=== PATIENT | female | born 1995 | race Caucasian/White ===

== ENCOUNTER 2020-06-28 12:12 | Emergency (ER) | payer OTHER, SELFPAY ==
[2020-06-28 14:41] VITALS: BP 113/68; PULSE 60; RESP 16; TEMP 36.8; O2SAT 100; BMI 28.1
--- NOTE | 2020-06-28 14:47 | CT_ITS ---
EXAMINATION: CT ABDOMEN AND PELVIS WITH CONTRAST CLINICAL INFORMATION: Right-sided abdominal pain COMPARISON: CT abdomen pelvis 01/24/2020 TECHNIQUE: Multidetector volumetric images were obtained from the superior aspect of the liver through the pubic symphysis following administration 85 mL of Omnipaque 350 intravenous contrast. Sagittal and coronal reformatted images were obtained on the technologist's workstation. Oral contrast: No This CT examination was performed using dose optimization techniques as appropriate, variously including the following: *Automated exposure control *Adjustment of mA and/or kV according to patient size (this includes techniques or standardized protocols for targeted exams where dose is matched to indication/reason for exam; i.e. extremities or head) *Use of iterative reconstruction technique DLP: 633 mGy-cm FINDINGS: Visualized lung bases are well aerated. The liver demonstrates normal size, contour and attenuation. The gallbladder is surgically absent. The pancreas, spleen and adrenal glands are unremarkable. Symmetrically enhancing kidneys. 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 No hydronephrosis bilaterally. Extrarenal pelvis sees noted. Tiny hiatal hernia. Surgical changes consistent with gastric bypass. Normal caliber loops of small and large bowel. Mild stool burden throughout the colon. The appendix is not definitively visualized, however, there is no inflammatory stranding present within the right lower abdomen. Nonaneurysmal abdominal aorta. The bladder is well-distended and normal in appearance. Unremarkable CT appearance of the uterus. Tiny amount of free pelvic fluid is likely physiologic. No inguinal lymphadenopathy. No acute osseous abnormality. IMPRESSION: Stable examination demonstrating no CT evidence for acute abnormality within the abdomen or pelvis.
[2020-06-28] MEDS: 0.9 % Sodium Chloride 1,000 ML 999 ML IVCONT (15:23)
[2020-06-28] MEDS: Magnesium Hydrox/Alum Hydrox 30 ML ORAL.SUSP PO (15:23)
[2020-06-28] MEDS: Lidocaine HCl Viscous 2 % 15 ML SOLUTION 10 ML MUCOUS MEM (15:23)
[2020-06-28] MEDS: ondansetron HCL 4 MG/2 ML VIAL IVPUSH ×2 (15:23→17:48)
[2020-06-28 15:38] LABS: MANUAL DIFF FLAG NO
[2020-06-28 15:41] LABS: Basophils Absolute Auto 0.1 X10*3/uL (0.0-0.2); Basophils Percent Auto 0.7 % (0-2); Eosinophils Absolute Auto 0.3 X10*3/uL (0.0-0.4); Eosinophils Percent Auto 3.4 % (0-4); Hematocrit 38.6 % (37-47); Hemoglobin 11.9 g/dl (12.0-16.0); Imm Gran Abs Auto 0.02 X10*3/uL (0.00-0.03); Imm Gran Pct Auto 0.3 % (0.0-0.4); Lymphocytes Absolute Auto 2.3 X10*3/uL (1.2-4.9); Lymphocytes Percent Auto 30.5 % (20-40); Mean Corpuscular HGB Conc 30.8 g/dl (31.0-35.0); Mean Corpuscular Hemoglobin 24.9 pg (27.0-33.0); Mean Corpuscular Volume 80.9 fL (80-98); Mean Platelet Volume 9.9 fL (9.4-12.3); Monocytes Absolute Auto 0.7 X10*3/uL (0.1-1.2); Monocytes Percent Auto 9.4 % (2-11); Neutrophils Absolute Auto 4.1 X10*3/uL (2.0-8.3); Neutrophils Percent Auto 55.7 % (45-73); Platelet Count 275 X10*3/uL (160-400); Red Blood Count 4.77 X10*6/uL (4.20-5.50); Red Cell Distribution Width 16.5 % (11.0-16.0); White Blood Count 7.4 X10*3/uL (4.8-10.8)
[2020-06-28 15:42] LABS: Glucose Urine UA NEG (NEG); Leukocyte Esterase Urine NEG (NEG); Nitrite Urine NEG (NEG); PH 6.5 (5.0-8.0); Specific Gravity - Urine 1.025 (1.005-1.025); Urine Blood NEG (NEG); Urine Ketones NEG (NEG); Urine Protein NEG (NEG-TRACE)
[2020-06-28 15:43] LABS: Appearance Urine CLEAR; Color Urine YELLOW
[2020-06-28 15:54] LABS: RBC Urine 0 /HPF (0); Squamous Epithelial Cell Urine 1+ /LPF; WBC Urine 0 /HPF (0-4)
[2020-06-28 16:09] VITALS: BP 96/43; PULSE 61; RESP 18; TEMP 36.7; O2SAT 100
[2020-06-28 16:13] LABS: UPreg QC Valid YES; Urine Pregnancy NEGATIVE (NEGATIVE)
--- NOTE | 2020-06-28 16:17 | PC.NURSE ---
PT TRIAGED C/O R SIDED FLANK PAIN X 5 DAYS WITH VOMITING AND NAUSEA. PAIN SHARP AND CONSTANT 8/10. DENIES HX KIDNEY STONES, DENIES URINARY SXS, FEVERSCHILLS. VS WNL. HX GASTRIC BYPASS, CHOLECYSTECTOMY IN PAST 2 YRS. A&OX3, SPEAKING IN CLEAR FULL SENTENCES. RESP EVEN AND NONLABOURED. 20G PLACED IN L AC, FLUIDS RUNNING.
[2020-06-28 16:28] LABS: Alanine Aminotransferase 10 U/L (0-31); Albumin Level 3.7 g/dL (3.5-5.0); Alkaline Phosphatase 84 U/L (39-117); Anion Gap 12 (12-20); Aspartate Amino Transferase 15 U/L (5-31); Bilirubin Total 0.5 mg/dL (0.0-1.0); Blood Urea Nitrogen 11 mg/dL (9-16); Calcium 8.2 mg/dL (8.4-10.2); Carbon Dioxide 23 mmol/L (22-29); Chloride 108 mmol/L (96-108); Creatinine Clr Calc Pharmacy 142.3; Estimated Glomerular Filt Rate > 60; Glucose Random 84 mg/dL (60-115); Lipase 24 U/L (8-78); Potassium 4.6 mmol/l (3.3-5.1); Sodium 138 mmol/L (135-145)
[2020-06-28] MEDS: iohexoL 350 MG/ML 100 ML INFUS..BTL IV (17:07)
--- NOTE | 2020-06-28 18:01 | ED_ITS ---
HPI - Abdominal Pain General Chief Complaint: Nausea/Vomiting/Diarrhea Stated Complaint: pain rt side,vomiting Time Seen by Provider: 06/28/20 14:45 Source: patient Mode of arrival: ambulatory Limitations: no limitations History of Present Illness HPI narrative: 24-year-old female with past medical history significant for gastroesophageal reflux disease, sleep apnea, asthma, chronic migraine headaches, chronic back pain, hiatal hernia status post repair as well as obesity status post cholecystectomy and gastric bypass 02/13/2017, at that time she has told me that she wait over 300 lb now down to 170s presenting today with complaint of right-sided abdominal pain with associated nausea and vomiting states she chronically has irregular bowel movements and states pain has been waxing waning but continued prompting her to call her GP who advised her to come here. She denies any travel, sick contacts, recent antibiotic use. MD elicited complaint: abdominal pain Onset (ago): day(s) Pain Consistency: constant Location: diffuse ( Diffuse right-sided) Severity: moderate Quality: cramping and aching Migration to: no migration Exacerbating factors: eating Relieving factors: nothing Associated symptoms: nausea and vomiting Related Data Previous Rx's Medication Instructions Recorded dicyclomine 20 mg PO BID PRN #20 tab 06/28/20 ondansetron HCl [Zofran] 4 mg PO Q8H PRN #10 tab 06/28/20 Allergies Allergy/AdvReac Type Severity Reaction Status Date / Time carrot [CARROTS] Allergy Intermediate SWELLING Unverified 06/01/20 16:31 cat dander [CATS] Allergy Intermediate ITCHING Unverified 06/01/20 16:31 insect venom [INSECT BITES] Allergy Intermediate HIVES Unverified 06/01/20 16:31 Carrots Allergy Unknown Swelling Uncoded 11/16/19 00:00 of throat, & mouth pt denies medication Allergy Unknown Uncoded 11/16/19 00:00 allergies Review of Systems Review of Systems Constitutional: No Weight loss, No Fever, No Chills, No Night Sweats, No Fatigue, No Malaise ENT/Mouth: No Hearing loss, No Ear Pain, No Nasal Congestion, No Sinus Pain, No Hoarseness, No sore throat, No Rhinorrhea, No Swallowing Difficulty Eyes: No Eye Pain, No Swelling, No Redness, No Foreign Body, No Discharge, No Vision Changes Cardiovascular: No Chest Pain, No SOB, No Dyspnea on Exertion, No Orthopnea, No Edema, No Palpitations Respiratory: No Cough, No Sputum, No Wheezing, No Smoke Exposure, No Dyspnea Gastrointestinal: + Nausea, No Diarrhea, No Constipation, No Hematochezia, No Melena Genitourinary: no irregular bleeding, No Dysuria, No Urinary Frequency, No Hematuria, No Urinary Incontinence, No Urgency, No Flank Pain, No Urinary Flow Changes, No Hesitancy Musculoskeletal: No joint pain, No Myalgias, No Joint Swelling Skin: No Skin Lesions, No rash Neuro: No Weakness, No Numbness, No Paresthesias, No Loss of Consciousness, No Dizziness, No Headache Psych: No Anxiety/Panic, No Depression, No SI/HI/AH/VH, No Social Issues, Heme/Lymph: No Bruising, No Bleeding,No Lymphadenopathy Endocrine: No Polyuria, No Polydipsia, No Temperature Intolerance Yes all other systems are reviewed and are negative Physical Exam Vital Signs: Vital Signs: Vital Signs Temp Pulse Resp BP Pulse Ox 06/28/20 16:09 98.1 F 61 18 96/43 L 100 06/28/20 14:41 98.2 F 60 16 113/68 100 Body Mass Index 28.1 Review Const: General: cooperative and healthy appearing; No acute distress or intoxicated appearing Nutritional Appearance: average body habitus Orientation/consciousness: patient oriented x3 HENMT: Head: Yes normal to inspection Ears: hearing grossly normal bilaterally Eyes: General: appearance normal, both eyes and all related structures Visual Lorenzo: normal visual lorenzo by confrontation Neck: Neck: Yes normal visual inspection and No tender Thyroid: Thyroid normal Chest: Chest palpation & inspection: normal inspection of the chest Resp: Effort & Inspection: normal respiratory effort Cardio: Jugular venous distension: no JVD GI: Inspection: Yes normal to inspection Percussion: Yes normal to percussion Auscultation: normal bowel sounds : General: Yes no CVA tenderness Back/Spine/Pelvis: Back: no CVA tenderness Skin: General skin exam: no rashes or lesions noted Neuro: General: patient oriented x3 Extrem: General: Yes normal to inspection Course Course Course Narrative: labs overall reassuring. Given the chronicity of pain risk and benefits of getting abdominal CT scan to rule out acute pathology reviewed with patient in detail. Given the stable exam and workup less likely any serious derangement however given her extensive surgical / bariatric history possibility rest she would like to go ahead and proceed with the imaging. Reevaluation(s) Reevaluation #1: Has been resting comfortably. No acute distress. Lab findings as well as CT findings reviewed. We will discharge home with Robi with instructions to follow-up with pediatrics and primary care. Stable for discharge. MDM - Abdominal Pain Differential Diagnosis Differential diagnosis: Likely abdominal pain, acute appendicitis, gastroenteritis and gastritis; Unlikely aortic dissection, bowel perforation, calculus of kidney, constipation, diverticulitis, endometriosis, mesenteric ischemia, ovarian cyst, pancreatitis, peptic ulcer disease, renal colic and small bowel obstruction Medical Records Attestation: I reviewed the patient's medical records. Medical records narrative: colonoscopy by Dr. Sofya ALVAREZ 12/02/2019 Findings: Terminal Ileum ? Normal, bx taken Cecum ?Normal Ascending Colon ?Normal Transverse Colon -Normal Descending Colon ?Normal Sigmoid Colon ?Normal Rectum ? small internal hemorrhoids, grade I on retroflexion, otherwise normal Anorectum -Normal random colon bx taken Colon preparation: Good Impression and Post Procedure Diagnosis: Endoscopy Findings: retained sutures irregular z line Colonoscopy Findings: internal hemorrhoids Lab Data Attestation: I reviewed the patient's lab results. Result diagrams: 06/28/20 15:22 06/28/20 15:22 Labs: Lab Results 06/28/20 06/28/20 06/28/20 Range/Units 15:22 15:22 15:22 WBC 7.4 (4.8-10.8) X10*3/uL RBC 4.77 (4.20-5.50) X10*6/uL Hgb 11.9 L (12.0-16.0) g/dl Hct 38.6 (37-47) % MCV 80.9 (80-98) fL MCH 24.9 L (27.0-33.0) pg MCHC 30.8 L (31.0-35.0) g/dl RDW 16.5 H (11.0-16.0) % Plt Count 275 (160-400) X10*3/uL MPV 9.9 (9.4-12.3) fL Immature Gran % (Auto) 0.3 (0.0-0.4) % Neut % (Auto) 55.7 (45-73) % Lymph % (Auto) 30.5 (20-40) % [place] % (Auto) 9.4 (2-11) % Eos % (Auto) 3.4 (0-4) % Baso % (Auto) 0.7 (0-2) % Lymph # (Auto) 2.3 (1.2-4.9) X10*3/uL [place] # (Auto) 0.7 (0.1-1.2) X10*3/uL Eos # (Auto) 0.3 (0.0-0.4) X10*3/uL Baso # (Auto) 0.1 (0.0-0.2) X10*3/uL Abs Immat Gran (auto) 0.02 (0.00-0.03) X10*3/uL Absolute Neuts (auto) 4.1 (2.0-8.3) X10*3/uL Absolute Nucleated RBC 0.000 (0.0-0.012) X10*3/uL Nucleated RBC % (auto) 0.0 (0.0-0.2) /100WBC Hold Blue Top SEE NOTE Sodium (135-145) mmol/L Potassium (3.3-5.1) mmol/l Chloride (96-108) mmol/L Carbon Dioxide (22-29) mmol/L Anion Gap (12-20) BUN (9-16) mg/dL Creatinine (0.5-1.4) mg/dL Estim Creat Clear Calc Estimated GFR Random Glucose (60-115) mg/dL Calcium (8.4-10.2) mg/dL Total Bilirubin (0.0-1.0) mg/dL AST (5-31) U/L ALT (0-31) U/L Alkaline Phosphatase (39-117) U/L Total Protein (6.5-8.0) g/dL Albumin (3.5-5.0) g/dL Lipase (8-78) U/L Urine Color YELLOW Urine Appearance CLEAR Urine pH 6.5 (5.0-8.0) Ur Specific [place] 1.025 (1.005-1.025) Urine Protein NEG (NEG-TRACE) MG/DL Urine Glucose (UA) NEG (NEG) MG/DL Urine Ketones NEG (NEG) MG/DL Urine Blood NEG (NEG) Urine Nitrite NEG (NEG) Ur Leukocyte Esterase NEG (NEG) Urine RBC 0 (0) /HPF Urine WBC 0 (0-4) /HPF Ur Squamous Epith Cells 1+ /LPF Urine Bacteria NONE /LPF Urine Test NEGATIVE (NEGATIVE) 06/28/20 Range/Units 15:22 WBC (4.8-10.8) X10*3/uL RBC (4.20-5.50) X10*6/uL Hgb (12.0-16.0) g/dl Hct (37-47) % MCV (80-98) fL MCH (27.0-33.0) pg MCHC (31.0-35.0) g/dl RDW (11.0-16.0) % Plt Count (160-400) X10*3/uL MPV (9.4-12.3) fL Immature Gran % (Auto) (0.0-0.4) % Neut % (Auto) (45-73) % Lymph % (Auto) (20-40) % [place] % (Auto) (2-11) % Eos % (Auto) (0-4) % Baso % (Auto) (0-2) % Lymph # (Auto) (1.2-4.9) X10*3/uL [place] # (Auto) (0.1-1.2) X10*3/uL Eos # (Auto) (0.0-0.4) X10*3/uL Baso # (Auto) (0.0-0.2) X10*3/uL Abs Immat Gran (auto) (0.00-0.03) X10*3/uL Absolute Neuts (auto) (2.0-8.3) X10*3/uL Absolute Nucleated RBC (0.0-0.012) X10*3/uL Nucleated RBC % (auto) (0.0-0.2) /100WBC Hold Blue Top Sodium 138 (135-145) mmol/L Potassium 4.6 (3.3-5.1) mmol/l Chloride 108 (96-108) mmol/L Carbon Dioxide 23 (22-29) mmol/L Anion Gap 12 (12-20) BUN 11 (9-16) mg/dL Creatinine 0.67 (0.5-1.4) mg/dL Estim Creat Clear Calc 142.3 Estimated GFR > 60 Random Glucose 84 (60-115) mg/dL Calcium 8.2 L (8.4-10.2) mg/dL Total Bilirubin 0.5 (0.0-1.0) mg/dL AST 15 (5-31) U/L ALT 10 (0-31) U/L Alkaline Phosphatase 84 (39-117) U/L Total Protein 6.0 L (6.5-8.0) g/dL Albumin 3.7 (3.5-5.0) g/dL Lipase 24 (8-78) U/L Urine Color Urine Appearance Urine pH (5.0-8.0) Ur Specific [place] (1.005-1.025) Urine Protein (NEG-TRACE) MG/DL Urine Glucose (UA) (NEG) MG/DL Urine Ketones (NEG) MG/DL Urine Blood (NEG) Urine Nitrite (NEG) Ur Leukocyte Esterase (NEG) Urine RBC (0) /HPF Urine WBC (0-4) /HPF Ur Squamous Epith Cells /LPF Urine Bacteria /LPF Urine Test (NEGATIVE) Imaging Data CT scan - abdomen: Radiologist's impression: [place] [id number] CT Scan Report Signed Patient: Evelyne Lazaro#: [id number] : 1995Acct:[id number] Age/Sex: 24 / FADM Date: 06/28/20 Loc: .ED Attending Dr: Ordering Physician: Anirudh Yan NP Date of Service: 06/28/20 Procedure(s): CT abdomen pelvis w con Accession Number(s): [id number] cc: Anirudh Yan [employer]~ EXAMINATION: CT ABDOMEN AND PELVIS WITH CONTRAST CLINICAL INFORMATION: Right-sided abdominal pain COMPARISON: CT abdomen pelvis 01/24/2020 TECHNIQUE: Multidetector volumetric images were obtained from the superior aspect of the liver through the pubic symphysis following administration 85 mL of Omnipaque 350 intravenous contrast. Sagittal and coronal reformatted images were obtained on the technologist's workstation. Oral contrast: No This CT examination was performed using dose optimization techniques as appropriate, variously including the following: *Automated exposure control *Adjustment of mA and/or kV according to patient size (this includes techniques or standardized protocols for targeted exams where dose is matched to indication/reason for exam; i.e. extremities or head) *Use of iterative reconstruction technique DLP: 633 mGy-cm FINDINGS: Visualized lung bases are well aerated. The liver demonstrates normal size, contour and attenuation. The gallbladder is surgically absent. The pancreas, spleen and adrenal glands are unremarkable. Symmetrically enhancing kidneys. 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 No hydronephrosis bilaterally. Extrarenal pelvis sees noted. Tiny hiatal hernia. Surgical changes consistent with gastric bypass. Normal caliber loops of small and large bowel. Mild stool burden throughout the colon. The appendix is not definitively visualized, however, there is no inflammatory stranding present within the right lower abdomen. Nonaneurysmal abdominal aorta. The bladder is well-distended and normal in appearance. Unremarkable CT appearance of the uterus. Tiny amount of free pelvic fluid is likely physiologic. No inguinal lymphadenopathy. No acute osseous abnormality. IMPRESSION: Stable examination demonstrating no CT evidence for acute abnormality within the abdomen or pelvis. Dictated By:JOHSUA TORRE MD Signed By:<Electronically signed by JOSHUA TORRE MD in OV>06/28/20 1724 DD/ 1447 TD/TT: Chemical Dependency Therapist: PD Discharge Plan Discharge Clinical Impression: Abdominal pain Qualifiers: Abdominal location: unspecified location Qualified Code(s): R10.9 - Unspecified abdominal pain Patient Disposition: Home, Self-Care Instructions: Abdominal Pain (ED) Prescriptions: New ondansetron HCl [Zofran] 4 mg tablet 4 mg PO Q8H PRN (Reason: nausea and vomiting) Qty: 10 RF: 0 dicyclomine 20 mg tablet 20 mg PO BID PRN (Reason: abdominal pain) Qty: 20 RF: 0 Referrals: Marita Toledo MD [Primary Care Provider] - 2 days Stand Alone Forms: Work/School Release [facility] Past Medical History Attestation statement: The following information was validated with the patient. Medical History (Updated 06/28/20 @ 18:08 by Anirudh Yan NP) Asthma Bile duct abnormality Cholecystectomy planned Sleep apnea Surgical History (Updated 06/28/20 @ 14:47 by Mona Simmons RN) Gastric bypass status for obesity Social History Social History Advance Directives: No Advance Directives Information Provided: No
[2020-06-28 18:36] VITALS: BP 102/57; PULSE 55; RESP 18; TEMP 37.1; O2SAT 100
== END 2020-06-28 19:14 | disposition home or self-care (01) ==
PROVIDERS: Nurse Practitioner Primary Care; Emergency Provider Emergency Medicine; PCP Internal Medicine
DX: R10.9 Unspecified abdominal pain (principal); Z79.899 Other long term (current) drug therapy
CPT/HCPCS: 36415; 74177; 80053; 81001; 81025; 83690; 85025; 96361; 96374; 96376; 99283; 99284; J2405

== ENCOUNTER 2020-07-04 11:40 | Outpatient (REF) | payer OTHER, SELFPAY | END 2020-07-04 11:41 | disposition home or self-care (01) | LOC: HO.LAB 11:40 | PROVIDERS: PCP Internal Medicine; Visit Provider Internal Medicine | DX: Z20.828 Contact with and (suspected) exposure to other viral communicable diseases (principal) | CPT/HCPCS: 87635 ==

== ENCOUNTER 2020-08-11 23:22 | Observation (INO) | payer OTHER, SELFPAY ==
[2020-08-11 23:33] VITALS: BP 124/75; PULSE 90; RESP 18; TEMP 36.2; O2SAT 100; BMI 29.0
[2020-08-11 23:39] VITALS: BP 124/75; RESP 89; TEMP 36.2; O2SAT 100
[2020-08-12] VITALS (9 sets, daily range): BP systolic 100–115; BP diastolic 47–67; PULSE 60–80; RESP 16–19; TEMP 36.1–37.1; O2SAT 96–100
--- NOTE | 2020-08-12 00:20 | CT_ITS ---
EXAMINATION: CT ABDOMEN AND PELVIS WITH CONTRAST CLINICAL INFORMATION: Left abdominal pain. History of gastric bypass. COMPARISON: 06/28/2020 TECHNIQUE: Multidetector volumetric images were obtained from the superior aspect of the liver through the pubic symphysis following administration 85 mL of Omnipaque 350 intravenous contrast. Sagittal and coronal reformatted images were obtained on the technologist's workstation. Oral contrast: No This CT examination was performed using dose optimization techniques as appropriate, variously including the following: *Automated exposure control *Adjustment of mA and/or kV according to patient size (this includes techniques or standardized protocols for targeted exams where dose is matched to indication/reason for exam; i.e. extremities or head) *Use of iterative reconstruction technique DLP: 647 mGy-cm FINDINGS: LUNG BASES: The visualized lung bases are unremarkable. LIVER, GALLBLADDER, AND BILIARY TREE: The liver is normal in size, shape, and attenuation. No focal hepatic lesion or biliary ductal dilatation is present. Cholecystectomy. PANCREAS: Unremarkable. SPLEEN: Unremarkable. ADRENAL GLANDS: Unremarkable. KIDNEYS AND URETERS: The kidneys are normal in size, shape, and attenuation. Rotated right kidney, unchanged. No hydronephrosis, hydroureter, or calculi seen. No perinephric stranding. BLADDER: Unremarkable. GASTROINTESTINAL TRACT: Status post gastric bypass. No dilated loops of bowel. No obstruction. No colonic wall thickening or acute inflammation. Mild to moderate colonic stool burden. No free air. No free fluid. ABDOMINAL WALL: No significant hernia is appreciated. LYMPH NODES: Normal. VASCULAR: Unremarkable. PELVIC VISCERA: Anteverted uterus. Dominant right ovarian follicle measuring 1.7 cm.. OSSEOUS STRUCTURES: Unremarkable. CT/CT abdomen pelvis w con IMPRESSION: No acute findings of the abdomen or pelvis. No inflammatory changes. Mild to moderate colonic stool burden..
[2020-08-12 00:22] LABS: Appearance Urine CLEAR; Color Urine YELLOW; Glucose Urine UA 100 MG/DL (NEG); Leukocyte Esterase Urine TRACE (NEG); Nitrite Urine NEG (NEG); Urine Blood NEG (NEG); Urine Ketones NEG (NEG); Urine Protein NEG (NEG-TRACE)
[2020-08-12 00:24] LABS: UPreg QC Valid YES; Urine Pregnancy NEGATIVE (NEGATIVE)
[2020-08-12 00:28] LABS: Bacteria Urine 1+ /LPF; Mucus Urine 1+ /LPF; RBC Urine 0 /HPF (0); Squamous Epithelial Cell Urine 2+ /LPF
--- NOTE | 2020-08-12 00:29 | ED_ITS ---
HPI - General Adult General Chief complaint: General Medical Stated complaint: Abd pain Time Seen by Provider: 08/12/20 00:13 Source: patient Mode of arrival: wheelchair Limitations: no limitations History of Present Illness HPI narrative: Patient is a 24 year female with past surgical history of gastric bypass in 2017, laparoscopic cholecystectomy, and bile duct repair. Patient comes to the emergency room complaining left-sided abdominal pain. Patient states it started a few minutes after eating Dutch fries around 2230. Patient states is dull, severe, 06/24. Patient states she was seen in June for abd ominal pain, however the pain was on the right side. This time the patient is only on the left side. Patient complaining of multiple episodes of vomiting in the last couple of hours, no diarrhea. MD complaint: Abdominal pain Related Data Allergies Allergy/AdvReac Type Severity Reaction Status Date / Time carrot [CARROTS] Allergy Intermediate SWELLING Verified 08/11/20 23:32 cat dander [CATS] Allergy Intermediate ITCHING Verified 08/11/20 23:32 insect venom [INSECT BITES] Allergy Intermediate HIVES Verified 08/11/20 23:32 Carrots Allergy Unknown Swelling Uncoded 11/16/19 00:00 of throat, & mouth Review of Systems Review of Systems: Constitutional : No Weight loss, No Fever, No Chills, No Night Sweats, No Fatigue, No Malaise ENT/Mouth : No Hearing loss, No Ear Pain, No Nasal Congestion, No Sinus Pain, No Hoarseness, No sore throat, No Rhinorrhea, No Swallowing Difficulty Eyes: No Eye Pain, No Swelling, No Redness, No Foreign Body, No Discharge, No Vision Changes Cardiovascular : No Chest Pain, No SOB, No Dyspnea on Exertion, No Orthopnea, No Edema, No Palpitations Respiratory : No Cough, No Sputum, No Wheezing, No Smoke Exposure, No Dyspnea Gastrointestinal : Patient complaining of nausea and vomiting, severe left upper and lower quadrant pain, no diarrhea No Hematochezia, No Melena Genitourinary : no irregular bleeding, No Dysuria, No Urinary Frequency, No Hematuria, No Urinary Incontinence, No Urgency, No Flank Pain, No Urinary Flow Changes, No Hesitancy Musculoskeletal : No joint pain, No Myalgias, No Joint Swelling Skin : No Skin Lesions, No rash Neuro : No Weakness, No Numbness, No Paresthesias, No Loss of Consciousness, complaining of mild dizziness with the pain Psych : No Anxiety/Panic, No Depression, No SI/HI/AH/VH, No Social Issues, Heme/Lymph: No Bruising, No Bleeding,No Lymphadenopathy Endocrine : No Polyuria, No Polydipsia, No Temperature Intolerance PMFSH Past Medical History Medical History Asthma Bile duct abnormality Cholecystectomy planned Sleep apnea Surgical History Gastric bypass status for obesity Hx of cholecystectomy Family History Family History (Updated 07/13/20 @ 13:54 by RUFINO Siddiqui) Father Obesity Diabetes mellitus Mother Obesity Arthritis of knee Paternal Grandfather Diabetes mellitus Paternal Grandmother Diabetes mellitus Maternal Grandmother Arthritis of knee Diabetes mellitus Maternal Grandfather Diabetes mellitus Social History Social History (Updated 07/13/20 @ 13:55 by RUFINO Siddiqui) Alcohol intake: never Smoking Status: Never smoker Smoked in Last 30 Days: No Use of substances other than those prescribed or required for medical reasons: No Advance Directives: No Advance Directives Information Provided: No Physical Exam Vital Signs: Vital Signs: Last Vital Signs Temp 97.8 F 08/12/20 02:00 Pulse 74 08/12/20 02:00 Resp 16 08/12/20 02:00 BP 104/51 L 08/12/20 02:00 Pulse Ox 100 08/12/20 02:00 Body Mass Index 29.0 Appearance: Alert. Oriented X3. Moderate distress due to pain, lying in position Eyes: Pupils equal, round and reactive to light. ENT: Pharynx normal. Neck: Normal inspection. Neck supple. No lymph nodes noted. No crepitus CVS: Normal heart rate and rhythm. Pulses normal. Normal S1 and S2 Respiratory: No respiratory distress. Breath sounds normal. No Wheezing. No rales Abdomen: Soft, tender to palpation in the left upper and lower quadrant, no guarding, no rebound Skin: Skin warm and dry. Normal skin color. Normal skin turgor. Extremities: No lower extremity edema. No lower extremity edema. No Lacerations. No Rash Neuro: Oriented X 3. No motor deficit. No sensory deficit. Moving all extermities. No slurred speech. Course Course Course Narrative: Patient's labs and CT scan do not show any acute pathology, CT scan does show moderate stool burden. Patient states that she feels just the same as when she 1st came to the emergency room. However, physically the patient looks better. When patient came to the emergency room she was in position due to the pain, now she was able to walk to the bathroom, did not seem in pain. I discussed the patient with nurse practitioner Amy Maldonado, she wants to run the patient by Dr. Desai due to the patient's past surgical history. Sign-out given to Dr. Lebron, patient's disposition is pending. Medical Decision Making Lab Data Result diagrams: 08/12/20 00:43 08/12/20 00:43 Labs: Lab Results 08/12/20 08/12/20 08/12/20 Range/Units 00:06 00:06 00:43 WBC 9.8 (4.8-10.8) X10*3/uL RBC 4.57 (4.20-5.50) X10*6/uL Hgb 11.6 L (12.0-16.0) g/dl Hct 37.7 (37-47) % MCV 82.5 (80-98) fL MCH 25.4 L (27.0-33.0) pg MCHC 30.8 L (31.0-35.0) g/dl RDW 14.6 (11.0-16.0) % Plt Count 280 (160-400) X10*3/uL MPV 9.7 (9.4-12.3) fL Immature Gran % (Auto) 0.2 (0.0-0.4) % Neut % (Auto) 65.8 (45-73) % Lymph % (Auto) 21.9 (20-40) % [place] % (Auto) 10.0 (2-11) % Eos % (Auto) 1.4 (0-4) % Baso % (Auto) 0.7 (0-2) % Lymph # (Auto) 2.2 (1.2-4.9) X10*3/uL [place] # (Auto) 1.0 (0.1-1.2) X10*3/uL Eos # (Auto) 0.1 (0.0-0.4) X10*3/uL Baso # (Auto) 0.1 (0.0-0.2) X10*3/uL Abs Immat Gran (auto) 0.02 (0.00-0.03) X10*3/uL Absolute Neuts (auto) 6.5 (2.0-8.3) X10*3/uL Absolute Nucleated RBC 0.000 (0.0-0.012) X10*3/uL Nucleated RBC % (auto) 0.0 (0.0-0.2) /100WBC Sodium (135-145) mmol/L Potassium (3.3-5.1) mmol/l Chloride (96-108) mmol/L Carbon Dioxide (22-29) mmol/L Anion Gap (12-20) BUN (9-16) mg/dL Creatinine (0.5-1.4) mg/dL Estim Creat Clear Calc Estimated GFR Random Glucose (60-115) mg/dL Calcium (8.4-10.2) mg/dL Total Bilirubin (0.0-1.0) mg/dL Direct Bilirubin (0.0-0.5) mg/dL AST (5-31) U/L ALT (0-31) U/L Alkaline Phosphatase (39-117) U/L Total Protein (6.5-8.0) g/dL Albumin (3.5-5.0) g/dL Lipase (8-78) U/L Beta HCG, Quant mIU/mL Urine Color YELLOW Urine Appearance CLEAR Urine pH 6.0 (5.0-8.0) Ur Specific [place] 1.020 (1.005-1.025) Urine Protein NEG (NEG-TRACE) MG/DL Urine Glucose (UA) 100 H (NEG) MG/DL Urine Ketones NEG (NEG) MG/DL Urine Blood NEG (NEG) Urine Nitrite NEG (NEG) Ur Leukocyte Esterase TRACE H (NEG) Urine RBC 0 (0) /HPF Urine WBC 5-9 H (0-4) /HPF Ur Squamous Epith Cells 2+ /LPF Urine Bacteria 1+ /LPF Urine Mucus 1+ /LPF Urine Test NEGATIVE (NEGATIVE) 08/12/20 08/12/20 Range/Units 00:43 00:43 WBC (4.8-10.8) X10*3/uL RBC (4.20-5.50) X10*6/uL Hgb (12.0-16.0) g/dl Hct (37-47) % MCV (80-98) fL MCH (27.0-33.0) pg MCHC (31.0-35.0) g/dl RDW (11.0-16.0) % Plt Count (160-400) X10*3/uL MPV (9.4-12.3) fL Immature Gran % (Auto) (0.0-0.4) % Neut % (Auto) (45-73) % Lymph % (Auto) (20-40) % Conway % (Auto) (2-11) % Eos % (Auto) (0-4) % Baso % (Auto) (0-2) % Lymph # (Auto) (1.2-4.9) X10*3/uL [place] # (Auto) (0.1-1.2) X10*3/uL Eos # (Auto) (0.0-0.4) X10*3/uL Baso # (Auto) (0.0-0.2) X10*3/uL Abs Immat Gran (auto) (0.00-0.03) X10*3/uL Absolute Neuts (auto) (2.0-8.3) X10*3/uL Absolute Nucleated RBC (0.0-0.012) X10*3/uL Nucleated RBC % (auto) (0.0-0.2) /100WBC Sodium 139 (135-145) mmol/L Potassium 4.2 (3.3-5.1) mmol/l Chloride 107 (96-108) mmol/L Carbon Dioxide 24 (22-29) mmol/L Anion Gap 12 (12-20) BUN 13 (9-16) mg/dL Creatinine 0.68 (0.5-1.4) mg/dL Estim Creat Clear Calc 142.0 Estimated GFR > 60 Random Glucose 102 (60-115) mg/dL Calcium 8.1 L (8.4-10.2) mg/dL Total Bilirubin 0.3 (0.0-1.0) mg/dL Direct Bilirubin < 0.2 (0.0-0.5) mg/dL AST 20 (5-31) U/L ALT 12 (0-31) U/L Alkaline Phosphatase 91 (39-117) U/L Total Protein 6.4 L (6.5-8.0) g/dL Albumin 4.1 (3.5-5.0) g/dL Lipase 34 (8-78) U/L Beta HCG, Quant < 2 mIU/mL Urine Color Urine Appearance Urine pH (5.0-8.0) Ur Specific [place] (1.005-1.025) Urine Protein (NEG-TRACE) MG/DL Urine Glucose (UA) (NEG) MG/DL Urine Ketones (NEG) MG/DL Urine Blood (NEG) Urine Nitrite (NEG) Ur Leukocyte Esterase (NEG) Urine RBC (0) /HPF Urine WBC (0-4) /HPF Ur Squamous Epith Cells /LPF Urine Bacteria /LPF Urine Mucus /LPF Urine Test (NEGATIVE) Discharge Plan Discharge Clinical Impression: Abdominal pain Instructions: Abdominal Pain (ED)
[2020-08-12 00:49] LABS: Basophils Absolute Auto 0.1 X10*3/uL (0.0-0.2); Basophils Percent Auto 0.7 % (0-2); Eosinophils Absolute Auto 0.1 X10*3/uL (0.0-0.4); Eosinophils Percent Auto 1.4 % (0-4); Hematocrit 37.7 % (37-47); Hemoglobin 11.6 g/dl (12.0-16.0); Imm Gran Abs Auto 0.02 X10*3/uL (0.00-0.03); Imm Gran Pct Auto 0.2 % (0.0-0.4); Lymphocytes Absolute Auto 2.2 X10*3/uL (1.2-4.9); Lymphocytes Percent Auto 21.9 % (20-40); MANUAL DIFF FLAG NO; Mean Corpuscular HGB Conc 30.8 g/dl (31.0-35.0); Mean Corpuscular Hemoglobin 25.4 pg (27.0-33.0); Mean Corpuscular Volume 82.5 fL (80-98); Mean Platelet Volume 9.7 fL (9.4-12.3); Neutrophils Absolute Auto 6.5 X10*3/uL (2.0-8.3); Neutrophils Percent Auto 65.8 % (45-73); Platelet Count 280 X10*3/uL (160-400); Red Blood Count 4.57 X10*6/uL (4.20-5.50); Red Cell Distribution Width 14.6 % (11.0-16.0); White Blood Count 9.8 X10*3/uL (4.8-10.8)
[2020-08-12] MEDS: 0.9 % Sodium Chloride 1,000 ML 999 ML IVCONT (00:54)
[2020-08-12] MEDS: Morphine Sulfate 2 MG/ML CARTRIDGE 1 MG IVPUSH (00:56)
[2020-08-12 01:12] LABS: Alanine Aminotransferase 12 U/L (0-31); Albumin Level 4.1 g/dL (3.5-5.0); Alkaline Phosphatase 91 U/L (39-117); Anion Gap 12 (12-20); Aspartate Amino Transferase 20 U/L (5-31); Bilirubin Direct < 0.2 mg/dL (0.0-0.5); Bilirubin Total 0.3 mg/dL (0.0-1.0); Blood Urea Nitrogen 13 mg/dL (9-16); Calcium 8.1 mg/dL (8.4-10.2); Carbon Dioxide 24 mmol/L (22-29); Chloride 107 mmol/L (96-108); Estimated Glomerular Filt Rate > 60; Glucose Random 102 mg/dL (60-115); Lipase 34 U/L (8-78); Potassium 4.2 mmol/l (3.3-5.1); Sodium 139 mmol/L (135-145); Total Protein 6.4 g/dL (6.5-8.0)
[2020-08-12 01:18] LABS: HCG Quantitative < 2 mIU/mL
[2020-08-12] MEDS: iohexoL 350 MG/ML 100 ML INFUS..BTL 85 ML IV (01:43)
--- NOTE | 2020-08-12 07:12 | PC.NURSE ---
Pt sleeping in room at this time. Respirations even/unlabored bilaterally. Currently no sign of distress noted. will continue to monitor. Awaiting consult this AM.
--- NOTE | 2020-08-12 08:27 | P.HPGS_ITS ---
History of Present Illness History of Present Illness Date of Service: 08/12/20 Chief complaint: abdominal pain Narrative: Patientis a 24 year old female who presented to the ED early Friday morning with abdominal pain. It began around 10pm when she ate some andorran fries after not eating all day prior. She felt left upper abdominal pain described as sharp and stabbing. hen had dry heaving and salivating but no vomiting. Last BM was 2 days ago. Is passing gas normally. Urinated when first came to ED. Past medical history is significant for laparoscopic gastric bypass. Last visit to the ED was 6 weeks ago for right-sided abdominal pain. Review of Systems Cardiovascular: Cardiovascular: Reports as per HPI, Denies chest pain and Denies dyspnea Respiratory: Respiratory: Reports as per HPI and Denies dyspnea Gastrointestinal: Gastrointestinal: Reports as per HPI, Reports abdominal pain, Denies heartburn, Denies nausea and Denies vomiting PMFSH Past Medical History Medical History Asthma Bile duct abnormality Cholecystectomy planned Intestinal malabsorption following gastrectomy Obesity (BMI 30-39.9) Sleep apnea Family History Family History Father Obesity Diabetes mellitus Mother Obesity Arthritis of knee Paternal Grandfather Diabetes mellitus Paternal Grandmother Diabetes mellitus Maternal Grandmother Arthritis of knee Diabetes mellitus Maternal Grandfather Diabetes mellitus Surgical History Surgical History Gastric bypass status for obesity Hx of cholecystectomy Social History Social History Alcohol intake: never Smoking Status: Never smoker Smoked in Last 30 Days: No Patient Interested in Nicotine Replacement: No Patient Given Instructions on How to Stop Smoking: No Second Hand Smoke Exposure: No Use of substances other than those prescribed or required for medical reasons: No Advance Directives: No Advance Directives Information Provided: No service: No Current occupational status: employed Meds Allergies Allergy/AdvReac Type Severity Reaction Status Date / Time carrot [CARROTS] Allergy Intermediate SWELLING Verified 08/11/20 23:32 cat dander [CATS] Allergy Intermediate ITCHING Verified 08/11/20 23:32 insect venom [INSECT BITES] Allergy Intermediate HIVES Verified 08/11/20 23:32 Carrots Allergy Unknown Swelling Uncoded 11/16/19 00:00 of throat, & mouth Physical Exam Vital Signs: Vital Signs: Last Vital Signs Temp 98.7 F 08/12/20 04:00 Pulse 75 08/12/20 04:00 Resp 16 08/12/20 04:00 BP 107/47 L 08/12/20 04:00 Pulse Ox 100 08/12/20 04:00 Body Mass Index 29.0 Const: General: cooperative, comfortable, no acute distress, alert and awake Nutritional Appearance: not obese and overweight Orientation/consciousness: oriented to person, oriented to place and oriented to time Neck: Neck: Yes normal visual inspection, Yes no lymphadenopathy and No submandibular swelling Resp: Effort & Inspection: normal respiratory effort and symmetric chest movement Auscultation: clear to auscultation bilaterally Cardio: Rate: regular rate Rhythm: regular rhythm GI: Inspection: Yes normal to inspection and Yes obesity Palpation (GI): Soft to palpation, Tenderness to palpation present (GI) in the LUQ; with no rebound tenderness, no guarding, not rigid and No Rebound tenderness present Auscultation: normal bowel sounds Neuro: General: oriented to person, oriented to place and oriented to time Extrem: Right lower extremity: no edema Left lower extremity: no edema Psych: Appearance: grossly normal Mental Status: mental status grossly normal Speech and movement: Normal speech and movement present Affect: normal affect Attitude: cooperative Thought process: Normal thought process present Thought content: Normal thought content present Insight: Good insight present (Psych) Judgement: Good judgement present (Psych) Results Results Labs: Short CBC 08/12/20 Range/Units 00:43 WBC 9.8 (4.8-10.8) X10*3/uL Hgb 11.6 L (12.0-16.0) g/dl Hct 37.7 (37-47) % Plt Count 280 (160-400) X10*3/uL BMP 08/12/20 00:43 Sodium 139 Potassium 4.2 Chloride 107 Carbon Dioxide 24 BUN 13 Creatinine 0.68 Calcium 8.1 L Liver Function 08/12/20 Range/Units 00:43 Total Bilirubin 0.3 (0.0-1.0) mg/dL Direct Bilirubin < 0.2 (0.0-0.5) mg/dL AST 20 (5-31) U/L ALT 12 (0-31) U/L Alkaline Phosphatase 91 (39-117) U/L Albumin 4.1 (3.5-5.0) g/dL Urine 08/12/20 08/12/20 Range/Units 00:06 00:06 Urine Color YELLOW Urine Appearance CLEAR Urine pH 6.0 (5.0-8.0) Ur Specific [place] 1.020 (1.005-1.025) Urine Protein NEG (NEG-TRACE) MG/DL Urine Glucose (UA) 100 H (NEG) MG/DL Urine Test NEGATIVE (NEGATIVE) Assessment and Plan (1) Abdominal pain: Qualifiers: Abdominal location: unspecified location Qualified Code(s): R10.9 - Unspecified abdominal pain Status: Acute This is a 24 yo lady who is 3.5 yrs s/p LRYGB (DOS 02/13/17) and s/p laparoscopic cholecystectomy, and bile duct repair. Followed by bariatrics and also GI now. Last appointment with Dr. Cowart discussed results of endoscopic camera which showed inflammation of anastomosis but otherwise normal small bowel and is being treated for anemia. Labs normal, except for minimally low total protein and low calcium (similar results to ED visit last month, which was for right-sided abdominal pain). No WBC and normal lipase. CT showed stool in the colon without acute findings. Will keep under observation on bariatrics service, give IV fluids and IV pain management. Patient to be kept NPO until pain subsides enough to try clear liquids for a po challenge. If she tolerates fluids well with marked improvement in pain she may go today. Otherwise I will re- assess her tomorrow morning. Plan discussed with attending Dr. Desai, RN, and patient.
[2020-08-12] MEDS: Famotidine/PF 20 MG/2 ML VIAL IVPUSH (10:01)
[2020-08-12] MEDS: Cyanocobalamin (Vitamin B-12) 1,000 MCG/ML VIAL 1000 MCG IM (10:04)
--- NOTE | 2020-08-12 13:40 | MHC.CM.PN ---
NURSE PNEUMATIC TESTER MECHANIC NOTE ELECTRONIC MEDICAL RECORD REVIEWED . MET WITH PATIENT EXPALINED THE ROLE OF THE NURSE PNEUMATIC TESTER MECHANIC ,IN THE TRANSITION FROM THE HOSPITAL TO HOME, EDUCATED ABOUT THE IMPORTANCE OF HAVING A HEALTH CARE PROXY. PATIENT IS ACTIVE , INDEPENDENT IN ALL ADLS AND MOBILITY, SHE IS EMPLOYED AND WILL NEED RETURN TO WORK NOTEW AT TIME OF THE DISCHARGE . SHE HAS NO VNA /NO DME SERVICES IN THE HOME , SHE REPORTED THAT SHE HAD A GASTRIC BYPASS ABOUT 4YEARS AGO DISCHARGE PLAN ANTICIPATE DISCHARGED HOEM NO SERVICES PCP DR AKI OVALLES TRANSP-FAMILY WILL NEED RETYURN TO WORK NOTE AT DISCHARGED 08/12/20 OBSERVATION NOTICE FGIVEN,
--- NOTE | 2020-08-12 15:05 | PC.NURSE ---
1430 TOOK A COUPLE SIPS OF WATER, FELT BURNING AND THEREFORE STOPPED DRINKING FOR NOW.
[2020-08-12] MEDS: HYDROmorphone HCl 0.5 MG/0.5 ML SYRINGE 0.25 MG IVPUSH (20:02)
[2020-08-12] MEDS: Pantoprazole Sodium 40 MG/10 ML VIAL IVPUSH (20:02)
[2020-08-12] MEDS: Lactated Ringers 500 ML 125 ML IV (22:49)
--- NOTE | 2020-08-13 | CT_ITS ---
EXAMINATION: CT ABDOMEN AND PELVIS WITH CONTRAST CLINICAL INFORMATION: Abdominal pain nausea. COMPARISON: Multiple prior examinations most recent CT 08/12/2020. TECHNIQUE: Multidetector volumetric images were obtained from the superior aspect of the liver through the pubic symphysis following administration 85 mL of Omnipaque 350 intravenous contrast. Sagittal and coronal reformatted images were obtained on the technologist's workstation. Oral contrast: No This CT examination was performed using dose optimization techniques as appropriate, variously including the following: *Automated exposure control *Adjustment of mA and/or kV according to patient size (this includes techniques or standardized protocols for targeted exams where dose is matched to indication/reason for exam; i.e. extremities or head) *Use of iterative reconstruction technique DLP: 678 mGy-cm FINDINGS: LUNG BASES: The visualized lung bases are unremarkable. LIVER, GALLBLADDER, AND BILIARY TREE: The liver is normal in size, shape, and attenuation. No focal hepatic lesion or biliary ductal dilatation is present. Status post cholecystectomy. PANCREAS: Unremarkable. SPLEEN: Unremarkable. ADRENAL GLANDS: Unremarkable. KIDNEYS AND URETERS: The kidneys are normal in size, shape, and attenuation. No hydronephrosis, hydroureter, or calculi seen. No perinephric stranding. BLADDER: Unremarkable. GASTROINTESTINAL TRACT: Postsurgical changes in the epigastric region likely status post gastric bypass. Bowel loops normal. Appendix not clearly seen but no inflammatory changes in the right lower quadrant. ABDOMINAL WALL: No significant hernia is appreciated. LYMPH NODES: Normal. VASCULAR: Unremarkable. PELVIC VISCERA: 2 cm right ovarian cyst unchanged. OSSEOUS STRUCTURES: Unremarkable. CT/CT abdomen pelvis w con IMPRESSION: No acute abnormality. Postsurgical changes status post cholecystectomy and likely gastric bypass. Stable cysts small right ovarian cyst.
[2020-08-13] MEDS: Pantoprazole Sodium 40 MG/10 ML VIAL IVPUSH ×2 (05:51→16:33)
[2020-08-13 08:00] VITALS: BP 108/54; PULSE 51; RESP 18; TEMP 36.3; O2SAT 100
--- NOTE | 2020-08-13 08:11 | P.PNGS_ITS ---
Subjective Subjective Date of Service: 08/13/20 Patient reports: no new complaints, still having pain and tolerating liquids well Interval history: Patient states pain is similar to yesterday. Has taken in a total of 5 oz po since last night. States it santamaria a little at first but then is well tolerated with no nausea/vomiting. No BM/flatus. States pain similar to yesterday but helped by one dose of dilaudid last night as well as pantoprazole. Has not been taking a PPI at home, and she only takes sucralfate intermittently. Only other meds takes at home are vitamins. Physical Exam Vital Signs: Vital Signs: Last Vital Signs Temp 97.7 F 08/12/20 23:20 Pulse 60 08/12/20 23:20 Resp 16 08/12/20 23:20 BP 115/57 L 08/12/20 23:20 Pulse Ox 100 08/12/20 23:20 Body Mass Index 29.0 Const: General: cooperative and no acute distress Nutritional Appearance: overweight GI: Inspection: Yes normal to inspection Palpation (GI): Soft to palpation, Tenderness to palpation present (GI) in the epigastrum and in the LUQ and no gu arding Auscultation: Absent bowel sounds Progress Note: A&P Assessment and plan (1) Abdominal pain: Status: Acute Assessment and Plan: Will add carafate suspension QID. Can continue to sip water as tolerated. Continue IV fluids. If feeling marketly better can go home today, otherwise will re-assess in the morning. Plan discussed with attending Dr. Desai, RN , and patient. Fall Risk Details Current Medications: Current Medications Generic Name Dose Route Start Last Admin Trade Name Bhavana PRN Reason Stop Dose Admin Thiamine HCl 100 mg/ 1,011.2 mls @ 149.999 mls/hr 08/12/20 09:00 08/12/20 17:09 Multivitamins 10 ml/ Folic IVPUSH Infused Acid 1 mg/ Sodium Chloride DAILY HALINA Infusion Acetaminophen 1,000 mg in 100 mls @ 16.7 mls/hr 08/12/20 08:30 08/13/20 03:12 Ofirmev IV 16.7 mls/hr .Q6H HALINA Administration Pantoprazole Sodium 40 mg 08/12/20 18:55 08/13/20 05:51 Pantoprazole Sodium 40 Mg/10 Ml Vial IVPUSH 40 mg BID@0630,1630 HALINA Administration Sodium Chloride 3 ml 08/12/20 16:00 08/13/20 00:18 0.9 % Sodium Chloride Flush 3 Ml Syringe IVFLUSH Not Given QSHIFT HALINA Time Spent With Patient Time: Total time spent is greater than 50% in coordination of care (as documented) at patient's floor/unit and/or counseling patient: Time with patient: 15 - 24 minutes
[2020-08-13 11:44] VITALS: BP 113/55; PULSE 56; RESP 18; TEMP 36.2; O2SAT 98
[2020-08-13] MEDS: Sucralfate Oral Suspension 1 GM/10 ML ORAL.SUSP PO ×3 (13:06→20:12)
--- NOTE | 2020-08-13 13:22 | MHC.CM.PN ---
NURSE CHOCOLATE REFINING ROLLER NOTE ELECTRONIC MEDICAL RECORD RFVIEWED . PER DOCUMENTATION PATIENT IS STILL HAVING ABDOMINAL PAIN SIMILAR TO ON ADMISSION SHE RECEIVED DILAUDID PANT NO PASSING OF PANTOPRAZOLE LAST NIGHT, NO PASSING OF FLATUS OR BOWEL MOVEMENT . PLAN OF CARE CONTINUE PRESENT MEDICATIONS CARAFATE SUSPENSION WAS ADDED QID ENCOURAGED TO CONTINUE TO TAKE SIPS OF WATER , CONTINUE IF FUIDS IV THIAMINE IV ACETAMINOPHEN Q6HRS, IV PANTOPRAZOLE BID DISCHARGE PLAN ANTICIPATE DISCHARGED HOME TMORROW NO SERVIXCES,
[2020-08-13 15:47] VITALS: BP 116/57; PULSE 69; RESP 18; TEMP 36.3; O2SAT 100
[2020-08-13] MEDS: 0.9 % Sodium Chloride Flush 3 ML SYRINGE IVFLUSH ×2 (16:30→20:13)
[2020-08-13] MEDS: ondansetron HCL 4 MG/2 ML VIAL IVPUSH (18:07)
[2020-08-13 18:50] VITALS: BP 107/60; PULSE 68; RESP 19; TEMP 36.8; O2SAT 98
[2020-08-13 19:41] LABS: MANUAL DIFF FLAG NO
[2020-08-13 19:49] LABS: Basophils Absolute Auto 0.1 X10*3/uL (0.0-0.2); Eosinophils Absolute Auto 0.1 X10*3/uL (0.0-0.4); Eosinophils Percent Auto 1.2 % (0-4); Hematocrit 35.4 % (37-47); Hemoglobin 11.3 g/dl (12.0-16.0); Imm Gran Abs Auto 0.01 X10*3/uL (0.00-0.03); Imm Gran Pct Auto 0.1 % (0.0-0.4); Lymphocytes Absolute Auto 1.7 X10*3/uL (1.2-4.9); Lymphocytes Percent Auto 25.9 % (20-40); Mean Corpuscular HGB Conc 31.9 g/dl (31.0-35.0); Mean Corpuscular Hemoglobin 26.5 pg (27.0-33.0); Mean Corpuscular Volume 83.1 fL (80-98); Monocytes Absolute Auto 0.4 X10*3/uL (0.1-1.2); Monocytes Percent Auto 6.6 % (2-11); Neutrophils Absolute Auto 4.4 X10*3/uL (2.0-8.3); Neutrophils Percent Auto 65.2 % (45-73); Platelet Count 248 X10*3/uL (160-400); Red Blood Count 4.26 X10*6/uL (4.20-5.50); Red Cell Distribution Width 14.2 % (11.0-16.0); White Blood Count 6.7 X10*3/uL (4.8-10.8)
[2020-08-13] MEDS: Cyanocobalamin (Vitamin B-12) 1,000 MCG/ML VIAL 1000 MCG IM (20:12)
[2020-08-13 20:13] LABS: Alanine Aminotransferase 96 U/L (0-31); Albumin Level 3.4 g/dL (3.5-5.0); Alkaline Phosphatase 153 U/L (39-117); Anion Gap 15 (12-20); Aspartate Amino Transferase 71 U/L (5-31); Bilirubin Total 0.5 mg/dL (0.0-1.0); Blood Urea Nitrogen 8 mg/dL (9-16); Calcium 7.5 mg/dL (8.4-10.2); Carbon Dioxide 16 mmol/L (22-29); Chloride 110 mmol/L (96-108); Creatinine Clr Calc Pharmacy 158.3; Estimated Glomerular Filt Rate > 60; Glucose Random 63 mg/dL (60-115); Potassium 4.6 mmol/l (3.3-5.1); Sodium 136 mmol/L (135-145); Total Protein 5.6 g/dL (6.5-8.0)
[2020-08-13] MEDS: Lactated Ringers 1,000 ML 125 ML IVCONT (20:13)
[2020-08-13 21:59] LABS: Lactic Acid 0.7 mmol/L (0.5-2.0)
[2020-08-13 22:03] LABS: Amylase 64 U/L (28-100); Lipase 22 U/L (8-78)
[2020-08-13] MEDS: iohexoL 350 MG/ML 100 ML INFUS..BTL IV (22:22)
[2020-08-13 23:35] VITALS: BP 112/53; PULSE 50; RESP 18; TEMP 37; O2SAT 98
[2020-08-14 03:39] VITALS: BP 100/39; PULSE 55; RESP 18; TEMP 37; O2SAT 98
[2020-08-14 03:57] VITALS: BP 101/60
[2020-08-14 04:25] LABS: Vitamin B12 474 pg/mL (200-900)
[2020-08-14] MEDS: Lactated Ringers 1,000 ML 125 ML IVCONT (05:36)
[2020-08-14] MEDS: Pantoprazole Sodium 40 MG/10 ML VIAL IVPUSH ×2 (05:36→16:04)
[2020-08-14 06:23] LABS: MANUAL DIFF FLAG NO
[2020-08-14 06:38] LABS: Lactic Acid 0.5 mmol/L (0.5-2.0)
[2020-08-14 06:44] LABS: Basophils Absolute Auto 0.1 X10*3/uL (0.0-0.2); Basophils Percent Auto 0.9 % (0-2); Eosinophils Absolute Auto 0.2 X10*3/uL (0.0-0.4); Eosinophils Percent Auto 2.6 % (0-4); Hematocrit 34.4 % (37-47); Imm Gran Abs Auto 0.01 X10*3/uL (0.00-0.03); Imm Gran Pct Auto 0.2 % (0.0-0.4); Lymphocytes Absolute Auto 2.2 X10*3/uL (1.2-4.9); Lymphocytes Percent Auto 33.6 % (20-40); Mean Corpuscular Hemoglobin 26.4 pg (27.0-33.0); Mean Corpuscular Volume 82.5 fL (80-98); Mean Platelet Volume 9.9 fL (9.4-12.3); Monocytes Absolute Auto 0.6 X10*3/uL (0.1-1.2); Monocytes Percent Auto 8.9 % (2-11); Neutrophils Absolute Auto 3.5 X10*3/uL (2.0-8.3); Neutrophils Percent Auto 53.8 % (45-73); Platelet Count 233 X10*3/uL (160-400); Red Blood Count 4.17 X10*6/uL (4.20-5.50); Red Cell Distribution Width 13.9 % (11.0-16.0); White Blood Count 6.4 X10*3/uL (4.8-10.8)
[2020-08-14 07:00] LABS: Alanine Aminotransferase 72 U/L (0-31); Albumin Level 3.2 g/dL (3.5-5.0); Alkaline Phosphatase 130 U/L (39-117); Anion Gap 14 (12-20); Aspartate Amino Transferase 42 U/L (5-31); Bilirubin Total 0.5 mg/dL (0.0-1.0); Blood Urea Nitrogen 8 mg/dL (9-16); Calcium 7.8 mg/dL (8.4-10.2); Carbon Dioxide 19 mmol/L (22-29); Chloride 108 mmol/L (96-108); Creatinine Clr Calc Pharmacy 148.6; Estimated Glomerular Filt Rate > 60; Glucose Random 57 mg/dL (60-115); Potassium 4.1 mmol/l (3.3-5.1); Sodium 137 mmol/L (135-145); Total Protein 5.3 g/dL (6.5-8.0)
[2020-08-14 07:20] VITALS: BP 100/41; PULSE 56; RESP 19; TEMP 36.4; O2SAT 98
[2020-08-14] MEDS: Dextrose 5 % and Lactated Ring 1,000 ML 125 ML IVCONT (07:24)
[2020-08-14] MEDS: Sucralfate Oral Suspension 1 GM/10 ML ORAL.SUSP PO ×3 (07:57→16:04)
[2020-08-14 08:00] VITALS: BP 102/53; PULSE 55; RESP 18; TEMP 36.8; O2SAT 99
[2020-08-14 08:51] LABS: Glucose, Whole Blood 58 mg/dL (60-115)
[2020-08-14 09:21] LABS: Glucose, Whole Blood 70 mg/dL (60-115)
--- NOTE | 2020-08-14 10:02 | PM.PNGS ---
Subjective Subjective Date of Service: 08/14/20 Interval history: Feels better than last night. Still with mild LUQ pain. Less nausea NPO still last night Physical Exam Vital Signs: Vital Signs: Last Vital Signs Temp 98.3 F 08/14/20 08:00 Pulse 55 08/14/20 08:00 Resp 18 08/14/20 08:00 BP 102/53 L 08/14/20 08:00 Pulse Ox 99 08/14/20 08:00 Body Mass Index 29.0 GI: Inspection: Yes normal to inspection and Yes incision (well healed) Palpation (GI): Soft to palpation and Tenderness to palpation present (GI) in the LUQ Progress Note: A&P Assessment and plan (1) Abdominal pain: Status: Acute Assessment and Plan: 1. Abdominal pain due to eating large amount of undigested food. Follow-up CT: improved. 2. Continue NPO 3. Explained the patient the etiology of the pain as well as the need to have balanced diet with two protein supplements and a measured food portion of no more than 4 forks of meat and 4 forks of either salad, or vegetables or carbs. Fall Risk Details Current Medications: Current Medications Generic Name Dose Route Start Last Admin Trade Name Freq PRN Reason Stop Dose Admin Thiamine HCl 100 mg/ 1,011.2 mls @ 149.999 mls/hr 08/12/20 09:00 08/13/20 20:14 Multivitamins 10 ml/ Folic IVPUSH Infused Acid 1 mg/ Sodium Chloride DAILY HALINA Infusion Acetaminophen 1,000 mg in 100 mls @ 16.7 mls/hr 08/12/20 08:30 08/14/20 05:36 Ofirmev IV Not Given .Q6H HALINA Dextrose/Lactated Ringer's 1,000 mls @ 125 mls/hr 08/14/20 07:14 08/14/20 07:24 D5lr IVCONT 08/14/20 15:13 125 mls/hr .Q8H STA Administration Ondansetron HCl 4 mg 08/13/20 17:49 08/13/20 18:07 Ondansetron Hcl 4 Mg/2 Ml Vial IVPUSH 4 mg Q6H PRN Administration nausea Pantoprazole Sodium 40 mg 08/12/20 18:55 08/14/20 05:36 Pantoprazole Sodium 40 Mg/10 Ml Vial IVPUSH 40 mg BID@4970,5686 HALINA Administration Sodium Chloride 3 ml 08/12/20 16:00 08/14/20 09:14 0.9 % Sodium Chloride Flush 3 Ml Syringe IVFLUSH Not Given QSHIFT HALINA Sucralfate 1 gm 08/13/20 11:30 08/14/20 07:57 Sucralfate Oral Suspension 1 Gm/10 Ml Oral.Susp PO 1 gm QIDACHS HALINA Administration Time Spent With Patient Time: Total time spent is greater than 50% in coordination of care (as documented) at patient's floor/unit and/or counseling patient: Time with patient: less than 15 minutes
[2020-08-14 11:16] VITALS: BP 110/49; PULSE 58; RESP 20; TEMP 36.4
[2020-08-14 15:09] LABS: Glucose, Whole Blood 85 mg/dL (60-115)
[2020-08-14 15:41] VITALS: BP 108/61; PULSE 50; RESP 17; TEMP 36.6; O2SAT 99
[2020-08-14] MEDS: 0.9 % Sodium Chloride Flush 3 ML SYRINGE IVFLUSH (16:05)
== END 2020-08-14 19:45 | disposition home or self-care (01) ==
LOC: HO.ED 08-12 08:33 → HO.S3 08-12 08:36
PROVIDERS: Emergency Medicine; Physician Assistant; Admitting Provider Surgery; Emergency Provider Internal Medicine; PCP Internal Medicine; Visit Provider Surgery
DX: R10.9 Unspecified abdominal pain (principal); R11.0 Nausea; E66.9 Obesity, unspecified; K90.49 Malabsorption due to intolerance, not elsewhere classified; N83.201 Unspecified ovarian cyst, right side; J30.81 Allergic rhinitis due to animal (cat) (dog) hair and dander; Z91.038 Other insect allergy status; Z91.018 Allergy to other foods; Z91.048 Other nonmedicinal substance allergy status; Z68.29 Body mass index [BMI] 29.0-29.9, adult; Z98.84 Bariatric surgery status; Z90.49 Acquired absence of other specified parts of digestive tract; Z79.899 Other long term (current) drug therapy
CPT/HCPCS: 36415; 74177; 80048; 80053; 80076; 81001; 81025; 82150; 82607; 82947; 83605; 83690; 84702; 85025; 87086; 96361; 96365; 96372; 96375; 99218; 99285; J0131; J1170; J2270; J2405; J3411; Q9967

== ENCOUNTER → 2020-08-18 10:00 | Outpatient (BNVA) | payer OTHER, SELFPAY | PROVIDERS: PCP Internal Medicine; Referring Provider Internal Medicine; Visit Provider Physician Assistant | DX: Z76.89 Persons encountering health services in other specified circumstances (principal) ==

== ENCOUNTER → 2020-08-28 09:43 | Outpatient (BNVA) | payer MEDICAID, OTHER, SELFPAY | PROVIDERS: PCP Internal Medicine; Referring Provider Internal Medicine; Visit Provider Internal Medicine Gastroenterology | DX: Z76.89 Persons encountering health services in other specified circumstances (principal) ==

== ENCOUNTER 2020-09-14 10:30 | Outpatient (REF) | payer OTHER, SELFPAY ==
--- NOTE | 2020-09-14 10:33 | US_ITS ---
EXAMINATION: US ABDOMEN LIMITED CLINICAL INFORMATION: Abnormal results of the liver function studies. COMPARISON: CT abdomen and pelvis 08/13/2020. KUB 08/20/2019. MRI abdomen 03/01/2019. Ultrasound abdomen 04/04/2016 and 10/20/2013. TECHNIQUE: Real-time imaging of the right upper quadrant abdominal viscera. FINDINGS: PANCREAS: The pancreas is partially obscured by overlying gas. LIVER: The liver is normal size, contour and coarse echogenicity. No focal hepatic lesion. There is no intrahepatic biliary duct dilatation seen. There is hepatopedal flow seen in the middle portal vein on Doppler imaging. GALLBLADDER: Surgically absent. COMMON BILE DUCT: Normal in caliber measuring 0.4 cm in diameter. RIGHT KIDNEY: There is an extrarenal right kidney pelvis. The kidney appears slightly malrotated. No renal calculi or focal parenchymal lesions. The kidney measures 13.7 cm in maximum dimension. FREE FLUID: None. US/US abdomen limited IMPRESSION: Coarse echogenic liver with hepatopedal flow. Gallbladder has been surgically removed. 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
== END 2020-09-14 10:31 | disposition home or self-care (01) ==
LOC: HO.US 10:30
PROVIDERS: PCP Internal Medicine; Visit Provider Internal Medicine Gastroenterology
DX: R10.11 Right upper quadrant pain (principal); R94.5 Abnormal results of liver function studies
CPT/HCPCS: 76705

== ENCOUNTER 2020-10-05 11:24 | Outpatient (REF) | payer OTHER, SELFPAY ==
[2020-10-05 14:11] LABS: INTERNATIONAL NORM RATIO 1.1 (0.9-1.1); Prothrombin Time 12.6 SEC (10.8-13.0)
[2020-10-05 14:34] LABS: Alanine Aminotransferase 12 U/L (0-31); Albumin Level 3.7 g/dL (3.5-5.0); Alkaline Phosphatase 85 U/L (39-117); Anion Gap 10 (12-20); Aspartate Amino Transferase 16 U/L (5-31); Bilirubin Direct 0.2 mg/dL (0.0-0.5); Bilirubin Total 0.3 mg/dL (0.0-1.0); Blood Urea Nitrogen 12 mg/dL (9-16); Calcium 8.1 mg/dL (8.4-10.2); Carbon Dioxide 23 mmol/L (22-29); Chloride 111 mmol/L (96-108); Estimated Glomerular Filt Rate > 60; Gamma Glutamyl Transpeptidase 6 U/L (7-33); Glucose Random 87 mg/dL (60-115); Iron 57 mcg/dL (30-160); Percent Iron Saturation 16 % (15-50); Potassium 4.3 mmol/l (3.3-5.1); Sodium 140 mmol/L (135-145); Total Iron Binding Capacity 361 mcg/dL (228-428); Unsaturated Iron Binding 304 ug/dL
[2020-10-05 14:55] LABS: Ferritin 2 ng/mL (10-122); TSH reflex Free T4 0.61 mIU/mL (0.32-4.0)
[2020-10-06 08:28] LABS: HBS Num1 9.61 mIU/mL (0-7.99); HBc Num1 0.05 S/CO (0.00-0.79); HBsAGNum1 0.21 S/CO (0.00-0.99); Hepatitis B Core Antibody Nonreactive (Nonreactive); Hepatitis B Surface Antigen Negative (Negative); ~HepC Num1 0.09 S/CO (0.00-0.79); ~Hepatitis C Antibody Nonreactive (Nonreactive)
[2020-10-06 09:40] LABS: HBS Num2 6.65 mIU/mL (0-7.99); HBS Num3 6.12 mIU/mL (0-7.99); ~Hepatitis B Surface Antibody NONREACTIVE (Nonreactive)
[2020-10-06 14:12] LABS: Alpha 1 Anti-trypsin 114 mg/dL (83-199); Ceruloplasmin 29 mg/dL (18-53); Immunoglobulin G 911 mg/dL (600-1640)
[2020-10-07 20:52] LABS: Anti Nuclear Antibody Screen NEGATIVE (NEGATIVE)
[2020-10-08 04:06] LABS: Hepatitis A Antibody IgG REACTIVE (Nonreactive); ~Hepatitis A Antibody IgG 7.33 S/CO (0.00-0.99)
[2020-10-08 23:32] LABS: Transglutaminase IgA 1 U/mL
[2020-10-09 12:27] LABS: Smooth Muscle Antibody <20 U (<20)
[2020-10-10 11:07] LABS: Mitochondrial Antibodies NEGATIVE (NEGATIVE)
[2020-10-11 23:22] LABS: Soluble Liver Ag Autoantibody <20.1 U (0.0-20.0)
== END 2020-10-05 11:25 | disposition home or self-care (01) ==
LOC: HO.10HDL 11:24
PROVIDERS: Visit Provider Internal Medicine Gastroenterology
DX: R94.5 Abnormal results of liver function studies (principal); R10.11 Right upper quadrant pain
CPT/HCPCS: 36415; 80048; 80076; 82103; 82390; 82550; 82728; 82784; 82977; 83516; 83520; 83540; 84443; 85610; 86038; 86039; 86255; 86256; 86704; 86706; 86708; 86803; 87340

== ENCOUNTER 2020-10-31 11:55 | Outpatient (REF) | payer OTHER, SELFPAY ==
--- NOTE | ~2020-10-31 | XR_ITS ---
EXAMINATION: XR HIP, LEFT CLINICAL INFORMATION: Other symptoms and signs involving the musculoskeletal system COMPARISON: CT abdomen pelvis 08/13/2020 TECHNIQUE: Two views of the left hip. FINDINGS: Bones and soft tissues are normal. No fracture. Alignment is anatomic. Hip joint space is maintained. XR/XR hip LT min 2V IMPRESSION: Normal left hip.
--- NOTE | ~2020-10-31 | XR_ITS ---
EXAMINATION: XR LUMBOSACRAL SPINE CLINICAL INFORMATION: Low back pain COMPARISON: 07/19/2016. Prior CT abdomen pelvis 08/13/2020 TECHNIQUE: AP and lateral views of the lumbar spine with an additional coned down lateral spot view of the lumbosacral junction. FINDINGS: 5 non-rib bearing lumbar type vertebral bodies are seen. The vertebral bodies and posterior elements are normal. The disc spaces are preserved and the vertebral alignment is normal. Innumerable surgical clips are seen in the upper abdomen consistent with prior gastric bypass.. XR/XR lumbar spine 2-3V IMPRESSION: Normal appearance of the lumbar spine.
== END 2020-10-31 11:56 | disposition home or self-care (01) ==
LOC: HO.XRAY 11:55
PROVIDERS: PCP Internal Medicine; Visit Provider Nurse Practitioner Family
DX: M54.5 Low back pain (principal); R29.898 Other symptoms and signs involving the musculoskeletal system
CPT/HCPCS: 72100; 73502

== ENCOUNTER 2020-11-08 14:12 | Outpatient (REF) | payer OTHER, SELFPAY | END 2020-11-08 14:13 | disposition home or self-care (01) | LOC: HO.MDS 14:12 | PROVIDERS: PCP Internal Medicine; Visit Provider Internal Medicine Gastroenterology | DX: D50.9 Iron deficiency anemia, unspecified (principal) | CPT/HCPCS: 96365; J2916 ==

== ENCOUNTER 2020-11-09 13:28 | Outpatient (REF) | payer OTHER, SELFPAY ==
--- NOTE | ~2020-11-09 | MR_ITS ---
EXAMINATION: MR ABDOMEN WITHOUT AND WITH CONTRAST CLINICAL INFORMATION: Right upper quadrant pain. History of gastric bypass. COMPARISON: CT scan of the abdomen and pelvis dated 08/13/2020. Abdominal ultrasound dated 09/14/2020 TECHNIQUE: MR abdomen was performed without and with use of 8.5 mL intravenous Gadavist gadolinium contrast. Postcontrast images are performed in multiphase dynamic sequences. Imaging was performed in 3 planes. There is some limitation several sequences secondary to respiratory motion artifact. FINDINGS: LUNG BASES: The visualized lung bases are unremarkable. LIVER: GALLBLADDER, AND BILIARY TREE: No hepatic abnormality. Status post cholecystectomy. PANCREAS: Unremarkable. SPLEEN: Normal. ADRENAL GLANDS: Normal. 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 No left renal or ureteral abnormality. GASTROINTESTINAL TRACT: Gastric postsurgical changes without abnormality. The visualized small and large bowel are unremarkable. ABDOMINAL WALL: No significant hernia is appreciated. LYMPH NODES: No lymphadenopathy. VASCULAR: Unremarkable. OSSEOUS STRUCTURES: L4-L5 mild degenerative disc disease. No suspicious abnormality. MR/MR abdomen wo/w con IMPRESSION: Unremarkable contrast-enhanced abdominal MRI in a patient status post cholecystectomy and gastric bypass. No significant change in the previous CT and ultrasound studies.
== END 2020-11-09 13:29 | disposition home or self-care (01) ==
LOC: HO.MRI 13:28
PROVIDERS: Visit Provider Internal Medicine Gastroenterology
DX: R10.11 Right upper quadrant pain (principal); R94.5 Abnormal results of liver function studies
CPT/HCPCS: 74183; A9585

== ENCOUNTER 2020-11-15 12:44 | Outpatient (REF) | payer OTHER, SELFPAY | END 2020-11-15 12:45 | disposition home or self-care (01) | LOC: HO.MDS 12:44 | PROVIDERS: PCP Internal Medicine; Visit Provider Internal Medicine Gastroenterology | DX: D50.9 Iron deficiency anemia, unspecified (principal) | CPT/HCPCS: 96365; J2916 ==

== ENCOUNTER 2020-11-21 11:39 | Outpatient (REF) | payer OTHER, SELFPAY | END 2020-11-21 11:40 | disposition home or self-care (01) | LOC: HO.MDS 11:39 | PROVIDERS: PCP Internal Medicine; Visit Provider Internal Medicine Gastroenterology | DX: D50.9 Iron deficiency anemia, unspecified (principal) | CPT/HCPCS: 96365; J2916 ==

== ENCOUNTER 2020-11-27 12:08 | Outpatient (REF) | payer OTHER, SELFPAY | END 2020-11-27 12:09 | disposition home or self-care (01) | LOC: HO.MDS 12:08 | PROVIDERS: PCP Internal Medicine; Visit Provider Internal Medicine Gastroenterology | DX: D50.9 Iron deficiency anemia, unspecified (principal) | CPT/HCPCS: 96365; J2916 ==

== ENCOUNTER → 2020-12-13 08:10 | Outpatient (BNVA) | payer OTHER, SELFPAY | PROVIDERS: PCP Internal Medicine; Visit Provider Physician Assistant ==

== ENCOUNTER 2020-12-14 09:09 | Outpatient (REF) | payer OTHER, SELFPAY ==
--- NOTE | ~2020-12-14 | FL_ITS ---
EXAMINATION: FL SMALL BOWEL SERIES CLINICAL INFORMATION: Right upper quadrant pain COMPARISON: None TECHNIQUE: Following a director report image of the abdomen, contrast was administered orally, and interval abdominal radiographs were performed to assess for contrast progression through the small bowel. Following contrast transit through the small bowel and into the colon, the patient was placed on the fluoroscopy table, and multiple spot images were obtained. FINDINGS: Stocking Inspector image of the abdomen demonstrates a normal bowel gas pattern. Moderate to large colonic stool burden. Evidence of prior gastric bypass. There is slow transit time of contrast material through the small bowel, with contrast present in the colon by 4 hours and 25 minutes. Small bowel loops are of normal caliber throughout the abdomen and pelvis. The jejunal and ileal fold patterns are normal, without evidence of abnormal thickening. No fixed regions of luminal narrowing are seen to suggest stricturing. The terminal ileum demonstrates a normal appearance. FLUOROSCOPY TIME: 0.6 minutes DOSE AREA PRODUCT: 6.482 Gy-cm2 (enciso-centimeter squared) FL/FL small bowel follow through IMPRESSION: Slow small bowel transit, with contrast reaching the colon by 4 hours and 25 minutes. Otherwise unremarkable appearance of the small bowel.
== END 2020-12-14 09:10 | disposition home or self-care (01) ==
LOC: HO.XRAY 09:09
PROVIDERS: Visit Provider Internal Medicine Gastroenterology
DX: R10.11 Right upper quadrant pain (principal)
CPT/HCPCS: 74250

== ENCOUNTER → 2020-12-19 08:36 | Outpatient (BNVA) | payer OTHER, SELFPAY | PROVIDERS: PCP Internal Medicine; Visit Provider Internal Medicine Gastroenterology ==

== ENCOUNTER 2020-12-22 11:52 | Outpatient (REF) | payer OTHER, SELFPAY ==
[2020-12-22 13:31] LABS: COVID-19 Test Negative (Negative)
== END 2020-12-22 11:53 | disposition home or self-care (01) ==
LOC: HO.LAB 11:52
PROVIDERS: Visit Provider Internal Medicine
DX: Z20.822 Contact with and (suspected) exposure to COVID-19 (principal)
CPT/HCPCS: 36415; 87635; C9803

== ENCOUNTER 2020-12-25 14:01 | Outpatient (REF) | payer OTHER, SELFPAY ==
[2020-12-25 16:03] LABS: COVID-19 Test Negative (Negative)
== END 2020-12-25 14:02 | disposition home or self-care (01) ==
LOC: HO.LAB 14:01
PROVIDERS: Visit Provider Internal Medicine
DX: Z20.822 Contact with and (suspected) exposure to COVID-19 (principal)
CPT/HCPCS: 36415; 87635; C9803

== ENCOUNTER 2021-01-04 10:33 | Outpatient (REF) | payer OTHER, SELFPAY | END 2021-01-04 10:34 | disposition home or self-care (01) | LOC: HO.MDS 10:33 | PROVIDERS: PCP Internal Medicine; Visit Provider Internal Medicine Gastroenterology | DX: D50.9 Iron deficiency anemia, unspecified (principal) | CPT/HCPCS: 96365; J2916 ==

== ENCOUNTER 2021-01-05 20:27 | Emergency (ER) | payer OTHER, SELFPAY ==
[2021-01-05 21:13] VITALS: BP 108/61; PULSE 62; RESP 18; TEMP 36.6; O2SAT 100; BMI 29.0
[2021-01-05 22:41] VITALS: BP 107/58; PULSE 55; RESP 18; TEMP 36.8; O2SAT 96
[2021-01-05 23:59] LABS: MANUAL DIFF FLAG NO
[2021-01-06] VITALS: BP 112/54; PULSE 52; RESP 18; TEMP 36.7; O2SAT 100
--- NOTE | 2021-01-06 | ED_ITS ---
HPI - General Adult General Chief complaint: General Medical Stated complaint: VOMITING DIARRHEA Time Seen by Provider: 01/05/21 23:17 Source: patient Mode of arrival: ambulatory History of Present Illness HPI narrative: History gastric bypass, unknown type, received iron infusion yesterday and then complaints of increasing nausea with multiple episodes of nonbloody vomitus as well as nonbloody diarrhea. Patient reports she continues to pass flatus and denies any urinary symptoms. Related Data Home Medications Medication Instructions Recorded Confirmed sucralfate [Carafate] 10 ml PO BID 08/14/20 11/08/20 betamethasone, augmented 0.05 % TOPICAL 10/05/20 11/08/20 topical ointment crisaborole 2 % topical ointment TOPICAL BID 10/05/20 11/08/20 multivitamin 1 tab PO DAILY 11/08/20 11/08/20 cholecalciferol (vitamin D3) 125 250 mcg PO DAILY 12/19/20 mcg (5,000 unit) capsule ferrous sulfate 325 mg (65 mg 325 mg PO DAILY 12/19/20 iron) tablet Previous Rx's Medication Instructions Recorded acetaminophen 650 mg 650 mg PO Q12H 10 Days #20 tab 10/05/20 tablet,extended release cyclobenzaprine 10 mg tablet 10 mg PO BEDTIME 30 Days #30 tab 10/05/20 pantoprazole 40 mg tablet,delayed 40 mg PO DAILY #30 tab 10/14/20 release hyoscyamine sulfate 0.125 mg 0.125 mg PO BID-QID PRN #90 tab 12/11/20 sublingual tablet prucalopride 1 mg tablet 1 mg PO DAILY #30 tab 12/19/20 Allergies Allergy/AdvReac Type Severity Reaction Status Date / Time carrot [CARROTS] Allergy Intermediate SWELLING Verified 12/19/20 08:37 cat dander [CATS] Allergy Intermediate ITCHING Verified 12/19/20 08:37 insect venom [INSECT BITES] Allergy Intermediate HIVES Verified 12/19/20 08:37 Carrots Allergy Unknown Swelling Uncoded 11/16/19 00:00 of throat, & mouth Review of Systems Review of Systems: Pertinent positives and negatives as stated in HPI 10 point review of systems is otherwise negative. PMFSH Past Medical History Source: nursing notes reviewed Medical History Abdominal pain Asthma Bile duct abnormality Cholecystectomy planned Hip asymmetry Intestinal malabsorption following gastrectomy Lumbar pain Obesity (BMI 30-39.9) Sleep apnea Surgical History Gastric bypass status for obesity H/O colonoscopy History of esophagogastroduodenoscopy (EGD) Hx of cholecystectomy Family History Family History Father Obesity Diabetes mellitus Mother Obesity Arthritis of knee Paternal Grandfather Diabetes mellitus Paternal Grandmother Diabetes mellitus Maternal Grandmother Arthritis of knee Diabetes mellitus Maternal Grandfather Diabetes mellitus Social History Social History Household Members: None Alcohol intake: never Smoking Status: Never smoker Second Hand Smoke Exposure: No Use of substances other than those prescribed or required for medical reasons: No Advance Directives: No Advance Directives Information Provided: No service: No Current occupational status: employed Physical Exam Vital Signs: Vital Signs: Last Vital Signs Temp 98.1 F 01/06/21 00:00 Pulse 52 01/06/21 00:00 Resp 18 01/06/21 00:00 BP 112/54 L 01/06/21 00:00 Pulse Ox 100 01/06/21 00:00 Body Mass Index 29.0 VITAL SIGNS: Reviewed. GENERAL: Well developed, well nourished, in no acute distress. HEAD: Normocephalic/atraumatic, EYES: PERRLA, EOMI OROPHARYNX: no oral lesions noted, posterior pharynx clear NECK: Supple, no adenopathy LUNGS: Normal breath sounds. No adventitious sounds or accessory muscle use. SpO2<100> CARDIOVASCULAR: Regular rate and rhythm without noted murmurs ABDOMEN: Soft, non-tender, non-distended with bowel sounds. NEUROLOGIC: Alert and oriented x 4. Course Course Course Narrative: 25-year-old female with history and clinical presentation consistent with reaction to intravenous iron administration. She was treated with IV fluids as well as antinausea medication and on review of all investigations there are no acute findings to suggest acute anemia, infection, electrolyte abnormalities. Low clinical suspicion for obstruction and on re- evaluation patient reports complete resolution of her nausea and vomiting and will be discharged after observed to tolerate fluids. Patient tolerating fluids and discharged home. Medical Decision Making Lab Data Result diagrams: 01/05/21 23:51 01/05/21 23:52 Labs: Lab Results 01/05/21 01/05/21 01/05/21 Range/Units 23:51 23:51 23:51 WBC 10.4 (4.8-10.8) X10*3/uL RBC 4.98 (4.20-5.50) X10*6/uL Hgb 13.3 D (12.0-16.0) g/dl Hct 42.0 D (37-47) % MCV 84.3 (80-98) fL MCH 26.7 L (27.0-33.0) pg MCHC 31.7 (31.0-35.0) g/dl RDW 14.8 (11.0-16.0) % Plt Count 308 D (160-400) X10*3/uL MPV 9.8 (9.4-12.3) fL Immature Gran % (Auto) 0.2 (0.0-0.4) % Neut % (Auto) 56.3 (45-73) % Lymph % (Auto) 32.7 (20-40) % [place] % (Auto) 8.2 (2-11) % Eos % (Auto) 1.8 (0-4) % Baso % (Auto) 0.8 (0-2) % Lymph # (Auto) 3.4 (1.2-4.9) X10*3/uL [place] # (Auto) 0.9 (0.1-1.2) X10*3/uL Eos # (Auto) 0.2 (0.0-0.4) X10*3/uL Baso # (Auto) 0.1 (0.0-0.2) X10*3/uL Abs Immat Gran (auto) 0.02 (0.00-0.03) X10*3/uL Absolute Neuts (auto) 5.8 (2.0-8.3) X10*3/uL Absolute Nucleated RBC 0.000 (0.0-0.012) X10*3/uL Nucleated RBC % (auto) 0.0 (0.0-0.2) /100WBC Sodium (135-145) mmol/L Potassium (3.3-5.1) mmol/L Chloride (96-108) mmol/L Carbon Dioxide (22-29) mmol/L Anion Gap (12-20) BUN (9-16) mg/dL Creatinine (0.5-1.4) mg/dL Estim Creat Clear Calc Estimated GFR Random Glucose (60-115) mg/dL Calcium (8.4-10.2) mg/dL Total Bilirubin (0.0-1.0) mg/dL AST (5-31) U/L ALT (0-31) U/L Alkaline Phosphatase (39-117) U/L Total Protein (6.5-8.0) g/dL Albumin (3.5-5.0) g/dL Urine Color YELLOW Urine Appearance CLEAR Urine pH 6.0 (5.0-8.0) Ur Specific [place] >= 1.030 H (1.005-1.025) Urine Protein NEG (NEG-TRACE) MG/DL Urine Glucose (UA) NEG (NEG) MG/DL Urine Ketones NEG (NEG) MG/DL Urine Blood NEG (NEG) Urine Nitrite NEG (NEG) Ur Leukocyte Esterase NEG (NEG) Urine Test NEGATIVE (NEGATIVE) 01/05/21 Range/Units 23:52 WBC (4.8-10.8) X10*3/uL RBC (4.20-5.50) X10*6/uL Hgb (12.0-16.0) g/dl Hct (37-47) % MCV (80-98) fL MCH (27.0-33.0) pg MCHC (31.0-35.0) g/dl RDW (11.0-16.0) % Plt Count (160-400) X10*3/uL MPV (9.4-12.3) fL Immature Gran % (Auto) (0.0-0.4) % Neut % (Auto) (45-73) % Lymph % (Auto) (20-40) % [place] % (Auto) (2-11) % Eos % (Auto) (0-4) % Baso % (Auto) (0-2) % Lymph # (Auto) (1.2-4.9) X10*3/uL [place] # (Auto) (0.1-1.2) X10*3/uL Eos # (Auto) (0.0-0.4) X10*3/uL Baso # (Auto) (0.0-0.2) X10*3/uL Abs Immat Gran (auto) (0.00-0.03) X10*3/uL Absolute Neuts (auto) (2.0-8.3) X10*3/uL Absolute Nucleated RBC (0.0-0.012) X10*3/uL Nucleated RBC % (auto) (0.0-0.2) /100WBC Sodium 140 (135-145) mmol/L Potassium 4.6 (3.3-5.1) mmol/L Chloride 108 (96-108) mmol/L Carbon Dioxide 23 (22-29) mmol/L Anion Gap 14 (12-20) BUN 12 (9-16) mg/dL Creatinine 0.73 (0.5-1.4) mg/dL Estim Creat Clear Calc 131.2 Estimated GFR > 60 Random Glucose 80 (60-115) mg/dL Calcium 9.1 D (8.4-10.2) mg/dL Total Bilirubin 0.6 (0.0-1.0) mg/dL AST 19 (5-31) U/L ALT 11 (0-31) U/L Alkaline Phosphatase 91 (39-117) U/L Total Protein 7.0 (6.5-8.0) g/dL Albumin 4.3 (3.5-5.0) g/dL Urine Color Urine Appearance Urine pH (5.0-8.0) Ur Specific [place] (1.005-1.025) Urine Protein (NEG-TRACE) MG/DL Urine Glucose (UA) (NEG) MG/DL Urine Ketones (NEG) MG/DL Urine Blood (NEG) Urine Nitrite (NEG) Ur Leukocyte Esterase (NEG) Urine Test (NEGATIVE) Discharge Plan Discharge Clinical Impression: Nausea & vomiting, Medication side effect Patient Disposition: Home, Self-Care Instructions: Acute Nausea and Vomiting (ED) Additional Instructions: 1. Resume all home medications as prescribed. 2. Continue to stay well hydrated especially with water. 3. Follow-up with your primary care provider for re-evaluation in 2-3 days. Do not hesitate to return to the emergency department for any acute worsening of your symptoms. Prescriptions: No Action pantoprazole 40 mg tablet,delayed release (DR/EC) 40 mg PO DAILY Qty: 30 RF: 11 hyoscyamine sulfate [Levsin/SL] 0.125 mg tablet, sublingual 0.125 mg PO BID-QID PRN (Reason: dyspepsia) Qty: 90 RF: 0 sucralfate [Carafate] 100 mg/mL suspension 10 ml PO BID RF: 0 Eucrisa 2 % ointment topical BID RF: 0 betamethasone, augmented 0.05 % ointment topical RF: 0 acetaminophen [Tylenol Arthritis Pain] 650 mg tablet extended release 650 mg PO Q12H 10 Days Qty: 20 RF: 0 cyclobenzaprine 10 mg tablet 10 mg PO BEDTIME 30 Days Qty: 30 RF: 0 cholecalciferol (vitamin D3) 125 mcg (5,000 unit) capsule 250 mcg PO DAILY RF: 0 ferrous sulfate 325 mg (65 mg iron) tablet 325 mg PO DAILY RF: 0 Motegrity 1 mg tablet 1 mg PO DAILY Qty: 30 RF: 2 multivitamin Tablet 1 tab PO DAILY RF: 0 Referrals: Marita Tloedo MD [Primary Care Provider] - 2 days (Re-evaluation after seen in the ER for suspected IV iron side effect.)
[2021-01-06 00:01] LABS: Basophils Absolute Auto 0.1 X10*3/uL (0.0-0.2); Basophils Percent Auto 0.8 % (0-2); Eosinophils Absolute Auto 0.2 X10*3/uL (0.0-0.4); Eosinophils Percent Auto 1.8 % (0-4); Hemoglobin 13.3 g/dl (12.0-16.0); Imm Gran Abs Auto 0.02 X10*3/uL (0.00-0.03); Imm Gran Pct Auto 0.2 % (0.0-0.4); Lymphocytes Absolute Auto 3.4 X10*3/uL (1.2-4.9); Lymphocytes Percent Auto 32.7 % (20-40); Mean Corpuscular HGB Conc 31.7 g/dl (31.0-35.0); Mean Corpuscular Hemoglobin 26.7 pg (27.0-33.0); Mean Corpuscular Volume 84.3 fL (80-98); Mean Platelet Volume 9.8 fL (9.4-12.3); Monocytes Absolute Auto 0.9 X10*3/uL (0.1-1.2); Monocytes Percent Auto 8.2 % (2-11); Neutrophils Absolute Auto 5.8 X10*3/uL (2.0-8.3); Neutrophils Percent Auto 56.3 % (45-73); Platelet Count 308 X10*3/uL (160-400); Red Blood Count 4.98 X10*6/uL (4.20-5.50); Red Cell Distribution Width 14.8 % (11.0-16.0); White Blood Count 10.4 X10*3/uL (4.8-10.8)
[2021-01-06 00:03] LABS: Glucose Urine UA NEG (NEG); Leukocyte Esterase Urine NEG (NEG); Nitrite Urine NEG (NEG); Specific Gravity - Urine >= 1.030 (1.005-1.025); Urine Blood NEG (NEG); Urine Ketones NEG (NEG); Urine Protein NEG (NEG-TRACE)
[2021-01-06 00:05] LABS: Appearance Urine CLEAR; Color Urine YELLOW; UPreg QC Valid YES; Urine Pregnancy NEGATIVE (NEGATIVE)
[2021-01-06 00:32] LABS: Alanine Aminotransferase 11 U/L (0-31); Albumin Level 4.3 g/dL (3.5-5.0); Alkaline Phosphatase 91 U/L (39-117); Anion Gap 14 (12-20); Aspartate Amino Transferase 19 U/L (5-31); Bilirubin Total 0.6 mg/dL (0.0-1.0); Blood Urea Nitrogen 12 mg/dL (9-16); Calcium 9.1 mg/dL (8.4-10.2); Carbon Dioxide 23 mmol/L (22-29); Chloride 108 mmol/L (96-108); Creatinine Clr Calc Pharmacy 131.2; Estimated Glomerular Filt Rate > 60; Glucose Random 80 mg/dL (60-115); Potassium 4.6 mmol/L (3.3-5.1); Sodium 140 mmol/L (135-145)
[2021-01-06] MEDS: ondansetron HCL 4 MG/2 ML VIAL IVPUSH (00:51)
[2021-01-06] MEDS: 0.9 % Sodium Chloride 1,000 ML 999 ML IV (00:51)
[2021-01-06] MEDS: Acetaminophen 325 MG TABLET 975 MG PO (00:56)
[2021-01-06 02:00] VITALS: BP 110/59; PULSE 65; RESP 18; TEMP 36.9; O2SAT 99
[2021-01-06 02:14] VITALS: BP 110/59; PULSE 66; RESP 18; TEMP 36.9
== END 2021-01-06 02:16 | disposition home or self-care (01) ==
PROVIDERS: Emergency Provider Student in an Organized Health Care Education/Training Program; PCP Internal Medicine
DX: R11.2 Nausea with vomiting, unspecified (principal); Z79.899 Other long term (current) drug therapy
CPT/HCPCS: 36415; 80053; 81003; 81025; 85025; 96365; 96375; 99284; 99285; J2405

== ENCOUNTER 2021-01-10 13:21 | Outpatient (REF) | payer OTHER, SELFPAY ==
[2021-01-10 14:25] LABS: MANUAL DIFF FLAG NO
[2021-01-10 14:28] LABS: Basophils Absolute Auto 0.1 X10*3/uL (0.0-0.2); Basophils Percent Auto 0.9 % (0-2); Eosinophils Absolute Auto 0.2 X10*3/uL (0.0-0.4); Eosinophils Percent Auto 2.4 % (0-4); Hematocrit 39.6 % (37-47); Hemoglobin 12.4 g/dl (12.0-16.0); Imm Gran Abs Auto 0.01 X10*3/uL (0.00-0.03); Imm Gran Pct Auto 0.1 % (0.0-0.4); Lymphocytes Absolute Auto 2.2 X10*3/uL (1.2-4.9); Lymphocytes Percent Auto 29.5 % (20-40); Mean Corpuscular HGB Conc 31.3 g/dl (31.0-35.0); Mean Corpuscular Hemoglobin 26.9 pg (27.0-33.0); Mean Corpuscular Volume 85.9 fL (80-98); Mean Platelet Volume 9.5 fL (9.4-12.3); Monocytes Absolute Auto 0.7 X10*3/uL (0.1-1.2); Monocytes Percent Auto 8.8 % (2-11); Neutrophils Absolute Auto 4.3 X10*3/uL (2.0-8.3); Neutrophils Percent Auto 58.3 % (45-73); Platelet Count 239 X10*3/uL (160-400); Red Blood Count 4.61 X10*6/uL (4.20-5.50); Red Cell Distribution Width 15.1 % (11.0-16.0); White Blood Count 7.4 X10*3/uL (4.8-10.8)
[2021-01-10 14:53] LABS: Iron 80 mcg/dL (30-160); Percent Iron Saturation 31 % (15-50); Total Iron Binding Capacity 256 mcg/dL (228-428); Unsaturated Iron Binding 176 ug/dL
[2021-01-10 15:13] LABS: Ferritin 86 ng/mL (10-122)
== END 2021-01-10 13:22 | disposition home or self-care (01) ==
LOC: HO.LAB 13:21
PROVIDERS: PCP Internal Medicine; Visit Provider Internal Medicine Gastroenterology
DX: D50.9 Iron deficiency anemia, unspecified (principal)
CPT/HCPCS: 36415; 82728; 83540; 85025; 96365; J2916

== ENCOUNTER 2021-01-10 13:30 | Outpatient (REF) | payer OTHER, SELFPAY | END 2021-01-10 13:31 | disposition home or self-care (01) | LOC: HO.MDS 13:30 | PROVIDERS: Visit Provider Internal Medicine Gastroenterology | DX: D50.9 Iron deficiency anemia, unspecified (principal) | CPT/HCPCS: 36415; 82728; 83540; 85025; 96365; J2916 ==

== ENCOUNTER 2021-01-30 09:56 | Outpatient (REF) | payer OTHER, SELFPAY | END 2021-01-30 09:57 | disposition home or self-care (01) | LOC: HO.MDS 09:56 | PROVIDERS: PCP Internal Medicine; Visit Provider Internal Medicine Gastroenterology | DX: D50.9 Iron deficiency anemia, unspecified (principal) | CPT/HCPCS: 96365; J2916 ==

== ENCOUNTER 2021-02-14 | Outpatient (REF) | payer OTHER, SELFPAY | END 2021-02-14 00:01 | disposition home or self-care (01) | LOC: CF | PROVIDERS: PCP Internal Medicine; Visit Provider Advanced Practice Midwife | DX: R10.2 Pelvic and perineal pain (principal); N89.8 Other specified noninflammatory disorders of vagina; B37.3 Candidiasis of vulva and vagina; Z97.5 Presence of (intrauterine) contraceptive device | CPT/HCPCS: 81003; 81025; 99212 ==

== ENCOUNTER 2021-02-14 10:26 | Outpatient (REF) | payer OTHER, SELFPAY ==
[2021-02-14 12:25] LABS: Glucose Urine UA NEG (NEG); Leukocyte Esterase Urine 1+ (NEG); Nitrite Urine NEG (NEG); UACC Culture Trigger YES; Urine Blood NEG (NEG); Urine Ketones NEG (NEG); Urine Protein NEG (NEG-TRACE)
[2021-02-14 12:30] LABS: Appearance Urine CLEAR; Color Urine YELLOW
[2021-02-14 12:33] LABS: Bacteria Urine 1+ /LPF; RBC Urine 0 /HPF (0)
[2021-02-14 13:54] LABS: CT PCR NOT DETECTED (Not Detect.); NG PCR NOT DETECTED (Not Detect.)
[2021-02-15 08:38] LABS: BV Int Neg Control Negative (Negative); BV Int Pos Control Positive (Positive)
== END 2021-02-14 10:27 | disposition home or self-care (01) ==
LOC: HO.LAB 10:26
PROVIDERS: Visit Provider Advanced Practice Midwife
DX: B37.3 Candidiasis of vulva and vagina (principal); N89.8 Other specified noninflammatory disorders of vagina; R10.2 Pelvic and perineal pain; Z20.2 Contact with and (suspected) exposure to infections with a predominantly sexual mode of transmission
CPT/HCPCS: 81001; 81003; 87086; 87088; 87186; 87480; 87491; 87510; 87591; 87660

== ENCOUNTER 2021-02-21 12:10 | Outpatient (REF) | payer OTHER, SELFPAY ==
--- NOTE | ~2021-02-21 | US_ITS ---
EXAMINATION: PELVIC ULTRASOUND CLINICAL INFORMATION: Presence of intrauterine contraceptive device. Pain. COMPARISON: Previous CT scan of the abdomen and pelvis October 2020 TECHNIQUE: Transabdominal and transvaginal pelvic ultrasound was performed. Transvaginal exam was performed for better visualization of the uterus and ovaries. FINDINGS: The uterus is anteverted and measures 6.5 x 3.7 x 4.8 cm in dimension. No focal uterine lesion is seen. Endometrial thickness is normal measuring 0.7 cm. An IUD is not seen. The cervix is normal.. The right ovary is slightly enlarged and measures 3.1 x 3.7 x 3.5 cm, volume 21 mL. There is a 2.6 x 2.7 x 2.8 cm hypoechoic lesion in the right ovary questionable for a mass versus complex cyst or a there is a 1.5 cm simple cyst in the right ovary. The left ovary is normal-appearing and measures 2.6 x 1.7 x 2 cm. There is a small amount of fluid in the pelvis. US/US pelvic and transvaginal IMPRESSION: Normal-appearing uterus. No IUD seen. Slightly enlarged right ovary. 2.6 x 2.7 x 2.8 cm hypoechoic lesion questionable for a complex cyst versus solid mass. Short-term follow-up pelvic ultrasound 10-12 weeks recommended. 1.5 cm simple right ovarian cyst.
== END 2021-02-21 12:11 | disposition home or self-care (01) ==
LOC: HO.US 12:10
PROVIDERS: Visit Provider Advanced Practice Midwife
DX: Z30.011 Encounter for initial prescription of contraceptive pills (principal); R10.2 Pelvic and perineal pain; B37.3 Candidiasis of vulva and vagina; N89.8 Other specified noninflammatory disorders of vagina; Z97.5 Presence of (intrauterine) contraceptive device
CPT/HCPCS: 76830; 76856

== ENCOUNTER → 2021-03-07 11:49 | Outpatient (BNVA) | payer OTHER, SELFPAY | PROVIDERS: PCP Internal Medicine; Visit Provider Advanced Practice Midwife ==

== ENCOUNTER 2021-03-12 13:54 | Emergency (ER) | payer OTHER, SELFPAY ==
[2021-03-12 14:43] VITALS: BP 92/55; PULSE 65; RESP 18; TEMP 36.7; O2SAT 99; BMI 29.7
== END 2021-03-12 18:55 | disposition left against medical advice (07) ==
PROVIDERS: Emergency Provider Emergency Medicine; PCP Internal Medicine
DX: R10.9 Unspecified abdominal pain (principal)
CPT/HCPCS: 99281; 99282

== ENCOUNTER → 2021-04-06 11:50 | Outpatient (BNVA) | payer OTHER, SELFPAY | PROVIDERS: PCP Internal Medicine; Referring Provider Internal Medicine; Visit Provider Internal Medicine Gastroenterology | DX: R94.5 Abnormal results of liver function studies (principal); R10.11 Right upper quadrant pain | CPT/HCPCS: 99212 ==

== ENCOUNTER → 2021-04-25 15:11 | Outpatient (BNVA) | payer OTHER, SELFPAY | PROVIDERS: PCP Internal Medicine; Visit Provider Nurse Practitioner Family | DX: M53.3 Sacrococcygeal disorders, not elsewhere classified (principal); R10.9 Unspecified abdominal pain; G89.29 Other chronic pain | CPT/HCPCS: 99202 ==

== ENCOUNTER → 2021-06-05 14:28 | Outpatient (BNVA) | payer OTHER, SELFPAY | PROVIDERS: Visit Provider Advanced Practice Midwife ==

== ENCOUNTER 2021-06-18 15:10 | Outpatient (REF) | payer OTHER, SELFPAY ==
--- NOTE | ~2021-06-18 | US_ITS ---
EXAMINATION: US PELVIS CLINICAL INFORMATION: Abdominal pain. Follow up complex right ovarian cyst COMPARISON: . Previous pelvic ultrasound 02/21/2021 TECHNIQUE: Ultrasound of the pelvis is performed using both transabdominal and transvaginal transducers along with Doppler. Transvaginal imaging is performed due to inadequate visualization transabdominally. FINDINGS: The uterus is anteverted and measures 7.8 x 3.8 x 4.5 cm in dimension. No focal uterine lesion is seen. Endometrial thickness is normal measuring 0.5 cm. There are nabothian cysts in the cervix. The right ovary is slightly enlarged measuring 3.8 x 2.9 x 3.5 cm, volume 20 mL. There is a new 2.4 x 2.4 x 2.7 cm simple-appearing right ovarian cyst. The previously identified 2.6 x 2.7 x 2.8 cm hypoechoic lesion in the right ovary on 02/21/2021 exam is no longer seen. The left ovary is normal-appearing and measures 3.6 x 1.6 x 1.7 cm. There is no fluid in the pelvis. US/US pelvic and transvaginal IMPRESSION: Resolved 2.6 x 2.7 x 2.8 cm complex right ovarian cyst. New 2.4 x 2.4 x 2.7 cm simple right ovarian cyst.
== END 2021-06-18 15:11 | disposition home or self-care (01) ==
LOC: HO.US 15:10
PROVIDERS: Visit Provider Advanced Practice Midwife
DX: N83.299 Other ovarian cyst, unspecified side (principal); R10.9 Unspecified abdominal pain
CPT/HCPCS: 76830; 76856

== ENCOUNTER → 2021-07-06 11:12 | Outpatient (BNVA) | payer OTHER, SELFPAY | PROVIDERS: Visit Provider Advanced Practice Midwife | DX: Z30.46 Encounter for surveillance of implantable subdermal contraceptive (principal); K90.9 Intestinal malabsorption, unspecified; Z91.018 Allergy to other foods; J30.81 Allergic rhinitis due to animal (cat) (dog) hair and dander; T63.481A Toxic effect of venom of other arthropod, accidental (unintentional), initial encounter; Z98.84 Bariatric surgery status | CPT/HCPCS: 11981; 11982; 11983; 81025; 99212; J7307 ==

== ENCOUNTER → 2021-07-11 10:03 | Outpatient (BNVA) | payer OTHER, SELFPAY | PROVIDERS: Visit Provider Advanced Practice Midwife | DX: Z30.46 Encounter for surveillance of implantable subdermal contraceptive (principal); M79.602 Pain in left arm; N83.299 Other ovarian cyst, unspecified side | CPT/HCPCS: 99212 ==

== ENCOUNTER 2021-07-25 16:00 | Outpatient (RCR) | payer OTHER, SELFPAY ==
--- NOTE | 2021-09-10 13:40 | MHC.PT.DC ---
[facility] [place] [facility] [place] [facility] [place] [facility] [address] Riley Gorman [address] [facility] [phone] F: [phone] F: [phone] F: [phone] F: [phone] Physical Therapy Discharge Report Diagnosis: SACROCOCCYGEAL DISORDER Date of Surgery: Date of Evaluation: 07/02/21 Date of Discharge: 09/10/21 Treatments to Date: 4 Cancellations to Date: 1 No Shows to Date: 1 Discharge Status: Improved Function Patient Elected to Stop Discharge Summary: Pt with no report of increase in pain with any strengthening today. Pt has residual weakness in her proximal LEs muscles and mild hip muscle soreness - Pt has not returned for f/u appts- she has a thorough HEP to address progression toward her functional goals. Electronically signed by: Ilsa Zayas,PT Please sign and return to therapist. Thank you for your referral.
== END 2021-09-10 13:39 | disposition home or self-care (01) ==
LOC: HO.PT 16:00
PROVIDERS: PCP Internal Medicine; Visit Provider Nurse Practitioner Family
DX: M53.3 Sacrococcygeal disorders, not elsewhere classified (principal)
CPT/HCPCS: 97110; 97140; 97162

== ENCOUNTER → 2021-08-07 10:31 | Outpatient (BNVA) | payer OTHER, SELFPAY | PROVIDERS: PCP Internal Medicine; Visit Provider Internal Medicine Gastroenterology ==

== ENCOUNTER 2021-10-18 09:10 | Emergency (ER) | payer OTHER, SELFPAY ==
--- NOTE | ~2021-10-18 | US_ITS ---
EXAMINATION: US PELVIS TRANSVAGINAL CLINICAL INFORMATION: Lower abdominal pain with history of cysts. COMPARISON: June 18, 2021 and February 21, 2021 TECHNIQUE: Transcutaneous and transvaginal pelvic ultrasound. Transvaginal scanning was performed after voiding to better evaluate the endometrium and adnexa. FINDINGS: The uterus measures 7.8 x 3.8 x 5.7 cm. The uterus is anteverted. Nabothian cysts are seen within the cervix with no suspicious masses. The uterine contour is smooth. The endometrium measures 0.8 cm. No focal abnormalities within the myometrium. The right ovary measures approximately 3.0 x 1.4 x 2.1 cm. The calculated right ovarian volume is approximately 4.6 mL. No suspicious right adnexal masses. No enlarged cysts identified. Normal vascular flow is seen. The left ovary measures 5.0 x 3.7 x 3.5 cm. The calculated left ovarian volume is approximately 31.1 mL. There is a 3.7 x 3.2 x 3.0 cm simple appearing cyst. Normal vascular flow is present. No significant free pelvic fluid. US/US pelvic and transvaginal IMPRESSION: 3.7 cm simple appearing left adnexal cyst.
[2021-10-18 09:11] VITALS: BP 112/68; PULSE 72; RESP 16; TEMP 36; O2SAT 97; BMI 29.7
--- NOTE | 2021-10-18 09:31 | ED_ITS ---
HPI - Abdominal Pain General Chief Complaint: Abdominal Pain Stated Complaint: Lower abd pain Time Seen by Provider: 10/18/21 09:30 Source: patient Mode of arrival: ambulatory Limitations: no limitations History of Present Illness HPI narrative: has had lower pelvic pain for 3 months - has seen OBGYN, did have US at [facility] [place] ago told it was okay but not sure started her period today as well MD elicited complaint: abdominal pain Pertinent past history: other (ovarian cysts) Onset (ago): day(s) (3) Pain Consistency: constant Location: pelvis Severity: moderate Quality: cramping Radiation: none Migration to: no migration Exacerbating factors: movement Relieving factors: nothing Context: history of similar episodes Associated symptoms: nausea Related Data Home Medications Medication Instructions Recorded Confirmed betamethasone, augmented 0.05 % TOPICAL 10/05/20 08/06/21 topical ointment crisaborole 2 % topical ointment TOPICAL BID 10/05/20 08/06/21 multivitamin 1 tab PO DAILY 11/08/20 08/06/21 cholecalciferol (vitamin D3) 125 250 mcg PO DAILY 12/19/20 08/06/21 mcg (5,000 unit) capsule etonogestrel 68 mg subdermal SUBDERMAL 02/14/21 08/06/21 implant (Nexplanon) gabapentin 100 mg capsule 100 mg PO DAILY 08/07/21 Previous Rx's Medication Instructions Recorded pantoprazole 40 mg tablet,delayed 40 mg PO DAILY #30 tab 10/14/20 release ferrous sulfate 325 mg (65 mg 325 mg PO BID 90 Days #180 tab 04/03/21 iron) tablet,delayed release ursodiol 500 mg tablet 500 mg PO BID #90 tab 08/23/21 ondansetron 4 mg disintegrating 4 mg PO Q8H PRN #20 tab 10/18/21 tablet Allergies Allergy/AdvReac Type Severity Reaction Status Date / Time carrot [CARROTS] Allergy Intermediate SWELLING Verified 08/07/21 10:32 cat dander [CATS] Allergy Intermediate ITCHING Verified 08/07/21 10:32 insect venom [INSECT Allergy Intermediate HIVES Verified 08/07/21 10:32 BITES] Review of Systems Review of Systems Constitutional : No Weight loss, No Fever, No Chills ENT/Mouth : No sore throat, No Rhinorrhea Eyes: No Swelling, No Redness Cardiovascular : No Chest Pain, No SOB, NoEdema Respiratory : No Cough, No Sputum, No Wheezing Gastrointestinal : Positive Nausea, no Vomiting, no Diarrhea, positive abdominal Pain, No Hematochezia, No Melena, no constipation, pos flatus Genitourinary : No Dysuria, No Urinary Frequency, No Hematuria, No Urgency, no vaginal discharge Musculoskeletal : No joint pain, No Myalgias, No Joint Swelling Skin : No Skin Lesions, No rash Neuro : No Weakness, No Numbness, No Dizziness, No Headache Psych : No Anxiety/Panic, No Depression Heme/Lymph: No Bruising, No Lymphadenopathy Endocrine : No Polyuria, No Polydipsia All other systems reviewed and are negative. Physical Exam Verdana 4l Vital Signs: Verdana 4d Verdana 4d Vital Signs: Verdana 4d Verdana 4Bd Last Vital Signs Verdana 4d Die Cast Die Maker New 4d Die Cast Die Maker New 4d Temp 97.9 F 10/18/21 10:35 Die Cast Die Maker New 4d Pulse 63 10/18/21 10:35 Die Cast Die Maker New 4d Resp 18 10/18/21 10:35 BP 109/65 10/18/21 10:35 Pulse Ox 100 10/18/21 10:35 BMI result Body Mass Index 29.7 Appearance: Alert. Oriented X3. No acute distress. Eyes: Pupils equal, round and reactive to light. ENT: Pharynx normal. Neck: Normal inspection. Neck supple. CVS: Normal heart rate and rhythm. Pulses normal. Respiratory: No respiratory distress. Breath sounds normal. Abdomen: Soft and mild lower pelvic tenderness no rebound or guarding, no mass, no upper abdominal pain no distention Skin: Skin warm and dry. Normal skin color. Normal skin turgor. Extremities: No lower extremity edema. No calf ttp Neuro: Oriented X 3. No motor deficit. No sensory deficit. Course Course Course Narrative: prior elevations in LFTs, pending UA has no RUQ pain simple L sided ovarian cyst good flow, UA pending UA negative, suspect symptoms due to msnses and COVID no hypoxia no RUQ pain no upper abdominal pain no vomiting here stable for DC MDM - Abdominal Pain MDM Narrative Medical decision making narrative: 26 yo female with hx of abdominal pain s/p gastric bypass here with pelvic pain x 3 months worse after starting her menses today with nausea - denies upper abdominal pain no vomiting no constipation no flatus internal hernia and obstruction seem unlikely she also reports 3 months of pelvic pain with hx of cysts just worse today after starting her period this also goes against pathology with her bowels. At this time will obtain labs, UA, US of ovaries, IVF and IV anti-emetics. Dispo per results and findings. Lab Data Result diagrams: 10/18/21 10:43 10/18/21 11:06 Labs: Lab Results 10/18/21 10/18/21 10/18/21 Range/Units 10:38 10:43 11:06 WBC 4.9 (4.8-10.8) X10*3/uL RBC 4.86 (4.20-5.50) X10*6/uL Hgb 13.3 (12.0-16.0) g/dl Hct 41.2 (37.0-47.0) % MCV 84.8 (80.0-98.0) fL MCH 27.4 (27.0-33.0) pg MCHC 32.3 (31.0-35.0) g/dl RDW 13.0 (11.0-16.0) % Plt Count 207 (160-400) X10*3/uL MPV 9.7 (9.4-12.3) fL Immature Gran % (Auto) 0.2 (0.0-0.4) % Neut % (Auto) 55.8 (45-73) % Lymph % (Auto) 31.2 (20-40) % Ware % (Auto) 10.0 (2-11) % Eos % (Auto) 2.4 (0-4) % Baso % (Auto) 0.4 (0-2) % Lymph # (Auto) 1.5 (1.2-4.9) X10*3/uL Ware # (Auto) 0.5 (0.1-1.2) X10*3/uL Eos # (Auto) 0.1 (0.0-0.4) X10*3/uL Baso # (Auto) 0.0 (0.0-0.2) X10*3/uL Abs Immat Gran (auto) 0.01 (0.00-0.03) X10*3/uL Absolute Neuts (auto) 2.7 (2.0-8.3) x10*3/uL Absolute Nucleated RBC 0.000 (0.0-0.012) X10*3/uL Nucleated RBC % (auto) 0.0 (0.0-0.2) /100WBC Sodium 140 (135-145) mmol/L Potassium 4.2 (3.3-5.1) mmol/L Chloride 111 H (96-108) mmol/L Carbon Dioxide 25 (22-29) mmol/L Anion Gap 8 L (12-20) BUN 12 (9-16) mg/dL Creatinine 0.69 (0.5-1.4) mg/dL Estim Creat Clear Calc 139.3 Estimated GFR > 60 Random Glucose 90 (60-115) mg/dL Calcium 8.1 L D (8.4-10.2) mg/dL Magnesium 2.1 (1.6-2.6) mg/dL Total Bilirubin 0.2 (0.0-1.0) mg/dL Direct Bilirubin 0.2 (0.0-0.5) mg/dL AST 57 H (5-31) U/L ALT 82 H (0-31) U/L Alkaline Phosphatase 136 H D (39-117) U/L Total Protein 6.0 L (6.5-8.0) g/dL Albumin 3.7 (3.5-5.0) g/dL Lipase 22 (8-78) U/L Beta HCG, Quant < 2 mIU/mL Urine Color Urine Appearance Urine pH (5.0-8.0) Ur Specific [place] (1.005-1.025) Urine Protein (NEG-TRACE) MG/DL Urine Glucose (UA) (NEG) MG/DL Urine Ketones (NEG) MG/DL Urine Blood (NEG) Urine Nitrite (NEG) Ur Leukocyte Esterase (NEG) Urine RBC (0) /HPF Urine WBC (0-4) /HPF Ur Squamous Epith Cells /LPF Urine Bacteria /LPF COVID-19 (PILY) Positive A (Negative) COVID-19 Clin Com See Note 10/18/21 Range/Units 12:12 WBC (4.8-10.8) X10*3/uL RBC (4.20-5.50) X10*6/uL Hgb (12.0-16.0) g/dl Hct (37.0-47.0) % MCV (80.0-98.0) fL MCH (27.0-33.0) pg MCHC (31.0-35.0) g/dl RDW (11.0-16.0) % Plt Count (160-400) X10*3/uL MPV (9.4-12.3) fL Immature Gran % (Auto) (0.0-0.4) % Neut % (Auto) (45-73) % Lymph % (Auto) (20-40) % Ware % (Auto) (2-11) % Eos % (Auto) (0-4) % Baso % (Auto) (0-2) % Lymph # (Auto) (1.2-4.9) X10*3/uL Ware # (Auto) (0.1-1.2) X10*3/uL Eos # (Auto) (0.0-0.4) X10*3/uL Baso # (Auto) (0.0-0.2) X10*3/uL Abs Immat Gran (auto) (0.00-0.03) X10*3/uL Absolute Neuts (auto) (2.0-8.3) x10*3/uL Absolute Nucleated RBC (0.0-0.012) X10*3/uL Nucleated RBC % (auto) (0.0-0.2) /100WBC Sodium (135-145) mmol/L Potassium (3.3-5.1) mmol/L Chloride (96-108) mmol/L Carbon Dioxide (22-29) mmol/L Anion Gap (12-20) BUN (9-16) mg/dL Creatinine (0.5-1.4) mg/dL Estim Creat Clear Calc Estimated GFR Random Glucose (60-115) mg/dL Calcium (8.4-10.2) mg/dL Magnesium (1.6-2.6) mg/dL Total Bilirubin (0.0-1.0) mg/dL Direct Bilirubin (0.0-0.5) mg/dL AST (5-31) U/L ALT (0-31) U/L Alkaline Phosphatase (39-117) U/L Total Protein (6.5-8.0) g/dL Albumin (3.5-5.0) g/dL Lipase (8-78) U/L Beta HCG, Quant mIU/mL Urine Color DK YELLOW Urine Appearance CLOUDY Urine pH 6.5 (5.0-8.0) Ur Specific [place] 1.015 (1.005-1.025) Urine Protein 1+ H (NEG-TRACE) MG/DL Urine Glucose (UA) NEG (NEG) MG/DL Urine Ketones NEG (NEG) MG/DL Urine Blood 3+ H (NEG) Urine Nitrite NEG (NEG) Ur Leukocyte Esterase TRACE H (NEG) Urine RBC TNTC H (0) /HPF Urine WBC 0-2 (0-4) /HPF Ur Squamous Epith Cells 1+ /LPF Urine Bacteria NONE /LPF COVID-19 (PILY) (Negative) COVID-19 Clin Com Discharge Plan Discharge Clinical Impression: COVID-19, Pelvic pain, Elevated liver function tests Nausea & vomiting Qualifiers: Vomiting type: unspecified Qualified Code(s): R11.2 - Nausea with vomiting, unspecified Ovarian cyst Qualifiers: Laterality: left Qualified Code(s): N83.202 - Unspecified ovarian cyst, left side Patient Disposition: Home, Self-Care Instructions: Ovarian Cyst (ED), Acute Nausea and Vomiting (ED), Pelvic Pain (ED), COVID-19 (Coronavirus Disease 2019) (ED) Additional Instructions: return to ED for any worsening symptoms or concerns repeat ultrasound to see if cyst resolved in 4 weeks wear a mask and quarantine Prescriptions: New ondansetron 4 mg tablet,disintegrating 4 mg PO Q8H PRN (Reason: nausea and vomiting) Qty: 20 0RF No Action pantoprazole 40 mg tablet,delayed release (DR/EC) 40 mg PO DAILY Qty: 30 11RF ursodiol 500 mg tablet 500 mg PO BID Qty: 90 2RF ferrous sulfate 325 mg (65 mg iron) tablet,delayed release (DR/EC) 325 mg PO BID 90 Days Qty: 180 1RF Eucrisa 2 % ointment topical BID 0RF betamethasone, augmented 0.05 % ointment topical 0RF cholecalciferol (vitamin D3) 125 mcg (5,000 unit) capsule 250 mcg PO DAILY 0RF multivitamin Tablet 1 tab PO DAILY 0RF Nexplanon 68 mg implant subdermal 0RF gabapentin 100 mg capsule 100 mg PO DAILY 0RF Referrals: Marita Toledo MD [Primary Care Provider] - 1 week Stand Alone Forms: Work/School Release [facility] Past Medical History Attestation statement: The following information was validated with the patient. Medical History Abdominal pain Asthma Bile duct abnormality Cholecystectomy planned GERD (gastroesophageal reflux disease) Headache Hip asymmetry Hypovitaminosis D Intestinal malabsorption following gastrectomy Iron deficiency anemia Lumbar pain Obesity (BMI 30-39.9) Sleep apnea Surgical History Gastric bypass status for obesity H/O colonoscopy History of esophagogastroduodenoscopy (EGD) Hx of cholecystectomy Family History Family History Father Obesity Diabetes mellitus Mother Obesity Arthritis of knee Paternal Grandfather Diabetes mellitus Paternal Grandmother Diabetes mellitus Maternal Grandmother Arthritis of knee Diabetes mellitus Maternal Grandfather Diabetes mellitus Social History Social History Household Members: None Housing: House Alcohol intake: never Patient Tobacco Use Status: Never used Tobacco e-Cigarette/Vaping Use: Never Used Second Hand Smoke Exposure: No Advance Directives: No Advance Directives Information Provided: No service: No Current occupational status: employed Current occupational exposures/hazards: No
[2021-10-18 10:35] VITALS: BP 109/65; PULSE 63; RESP 18; TEMP 36.6; O2SAT 100
[2021-10-18 10:47] LABS: MANUAL DIFF FLAG NO
[2021-10-18] MEDS: 0.9 % Sodium Chloride 1,000 ML 999 ML IVCONT (10:47)
[2021-10-18 10:50] LABS: Basophils Percent Auto 0.4 % (0-2); Eosinophils Absolute Auto 0.1 X10*3/uL (0.0-0.4); Eosinophils Percent Auto 2.4 % (0-4); Hematocrit 41.2 % (37.0-47.0); Hemoglobin 13.3 g/dl (12.0-16.0); Imm Gran Abs Auto 0.01 X10*3/uL (0.00-0.03); Imm Gran Pct Auto 0.2 % (0.0-0.4); Lymphocytes Absolute Auto 1.5 X10*3/uL (1.2-4.9); Lymphocytes Percent Auto 31.2 % (20-40); Mean Corpuscular HGB Conc 32.3 g/dl (31.0-35.0); Mean Corpuscular Hemoglobin 27.4 pg (27.0-33.0); Mean Corpuscular Volume 84.8 fL (80.0-98.0); Mean Platelet Volume 9.7 fL (9.4-12.3); Monocytes Absolute Auto 0.5 X10*3/uL (0.1-1.2); Neutrophils Absolute Auto 2.7 x10*3/uL (2.0-8.3); Neutrophils Percent Auto 55.8 % (45-73); Platelet Count 207 X10*3/uL (160-400); Red Blood Count 4.86 X10*6/uL (4.20-5.50); White Blood Count 4.9 X10*3/uL (4.8-10.8)
[2021-10-18] MEDS: Metoclopramide HCl 10 MG/2 ML VIAL IVPUSH (10:55)
[2021-10-18] MEDS: diphenhydrAMINE HCL 50 MG/ML VIAL 25 MG IVPUSH (10:55)
[2021-10-18 10:59] LABS: COVID-19 Test Positive (Negative); IDNOW Serial# 55D5AD1C
--- NOTE | 2021-10-18 11:01 | PC.NURSE ---
pt alert and oriented, vss. pt reports 04/24 abdominal cramping that she describes as bloating in her vaginal area. she states that her period began yesterday and she has been experiencing sever cramping since. she states this is the first time this has happened with her period. She also reports that she was exposed to covid on friday and has been feeling sick. pt noted to be actively coughing. iv line placed, labs drawn, fluids started, meds given as documented.
[2021-10-18 11:30] LABS: Alanine Aminotransferase 82 U/L (0-31); Albumin Level 3.7 g/dL (3.5-5.0); Alkaline Phosphatase 136 U/L (39-117); Anion Gap 8 (12-20); Aspartate Amino Transferase 57 U/L (5-31); Bilirubin Direct 0.2 mg/dL (0.0-0.5); Bilirubin Total 0.2 mg/dL (0.0-1.0); Blood Urea Nitrogen 12 mg/dL (9-16); Calcium 8.1 mg/dL (8.4-10.2); Carbon Dioxide 25 mmol/L (22-29); Chloride 111 mmol/L (96-108); Creatinine Clr Calc Pharmacy 139.3; Estimated Glomerular Filt Rate > 60; Glucose Random 90 mg/dL (60-115); Lipase 22 U/L (8-78); Magnesium 2.1 mg/dL (1.6-2.6); Potassium 4.2 mmol/L (3.3-5.1); Sodium 140 mmol/L (135-145)
[2021-10-18 11:37] LABS: HCG Quantitative < 2 mIU/mL
[2021-10-18 12:21] LABS: Appearance Urine CLOUDY; Color Urine DK YELLOW; Glucose Urine UA NEG (NEG); Leukocyte Esterase Urine TRACE (NEG); Nitrite Urine NEG (NEG); PH 6.5 (5.0-8.0); Specific Gravity - Urine 1.015 (1.005-1.025); UACC Culture Trigger YES; Urine Blood 3+ (NEG); Urine Ketones NEG (NEG); Urine Protein 1+ MG/DL (NEG-TRACE)
[2021-10-18 12:38] LABS: RBC Urine TNTC /HPF (0); Squamous Epithelial Cell Urine 1+ /LPF
[2021-10-18 12:39] LABS: WBC Urine 0-2 /HPF (0-4)
== END 2021-10-18 12:50 | disposition home or self-care (01) ==
PROVIDERS: Emergency Provider Emergency Medicine; PCP Internal Medicine
DX: U07.1 COVID-19 (principal); N83.292 Other ovarian cyst, left side; R79.89 Other specified abnormal findings of blood chemistry; R10.2 Pelvic and perineal pain; R11.2 Nausea with vomiting, unspecified
CPT/HCPCS: 76830; 76856; 80048; 80076; 81001; 83690; 83735; 84702; 85025; 87086; 87635; 96361; 96374; 96375; 99284; J1200; J2765

== ENCOUNTER → 2021-11-06 09:17 | Outpatient (BNVA) | payer OTHER, SELFPAY | PROVIDERS: Visit Provider Advanced Practice Midwife | DX: N92.1 Excessive and frequent menstruation with irregular cycle (principal); Z97.5 Presence of (intrauterine) contraceptive device | CPT/HCPCS: 99212 ==

== ENCOUNTER → 2021-12-05 08:53 | Outpatient (BNVA) | payer OTHER, SELFPAY | PROVIDERS: PCP Internal Medicine; Visit Provider Nurse Practitioner Family | DX: M53.3 Sacrococcygeal disorders, not elsewhere classified (principal) | CPT/HCPCS: 99212 ==

== ENCOUNTER → 2022-01-25 10:27 | Outpatient (BNVA) | payer OTHER, SELFPAY | PROVIDERS: Visit Provider Advanced Practice Midwife | DX: Z30.46 Encounter for surveillance of implantable subdermal contraceptive (principal); N92.1 Excessive and frequent menstruation with irregular cycle | CPT/HCPCS: 11982; 99212 ==

== ENCOUNTER 2022-02-12 08:55 | Emergency (ER) | payer OTHER, SELFPAY ==
--- NOTE | ~2022-02-12 | XR_ITS ---
EXAMINATION: XR CHEST CLINICAL INFORMATION: Cough and congestion COMPARISON: None TECHNIQUE: 2 views of the chest were obtained. FINDINGS: Lungs clear. No pleural effusions. Heart and pulmonary vessels are normal. There are surgical clips in the epigastric region and upper abdomen XR/XR chest 2V IMPRESSION: No active disease.
[2022-02-12 09:34] VITALS: BP 120/64; PULSE 80; RESP 16; TEMP 36.4; O2SAT 98; BMI 31.1
--- NOTE | 2022-02-12 09:37 | ED.URI ---
HPI - URI/Sore Throat General Chief Complaint: Upper Respiratory Symptoms Stated Complaint: tight chest, shortness of breath Time Seen by Provider: 02/12/22 09:33 Source: patient Mode of arrival: ambulatory Limitations: no limitations History of Present Illness HPI Narrative: 26 yo female w/ past medical history significant for gastroesophageal reflux disease, sleep apnea, asthma, chronic migraine headaches, chronic back pain,? hiatal hernia status post repair as well as obesity status post cholecystectomy and gastric bypass 02/13/2017 here with complaints of dry cough, chest congestion/tightness, sob, wheezing, headache x 3 days. No fevers, chills, vomiting, diarrhea, abdominal pain, rash, joint pain, neck pain or stiffness. No recent travel or sick contact. No leg swelling or leg pain. Had COVID 10/2021. Has received 2 pfizer vaccines. Unsure about flu vaccine. Has history of asthma. Does not have inhaler at home. Related Data Home Medications Medication Instructions Recorded Confirmed betamethasone, augmented 0.05 % TOPICAL 10/05/20 01/25/22 topical ointment crisaborole 2 % topical ointment TOPICAL BID 10/05/20 01/25/22 multivitamin 1 tab PO DAILY 11/08/20 01/25/22 cholecalciferol (vitamin D3) 125 250 mcg PO DAILY 12/19/20 01/25/22 mcg (5,000 unit) capsule etonogestrel 68 mg subdermal SUBDERMAL 02/14/21 01/25/22 implant (Nexplanon) Previous Rx's Medication Instructions Recorded pantoprazole 40 mg tablet,delayed 40 mg PO DAILY #30 tab 10/14/20 release ferrous sulfate 325 mg (65 mg 325 mg PO BID 90 Days #180 tab 04/03/21 iron) tablet,delayed release ursodiol 500 mg tablet 500 mg PO BID #90 tab 08/23/21 cyclobenzaprine 5 mg tablet 5 mg PO BID PRN #14 tab 11/13/21 lidocaine 5 % topical patch 1 patch TOPICAL DAILY #15 ea 11/13/21 azithromycin 250 mg tablet See Rx Instructions .ROUTE 02/12/22 .COMPLEX #6 tab benzonatate 200 mg capsule 200 mg PO TID PRN #15 cap 02/12/22 prednisone 20 mg tablet 40 mg PO DAILY #10 tab 02/12/22 Allergies Allergy/AdvReac Type Severity Reaction Status Date / Time carrot [CARROTS] Allergy Intermediate SWELLING Verified 01/25/22 10:41 cat dander [CATS] Allergy Intermediate ITCHING Verified 01/25/22 10:41 insect venom [INSECT BITES] Allergy Intermediate HIVES Verified 01/25/22 10:41 Review of Systems Review of Systems: Yes all other systems are reviewed and are negative Constitutional: Constitutional: Reports no additional constitutional complaints, Denies body ache(s), Denies chills, Denies fever(s), Reports headache(s) and Denies weakness Eyes: Eyes: Reports no additional eye complaints and Denies change in vision ENT: Reports system reviewed and no additional complaints, except as documented, Denies dizziness, Reports headache(s), Denies nasal congestion, Denies nasal discharge and Denies neck pain Cardiovascular: Cardiovascular: Reports no additional cardiovascular complaints, Reports chest pain, Denies leg edema and Reports dyspnea Respiratory: Respiratory: Reports no additional respiratory complaints, Reports cough, Reports dyspnea and Reports wheezing Gastrointestinal: Gastrointestinal: Reports no additional gastrointestinal complaints, Denies abdominal pain, Denies diarrhea, Denies nausea and Denies vomiting Genitourinary: Genitourinary: Reports no additional female genitourinary complaints and Denies urinary incontinence Musculoskeletal: Musculoskeletal: Reports no additional musculoskeletal complaints, Denies back pain, Denies arthralgias, Denies joint swelling, Denies neck pain, Denies numbness and Denies tingling Integumentary/Breasts: Skin/Breast: Reports system reviewed and no additional complaints, except as docu and Denies rash Neurologic: Reports system reviewed and no additional complaints, except as documented, Denies Abnormal speech present, Denies dizziness, Reports headache(s), Denies numbness, Denies tingling and Denies weakness Allergic/Immunologic: Allergic/Immunologic: Reports wheezing PMFSH Past Medical History Attestation statement: The following information was validated with the patient. Source: old records reviewed and nursing notes reviewed Medical History Abdominal pain Asthma Bile duct abnormality Cholecystectomy planned GERD (gastroesophageal reflux disease) Headache Hip asymmetry Hypovitaminosis D Intestinal malabsorption following gastrectomy Iron deficiency anemia Lumbar pain Obesity (BMI 30-39.9) Sleep apnea Surgical History Gastric bypass status for obesity H/O colonoscopy History of esophagogastroduodenoscopy (EGD) Hx of cholecystectomy Family History Family History Father Obesity Diabetes mellitus Mother Obesity Arthritis of knee Paternal Grandfather Diabetes mellitus Paternal Grandmother Diabetes mellitus Maternal Grandmother Arthritis of knee Diabetes mellitus Maternal Grandfather Diabetes mellitus Social History Social History Household Members: None Housing: House Alcohol intake: never Patient Tobacco Use Status: Never used Tobacco e-Cigarette/Vaping Use: Never Used Second Hand Smoke Exposure: No Advance Directives: No Advance Directives Information Provided: No service: No Current occupational status: employed Current occupational exposures/hazards: No Physical Exam Vital Signs: Vital Signs: Last Vital Signs Temp 97.5 F 02/12/22 09:34 Pulse 80 02/12/22 10:01 Resp 20 02/12/22 10:01 BP 120/64 02/12/22 09:34 Pulse Ox 98 02/12/22 09:34 BMI result Body Mass Index 31.1 Const: General: cooperative, healthy appearing, comfortable and no acute distress Orientation/consciousness: patient oriented x3 Limitations: no limitations HEENT: Head: Yes normal to inspection Ears: hearing grossly normal bilaterally, TM normal on the right and TM abnormal bulging, wth effusion and erythematous on the left General nose exam: Normal external nose present Face and sinus: Yes normal facial exam Mouth: Normal oral and palatal mucosa present Throat: Yes posterior oropharynx normal, Yes tonsils normal and Yes uvula midline Eyes: General: appearance normal, both eyes and all related structures Pupils: Equal, round and reactive pupils present Neck: Neck: Yes normal visual inspection, Yes full ROM, Yes no lymphadenopathy and Yes no meningeal signs Chest: Chest palpation & inspection: normal inspection of the chest Resp: Other: Mild exp wheezing, frequent dry/bronchospastic cough noted Effort & Inspection: normal respiratory effort Cardio: Rate: regular rate Rhythm: regular rhythm Peripheral pulses: Peripheral pulses 2+ throughout GI: Inspection: Yes normal to inspection Palpation (GI): Soft to palpation and nontender Auscultation: normal bowel sounds Back/Spine/Pelvis: Thoracic/Lumbar Spine: thoracic and lumbar spine normal to inspection Skin: General skin exam: no rashes or lesions noted Neuro: General: patient oriented x3, no meningeal signs, no focal motor deficits and normal sensation to monofilament Cranial nerves: Yes Equal, round and reactive pupils present Cognition (Neuro): normal cognition Speech: No Abnormal speech present Gait exam (Neuro): Normal gait present Motor exam (neuro): 5/5 motor strength present throughout Extrem: General: Yes normal to inspection, Yes no pedal edema and Yes no calf tenderness Course Course Course Narrative: 26yo female here with complaints of 3 days of cough, congestion, wheezing, chest tightness, shortness of breath and HOOK. VSS. Mild wheezing throughout, no tachypnea. WIll check covid/flu testing, CXR. Will give albuterol MDI and re-assess Reevaluation(s) Reevaluation #1: influenza, covid negative. CXR with no acute finding. Has L AOM on exam. Likely bronchtiis with asthma flare. Will initiate antibiotic course, prednisone course. Will send patient home with albuterol MDI. Give Tessalon p.r.n.. Reviewed worrisome signs and symptoms of when to return to the emergency department. Comfortable discharge home. Time: 11:00 MDM - URI/Sore Throat MDM Narrative Medical decision making narrative: asthma exacerbation, PNA, viral syndrome Perc score 0. Less likely PE Medical Records Attestation: I reviewed the patient's medical records. Lab Data Attestation: I reviewed the patient's lab results. Labs: Lab Results 02/12/22 02/12/22 Range/Units 09:59 09:59 COVID-19 (PILY) Negative (Negative) COVID-19 Clin Com See Note Influenza Type A (ALVARO) Negative (Negative) Influenza Type B (ALVARO) Negative (Negative) Influenza A & B Note See Note Imaging Data Chest x-ray: Attestation: I personally reviewed and interpreted this imaging study as follows: Radiologist's impression: [address] [address] XRay Report Signed Patient: Evelyne Lazaro MR#: [id number] : 1995 Acct:[id number] Age/Sex: 26 / F ADM Date: 02/12/22 Loc: HO.ED Attending Dr: Ordering Physician: Homa Fam NP Date of Service: 02/12/22 Procedure(s): XR chest 2V Accession Number(s): [id number] cc: Homa Fam NP~ EXAMINATION: XR CHEST CLINICAL INFORMATION: Cough and congestion COMPARISON: None TECHNIQUE: 2 views of the chest were obtained. FINDINGS: Lungs clear. No pleural effusions. Heart and pulmonary vessels are normal. There are surgical clips in the epigastric region and upper abdomen XR/XR chest 2V IMPRESSION: No active disease. Discharge Plan Discharge Clinical Impression: Bronchitis, Asthma exacerbation, Acute otitis media, left Patient Disposition: Home, Self-Care Additional Instructions: Take prednisone with food Use the inhaler 2 puffs every 4-6 hours as needed for cough or wheezing Testing for flu and COVID are negative. Chest x-ray shows no signs of pneumonia Prescriptions: New azithromycin 250 mg tablet See Rx Instructions .ROUTE .COMPLEX Qty: 6 0RF Rx Instructions: For 250 mg dose pack: take 500 mg today (day 1), then 250 mg for 4 days (days 2-5) benzonatate 200 mg capsule 200 mg PO TID PRN (Reason: cough) Qty: 15 0RF prednisone 20 mg tablet 40 mg PO DAILY Qty: 10 0RF No Action pantoprazole 40 mg tablet,delayed release (DR/EC) 40 mg PO DAILY Qty: 30 11RF ursodiol 500 mg tablet 500 mg PO BID Qty: 90 2RF ferrous sulfate 325 mg (65 mg iron) tablet,delayed release (DR/EC) 325 mg PO BID 90 Days Qty: 180 1RF Eucrisa 2 % ointment topical BID 0RF betamethasone, augmented 0.05 % ointment topical 0RF lidocaine 5 % adhesive patch,medicated 1 patch topical DAILY Qty: 15 0RF Rx Instructions: leave on most painful area for up to 12 hrs cyclobenzaprine 5 mg tablet 5 mg PO BID PRN (Reason: muscle spasm) Qty: 14 0RF cholecalciferol (vitamin D3) 125 mcg (5,000 unit) capsule 250 mcg PO DAILY 0RF multivitamin Tablet 1 tab PO DAILY 0RF Nexplanon 68 mg implant subdermal 0RF Referrals: Marita Toledo MD [Primary Care Provider] - 5 days (for persistent symptoms ) Stand Alone Forms: Work/School Release Interventions: ED Discharge Assessment Last Done: 02/12/22 11:12 Discharge Date/Time: 02/12/22 11:18
[2022-02-12] MEDS: Albuterol Sulfate 90 MCG 8 GM INHALER 2 PUFF INHALE (10:00)
[2022-02-12 10:01] VITALS: PULSE 80; RESP 20; O2SAT 98
[2022-02-12 10:25] LABS: COVID-19 Test Negative (Negative); IDNOW Serial# 16C4AD1C; IDNOW Serial# 9DB6401D; Influenza A Negative (Negative); Influenza B2 Negative (Negative)
== END 2022-02-12 11:18 | disposition home or self-care (01) ==
PROVIDERS: Nurse Practitioner Family; Emergency Provider Emergency Medicine; PCP Internal Medicine
DX: J40 Bronchitis, not specified as acute or chronic (principal); J45.901 Unspecified asthma with (acute) exacerbation; H66.92 Otitis media, unspecified, left ear; Z20.822 Contact with and (suspected) exposure to COVID-19
CPT/HCPCS: 71046; 87502; 87635; 94640; 94664; 99283; 99284

== ENCOUNTER → 2022-02-26 14:53 | Outpatient (BNVA) | payer OTHER, SELFPAY | PROVIDERS: PCP Internal Medicine; Visit Provider Physician Assistant | DX: G89.29 Other chronic pain (principal); R10.11 Right upper quadrant pain; K59.00 Constipation, unspecified; Z98.84 Bariatric surgery status | CPT/HCPCS: 99212 ==

== ENCOUNTER 2022-03-01 11:53 | Outpatient (REF) | payer OTHER, SELFPAY ==
--- NOTE | ~2022-03-01 | XR_ITS ---
EXAMINATION: XR ABDOMEN KUB CLINICAL INDICATION: Constipation x1 month. Abdominal pain and vomiting. COMPARISON: None. TECHNIQUE: AP view of the abdomen. FINDINGS: There is scattered stool and gas seen throughout the colon without any significant distention. There is no organomegaly. There are multiple surgical everardo in the left upper quadrant and cholecystectomy everardo in the right upper quadrant. There are no radiopaque calculi. No gross bony or the malleus seen. XR/XR KUB IMPRESSION: Mild constipation.
[2022-03-01 13:46] LABS: MANUAL DIFF FLAG NO
[2022-03-01 14:00] LABS: Basophils Absolute Auto 0.1 X10*3/uL (0.0-0.2); Basophils Percent Auto 0.9 % (0-2); Eosinophils Absolute Auto 0.1 X10*3/uL (0.0-0.4); Eosinophils Percent Auto 1.6 % (0-4); Hematocrit 41.3 % (37.0-47.0); Hemoglobin 13.3 g/dl (12.0-16.0); Imm Gran Abs Auto 0.02 X10*3/uL (0.00-0.03); Imm Gran Pct Auto 0.2 % (0.0-0.4); Lymphocytes Absolute Auto 2.1 X10*3/uL (1.2-4.9); Lymphocytes Percent Auto 24.4 % (20-40); Mean Corpuscular HGB Conc 32.2 g/dl (31.0-35.0); Mean Corpuscular Volume 83.8 fL (80.0-98.0); Monocytes Absolute Auto 0.8 X10*3/uL (0.1-1.2); Monocytes Percent Auto 9.3 % (2-11); Neutrophils Absolute Auto 5.6 x10*3/uL (2.0-8.3); Neutrophils Percent Auto 63.6 % (45-73); Platelet Count 301 X10*3/uL (160-400); Red Blood Count 4.93 X10*6/uL (4.20-5.50); Red Cell Distribution Width 12.8 % (11.0-16.0); White Blood Count 8.7 X10*3/uL (4.8-10.8)
[2022-03-01 14:19] LABS: Estimated Average Glucose 100 mg/dL; Hemoglobin A1c % 5.1 %
[2022-03-01 14:30] LABS: Alanine Aminotransferase 13 U/L (0-31); Alkaline Phosphatase 82 U/L (39-117); Anion Gap 10 (12-20); Aspartate Amino Transferase 16 U/L (5-31); Bilirubin Total 0.5 mg/dL (0.0-1.0); Blood Urea Nitrogen 16 mg/dL (9-16); C Reactive Protein 0.11 mg/dL (< or = 0.50); Calcium 8.9 mg/dL (8.4-10.2); Carbon Dioxide 23 mmol/L (22-29); Chloride 110 mmol/L (96-108); Cholesterol 127 mg/dL; Estimated Glomerular Filt Rate > 60; Glucose Random 87 mg/dL (60-115); HDL Cholesterol 63 mg/dL; Iron 108 mcg/dL (30-160); LDL Cholesterol Calculated 53 mg/dl; Percent Iron Saturation 30 % (15-50); Potassium 4.5 mmol/L (3.3-5.1); Sodium 138 mmol/L (135-145); Total Iron Binding Capacity 355 mcg/dL (228-428); Total Protein 6.5 g/dL (6.5-8.0); Triglycerides 56 mg/dL; Unsaturated Iron Binding 247 ug/dL
[2022-03-01 14:43] LABS: Ferritin 32 ng/mL (10-122); Insulin 5 uU/mL (2-29); TSH reflex Free T4 0.65 uIU/mL (0.32-4.0); Vitamin D 25-OH Total 16.1 ng/mL (>30)
[2022-03-02 00:34] LABS: Folate 8.2 ng/mL (> or = 4.0); Vitamin B12 281 pg/mL (200-900)
[2022-03-04 16:21] LABS: PTHI 64 pg/mL (16-77)
[2022-03-06 02:52] LABS: Zinc 77 mcg/dL (60-130)
[2022-03-06 10:32] LABS: Vitamin A 41 mcg/dL (38-98)
[2022-03-07 15:41] LABS: Vitamin B1 7 nmol/L (8-30)
== END 2022-03-01 11:54 | disposition home or self-care (01) ==
LOC: HO.XRAY 11:53
PROVIDERS: Absent Provider Physician Assistant; PCP Internal Medicine; Referring Provider Internal Medicine; Visit Provider Internal Medicine Gastroenterology
DX: R10.9 Unspecified abdominal pain (principal); K59.00 Constipation, unspecified; G89.29 Other chronic pain; Z98.84 Bariatric surgery status
CPT/HCPCS: 36415; 74018; 80053; 80061; 82306; 82607; 82728; 82746; 83036; 83525; 83540; 83970; 84425; 84443; 84590; 84630; 85025; 86140; 99212

== ENCOUNTER → 2022-03-11 12:46 | Outpatient (BNVA) | payer OTHER, SELFPAY | PROVIDERS: PCP Internal Medicine; Visit Provider Physician Assistant | DX: K59.00 Constipation, unspecified (principal); E66.9 Obesity, unspecified; Z98.84 Bariatric surgery status; Z68.30 Body mass index [BMI] 30.0-30.9, adult | CPT/HCPCS: 99212 ==

== ENCOUNTER → 2022-03-13 09:53 | Outpatient (BNVA) | payer OTHER, SELFPAY | PROVIDERS: PCP Internal Medicine; Visit Provider Surgery | DX: K64.4 Residual hemorrhoidal skin tags (principal); K64.8 Other hemorrhoids | CPT/HCPCS: 46600; 99202 ==

== ENCOUNTER 2022-03-22 10:17 | Outpatient (REF) | payer OTHER, SELFPAY ==
--- NOTE | ~2022-03-22 | MR_ITS ---
EXAMINATION: MR ABDOMEN AND PELVIS WITHOUT AND WITH CONTRAST CLINICAL INFORMATION: Constipation, abdominal pain history of gastric bypass COMPARISON: MR abdomen 11/09/2020, CT abdomen pelvis TECHNIQUE: MRI of the abdomen and pelvis before and after the IV administration of 9 mL of Gadavist was obtained using routine sequences. 1500 mL of oral contrast was also given. FINDINGS: LUNG BASES: The visualized lung bases are unremarkable. 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 Mild right hydronephrosis, with no aurora hydroureter. GALLBLADDER: Surgically absent. LIVER AND BILIARY TREE: The liver is normal in signal and morphology. No suspicious liver lesion. No intra or extrahepatic biliary duct dilatation. PANCREAS: Unremarkable SPLEEN: Unremarkable ADRENAL GLANDS: Unremarkable GASTROINTESTINAL TRACT: Post surgical changes of gastric bypass. Large and small bowel are unremarkable. LYMPH NODES: No lymphadenopathy. VASCULAR: Unremarkable ABDOMINAL WALL: Unremarkable. REPRODUCTIVE ORGANS: Unremarkable BLADDER: Unremarkable PELVIC FREE FLUID: Trace simple physiologic volume free fluid in the pelvis. OSSEOUS STRUCTURES: Unremarkable. MR/MR abdomen wo/w con IMPRESSION: Postsurgical changes of gastric bypass. The bowel is otherwise unremarkable in appearance. Mild right hydronephrosis, without aurora hydroureter which may reflect a degree of ureteropelvic junction stenosis.
--- NOTE | ~2022-03-22 | MR_ITS ---
EXAMINATION: MR ABDOMEN AND PELVIS WITHOUT AND WITH CONTRAST CLINICAL INFORMATION: Constipation, abdominal pain history of gastric bypass COMPARISON: MR abdomen 11/09/2020, CT abdomen pelvis TECHNIQUE: MRI of the abdomen and pelvis before and after the IV administration of 9 mL of Gadavist was obtained using routine sequences. 1500 mL of oral contrast was also given. FINDINGS: LUNG BASES: The visualized lung bases are unremarkable. 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 Mild right hydronephrosis, with no aurora hydroureter. GALLBLADDER: Surgically absent. LIVER AND BILIARY TREE: The liver is normal in signal and morphology. No suspicious liver lesion. No intra or extrahepatic biliary duct dilatation. PANCREAS: Unremarkable SPLEEN: Unremarkable ADRENAL GLANDS: Unremarkable GASTROINTESTINAL TRACT: Post surgical changes of gastric bypass. Large and small bowel are unremarkable. LYMPH NODES: No lymphadenopathy. VASCULAR: Unremarkable ABDOMINAL WALL: Unremarkable. REPRODUCTIVE ORGANS: Unremarkable BLADDER: Unremarkable PELVIC FREE FLUID: Trace simple physiologic volume free fluid in the pelvis. OSSEOUS STRUCTURES: Unremarkable. MR/MR pelvis wo/w con IMPRESSION: Postsurgical changes of gastric bypass. The bowel is otherwise unremarkable in appearance. Mild right hydronephrosis, without aurora hydroureter which may reflect a degree of ureteropelvic junction stenosis.
== END 2022-03-22 10:18 | disposition home or self-care (01) ==
LOC: HO.MRI 10:17
PROVIDERS: Visit Provider Internal Medicine Gastroenterology
DX: R10.9 Unspecified abdominal pain (principal); K59.00 Constipation, unspecified; G89.29 Other chronic pain
CPT/HCPCS: 72197; 74183; A9585

== ENCOUNTER → 2022-03-26 12:54 | Outpatient (BNVA) | payer OTHER, SELFPAY | PROVIDERS: PCP Internal Medicine; Visit Provider Nurse Practitioner Family | DX: M53.3 Sacrococcygeal disorders, not elsewhere classified (principal); M62.838 Other muscle spasm; R10.2 Pelvic and perineal pain | CPT/HCPCS: 99212 ==

== ENCOUNTER → 2022-04-24 10:31 | Outpatient (BNVA) | payer OTHER, SELFPAY | PROVIDERS: PCP Internal Medicine; Referring Provider Internal Medicine; Visit Provider Physician Assistant Surgical | DX: O99.211 Obesity complicating pregnancy, first trimester (principal); O99.841 Bariatric surgery status complicating pregnancy, first trimester; Z3A.00 Weeks of gestation of pregnancy not specified | CPT/HCPCS: 99212 ==

== ENCOUNTER 2022-06-03 10:05 | Inpatient (IN) | payer OTHER, SELFPAY ==
--- NOTE | ~2022-06-03 | US_ITS ---
EXAMINATION: US RETROPERITONEAL LIMITED (RENAL ONLY) CLINICAL INFORMATION: Right flank pain, 12 weeks .. COMPARISON: Abdomen MRI 03/22/2022, CT abdomen pelvis 08/13/2020 TECHNIQUE: Renal bladder ultrasound was performed utilizing a curved array transducer. FINDINGS: RIGHT KIDNEY: 13.2 x 3.6 x 5.3 cm (SAG x AP x TRV). The kidney is slightly malrotated. Normal cortical echogenicity. Renal cortical thickness is normal. No calculi or focal parenchymal lesions. No hydronephrosis. Fullness of the extrarenal pelvis noted, unchanged. LEFT KIDNEY: 12.6 x 6.3 x 4.9 cm (SAG x AP x TRV). The kidney is normal in size, contour, and echogenicity. Renal cortical thickness is normal. No calculi or focal parenchymal lesions. No hydronephrosis. Limited assessment of the bladder demonstrates normal bilateral ureteral jets. US/US renal BI IMPRESSION: No renal calculi identified sonographically. No hydronephrosis.
--- NOTE | ~2022-06-03 | US_ITS ---
EXAMINATION: US OBSTETRICAL ULTRASOUND CLINICAL INFORMATION: 12 weeks with abdominal pain COMPARISON: None. LMP: 03/06/2022. Gestational age by maternal dates is 12 weeks 5 days. Estimated date of delivery by maternal dates is 12/11/2022. TECHNIQUE: Transabdominal ultrasound was performed. FINDINGS: There is a single intrauterine gestational sac with visible embryo/fetus and cardiac activity. There is no significant subchorionic hemorrhage or hematoma. HR: 142 beats per minute. CRL (crown rump length): 6.2 cm (12 weeks 4 days +/- 4 days). KYLE (estimated date of delivery): 12/12/2022 +/- 4 days. MATERNAL ADNEXA: The right maternal ovary measures 3.0 x 2.1 x 2.4 cm. The left maternal ovary measures 2.8 x 2.1 x 2.0 cm. A corpus luteal cyst present measuring 1.8 cm. There is no significant maternal adnexal mass. No maternal pelvic ascites. US/US OB <= 14 weeks fetus IMPRESSION: 1. Single intrauterine gestation with ultrasound gestational age of 12 weeks 4 days +/- 4 days. 2. Estimated date of delivery is 12/12/2022 +/- 4 days. 3. No maternal adnexal mass or pelvic ascites.
[2022-06-03 10:17] VITALS: BP 108/62; PULSE 84; RESP 18; TEMP 36.6; O2SAT 98; BMI 32.4
[2022-06-03 10:36] LABS: MANUAL DIFF FLAG NO
[2022-06-03 10:39] LABS: Basophils Absolute Auto 0.1 X10*3/uL (0.0-0.2); Basophils Percent Auto 0.6 % (0-2); Eosinophils Absolute Auto 0.1 X10*3/uL (0.0-0.4); Eosinophils Percent Auto 0.9 % (0-4); Hematocrit 38.9 % (37.0-47.0); Hemoglobin 12.6 g/dl (12.0-16.0); Imm Gran Abs Auto 0.05 X10*3/uL (0.00-0.03); Imm Gran Pct Auto 0.4 % (0.0-0.4); Lymphocytes Absolute Auto 1.9 X10*3/uL (1.2-4.9); Lymphocytes Percent Auto 14.6 % (20-40); Mean Corpuscular HGB Conc 32.4 g/dl (31.0-35.0); Mean Corpuscular Hemoglobin 26.7 pg (27.0-33.0); Mean Corpuscular Volume 82.4 fL (80.0-98.0); Mean Platelet Volume 9.3 fL (9.4-12.3); Monocytes Absolute Auto 0.9 X10*3/uL (0.1-1.2); Monocytes Percent Auto 6.8 % (2-11); Neutrophils Absolute Auto 9.8 x10*3/uL (2.0-8.3); Neutrophils Percent Auto 76.7 % (45-73); Platelet Count 269 X10*3/uL (160-400); Red Blood Count 4.72 X10*6/uL (4.20-5.50); Red Cell Distribution Width 13.7 % (11.0-16.0); White Blood Count 12.7 X10*3/uL (4.8-10.8)
[2022-06-03 10:40] LABS: Appearance Urine Cloudy; Color Urine Yellow; Glucose Urine UA Negative (Negative); Leukocyte Esterase Urine Large (3+) (Negative); Nitrite Urine Negative (Negative); PH 5.5 (5.0-9.0); Specific Gravity - Urine >= 1.030 (1.005-1.025); UMIC TRIGGER UACC YES; Urine Blood Negative (Negative); Urine Ketones Trace mg/dL (Negative); Urine Protein Trace mg/dL (Neg-Trace)
[2022-06-03 10:54] LABS: Bacteria Urine 4+ (None Seen); RBC Urine 0-2 /HPF (0-2); Squamous Epithelial Cell Urine >20 /HPF (0-2); UACC Culture Trigger YES; WBC Urine >50 /HPF (0-5)
[2022-06-03 11:00] LABS: Alanine Aminotransferase 21 U/L (0-31); Albumin Level 3.8 g/dL (3.5-5.0); Alkaline Phosphatase 73 U/L (39-117); Anion Gap 13 (12-20); Aspartate Amino Transferase 18 U/L (5-31); Bilirubin Direct < 0.2 mg/dL (0.0-0.5); Bilirubin Total 0.3 mg/dL (0.0-1.0); Blood Urea Nitrogen 10 mg/dL (9-16); Calcium 8.2 mg/dL (8.4-10.2); Carbon Dioxide 21 mmol/L (22-29); Chloride 105 mmol/L (96-108); Creatinine Clr Calc Pharmacy 159.2; Estimated Glomerular Filt Rate > 60; Glucose Random 81 mg/dL (60-115); Lipase 26 U/L (8-78); Potassium 4.2 mmol/L (3.3-5.1); Sodium 135 mmol/L (135-145); Total Protein 6.3 g/dL (6.5-8.0)
[2022-06-03 14:00] VITALS: BP 99/57; PULSE 59; O2SAT 98
--- NOTE | 2022-06-03 15:04 | ED.GENADULT ---
HPI - General Adult General Chief complaint: Abdominal Pain Stated complaint: R flank pain/12 wks preg Time Seen by Provider: 06/03/22 12:11 Source: patient Mode of arrival: ambulatory Limitations: no limitations History of Present Illness HPI narrative: 26-year-old female 12 weeks by date presented with right flank pain for further evaluation. Seen at [facility] and [facility] for right flank pain and urinary tract symptoms was treated with p.o. Macrobid for 10 days course as an outpatient because the vomiting patient only took the antibiotic for 8 days, still have right flank pain with decreased urination overall. No fever or chills, patient has been vomiting which was contributed to . Patient otherwise has no vaginal bleed or discharge, no pelvic contractions. Status post gastric bypass and cholecystectomy. Related Data Home Medications Medication Instructions Recorded Confirmed multivitamin 1 tab PO DAILY 11/08/20 04/24/22 Allergies Allergy/AdvReac Type Severity Reaction Status Date / Time carrot [CARROTS] Allergy Intermediate SWELLING Verified 04/24/22 10:35 cat dander [CATS] Allergy Intermediate ITCHING Verified 04/24/22 10:35 insect venom [INSECT BITES] Allergy Intermediate HIVES Verified 04/24/22 10:35 Review of Systems Review of Systems: All other systems are reviewed and are negative Constitutional: Reports as per HPI and Reports no additional constitutional complaints Eyes: Reports as per HPI and Reports no additional eye complaints Reports system reviewed and no additional complaints, except as documented Cardiovascular: Reports as per HPI and Reports no additional cardiovascular complaints Respiratory: Reports as per HPI and Reports no additional respiratory complaints Gastrointestinal: Reports as per HPI and Reports no additional gastrointestinal complaints Genitourinary: Reports no additional female genitourinary complaints Musculoskeletal: Reports no additional musculoskeletal complaints Skin/Breast: Reports system reviewed and no additional complaints, except as docu Psychiatric: Reports no additional psychiatric complaints Endocrine: Reports no additional endocrine complaints Hematologic/Lymphatic: Reports no additional hematologic/lymphatic complaints Allergic/Immunologic: Reports no additional allergic/immunologic complaints Reports system reviewed and no additional complaints, except as documented and Reports Abnormal speech present [facility] Past Medical History Medical History Abdominal pain Asthma Bile duct abnormality Cholecystectomy planned GERD (gastroesophageal reflux disease) Headache Hip asymmetry Hypovitaminosis D Intestinal malabsorption following gastrectomy Iron deficiency anemia Lumbar pain Obesity (BMI 30-39.9) Sleep apnea Surgical History Gastric bypass status for obesity H/O colonoscopy History of esophagogastroduodenoscopy (EGD) Hx of cholecystectomy Family History Family History Father Obesity Diabetes mellitus Mother Obesity Arthritis of knee Paternal Grandfather Diabetes mellitus Paternal Grandmother Diabetes mellitus Maternal Grandmother Arthritis of knee Diabetes mellitus Maternal Grandfather Diabetes mellitus Social History Social History Household Members: None Housing: House Alcohol intake: never Patient Tobacco Use Status: Never used Tobacco e-Cigarette/Vaping Use: Never Used Second Hand Smoke Exposure: No Advance Directives: No Advance Directives Information Provided: No service: No Current occupational status: employed Current occupational exposures/hazards: No Cognitive needs: No Hearing needs: No Vision needs: No Physical Exam ED Vital Signs: Vital Signs - 24 hr 06/03/22 10:17 Temperature 98 F Pulse Rate 84 Respiratory Rate 18 Blood Pressure 108/62 Pulse Oximetry 98 Oxygen Delivery Method Room Air BMI result Body Mass Index 32.4 Vital signs have been reviewed as appeared to be correct. Blood pressure normal. Heart rate normal. Respiration rate normal. Temperature normal. Oxygen saturation normal. Appearance: Alert. Oriented X3. No acute distress. Head: Normal external exam. Normocephalic. Atraumatic. No Paul signs noted. No raccoon eyes noted Eyes: PERRLA. EOMI. Conjunctiva and sclera normal. Eyelids normal. ENT: TM's Normal. Pharynx normal. Uvula midline. Moist mucous membranes. No trismus noted. No drooling noted. No muffled voice noted. Neck: Normal inspection. Neck supple. FROM. No adenopathy. Thyroid Normal. No meningeal signs. No neck mass noted. CVS: Normal heart rate and rhythm. Heart sound normal. No murmurs noted. Pulses normal throughout. Respiratory: No respiratory distress. Painless inspiration. Breath sounds normal. No wheezes/rales/rhonchi noted. Chest nontender. No accessory muscle usage noted or decreased air movement noted. Abdomen: Soft, mild right abdominal tenderness, no rebound, no guarding.. Bowel sounds normal in all 4 quadrants. No distention noted. No organomegaly noted. No visible injury noted. Back: Right CVA tenderness. Full range of motion noted. Skin: Skin warm and dry. Normal skin color. Normal skin turgor. No rashes/lesions/lacerations noted. Extremities: No lower extremity edema. Extremities exhibit normal range of motion. Extremities nontender. Neuro: Oriented X 3. Cranial nerve exam: II-XII are grossly intact No motor deficit. No sensory deficit. Reflexes normal. Course Course Course Narrative: 26-year-old female 12 weeks came in with UTI symptoms and right flank pain, physical exam is concern of right pyelonephritis patient was treated for p.o. Macrobid that the patient could not finish the whole course because of the vomiting, patient was evaluated several time at [facility] and [facility] for same symptoms, patient do not meet criteria for SIRS at the moment. Case discussed with Dr. Lr who will consult on the case and to be admitted to the medical service. Will do abdominal ultrasound rule out obstructive uropathy. Medical Decision Making Lab Data Result diagrams: 06/03/22 10:33 06/03/22 10:33 Labs: Lab Results 06/03/22 06/03/22 06/03/22 Range/Units 10:33 10:33 10:33 WBC 12.7 H (4.8-10.8) X10*3/uL RBC 4.72 (4.20-5.50) X10*6/uL Hgb 12.6 (12.0-16.0) g/dl Hct 38.9 (37.0-47.0) % MCV 82.4 (80.0-98.0) fL MCH 26.7 L (27.0-33.0) pg MCHC 32.4 (31.0-35.0) g/dl RDW 13.7 (11.0-16.0) % Plt Count 269 (160-400) X10*3/uL MPV 9.3 L (9.4-12.3) fL Immature Gran % (Auto) 0.4 (0.0-0.4) % Neut % (Auto) 76.7 H (45-73) % Lymph % (Auto) 14.6 L (20-40) % [place] % (Auto) 6.8 (2-11) % Eos % (Auto) 0.9 (0-4) % Baso % (Auto) 0.6 (0-2) % Lymph # (Auto) 1.9 (1.2-4.9) X10*3/uL [place] # (Auto) 0.9 (0.1-1.2) X10*3/uL Eos # (Auto) 0.1 (0.0-0.4) X10*3/uL Baso # (Auto) 0.1 (0.0-0.2) X10*3/uL Abs Immat Gran (auto) 0.05 H (0.00-0.03) X10*3/uL Absolute Neuts (auto) 9.8 H (2.0-8.3) x10*3/uL Absolute Nucleated RBC 0.000 (0.0-0.012) X10*3/uL Nucleated RBC % (auto) 0.0 (0.0-0.2) /100WBC Sodium 135 (135-145) mmol/L Potassium 4.2 (3.3-5.1) mmol/L Chloride 105 (96-108) mmol/L Carbon Dioxide 21 L (22-29) mmol/L Anion Gap 13 (12-20) BUN 10 (9-16) mg/dL Creatinine 0.63 (0.5-1.4) mg/dL Estim Creat Clear Calc 159.2 Estimated GFR > 60 Random Glucose 81 (60-115) mg/dL Calcium 8.2 L D (8.4-10.2) mg/dL Total Bilirubin 0.3 (0.0-1.0) mg/dL Direct Bilirubin < 0.2 (0.0-0.5) mg/dL AST 18 (5-31) U/L ALT 21 (0-31) U/L Alkaline Phosphatase 73 (39-117) U/L Total Protein 6.3 L (6.5-8.0) g/dL Albumin 3.8 (3.5-5.0) g/dL Lipase 26 (8-78) U/L Urine Color Yellow Urine Appearance Cloudy Urine pH 5.5 (5.0-9.0) Ur Specific [place] >= 1.030 H (1.005-1.025) Urine Protein Trace (Neg-Trace) mg/dL Urine Glucose (UA) Negative (Negative) mg/dL Urine Ketones Trace (Negative) mg/dL Urine Blood Negative (Negative) Urine Nitrite Negative (Negative) Ur Leukocyte Esterase Large (3+) H (Negative) Urine RBC 0-2 (0-2) /HPF Urine WBC >50 H (0-5) /HPF Ur Squamous Epith Cells >20 (0-2) /HPF Urine Bacteria 4+ (None Seen) Hyaline Casts 3-5 (0-2) /LPF Discharge Plan Discharge Clinical Impression: Pyelonephritis affecting in first trimester Patient Disposition: Admitted As Inpatient Prescriptions: No Action multivitamin Tablet 1 tab PO DAILY
[2022-06-03] MEDS: cefTRIAXone sodium 1 GM in 0.9 % Sodium Chloride 50 ML IV (15:34)
[2022-06-03] MEDS: ondansetron HCL 4 MG/2 ML VIAL IVPUSH (15:35)
[2022-06-03] MEDS: 0.9 % Sodium Chloride 1,000 ML 999 ML IV (15:35)
--- NOTE | 2022-06-03 16:18 | P.CONOB_ITS ---
RADIOLOGIST PHYSICIAN - CN: HPI Data of Consult Consult date: 06/03/22 Primary Care Provider: Marita Solis MD Consult Narrative Narrative: I was consulted on Evelyne Lazaro who is a 26 year old female 2 para 1001, LMP 03/10/22 making her by today at 12 weeks and 1 day of gestation presented emergency room with right flank associated with nausea and vomiting, no fever or chills no pelvic cramping and or bleeding. The patient was recently diagnosed with urinary tract symptoms was treated with p.o. Macrobid for 10 days course as an outpatient but had persistent vomiting and end up taking partially her antibiotics. 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 SCALER - Review of Systems Review of Systems ROS Unobtainable: All systems reviewed & are unremarkable except as noted in HPI and below Cardiovascular: Denies Palpatations, Loss of consciousness or Chest pain Respiratory: Denies Cough, Wheezing or Shortness of breath Musculoskeletal: Denies Low back pain Gastrointestinal: Denies Heartburn, Constipation, Diarrhea, Nausea or Vomiting Genitourinary: Denies Pain with urination, Burning with urination or Urinary frequency Neurological: Denies Migranes Psychological: Denies Depression OB PMFSH Past Medical History Medical History Abdominal pain Asthma Bile duct abnormality Cholecystectomy planned GERD (gastroesophageal reflux disease) Headache Hip asymmetry Hypovitaminosis D Intestinal malabsorption following gastrectomy Iron deficiency anemia Lumbar pain Obesity (BMI 30-39.9) Sleep apnea Family History Family History Father Obesity Diabetes mellitus Mother Obesity Arthritis of knee Paternal Grandfather Diabetes mellitus Paternal Grandmother Diabetes mellitus Maternal Grandmother Arthritis of knee Diabetes mellitus Maternal Grandfather Diabetes mellitus Surgical History Surgical History Gastric bypass status for obesity H/O colonoscopy History of esophagogastroduodenoscopy (EGD) Hx of cholecystectomy Social History Social History Household Members: None Housing: House Alcohol intake: never Patient Tobacco Use Status: Never used Tobacco e-Cigarette/Vaping Use: Never Used Second Hand Smoke Exposure: No Advance Directives: No Advance Directives Information Provided: No service: No Current occupational status: employed Current occupational exposures/hazards: No Cognitive needs: No Hearing needs: No Vision needs: No Meds Allergies Allergy/AdvReac Type Severity Reaction Status Date / Time carrot [CARROTS] Allergy Intermediate SWELLING Verified 04/24/22 10:35 cat dander [CATS] Allergy Intermediate ITCHING Verified 04/24/22 10:35 insect venom [INSECT BITES] Allergy Intermediate HIVES Verified 04/24/22 10:35 Home Medications Medication Instructions Recorded Confirmed Last Taken Type multivitamin 1 tab PO DAILY 11/08/20 04/24/22 Unknown History RADIOLOGIST PHYSICIAN Physical Exam Vitals Vital signs: Temp Pulse Resp BP Pulse Ox O2 Del Method 98 F 59 18 99/57 L 98 06/03/22 10:17 06/03/22 14:00 06/03/22 10:17 06/03/22 14:00 06/03/22 14:00 06/03/22 14:00 BMI result Body Mass Index 32.4 Constitutional General Appearance: Healthy appearing, Well-nourished and Well-developed Psychiatric Mood and Affect: active and alert, normal mood and normal affect Skin Appearance: No rashes and No lesions Lungs Respiratory Effort: No intercostal retractions Auscultation: Clear to auscultation Cardiovascular Auscultation: RRR Abdomen Auscultation/Inspection/Palpation: Normal bowel sounds, Soft, Non-distended, No tenderness and CVA tenderness (Right-sided, normal on the left) Female Genitalia (Pelvic) Exam: Deferred Additional Comments: heart rate in 150s RADIOLOGIST PHYSICIAN - Results Labs CBC & Chem 7: 06/03/22 10:33 06/03/22 10:33 Labs: Short CBC 06/03/22 Range/Units 10:33 WBC 12.7 H (4.8-10.8) X10*3/uL Hgb 12.6 (12.0-16.0) g/dl Hct 38.9 (37.0-47.0) % Plt Count 269 (160-400) X10*3/uL BMP 06/03/22 10:33 Sodium 135 Potassium 4.2 Chloride 105 Carbon Dioxide 21 L BUN 10 Creatinine 0.63 Calcium 8.2 L D Liver Function 06/03/22 Range/Units 10:33 Total Bilirubin 0.3 (0.0-1.0) mg/dL Direct Bilirubin < 0.2 (0.0-0.5) mg/dL AST 18 (5-31) U/L ALT 21 (0-31) U/L Alkaline Phosphatase 73 (39-117) U/L Albumin 3.8 (3.5-5.0) g/dL Urine 06/03/22 Range/Units 10:33 Urine Color Yellow Urine Appearance Cloudy Urine pH 5.5 (5.0-9.0) Ur Specific [place] >= 1.030 H (1.005-1.025) Urine Protein Trace (Neg-Trace) mg/dL Urine Glucose (UA) Negative (Negative) mg/dL Assessment and Plan (1) Pyelonephritis affecting in first trimester: Status: Acute Plan Recommend the following: Ob ultrasound, vitamin 1 tablet p.o. q.d., avoid NSAID's for analgesia , start with initial empiric antibiotics coverage with ceftriaxone 1 g Q 24 hours, until afebrile for 48 hours, then switch to p.o. antibiotics guided by culture susceptibility results and discharge home on 10 day antibiotics treatment p.o. if symptoms persist beyond 24-48 hours, I suggest a renal ultrasound and repeat urine culture to rule out persistent infection and urinary tract pathology. Following this episode of pyelonephritis in , suppressive antibiotic therapy with either Keflex 250-500 mg p.o. q.d. or nitrofurantoin 50-100 mg p.o. q.d. is recommended till the end of to decrease the risk of recurrence.
--- NOTE | 2022-06-03 16:41 | PM.IMHP ---
History of Present Illness Date of Service: 06/03/22 Attending physician on admission: Brigitte Eubanks Chief Complaint: pyelonephritis 26 year old female with gestation of 12w6d presenting to the ED today for evaluation of right flank pain ongoing for 4 weeks. Was initially treated at [facility] for suspected UTI with 10 days macrobid which she stopped on day 8 due to persistent nausea and vomiting. She then presented to [facility] and was noted to have inflammation in the right kidney but was not treated. She has had intermittent fevers up to 102.5, right flank, pain, decreased urine output, lightheadedness, decreased PO intake, and n/v. No vaginal bleeding. Follows with OB at [facility]. WBC 12.7. H/H stable. Vital signs stable. Renal function normal. Renal u/s Review of Systems Review of Systems: General: No fevers, malaise, unintentional weight loss Cardiovascular: No chest pain, palpitations, or leg edema Respiratory: No shortness of breath, wheezing, cough GI: +ruq/rlq pain. +n/v. No diarrhea, constipation, melena, hematochezia : +right flank pain. No dysuria, hematuria VACUUM CASTER: +. No abdominal cramping or bleeding Neuro: No headaches, weakness, paresthesias Skin: No rashes or lesions [facility] Medical History (Updated 06/03/22 @ 16:52 by GARIMA Madsen) Abdominal pain Acute hemorrhoid Asthma BCP ( control pills) initiation Bile duct abnormality Breakthrough bleeding on Nexplanon Cholecystectomy planned Chronic abdominal pain Constipation COVID-19 Encounter for Nexplanon removal Encounter for removal and reinsertion of Nexplanon GERD (gastroesophageal reflux disease) Hip asymmetry Hypovitaminosis D Internal and external bleeding hemorrhoids Intestinal malabsorption following gastrectomy Iron deficiency anemia Left arm pain Left sided abdominal pain Lumbar pain Muscle spasm Nexplanon in place Obesity (BMI 30-39.9) Ovarian mass Pelvic pain Problematic vaginal discharge RUQ abdominal pain Sacroiliac joint pain Sinusitis Sleep apnea Yeast infection involving the vagina and surrounding area Family History Father Obesity Diabetes mellitus Mother Obesity Arthritis of knee Paternal Grandfather Diabetes mellitus Paternal Grandmother Diabetes mellitus Maternal Grandmother Arthritis of knee Diabetes mellitus Maternal Grandfather Diabetes mellitus Surgical History Gastric bypass status for obesity H/O colonoscopy History of esophagogastroduodenoscopy (EGD) Hx of cholecystectomy Social History Household Members: None Housing: House Alcohol intake: never Patient Tobacco Use Status: Never used Tobacco e-Cigarette/Vaping Use: Never Used Second Hand Smoke Exposure: No Advance Directives: No Advance Directives Information Provided: No service: No Current occupational status: employed Current occupational exposures/hazards: No Cognitive needs: No Hearing needs: No Vision needs: No Meds Allergies Allergy/AdvReac Type Severity Reaction Status Date / Time carrot [CARROTS] Allergy Intermediate SWELLING Verified 04/24/22 10:35 cat dander [CATS] Allergy Intermediate ITCHING Verified 04/24/22 10:35 insect venom [INSECT BITES] Allergy Intermediate HIVES Verified 04/24/22 10:35 Active Medications: Current Medications Acetaminophen (Acetaminophen 325 Mg Tablet) 650 mg PO Q6H PRN PRN Reason: Pain, Mild (Pain Scale 1-3) Ceftriaxone Sodium 1 gm/ (Sodium Chloride) 50 mls @ 100 mls/hr IV Q24H HALINA Ondansetron HCl (Ondansetron Hcl 4 Mg/2 Ml Vial) 4 mg IVPUSH Q8H PRN PRN Reason: Nausea and Vomiting Sodium Chloride (0.9 % Sodium Chloride Flush 3 Ml Syringe) 3 ml IVFLUSH QSHIFT HALINA Home Medications Medication Instructions Recorded Confirmed Last Taken Type multivitamin 1 tab PO DAILY 11/08/20 04/24/22 Unknown History Physical Exam Vital Signs and Narrative: Vital Signs: Last Vital Signs Temp 98 F 06/03/22 10:17 Pulse 59 06/03/22 14:00 Resp 18 06/03/22 10:17 BP 99/57 L 06/03/22 14:00 Pulse Ox 98 06/03/22 14:00 O2 Del Method 06/03/22 14:00 BMI result Body Mass Index 32.4 Constitutional - Awake and Alert, No apparent distress Eyes - PERRLA, EOMI Cardiovascular - S1S2, RRR, No edema Respiratory - Normal lung expansion, Normal respiratory effort, No respiratory distress, CTA bilaterally Gastrointestinal - ttp RUQ and RLQ without guarding or rebound. ND; +BS - Right sided CVA tenderness Extremities - no calf tenderness bilaterally, no swelling Skin - Warm/Dry Neurological - Alert & oriented x3, No focal deficit Psychological - Appropriate affect Results Labs CBC and Chem 7: 06/03/22 10:33 06/03/22 10:33 Labs: Laboratory Results - last 24 hr 06/03/22 06/03/22 06/03/22 10:33 10:33 10:33 MCV 82.4 MCH 26.7 L MCHC 32.4 RDW 13.7 Plt Count 269 MPV 9.3 L Immature Gran % (Auto) 0.4 Neut % (Auto) 76.7 H Lymph % (Auto) 14.6 L [place] % (Auto) 6.8 Eos % (Auto) 0.9 Baso % (Auto) 0.6 Lymph # (Auto) 1.9 [place] # (Auto) 0.9 Eos # (Auto) 0.1 Baso # (Auto) 0.1 Abs Immat Gran (auto) 0.05 H Absolute Neuts (auto) 9.8 H Absolute Nucleated RBC 0.000 Nucleated RBC % (auto) 0.0 Anion Gap 13 Estim Creat Clear Calc 159.2 Estimated GFR > 60 Random Glucose 81 Calcium 8.2 L D Total Bilirubin 0.3 Direct Bilirubin < 0.2 AST 18 ALT 21 Alkaline Phosphatase 73 Total Protein 6.3 L Albumin 3.8 Lipase 26 Beta HCG, Quant 11504 Urine Color Yellow Urine Appearance Cloudy Urine pH 5.5 Ur Specific [place] >= 1.030 H Urine Protein Trace Urine Glucose (UA) Negative Urine Ketones Trace Urine Blood Negative Urine Nitrite Negative Ur Leukocyte Esterase Large (3+) H Urine RBC 0-2 Urine WBC >50 H Ur Squamous Epith Cells >20 Urine Bacteria 4+ Hyaline Casts 3-5 Assessment and Plan (1) Pyelonephritis affecting in first trimester: Status: Acute Plan 26 year old female with gestation of 12w6d admitted for pyelonephritis. 1- Acute pyelonephritis -Leukocytosis 12.7. Hemodynamically stable. No sepsis. Follow CBC -UA with 3+ leuks, neg nitrites, 4+ bacteria. UC pending -Renal U/s pending -Recent treated with 10 days nitrofurantoin but d/c'd day 8 d/t n/v without resolution of symptoms. -Seen by Dr. Lr- Continue IV ceftriaxone until afebrile x48hrs, then switch to PO -Will need to continue suppressive antibiotic therapy with either Keflex 250-500 mg p.o. q.d. or nitrofurantoin 50-100 mg p.o. q.d. is recommended till the end of to decrease the risk of recurrence per OB -Tylenol prn for pain, avoid nsaids -Zofran prn n/v 2-12w6d gestation -Plan per OB as above -Multivitamin with addl folic acid ordered DVT prophylaxis- mechanical and ambulation Full code Pt requires inpt stay of at least 2 midnights for further management of acute pyelonephritis complicating requiring IV abx. Quality Stroke Does the patient have a stroke diagnosis?: No VTE Prior VTE?: No VTE Risk Level:: Medical - moderate - high VTE Device Contraindication: N/A - Device Ordered VTE Drug Contraindication: Treatment Not Indicated
[2022-06-03 18:00] VITALS: BP 106/51; PULSE 64; RESP 16; TEMP 36.8; O2SAT 97
--- NOTE | 2022-06-03 18:15 | PHA.MEDREC ---
Pharmacy Consult ? Medication Reconciliation Pharmacy has completed the medication reconciliation.Spoke with patient in the ED who knew all medications
[2022-06-03] MEDS: Thiamine HCL 100 MG TABLET 50 MG PO (23:25)
[2022-06-03] MEDS: Folic Acid 1 MG TABLET 0.5 MG PO (23:25)
[2022-06-03] MEDS: Multivitamin TABLET 1 TAB PO ×2 (23:25)
[2022-06-03] MEDS: Pyridoxine HCl (Vitamin B6) 50 MG TABLET PO (23:26)
[2022-06-03] MEDS: diphenhydrAMINE HCL 25 MG TABLET PO (23:26)
--- NOTE | 2022-06-03 23:29 | MHC.CM.PN ---
CM met with admitted patient with bed assignment pending. Lives with 4 y/o son. Grandfather caring for child while mother is hospitalized. No DME/services. 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 [facility]. No HCP on file. Reviewed, completed and signed. Copies given and uploaded into [employer] and [facility] 12Return. HCP/sister Sheyla Young ([phone]). D/C plan: Home without services. Family to transport.
[2022-06-04] VITALS: BP 103/60; PULSE 54; RESP 16; TEMP 36.1; O2SAT 100
[2022-06-04] MEDS: 0.9 % Sodium Chloride Flush 3 ML SYRINGE IVFLUSH ×3 (00:26→15:47)
[2022-06-04 00:45] LABS: COVID-19 Test Negative (Negative)
[2022-06-04 03:02] VITALS: BP 105/55; PULSE 80; RESP 14; TEMP 36.5; O2SAT 96
[2022-06-04] MEDS: Acetaminophen 325 MG TABLET 650 MG PO ×2 (04:32→17:41)
[2022-06-04 07:30] LABS: MANUAL DIFF FLAG NO
[2022-06-04 07:33] LABS: Basophils Absolute Auto 0.1 X10*3/uL (0.0-0.2); Basophils Percent Auto 0.7 % (0-2); Eosinophils Absolute Auto 0.2 X10*3/uL (0.0-0.4); Eosinophils Percent Auto 2.1 % (0-4); Hematocrit 35.4 % (37.0-47.0); Hemoglobin 11.8 g/dl (12.0-16.0); Imm Gran Abs Auto 0.03 X10*3/uL (0.00-0.03); Imm Gran Pct Auto 0.4 % (0.0-0.4); Mean Corpuscular HGB Conc 33.3 g/dl (31.0-35.0); Mean Corpuscular Hemoglobin 27.4 pg (27.0-33.0); Mean Corpuscular Volume 82.3 fL (80.0-98.0); Mean Platelet Volume 9.7 fL (9.4-12.3); Monocytes Absolute Auto 0.6 X10*3/uL (0.1-1.2); Monocytes Percent Auto 7.8 % (2-11); Neutrophils Absolute Auto 4.7 x10*3/uL (2.0-8.3); Platelet Count 245 X10*3/uL (160-400); Red Cell Distribution Width 13.6 % (11.0-16.0); White Blood Count 7.5 X10*3/uL (4.8-10.8)
[2022-06-04] MEDS: Thiamine HCL 100 MG TABLET 50 MG PO (08:30)
[2022-06-04] MEDS: ondansetron HCL 4 MG/2 ML VIAL IVPUSH ×2 (08:30→17:39)
[2022-06-04] MEDS: Cyclobenzaprine HCl 5 MG TABLET PO ×2 (08:32→20:16)
[2022-06-04] MEDS: Folic Acid 1 MG TABLET 0.5 MG PO (08:32)
[2022-06-04] MEDS: Multivitamin TABLET 1 TAB PO (08:33)
[2022-06-04] MEDS: Lidocaine 4 % Patch ADH..PATCH 1 PATCH TRANSDERMA (08:34)
--- NOTE | 2022-06-04 11:45 | HO.PM.IMPN ---
Subjective Subjective Date of Service: 06/04/22 Interval History: being followed for acute pyelonephritis patient is complaining of persistent right sided back pain with radiation to right upper quadrant, denies fever chills had nausea this morning tolerating diet no urinary symptoms of urgency, no frequency, no dysuria. Review of Systems Review of Systems: Yes all other systems are reviewed and are negative Physical Exam Vital Signs: Vital Signs: Last Vital Signs Temp 97.7 F 06/04/22 03:02 Pulse 80 06/04/22 03:02 Resp 14 06/04/22 03:02 BP 105/55 L 06/04/22 03:02 Pulse Ox 96 06/04/22 03:02 O2 Del Method 06/04/22 03:02 BMI result Body Mass Index 32.4 Const: Other: General Awake alert x3, in no acute distress. Neck supple no JVD. CVS regular rate rhythm, Respiratory lungs clear to auscultation, no respiratory distress, no wheeze, no rhonchi. Gastrointestinal abdomen soft, nontender, bowel sounds audible, no guarding , no rigidity. Extremities no edema. back no CVA tenderness Neuro nonfocal Skin no rash Objective Data Active Medications Acetaminophen (Acetaminophen 325 Mg Tablet) 650 mg PO Q6H PRN PRN Reason: Pain, Mild (Pain Scale 1-3) Last Admin: 06/04/22 04:32 Dose: 650 mg Documented By: ASHOK Cyclobenzaprine HCl (Cyclobenzaprine Hcl 5 Mg Tablet) 5 mg PO BID PRN PRN Reason: muscle spasm Last Admin: 06/04/22 08:32 Dose: 5 mg Documented By: QUENTIN Diphenhydramine HCl (Diphenhydramine Hcl 25 Mg Tablet) 25 mg PO Q4H PRN PRN Reason: nausea Last Admin: 06/03/22 23:26 Dose: 25 mg Documented By: GERALDINE Folic Acid (Folic Acid 1 Mg Tablet) 0.5 mg PO DAILY [facility] Last Admin: 06/04/22 08:32 Dose: 0.5 mg Documented By: QUENTIN Ceftriaxone Sodium 1 gm/ (Sodium Chloride) 50 mls @ 100 mls/hr IV Q24H [facility] Lidocaine (Lidocaine 4 % Patch Adh..Patch) 1 patch TRANSDERMA DAILY [facility] Last Admin: 06/04/22 08:34 Dose: 1 patch Documented By: QUENTIN Multivitamins/Vitamin C (Multivitamin Tablet) 1 tab PO DAILY [facility] Last Admin: 06/04/22 08:33 Dose: 1 tab Documented By: QUENTIN Ondansetron HCl (Ondansetron Hcl 4 Mg/2 Ml Vial) 4 mg IVPUSH Q8H PRN PRN Reason: Nausea and Vomiting Last Admin: 06/04/22 08:30 Dose: 4 mg Documented By: QUENTIN Pyridoxine HCl (Pyridoxine Hcl (Vitamin B6) 50 Mg Tablet) 0.5 mg PO TID [facility] Last Admin: 06/03/22 23:26 Dose: 0.5 mg Documented By: GERALDINE Sodium Chloride (0.9 % Sodium Chloride Flush 3 Ml Syringe) 3 ml IVFLUSH QSHIFT [facility] Last Admin: 06/04/22 08:29 Dose: 3 ml Documented By: QUENTIN Thiamine HCl (Thiamine Hcl 100 Mg Tablet) 50 mg PO DAILY [facility] Last Admin: 06/04/22 08:30 Dose: 50 mg Documented By: QUENTIN Labs CBC & Chem 7: 06/04/22 07:17 06/03/22 10:33 Labs: Laboratory Results - last 24 hr 06/03/22 06/03/22 06/04/22 10:33 10:33 00:28 MCV MCH MCHC RDW Plt Count MPV Immature Gran % (Auto) Neut % (Auto) Lymph % (Auto) [place] % (Auto) Eos % (Auto) Baso % (Auto) Lymph # (Auto) [place] # (Auto) Eos # (Auto) Baso # (Auto) Abs Immat Gran (auto) Absolute Neuts (auto) Absolute Nucleated RBC Nucleated RBC % (auto) Beta HCG, Quant 70312 Urine Color Yellow Urine Appearance Cloudy Urine pH 5.5 Ur Specific [place] >= 1.030 H Urine Protein Trace Urine Glucose (UA) Negative Urine Ketones Trace Urine Blood Negative Urine Nitrite Negative Ur Leukocyte Esterase Large (3+) H Urine RBC 0-2 Urine WBC >50 H Ur Squamous Epith Cells >20 Urine Bacteria 4+ Hyaline Casts 3-5 COVID-19 (PILY) Negative COVID-19 Clin Com See Note 06/04/22 07:17 MCV 82.3 MCH 27.4 MCHC 33.3 RDW 13.6 Plt Count 245 MPV 9.7 Immature Gran % (Auto) 0.4 Neut % (Auto) 63.0 Lymph % (Auto) 26.0 [place] % (Auto) 7.8 Eos % (Auto) 2.1 Baso % (Auto) 0.7 Lymph # (Auto) 2.0 [place] # (Auto) 0.6 Eos # (Auto) 0.2 Baso # (Auto) 0.1 Abs Immat Gran (auto) 0.03 Absolute Neuts (auto) 4.7 Absolute Nucleated RBC 0.000 Nucleated RBC % (auto) 0.0 Beta HCG, Quant Urine Color Urine Appearance Urine pH Ur Specific [place] Urine Protein Urine Glucose (UA) Urine Ketones Urine Blood Urine Nitrite Ur Leukocyte Esterase Urine RBC Urine WBC Ur Squamous Epith Cells Urine Bacteria Hyaline Casts COVID-19 (PILY) COVID-19 Clin Com Microbiology Microbiology Results: Microbiology 06/03/22 Unknown Urine Culture - Final Urine clean catch - Urine enciso top Assessment and Plan (1) Pyelonephritis affecting in first trimester: Status: Acute Plan 26 year old female with gestation of 12w6d admitted for pyelonephritis. 1- Acute pyelonephritis - WBC normalized, no fever chills since admission,UA with 3+ leuks, neg nitrites, 4+ bacteria. UC UA showed mixed jesse, renal ultrasound showed no hydronephrosis no obstruction -Recently treated with 10 days nitrofurantoin but d/c'd day 8 d/t n/v without resolution of symptoms. -on IV ceftriaxone day 2, follow blood cultures if negative will switch to by mouth for total 10 days - OBGYN Dr. Lr recommend suppressive antibiotic therapy with either Keflex 250-500 mg p.o. q.d. or nitrofurantoin 50-100 mg p.o. q.d. till the end of to decrease the risk of recurrence - continue Tylenol prn for pain, avoid nsaids,Zofran prn n/v 2-13w gestation -Plan per OB as above -Multivitamin with folic acid DVT prophylaxis- mechanical and ambulation Full code Pt requires continued inpt stay for management of acute pyelonephritis in a female with IV abx. Quality Stroke Does the patient have a stroke diagnosis?: No VTE Prior VTE?: No VTE Risk Level:: Medical - moderate - high VTE Device Contraindication: N/A - Device Ordered VTE Drug Contraindication: Treatment Not Indicated
[2022-06-04 13:24] VITALS: BP 99/58; PULSE 67; RESP 16; O2SAT 97
[2022-06-04] MEDS: Pyridoxine HCl (Vitamin B6) 50 MG TABLET PO ×2 (15:45→20:17)
[2022-06-04] MEDS: cefTRIAXone sodium 1 GM in 0.9 % Sodium Chloride 50 ML IV (15:45)
[2022-06-04 16:46] VITALS: BP 113/65; PULSE 76; RESP 16; TEMP 36.8; O2SAT 99
[2022-06-04 19:42] VITALS: BP 106/58; PULSE 74; RESP 16; TEMP 36.6; O2SAT 98
[2022-06-04] MEDS: diphenhydrAMINE HCL 25 MG TABLET PO (20:17)
--- NOTE | 2022-06-04 20:22 | PC.NURSE ---
bedtime medications given. bvenadryl given for nausea and flexeril given for pain/spasms. pt ambulatory independently to bathroom . no apparent disrtress. call escalante within reach. will continue to monitor.
[2022-06-05 00:05] VITALS: BP 128/63; PULSE 76; RESP 15; TEMP 36.4; O2SAT 97
[2022-06-05] MEDS: 0.9 % Sodium Chloride Flush 3 ML SYRINGE IVFLUSH ×2 (00:49→10:32)
[2022-06-05] MEDS: ondansetron HCL 4 MG/2 ML VIAL IVPUSH (03:33)
[2022-06-05] MEDS: Acetaminophen 325 MG TABLET 650 MG PO (04:53)
[2022-06-05 07:45] VITALS: BP 101/60; PULSE 77; RESP 16; TEMP 36.7; O2SAT 97
--- NOTE | 2022-06-05 07:47 | PC.NURSE ---
Pt c/o right sided abdominal pain with increased burning. Dr Eubanks notified and will come see pt.
[2022-06-05] MEDS: Thiamine HCL 100 MG TABLET 50 MG PO (10:30)
[2022-06-05] MEDS: Folic Acid 1 MG TABLET 0.5 MG PO (10:30)
[2022-06-05] MEDS: Multivitamin TABLET 1 TAB PO (10:31)
[2022-06-05] MEDS: Lidocaine 4 % Patch ADH..PATCH 1 PATCH TRANSDERMA (10:32)
--- NOTE | 2022-06-05 11:14 | MHC.CM.PN ---
Patient has been medically cleared for dc to home today, self care.
--- NOTE | 2022-06-05 11:54 | PM.DS ---
DS: Providers Provider Date of Service: 06/05/22 Date of admission: 06/03/22 16:31 Primary care physician: Marita Solis MD Consults: 06/03/22 16:35 Consult to Obstetrics / Gynecology Routine Consulting Provider: Andres Lr Reason for consultation: pyelonephritis Has provider been notified: Yes DS: Diagnosis Discharge Diagnosis (1) Pyelonephritis affecting in first trimester: Status: Acute DS: Summary Hospital Course Hospital Course: Chief Complaint: pyelonephritis 26 year old female with gestation of 12w6d presenting to the ED today for evaluation of right flank pain ongoing for 4 weeks. Was initially treated at [facility] for suspected UTI with 10 days macrobid which she stopped on day 8 due to persistent nausea and vomiting. She then presented to [facility] and was noted to have inflammation in the right kidney but was not treated. She has had intermittent fevers up to 102.5, right flank, pain, decreased urine output, lightheadedness, decreased PO intake, and n/v. No vaginal bleeding. Follows with OB at [facility]. WBC 12.7. H/H stable. Vital signs stable. Renal function normal. Renal u/s ordered. hospital course 26 year old female with gestation of 12w6d admitted for pyelonephritis. 1- Acute pyelonephritis patient admitted to medical floor, with elevated WBC count,UA with 3+ leuks, neg nitrites, 4+ bacteria and placed on IV ceftriaxone, UC?showed mixed jesse, renal ultrasound showed no hydronephrosis no obstruction, WBC normalized, case discussed with OBGYN they recommend to treat patient with 10 day course of Keflex 500 mg q.i.d. and also recommended suppressive antibiotic Keflex 250 mg daily till the end of to decrease risk of recurrence patient continue term complain of right-sided abdominal pain that has been going on for several miles and has been evaluated in the past by Gastroenterology has had multiple abdominal MRI studies that showed no acute pathology, patient has been recommended to take Tylenol for pain, and to follow-up with primary care physician for chronic pain patient had no episodes of fever chills no other acute issues and is being discharged home on Keflex for 10 days and recommend follow-up with OBGYN to obtain antibiotic for suppressive treatment UTI 2-13w gestation , recommend follow-up with OBGYN and to continue multivitamins, ultrasound showed single intrauterine gestation with ultrasound gestational age of 12 weeks 4 days +/- 4 days estimated date of delivery 12/12/2022 +/- 4 days no maternal adnexal masses or pelvic ascites noted. Time Spent with Patient Time attestation: Total time spent providing and/or coordinating discharge services: Discharge coordination time: Greater than 30 minutes Quality: Safe Use of Opioids Does Pt have an Active Cancer Diagnosis on the Problem List?: No Quality: Stroke Does the patient have a stroke diagnosis?: No Physical Exam Vital Signs: Vital Signs: Last Vital Signs Temp 98.1 F 06/05/22 07:45 Pulse 77 06/05/22 07:45 Resp 16 06/05/22 07:45 BP 101/60 06/05/22 07:45 Pulse Ox 97 06/05/22 07:45 O2 Del Method 06/05/22 07:45 BMI result Body Mass Index 32.4 Const: Other: General ? Awake alert x3, in no acute distress.? Neck supple no JVD. CVS? regular rate rhythm, Respiratory lungs clear to auscultation, no respiratory distress, no wheeze, no rhonchi. Gastrointestinal abdomen soft, nontender, bowel sounds audible, no guarding , no rigidity. Extremities no edema. back no CVA tenderness Neuro nonfocal Skin no rash DS: Data Data Completed and Pending Labs on day of discharge: Preliminary micro results at discharge 06/03/22 15:49 Blood Culture - Preliminary Blood - Venous No growth after 24 hours. 06/03/22 15:31 Blood Culture - Preliminary Blood - Venous No growth after 24 hours. Discharge Plan Discharge Patient Disposition: Home, Self-Care Discharge Diagnosis: Acute pyelonephritis Referrals: Marita Toledo MD [Primary Care Provider] - 1 Week Discharge Medications: New cephalexin 500 mg capsule 500 mg PO QID Qty: 40 0RF Continued acetaminophen 325 mg Tablet 650 mg PO Q4H PRN (Reason: Pain (Scale Score 1-3)) pyridoxine (vitamin B6) [Vitamin B-6] 25 mg tablet 1 tab PO TID diphenhydramine HCl [Banophen] 25 mg capsule 1 cap PO Q4H PRN (Reason: nausea) lidocaine 5 % adhesive patch,medicated 1 patch topical DAILY ondansetron 4 mg tablet,disintegrating 1 tab PO Q8H PRN (Reason: Nausea) metoclopramide HCl 10 mg tablet 1 tab PO QID PRN (Reason: Nausea And Vomiting) thiamine HCl (vitamin B1) 50 mg tablet 1 tab PO DAILY cyclobenzaprine 5 mg tablet 1 tab PO BID PRN (Reason: muscle spasm) Discontinued Nighttime Sleep-Aid (doxylamn) 25 mg tablet 1 tab PO BEDTIME PRN (Reason: Sleep) Discharge Orders: Discharge Order (Routine); Ordered 06/05/22 Ordered By: Brigitte Eubanks Diet: Advance to usual diet Activity on Discharge: As tolerated Stand Alone Forms: Patient Portal Discharge page, Work/School Release Care Plan Goals: acute pyelonephritis, urine culture showed no growth recommend to finish course of antibiotic as prescribed for 10 days and follow-up with OBGYN for suppressive antibiotic for recurrent UTI possible Keflex 250 mg daily till end of . Health Concerns: take multivitamin with folic acid minimize use of medications during , continue close follow-up with OBGYN as previously Plan of Treatment: Outpatient follow-up with primary care physician and OBGYN Assessment: as above Discharge Date/Time: 06/05/22 11:29
== END 2022-06-05 11:29 | disposition home or self-care (01) | DRG 566 ==
LOC: HO.ED 15:26 → HO.EDOVER 16:37
PROVIDERS: Admitting Provider Physician Assistant; Emergency Provider Emergency Medicine; PCP Internal Medicine; Visit Provider Hospitalist
DX: O23.01 Infections of kidney in pregnancy, first trimester (principal); Z20.822 Contact with and (suspected) exposure to COVID-19; Z3A.12 12 weeks gestation of pregnancy; Z98.84 Bariatric surgery status; Z79.899 Other long term (current) drug therapy
CPT/HCPCS: 36415; 76775; 76801; 80048; 80076; 81001; 83690; 84702; 85025; 87040; 87086; 87635; 96365; 96375; 99218; 99284; 99285; J0696; J2405; Q0163

== ENCOUNTER → 2022-07-19 14:59 | Outpatient (BNVA) | payer OTHER, SELFPAY | PROVIDERS: PCP Internal Medicine; Visit Provider Urology | DX: Q63.2 Ectopic kidney (principal); N39.0 Urinary tract infection, site not specified; Z87.448 Personal history of other diseases of urinary system | CPT/HCPCS: 99202 ==

== ENCOUNTER → 2022-09-02 10:49 | Outpatient (BNVA) | payer OTHER, SELFPAY | PROVIDERS: PCP Internal Medicine; Visit Provider Internal Medicine | DX: M54.50 Low back pain, unspecified (principal); R29.898 Other symptoms and signs involving the musculoskeletal system | CPT/HCPCS: 99212 ==

== ENCOUNTER 2022-12-09 10:05 | Outpatient (REF) | payer OTHER, SELFPAY ==
[2022-12-09 10:19] LABS: MANUAL DIFF FLAG NO
[2022-12-09 10:53] LABS: Basophils Absolute Auto 0.2 X10*3/uL (0.0-0.2); Basophils Percent Auto 1.9 % (0-2); Eosinophils Absolute Auto 0.3 X10*3/uL (0.0-0.4); Hematocrit 40.2 % (37.0-47.0); Hemoglobin 12.2 g/dl (12.0-16.0); Imm Gran Abs Auto 0.02 X10*3/uL (0.00-0.03); Imm Gran Pct Auto 0.3 % (0.0-0.4); Lymphocytes Absolute Auto 2.2 X10*3/uL (1.2-4.9); Lymphocytes Percent Auto 27.1 % (20-40); Mean Corpuscular HGB Conc 30.3 g/dl (31.0-35.0); Mean Corpuscular Hemoglobin 25.6 pg (27.0-33.0); Mean Corpuscular Volume 84.3 fL (80.0-98.0); Mean Platelet Volume 10.4 fL (9.4-12.3); Monocytes Absolute Auto 0.7 X10*3/uL (0.1-1.2); Monocytes Percent Auto 8.5 % (2-11); Neutrophils Absolute Auto 4.7 x10*3/uL (2.0-8.3); Neutrophils Percent Auto 58.2 % (45-73); Platelet Count 325 X10*3/uL (160-400); Red Blood Count 4.77 X10*6/uL (4.20-5.50); Red Cell Distribution Width 13.2 % (11.0-16.0)
[2022-12-09 11:45] LABS: Alanine Aminotransferase 14 U/L (0-31); Albumin Level 3.6 g/dL (3.5-5.0); Alkaline Phosphatase 110 U/L (39-117); Anion Gap 12 (12-20); Aspartate Amino Transferase 19 U/L (5-31); Bilirubin Total 0.4 mg/dL (0.0-1.0); Blood Urea Nitrogen 10 mg/dL (9-16); Calcium 8.4 mg/dL (8.4-10.2); Carbon Dioxide 25 mmol/L (22-29); Chloride 111 mmol/L (96-108); Cholesterol 149 mg/dL; Estimated Glomerular Filt Rate > 60; Glucose Fasting 75 mg/dL (60-99); HDL Cholesterol 70 mg/dL; Iron 61 mcg/dL (30-160); LDL Cholesterol Calculated 68 mg/dl; Percent Iron Saturation 17 % (15-50); Potassium 4.6 mmol/L (3.3-5.1); Sodium 143 mmol/L (135-145); Total Iron Binding Capacity 355 mcg/dL (228-428); Total Protein 5.9 g/dL (6.5-8.0); Triglycerides 58 mg/dL; Unsaturated Iron Binding 294 ug/dL
[2022-12-09 12:03] LABS: Vitamin D 25-OH Total 8.1 ng/mL (>30)
== END 2022-12-09 10:06 | disposition home or self-care (01) ==
LOC: HO.LAB 10:05
PROVIDERS: PCP Internal Medicine; Visit Provider Internal Medicine
DX: E55.9 Vitamin D deficiency, unspecified (principal); D64.9 Anemia, unspecified; R94.5 Abnormal results of liver function studies; E66.9 Obesity, unspecified; E78.5 Hyperlipidemia, unspecified
CPT/HCPCS: 36415; 80053; 80061; 82306; 83540; 85025

== ENCOUNTER → 2022-12-18 13:24 | Outpatient (BNVA) | payer MEDICAID, SELFPAY | PROVIDERS: PCP Internal Medicine; Visit Provider Urology | DX: Q63.2 Ectopic kidney (principal); Z87.448 Personal history of other diseases of urinary system; Z87.442 Personal history of urinary calculi | CPT/HCPCS: 51798; 99212 ==

== ENCOUNTER 2023-03-15 20:09 | Emergency (ER) | payer OTHER, SELFPAY ==
[2023-03-15 20:14] VITALS: BP 109/59; PULSE 66; RESP 18; TEMP 36.4; O2SAT 99; BMI 32.1
--- NOTE | 2023-03-15 20:14 | ED.GENADULT ---
HPI - General Adult General Chief complaint: General Medical Stated complaint: issues Time Seen by Provider: 03/15/23 21:00 Source: patient Mode of arrival: ambulatory Limitations: no limitations History of Present Illness HPI narrative: 27-year-old female presents with right breast pain. Symptoms started over 1 day ago. The symptoms are severe. Patient is currently breast-feeding and is to having difficulty expressing milk. She has noted redness and swelling to the right breast. She has been pumping, warm compresses, massage with no relief. The pain is worse with palpation, pumping attempts to breast feed. She has had no fevers or chills. The pain is better with rest. Patient describes the pain as moderate to severe. Described as a tight and sharp pain. There has been no nipple discharge. Related Data Home Medications Medication Instructions Recorded Confirmed pyridoxine (vitamin B6) 25 mg 1 tab PO TID 06/03/22 01/16/23 tablet (Vitamin B-6) cholecalciferol (vitamin D3) 25 25 mcg PO DAILY 07/19/22 01/16/23 mcg (1,000 unit) tablet lancets 28 gauge (FreeStyle #100 ea 07/19/22 01/16/23 Lancets) Previous Rx's Medication Instructions Recorded cyclobenzaprine 10 mg tablet 10 mg PO BEDTIME #30 tabs 09/02/22 lidocaine 5 % topical patch 1 patch topical DAILY #30 ea 09/02/22 penicillin V potassium 500 mg 500 mg PO BID 10 days #20 tabs 01/16/23 tablet cephalexin 500 mg capsule 500 mg PO QID 10 days #40 caps 03/15/23 Allergies Allergy/AdvReac Type Severity Reaction Status Date / Time carrot [CARROTS] Allergy Intermediate SWELLING Verified 01/16/23 16:37 cat dander [CATS] Allergy Intermediate ITCHING Verified 01/16/23 16:37 insect venom [INSECT BITES] Allergy Intermediate HIVES Verified 01/16/23 16:37 Review of Systems Review of Systems: CONSTITUTIONAL: Denies weight loss, fever and chills. HEENT: Denies changes in vision and hearing. RESPIRATORY: Denies SOB and cough. CV: Denies palpitations no CP. GI: Denies abdominal pain, nausea, vomiting and diarrhea. : Denies dysuria and urinary frequency. MSK: Denies myalgia and joint pain. SKIN: Denies rash and pruritus. NEUROLOGICAL: Denies headache and syncope. PSYCHIATRIC: Denies recent changes in mood. Denies anxiety and depression. All other ROS are negative unless in HPI PMFSH Past Medical History Medical History Abdominal pain Acute hemorrhoid Asthma BCP ( control pills) initiation Bile duct abnormality Breakthrough bleeding on Nexplanon Cholecystectomy planned Chronic abdominal pain Constipation COVID-19 Encounter for Nexplanon removal Encounter for removal and reinsertion of Nexplanon GERD (gastroesophageal reflux disease) Hip asymmetry Hypovitaminosis D Internal and external bleeding hemorrhoids Intestinal malabsorption following gastrectomy Iron deficiency anemia Left arm pain Left sided abdominal pain Lumbar pain Muscle spasm Nexplanon in place Obesity (BMI 30-39.9) Ovarian mass Pelvic pain Problematic vaginal discharge RUQ abdominal pain Sacroiliac joint pain Sinusitis Sleep apnea Yeast infection involving the vagina and surrounding area Surgical History Gastric bypass status for obesity H/O colonoscopy History of esophagogastroduodenoscopy (EGD) Hx of cholecystectomy Family History Family History Father Obesity Diabetes mellitus Mother Obesity Arthritis of knee Paternal Grandfather Diabetes mellitus Paternal Grandmother Diabetes mellitus Maternal Grandmother Arthritis of knee Diabetes mellitus Maternal Grandfather Diabetes mellitus Social History Social History Household Members: None Housing: House Alcohol intake: never Patient Tobacco Use Status: Never used Tobacco e-Cigarette/Vaping Use: Never Used Second Hand Smoke Exposure: No Advance Directives: No Advance Directives Information Provided: No service: No Current occupational status: unemployed Cognitive needs: No Hearing needs: No Vision needs: Yes Physical Exam ED Vital Signs: Vital Signs - 24 hr 03/15/23 20:14 Temperature 97.6 F Pulse Rate 66 Respiratory Rate 18 Blood Pressure 109/59 L Pulse Oximetry 99 Oxygen Delivery Method Room Air BMI result Body Mass Index 32.1 GEN: Well developed, no acute distress, alert, oriented HEENT: Normocephalic, atraumatic, normal external ears, nose appears normal Eyes: Normal to appearance Neck: Supple, no lymphadenopathy Respiratory: Talks in complete sentences, no respiratory distress Extremities: No clubbing cyanosis or edema Neurologic: No focal neurologic deficits, cranial nerves 2-12 intact, gait normal Skin: No rash Chest Chest/axillae images: 1. Tenderness, induration, no significant erythema, no nipple discharge or inverted nipple no peau d'orange Course Course Course Narrative: RME performed by Annetta Houston PA-C. Patient is a 27 year old assigned female at presenting to the emergency department with right breast pain. Patient states that she breastfeeds and has had a clogged duct before but this feels much worse. Patient states that her right breast is red, swollen, and warm. Labs ordered. Patient placed back in the waiting room pending room availability and results. Reevaluation(s) Reevaluation #1: Patient's right mastitis. We discussed warm compresses, massage, continued pumping. The patient has been over 24 hours with symptoms will start patient on Keflex and. It is safe for . She was informed that if she has any concerns, she can pump and dump. She is aware that antibiotics will be expressed in the breast milk and that may cause diarrhea to her child patient can take Tylenol and ibuprofen as needed for pain. She will follow-up with her primary care or her consultant within the next few days. Time: 22:26 Medications Administered Discontinued Medications Generic Name Dose Route Start Last Admin Trade Name Freq PRN Reason Stop Dose Admin Cephalexin HCl 500 mg 03/15/23 21:36 03/15/23 21:47 Cephalexin 500 Mg Capsule PO 03/15/23 21:37 500 mg ONCE ONE Administration Medical Decision Making Medical Decision Making [facility] Narrative: 27-year-old female presents with right breast pain. She patient is currently . Differential diagnosis includes mastitis, abscess, cellulitis. Her examination is most consistent with clogged duct mastitis. Workup will include laboratory analysis, re-evaluation and likely antibiotic treatment. Differential Diagnosis Differential Diagnoses: The differential diagnosis associated with the presentation includes (See above) Lab Data [facility] Lab Attestation statement: I reviewed the patient's lab results. 03/15/23 20:32 03/15/23 20:32 Labs: Lab Results 03/15/23 03/15/23 03/15/23 Range/Units 20:32 20:32 20:32 WBC 8.6 (4.8-10.8) X10*3/uL RBC 4.72 (4.20-5.50) X10*6/uL Hgb 11.7 L (12.0-16.0) g/dl Hct 37.0 (37.0-47.0) % MCV 78.4 L (80.0-98.0) fL MCH 24.8 L (27.0-33.0) pg MCHC 31.6 (31.0-35.0) g/dl RDW 14.0 (11.0-16.0) % Plt Count 291 (160-400) X10*3/uL MPV 9.9 (9.4-12.3) fL Immature Gran % (Auto) 0.1 (0.0-0.4) % Neut % (Auto) 57.0 (45-73) % Lymph % (Auto) 28.7 (20-40) % [place] % (Auto) 10.4 (2-11) % Eos % (Auto) 2.6 (0-4) % Baso % (Auto) 1.2 (0-2) % Lymph # (Auto) 2.5 (1.2-4.9) X10*3/uL [place] # (Auto) 0.9 (0.1-1.2) X10*3/uL Eos # (Auto) 0.2 (0.0-0.4) X10*3/uL Baso # (Auto) 0.1 (0.0-0.2) X10*3/uL Abs Immat Gran (auto) 0.01 (0.00-0.03) X10*3/uL Absolute Neuts (auto) 4.9 (2.0-8.3) x10*3/uL Absolute Nucleated RBC 0.000 (0.0-0.012) X10*3/uL Nucleated RBC % (auto) 0.0 (0.0-0.2) /100WBC ESR 7 (0-20) MM/HR Sodium 141 (135-145) mmol/L Potassium 4.0 (3.3-5.1) mmol/L Chloride 112 H (96-108) mmol/L Carbon Dioxide 20 L (22-29) mmol/L Anion Gap 13 (12-20) BUN 15 (9-16) mg/dL Creatinine 0.78 (0.5-1.4) mg/dL Estim Creat Clear Calc 126.8 Estimated GFR > 60 Random Glucose 76 (60-115) mg/dL Calcium 8.4 (8.4-10.2) mg/dL Magnesium 2.1 (1.6-2.6) mg/dL Total Bilirubin 0.2 (0.0-1.0) mg/dL AST 18 (5-31) U/L ALT 15 (0-31) U/L Alkaline Phosphatase 118 H (39-117) U/L C-Reactive Protein 0.26 (< or = 0.50) mg/dL Total Protein 6.5 (6.5-8.0) g/dL Albumin 3.8 (3.5-5.0) g/dL Prescription Management I considered prescription management with: Pain Medication and Antibiotic Discharge Plan Discharge Clinical Impression: Mastitis Patient Disposition: Home, Self-Care Instructions: Mastitis (ED) Prescriptions: New cephalexin 500 mg capsule 500 mg PO QID 10 Days Qty: 40 0RF No Action pyridoxine (vitamin B6) [Vitamin B-6] 25 mg tablet 1 tab PO TID penicillin V potassium 500 mg tablet 500 mg PO BID 10 Days Qty: 20 0RF cholecalciferol (vitamin D3) 25 mcg (1,000 unit) tablet 25 mcg PO DAILY (DME) lancets [FreeStyle Lancets] 28 gauge misc See Rx Instructions .ROUTE QID Qty: 100 Rx Instructions: As directed lidocaine 5 % adhesive patch,medicated 1 patch topical DAILY Qty: 30 11RF cyclobenzaprine 10 mg tablet 10 mg PO BEDTIME Qty: 30 11RF Referrals: Marita Toledo MD [Primary Care Provider] - 3 days Interventions: ED Discharge Assessment Last Done: 03/15/23 21:51 Discharge Date/Time: 03/15/23 21:53
[2023-03-15 20:58] LABS: Alanine Aminotransferase 15 U/L (0-31); Albumin Level 3.8 g/dL (3.5-5.0); Alkaline Phosphatase 118 U/L (39-117); Anion Gap 13 (12-20); Aspartate Amino Transferase 18 U/L (5-31); Bilirubin Total 0.2 mg/dL (0.0-1.0); Blood Urea Nitrogen 15 mg/dL (9-16); C Reactive Protein 0.26 mg/dL (< or = 0.50); Calcium 8.4 mg/dL (8.4-10.2); Carbon Dioxide 20 mmol/L (22-29); Chloride 112 mmol/L (96-108); Creatinine Clr Calc Pharmacy 126.8; Estimated Glomerular Filt Rate > 60; Glucose Random 76 mg/dL (60-115); Magnesium 2.1 mg/dL (1.6-2.6); Sodium 141 mmol/L (135-145); Total Protein 6.5 g/dL (6.5-8.0)
--- NOTE | 2023-03-15 21:51 | PC.NURSE ---
pt medicated per MAR
== END 2023-03-15 21:53 | disposition home or self-care (01) ==
PROVIDERS: Physician Assistant Medical; Emergency Provider Emergency Medicine; PCP Internal Medicine
DX: N61.0 Mastitis without abscess (principal)
CPT/HCPCS: 36415; 80053; 83735; 85025; 85652; 86140; 99282; 99283

== ENCOUNTER 2023-04-17 10:46 | Outpatient (AMB) | payer OTHER, SELFPAY ==
--- NOTE | 2023-04-17 10:59 | A.OFFVIS_ITS ---
Intake Intake Visit Reasons: hemorrhoids, RLQ pain Intake Note: This patient presents for an assessment for hemorrhoids and RLQ pain. Patient c/o; denies rectal bleeding, denies constipation, RLQ x3 days, reports stabbing pain,reports soft stool, 2-3 bms per day. 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 She says she has had problems with prolapse, pain and bleeding with hemorrhoids for several years. However for the past years she notices that this have been getting worse. She says that her hemorrhoids are mostly ?out? all the time now. Furthermore, she says that she has more bleeding practically every day She describes frequent bowel movements and she was told before that she has constipation although she says she does not think that this is so. She also says she frequently has some loose stools as well She also has been following with GI in the past for chronic abdominal pain. She says she was told she had a fatty liver. She says she has had this pain again for the past she days on the right side of her abdomen mostly with bowel movements. She denies any nausea or vomiting. She denies any fever or chills. [facility] Medical History (Updated 04/17/23 @ 11:12 by Markus Wiley MD) Abdominal pain Acute hemorrhoid Asthma BCP ( control pills) initiation Bile duct abnormality Bleeding hemorrhoids Breakthrough bleeding on Nexplanon Cholecystectomy planned Chronic abdominal pain Constipation COVID-19 Encounter for Nexplanon removal Encounter for removal and reinsertion of Nexplanon GERD (gastroesophageal reflux disease) Hip asymmetry Hypovitaminosis D Internal and external bleeding hemorrhoids Intestinal malabsorption following gastrectomy Iron deficiency anemia Left arm pain Left sided abdominal pain Lumbar pain Muscle spasm Nexplanon in place Obesity (BMI 30-39.9) Ovarian mass Pelvic pain Problematic vaginal discharge Right lower quadrant pain RUQ abdominal pain Sacroiliac joint pain Sinusitis Sleep apnea Yeast infection involving the vagina and surrounding area Surgical History Gastric bypass status for obesity H/O colonoscopy History of esophagogastroduodenoscopy (EGD) Hx of cholecystectomy Family History Father Obesity Diabetes mellitus Mother Obesity Arthritis of knee Paternal Grandfather Diabetes mellitus Paternal Grandmother Diabetes mellitus Maternal Grandmother Arthritis of knee Diabetes mellitus Maternal Grandfather Diabetes mellitus Social History Household Members: None Housing: House Alcohol intake: never Patient Tobacco Use Status: Never used Tobacco e-Cigarette/Vaping Use: Never Used Second Hand Smoke Exposure: No service: No Current occupational status: unemployed Cognitive needs: No Hearing needs: No Vision needs: Yes Female Reproductive History Menstrual Age of Menarche: 10 Review of Systems Const Denies chills and Denies fever(s) Card Denies chest pain, Denies dyspnea and Denies dyspnea on exertion Resp Denies cough, Denies dyspnea and Denies dyspnea on exertion GI Reports hematochezia and Denies change in bowel habits Denies hematuria Musc Denies back pain and Denies limited range of motion Neuro Denies focal weakness and Denies convulsions Psych Denies depression and Denies mood swings Physical Exam Const General: comfortable and no acute distress Orientation/consciousness: patient oriented x3 Neck Neck: Yes no lymphadenopathy Resp Auscultation: clear to auscultation bilaterally Cardio Rhythm: regular rhythm GI Other: Rectal exam - external hemorrhoids on both the left and right side, anoscopy done Palpation (GI): Soft to palpation, not firm, nontender and no guarding Neuro General: patient oriented x3 Office Procedures Anoscopy She was in twin-knife position. The anoscope was gently inserted. A full examination of the anal canal was done. She had prominent hemorrhoidal columns, mix of internal external both the left and right side. There were no other lesions. There was no fissure. There was no induration on digital exam. There was no bleeding. [id number] Assessment & Plan Assessment & Plan (1) Bleeding hemorrhoids: Code(s): K64.9 - Unspecified hemorrhoids Plan: She has prominent hemorrhoidal columns, mix of internal and external as described above, with worsening bleeding as well as pain and prolapse. She wants to proceed with hemorrhoidectomy. I explained the technique of this procedure. I reviewed the risks including but not limited to bleeding, infections and postop pain, as well as the benefits and alternatives. She understands and wants to proceed I also explained to her what to expect postoperatively. (2) Right lower quadrant pain: Code(s): R10.31 - Right lower quadrant pain Plan: She describes quadrant pain as well as frequency of urination. She does have a long history of recurrent UTIs a history of hydronephrosis on the right side. I will send for urinalysis. I also advised her to follow up again with her urologist as well as a technical laboratory asst. Orders: Orders UA and rflx microscopic 04/17/23 R10.31 - Right lower quadrant pain Coding Level of Care Code New Pt Level 3 (45111) Diagnoses Bleeding hemorrhoids K64.9 Right lower quadrant pain R10.31 CPT Codes Details - CPT: 96866-Cvqhkftx ([id number])
== END 2023-04-17 11:36 | disposition home or self-care (01) ==
PROVIDERS: PCP Internal Medicine; Visit Provider Surgery
DX: K64.8 Other hemorrhoids (principal)
CPT/HCPCS: 46600; 99214

== ENCOUNTER 2023-04-17 10:46 | Outpatient (REF) | payer OTHER, SELFPAY ==
[2023-04-17 13:13] LABS: Appearance Urine Clear; Color Urine Yellow; Glucose Urine UA Negative (Negative); Leukocyte Esterase Urine Negative (Negative); Nitrite Urine Negative (Negative); Specific Gravity - Urine 1.025 (1.005-1.025); Urine Blood Negative (Negative); Urine Ketones Negative (Negative); Urine Protein Negative (Neg-Trace)
== END 2023-04-17 10:47 | disposition home or self-care (01) ==
LOC: HO.LAB 10:46
PROVIDERS: PCP Internal Medicine; Visit Provider Surgery
DX: R10.31 Right lower quadrant pain (principal); K64.9 Unspecified hemorrhoids
CPT/HCPCS: 46600; 81003

== ENCOUNTER 2023-04-28 10:41 | Outpatient (AMB) | payer OTHER, SELFPAY ==
--- NOTE | 2023-04-28 10:44 | A.OFFPC_ITS ---
Vital Signs 04/28/23 10:45 Height 5 ft 7 in Weight 191 lb BMI 29.9 BP 124/70 Blood Pressure Location Lt brachial Position Sitting Pulse 61 Pulse Source Pulse Oximeter Temp Source Skin Pulse Oximetry (%) 98 Oxygen Delivery Method Room Air Intake Visit Reasons: abdominal pain and nausea Intake Note: pt states lower right sided abdominal pain [id number], pt states with nausea Allergies carrot [CARROTS] Allergy (Intermediate, Verified 04/28/23 10:47) SWELLING cat dander [CATS] Allergy (Intermediate, Verified 04/28/23 10:47) ITCHING insect venom [INSECT BITES] Allergy (Intermediate, Verified 04/28/23 10:47) HIVES Tobacco use date assessed: 04/28/23 HPI HPI Comments History of Present Illness Details 27-year-old female past medical history significant for iron deficiency anemia, GERD, recurrent UTIs, sed last gastric bypass, bleeding hemorrhoids and chronic abdominal pain. Patient presents today for worsening right lower quadrant pain x2 weeks with a associated nausea denies vomiting. Patient pain is stabbing aching pain radiating to left side. Denies any fever, chills, sob. + provactive testing. Patient currently taking care for 2 children, unable to go to ER. In states able to get labs completed in able to for up told her off her sister's to obtain stat STAT abdominal CT to rule out appendicitis. [facility] Medical History Abdominal pain Acute hemorrhoid Asthma BCP ( control pills) initiation Bile duct abnormality Bleeding hemorrhoids Breakthrough bleeding on Nexplanon Cholecystectomy planned Chronic abdominal pain Constipation COVID-19 Encounter for Nexplanon removal Encounter for removal and reinsertion of Nexplanon GERD (gastroesophageal reflux disease) Hip asymmetry Hypovitaminosis D Internal and external bleeding hemorrhoids Intestinal malabsorption following gastrectomy Iron deficiency anemia Left arm pain Left sided abdominal pain Lumbar pain Muscle spasm Nexplanon in place Obesity (BMI 30-39.9) Ovarian mass Pelvic pain Problematic vaginal discharge Right lower quadrant pain RUQ abdominal pain Sacroiliac joint pain Sinusitis Sleep apnea Yeast infection involving the vagina and surrounding area Surgical History Gastric bypass status for obesity H/O colonoscopy History of esophagogastroduodenoscopy (EGD) Hx of cholecystectomy Family History Father Obesity Diabetes mellitus Mother Obesity Arthritis of knee Paternal Grandfather Diabetes mellitus Paternal Grandmother Diabetes mellitus Maternal Grandmother Arthritis of knee Diabetes mellitus Maternal Grandfather Diabetes mellitus Social History Household Members: None Housing: House Alcohol intake: never Patient Tobacco Use Status: Never used Tobacco e-Cigarette/Vaping Use: Never Used Second Hand Smoke Exposure: No service: No Current occupational status: unemployed Cognitive needs: No Hearing needs: No Vision needs: Yes Female Reproductive History Menstrual Age of Menarche: 10 Questionnaire Thrive Questionnaire Date Thrive assessed: 12/09/22 AUDIT C Alcohol Use Questionnaire (AUDIT-C) 1. How often do you have a drink containing alcohol?: Never Total Score: 0 Score Reviewed/Action Taken: No GAGAN-7 AMB Questionnaire GAGAN-7 Date GAGAN - 7 assessed: 12/09/22 Source: Developed by Drs. George Cortes, Aga Donovan, Jose Hwang and colleagues, with an educational hiren from [employer]. Review of Systems Const Denies chills, Denies fatigue, Denies fever(s) and Denies poor appetite Eyes Denies no additional complaints ENT Reports Normal hearing present Card Denies chest pain, Denies syncope, Denies rapid heart rate and Denies dyspnea Resp Denies cough and Denies dyspnea GI Reports abdominal pain (Right lower quadrant pain), Denies change in stool character, Denies constipation, Denies diarrhea, Denies nausea and Denies vomiting Denies urinary frequency, Denies dysuria and Denies urinary urgency Neuro Reports Normal hearing present, Denies confusion and Denies syncope Psych Denies confusion Endo Denies fatigue Physical exam (Primary Care) Vital Signs: Last Vital Signs Pulse 61 04/28/23 10:45 BP 124/70 04/28/23 10:45 Pulse Ox 98 04/28/23 10:45 Oxygen Delivery Method Room Air 04/28/23 10:45 BMI result Body Mass Index 29.9 Tobacco/Smoking Status: Tobacco use Status Tobacco use date assessed 04/28/23 04/28/23 10:50 Patient Tobacco Use Status Never used Tobacco 04/28/23 10:50 e-Cigarette/Vaping Use Never Used 04/28/23 10:50 Thrive Assessment: Date of Thrive Assessment Date Thrive assessed 12/09/22 04/28/23 10:50 Const General: No confusion Orientation/consciousness: No confusion HENMT Head: Yes normocephalic and Yes atraumatic Eyes Conjunctivae: conjunctivae normal Chest Chest palpation & inspection: normal inspection of the chest Resp Effort & Inspection: normal respiratory effort Auscultation: clear to auscultation bilaterally, no crackles, no rhonchi and no wheezes Cardio Rate: regular rate Rhythm: regular rhythm Heart sounds: S1 normal heart sound present and S2 normal heart sound present GI Inspection: Yes normal to inspection Palpation (GI): Soft to palpation, Tenderness to palpation present (GI) in the RLQ, at McBurney's point, with rebound tenderness and Rovsing's sign positive and No hepatosplenomegaly present Auscultation: normoactive bowel sounds General: Yes no CVA tenderness Back/Spine/Pelvis Back: no CVA tenderness Neuro General: No confusion Cranial nerves: Yes Normal hearing present Extrem General: No edema Assessment and Plan Assessment & Plan (1) Right lower quadrant pain: Code(s): R10.31 - Right lower quadrant pain Plan: Stat abdominal CT obtained to rule out appendicitis. CT showed:No acute findings to explain symptoms of right lower quadrant pain. The appendix is not identified with certainty however there are no inflammatory changes to suggest appendicitis. Labs unremarkable no leukocytosis noted. Patient called and notified of findings Continues to experience a right lower quadrant pain history of left ovarian cyst will obtain pelvic ultrasound to rule out right-sided ovarian cyst as cause of pain. Patient advised to keep scheduled follow-up with Gastroenterology for history of abdominal pain, patient reports appointment scheduled in July. Patient can continue to take [id number] Tylenol as needed for pain and use a heating pad. Plan Keep scheduled follow up with pcp or follow up sooner if needed. Orders: Orders Comprehensive Met. Panel 04/28/23 R10.31 - Right lower quadrant pain CT abdomen pelvis w IV con 04/28/23 R10.31 - Right lower quadrant pain Complete Blood Count Auto Diff 04/28/23 R10.31 - Right lower quadrant pain US OB pelvic and transvaginal Today R10.31 - Right lower quadrant pain Coding Level of Care Code Est Pt Level 3 (10191) Diagnoses Right lower quadrant pain R10.31
[2023-04-28 10:45] VITALS: BP 124/70; PULSE 61; O2SAT 98; BMI 29.9
== END 2023-04-28 11:39 | disposition home or self-care (01) ==
PROVIDERS: PCP Internal Medicine; Visit Provider Nurse Practitioner Family
DX: R10.31 Right lower quadrant pain (principal)
CPT/HCPCS: 99213

== ENCOUNTER 2023-04-28 11:17 | Outpatient (REF) | payer OTHER, SELFPAY ==
--- NOTE | ~2023-04-28 | CT_ITS ---
EXAMINATION: CT ABDOMEN AND PELVIS WITH CONTRAST CLINICAL INFORMATION: Right lower quadrant pain COMPARISON: CT abdomen pelvis 08/13/2020 TECHNIQUE: Multidetector volumetric images were obtained from the superior aspect of the liver through the pubic symphysis following administration 85 mL of Omnipaque 350 intravenous contrast. Sagittal and coronal reformatted images were obtained on the technologist's workstation. Oral contrast: No This CT examination was performed using dose optimization techniques as appropriate, variously including the following: *Automated exposure control *Adjustment of mA and/or kV according to patient size (this includes techniques or standardized protocols for targeted exams where dose is matched to indication/reason for exam; i.e. extremities or head) *Use of iterative reconstruction technique DLP: 509 mGy-cm FINDINGS: LUNG BASES: Unremarkable. ABDOMINAL AND PELVIC WALL: Unremarkable. LIVER AND BILIARY TREE: Unremarkable. GALLBLADDER: Status post cholecystectomy. PANCREAS: Unremarkable. SPLEEN: Unremarkable. ADRENAL GLANDS: Unremarkable. 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 Left kidney is unremarkable. GASTROINTESTINAL TRACT: Postsurgical changes of Royce-en-Y gastric bypass. The appendix is not identified with certainty however there are no inflammatory changes to suggest appendicitis. VASCULAR: Unremarkable. LYMPH NODES/PERITONEUM: No lymphadenopathy. FREE FLUID: None. BLADDER: Unremarkable. PELVIC VISCERA: Unremarkable. OSSEOUS STRUCTURES: Unremarkable. CT/CT abdomen pelvis w IV con IMPRESSION: No acute findings to explain symptoms of right lower quadrant pain. The appendix is not identified with certainty however there are no inflammatory changes to suggest appendicitis.
[2023-04-28 11:27] LABS: MANUAL DIFF FLAG NO
[2023-04-28 13:50] LABS: Basophils Absolute Auto 0.1 X10*3/uL (0.0-0.2); Basophils Percent Auto 0.9 % (0-2); Eosinophils Absolute Auto 0.2 X10*3/uL (0.0-0.4); Eosinophils Percent Auto 2.3 % (0-4); Hematocrit 39.7 % (37.0-47.0); Hemoglobin 12.2 g/dl (12.0-16.0); Imm Gran Abs Auto 0.02 X10*3/uL (0.00-0.03); Imm Gran Pct Auto 0.3 % (0.0-0.4); Lymphocytes Percent Auto 30.4 % (20-40); Mean Corpuscular HGB Conc 30.7 g/dl (31.0-35.0); Mean Corpuscular Hemoglobin 25.1 pg (27.0-33.0); Mean Corpuscular Volume 81.5 fL (80.0-98.0); Mean Platelet Volume 10.6 fL (9.4-12.3); Monocytes Absolute Auto 0.6 X10*3/uL (0.1-1.2); Monocytes Percent Auto 9.1 % (2-11); Neutrophils Absolute Auto 3.7 x10*3/uL (2.0-8.3); Platelet Count 304 X10*3/uL (160-400); Red Blood Count 4.87 X10*6/uL (4.20-5.50); Red Cell Distribution Width 14.5 % (11.0-16.0); White Blood Count 6.5 X10*3/uL (4.8-10.8)
[2023-04-28] MEDS: iohexoL 350 MG/ML 100 ML INFUS..BTL IV (16:11)
[2023-04-28] MEDS: Barium Sulfate Oral (Vanilla) 450 ML ORAL.SUSP 900 ML PO (16:12)
[2023-04-28 16:37] LABS: Alanine Aminotransferase 12 U/L (0-31); Alkaline Phosphatase 106 U/L (39-117); Anion Gap 14 (12-20); Aspartate Amino Transferase 21 U/L (5-31); Bilirubin Total 0.4 mg/dL (0.0-1.0); Blood Urea Nitrogen 11 mg/dL (9-16); Calcium 8.8 mg/dL (8.4-10.2); Carbon Dioxide 22 mmol/L (22-29); Chloride 113 mmol/L (96-108); Estimated Glomerular Filt Rate > 60; Glucose Random 63 mg/dL (60-115); Potassium 4.2 mmol/L (3.3-5.1); Sodium 145 mmol/L (135-145); Total Protein 6.8 g/dL (6.5-8.0)
== END 2023-04-28 11:18 | disposition home or self-care (01) ==
LOC: HO.LAB 11:17
PROVIDERS: PCP Nurse Practitioner Family; Visit Provider Nurse Practitioner Family
DX: R10.31 Right lower quadrant pain (principal)
CPT/HCPCS: 36415; 74177; 80053; 85025; Q9967

== ENCOUNTER 2023-05-16 11:37 | Outpatient (REF) | payer OTHER, SELFPAY ==
--- NOTE | ~2023-05-16 | US_ITS ---
EXAMINATION: US PELVIS CLINICAL INFORMATION: Right lower quadrant pain COMPARISON: None available. TECHNIQUE: Ultrasound of the pelvis is performed using both transabdominal and transvaginal transducers along with Doppler. Transvaginal imaging is performed due to inadequate visualization transabdominally. FINDINGS: Uterus: The uterus is anteverted and measures 5.9 x 2.8 x 5.0 cm and volume 43.25 mL The double wall endometrial thickness is 1 mm. The uterus is smooth in contour and has normal myometrial echogenicity. No visible fibroid. Adnexa: Both ovaries are visualized. There is normal color flow to the adnexa. There is no ovarian torsion. There is no pelvic ascites or fluid collection. Right ovary measures 3.1 x 2.8 x 2.0 cm. Volume 9.1 mL multiple small follicles are visualized. Left ovary measures 2.9 x 2.0 x 2.5 cm. Volume 7.6 mL. Multiple small follicles are visualized. There is no free fluid in the cul-de-sac. US/US pelvic and transvaginal IMPRESSION: 1. Unremarkable uterus. 2. Multiple small follicles in both ovaries. 3. There is no free fluid in the cul-de-sac.
== END 2023-05-16 11:38 | disposition home or self-care (01) ==
LOC: HO.US 11:37
PROVIDERS: PCP Nurse Practitioner Family; Visit Provider Nurse Practitioner Family
DX: R10.31 Right lower quadrant pain (principal)
CPT/HCPCS: 76830; 76856

== ENCOUNTER 2023-05-20 07:44 | Day surgery (SDC) | payer OTHER, SELFPAY ==
[2023-05-15 07:22] VITALS: BMI 29.9
--- NOTE | 2023-05-16 09:57 | HO.ANESPROP2 ---
Documented by User: Tasha Vásquez NP 05/16/23 09:58 HPI - Anesthesia Eval Consult details Narrative: 27yo F for Exam Under Anesthesia, Hemorrhoidectomy PMFSH Active Problems Active Problems: All Active Problems (Updated 04/17/23 @ 11:12 by Markus Wiley MD) Right lower quadrant pain (Acute) Bleeding hemorrhoids (Acute) Streptococcal pharyngitis (Acute) History of kidney stones (Acute) Physical exam (Acute) History of pyelonephritis (Acute) Recurrent UTI (Acute) Malrotation, kidney (Acute) Insomnia (Acute) (Acute) Ovarian cyst, complex (Acute) Hypovitaminosis D (Acute) Iron deficiency anemia (Acute) GERD (gastroesophageal reflux disease) (Acute) Headache (Acute) Iron deficiency anemia (Acute) Lumbar pain (Acute) Hip asymmetry (Acute) Abnormal LFTs (Acute) Intestinal malabsorption following gastrectomy (Acute) Bile duct abnormality (Acute) Gastric bypass status for obesity (Acute) Obesity (BMI 30-39.9) (Acute) Diarrhea (Acute) Past Medical History Medical History Asthma BCP ( control pills) initiation Bile duct abnormality Breakthrough bleeding on Nexplanon Cholecystectomy planned Chronic abdominal pain Constipation COVID-19 Encounter for removal and reinsertion of Nexplanon GERD (gastroesophageal reflux disease) Hip asymmetry Hypovitaminosis D Internal and external bleeding hemorrhoids Intestinal malabsorption following gastrectomy Iron deficiency anemia Left arm pain Lumbar pain Muscle spasm Obesity (BMI 30-39.9) Ovarian mass Pelvic pain Problematic vaginal discharge Sacroiliac joint pain Sinusitis Sleep apnea Yeast infection involving the vagina and surrounding area Family History Family History Father Obesity Diabetes mellitus Mother Obesity Arthritis of knee Paternal Grandfather Diabetes mellitus Paternal Grandmother Diabetes mellitus Maternal Grandmother Arthritis of knee Diabetes mellitus Maternal Grandfather Diabetes mellitus Surgical History Surgical History Gastric bypass status for obesity H/O colonoscopy History of esophagogastroduodenoscopy (EGD) Hx of cholecystectomy Social History Social History Household Members: None Housing: House Alcohol intake: never Patient Tobacco Use Status: Never used Tobacco e-Cigarette/Vaping Use: Never Used Second Hand Smoke Exposure: No Are you DNR?: No Advance Directives: No Advance Directives Information Provided: Yes Nutrition Risks: No Nutritional Risk FDLMP: 5 months ago : Yes service: No Current occupational status: unemployed Cognitive needs: No Hearing needs: No Vision needs: Yes Meds Allergies Allergy/AdvReac Type Severity Reaction Status Date / Time carrot [CARROTS] Allergy Intermediate SWELLING Verified 05/20/23 07:38 cat dander [CATS] Allergy Intermediate ITCHING Verified 05/20/23 07:38 insect venom [INSECT BITES] Allergy Intermediate HIVES Verified 05/20/23 07:38 Home Medications Medication Instructions Recorded Confirmed Last Taken Type pyridoxine (vitamin B6) 25 mg 1 tab PO TID 06/03/22 05/20/23 Unknown History tablet (Vitamin B-6) lancets 28 gauge (FreeStyle #100 ea 07/19/22 04/17/23 Unknown History Lancets) Exam Exam Date and Time: May 16, 2023 0957 Height,Weight and Vital Signs: Height 5 ft 7 in Weight 86.636 kg Pertinent Lab Results Pertinent Lab Results: Laboratory Tests 04/28/23 04/28/23 11:25 11:25 WBC 6.5 Hgb 12.2 Hct 39.7 Plt Count 304 Sodium 145 Potassium 4.2 Chloride 113 H Carbon Dioxide 22 BUN 11 Creatinine 0.75 Assessment and Plan Assessment Anesthesia Assessment: Chart Reviewed Documented by User: Alex Cuenca MD 05/20/23 08:58 COUNT INCLUDES THE [facility] Past Medical History Medical History Asthma BCP ( control pills) initiation Bile duct abnormality Breakthrough bleeding on Nexplanon Cholecystectomy planned Chronic abdominal pain Constipation COVID-19 Encounter for removal and reinsertion of Nexplanon GERD (gastroesophageal reflux disease) Hip asymmetry Hypovitaminosis D Internal and external bleeding hemorrhoids Intestinal malabsorption following gastrectomy Iron deficiency anemia Left arm pain Lumbar pain Muscle spasm Obesity (BMI 30-39.9) Ovarian mass Pelvic pain Problematic vaginal discharge Sacroiliac joint pain Sinusitis Sleep apnea Yeast infection involving the vagina and surrounding area Patient : No Family History Family History Father Obesity Diabetes mellitus Mother Obesity Arthritis of knee Paternal Grandfather Diabetes mellitus Paternal Grandmother Diabetes mellitus Maternal Grandmother Arthritis of knee Diabetes mellitus Maternal Grandfather Diabetes mellitus Family history of problems with anesthesia: No Surgical History Surgical History Gastric bypass status for obesity H/O colonoscopy History of esophagogastroduodenoscopy (EGD) Hx of cholecystectomy History of Problems with Anesthesia: No Social History Social History Household Members: None Housing: House Alcohol intake: never Patient Tobacco Use Status: Never used Tobacco e-Cigarette/Vaping Use: Never Used Second Hand Smoke Exposure: No Are you DNR?: No Advance Directives: No Advance Directives Information Provided: Yes Nutrition Risks: No Nutritional Risk FDLMP: 5 months ago : Yes service: No Current occupational status: unemployed Cognitive needs: No Hearing needs: No Vision needs: Yes Meds Allergies Allergy/AdvReac Type Severity Reaction Status Date / Time carrot [CARROTS] Allergy Intermediate SWELLING Verified 05/20/23 07:38 cat dander [CATS] Allergy Intermediate ITCHING Verified 05/20/23 07:38 insect venom [INSECT BITES] Allergy Intermediate HIVES Verified 05/20/23 07:38 Home Medications Medication Instructions Recorded Confirmed Last Taken Type pyridoxine (vitamin B6) 25 mg 1 tab PO TID 06/03/22 05/20/23 Unknown History tablet (Vitamin B-6) lancets 28 gauge (FreeStyle #100 ea 07/19/22 04/17/23 Unknown History Lancets) Exam Airway Mallampati Class: I TM Dist: >3cm Neck ROM: Full Loose/Missing/Broken Teeth: No Heart: ok Lungs: ok Assessment and Plan Assessment Anesthesia Assessment: Anesthesia Plan Discussed Final Anesthetic Review Family History of Problems with Anesthesia: No History of Problems with Anesthesia: No NPO: Yes ASA Class: II Final Preanesthetic Review: No Changes in Pt Med Stat, Meds/Allgs Chart Reviewed, Consent Obtained/Reviewed and Anes Risks/Benef Reviewed Patient Risk: Intermediate Procedure Risk: Intermediate Anesthetic Plan Anesthetic Plan: GA and Agree w/ Assess. and Plan Disposition: Standard PACU
[2023-05-20] VITALS (14 sets, daily range): BP systolic 101–128; BP diastolic 44–79; PULSE 49–69; RESP 14–20; TEMP 36.2–36.7; O2SAT 97–98
[2023-05-20 08:02] LABS: UPreg QC Valid YES; Urine Pregnancy NEGATIVE (NEGATIVE)
[2023-05-20] MEDS: Lactated Ringers 1,000 ML 100 ML IVCONT (08:04)
--- NOTE | 2023-05-20 08:16 | MHC.SHP ---
Pre-Procedural Eval Section A Date of Service: 05/20/23 Section B Chief Complaint: Unspecified hemorrhoids Details of Present Illness: has long history of bleeding and prolapsing hemorrhoids with pain and discomfort Relevant Family History (Specify if Yes): No Relevant Social History: None Present Medications: see Short Stay Collaborative assessment ( history of anemia, headaches, abnormal LFTs, GERD, history of gastric bypass for obesity) Allergies: Allergies Allergy/AdvReac Type Severity Reaction Status Date / Time carrot [CARROTS] Allergy Intermediate SWELLING Verified 05/20/23 07:38 cat dander [CATS] Allergy Intermediate ITCHING Verified 05/20/23 07:38 insect venom [INSECT BITES] Allergy Intermediate HIVES Verified 05/20/23 07:38 Review of Systems Sugical H&P ROS: Negative: Constitution, Cardiovascular, Respiratory, Neurological, Psychiatric, Hem-Onc, Allergic/Immunologic, Gastrointestinal, Genitourinary, Musculoskeletal, Integumentary, Endocrine and Eyes/Ears/Nose/Throat Exam Surgical H&P Exam: Normal: HEENT, Normal: Heart, Normal: Lungs, Normal: Extremities, Normal: Abdomen, Normal: Skin and Normal: Neurological Plan Diagnosis/Plan: Unchanged I have reviewed the history and physical and performed a pertinent physical examination on my patient. No changes have occurred unless specified. Time Spent With Patient Time: Total time managing care of this patient today ____ minutes.
--- NOTE | 2023-05-20 09:25 | W.PM.OPN ---
Operative Note Operative Note Date of Service: 05/20/23 Narrative: Preop diagnosis: Hemorrhoids with bleeding and prolapse Postop diagnose: Internal and external hemorrhoids with bleeding and prolapse Procedure: Exam under anesthesia, hemorrhoidectomy x3 columns Surgeon: Markus Wiley MD She was placed in prone twin-knife position under general anesthesia via laryngeal mask airway. The buttocks were retracted with wide tape laterally. The perianal area was prepped and draped in the usual sterile fashion. A surgical time-out was done. The patient received Cefotan 2 g IV preoperatively. Examination of the anal orifice revealed external hemorrhoidal columns on both the left and the right side. There were 2 prominent columns of external hemorrhoids on the right side. I infiltrated the perianal area with lidocaine 1%. I inserted the Racquel Saeed retractor to examine the anal canal circumferentially. Again this columns described above were seen and mostly external although with of a little mix of internal component . There were no other lesions. There was no fissure or any induration. I applied a Campo grasper on the hemorrhoidal column on the left to retract this out into the field. I made a tqhsfq-hh-agxko stitch at the pedicle using a chromic 3-0. I made an incision around this hemorrhoidal column to the perianal skin with a blade 15. I excised this hemorrhoidal column above the plane of sphincters using scissors. I closed the incision with a running chromic 3-0 stitch. Additional hemostatic pjezpp-dx-jfjfn sutures were placed. I proceeded to remove the hemorrhoidal column on the right lateral area in the same manner. I applied a Campo grasper to retract this. I made a mgpexo-hi-disdr stitch at the pedicle and made an incision around this hemorrhoidal column to the perianal skin. I excised This above the plane of the sphincters along this incision. I closed the incision with a running chromic 3-0 stitch and additional hemostatic sutures were placed There was a smaller column on the right anterior. This was retracted with a Campo grasper. This was external without an internal component. I made an incision around this hemorrhoidal column to the perianal skin using a blade 15 and this was excised this above the plane of sphincters. I closed the incision with a running chromic 3-0 stitch with additional hemostatic sutures placed. Once hemostasis was confirmed, I am infiltrated the perianal with Marcaine 0.5% for postop JAYNA. I placed rolled Gelfoam into the anal canal The procedure was then completed. The patient tolerated the procedure well. There were no immediate complications. Initial and final counts of sponges and instruments were correct. Estimated blood loss was about 25 cc. The patient was extubated without difficulty and transferred to the recovery room with stable vital signs.
[2023-05-20] MEDS: Acetaminophen 325 MG TABLET 650 MG PO (09:38)
[2023-05-20] MEDS: oxyCODONE HCl Immed Release 5 MG TABLET PO (09:38)
[2023-05-20] MEDS: fentaNYL citrate/PF 100 MCG/2 ML VIAL 50 MCG IVPUSH ×4 (09:39→10:25)
== END 2023-05-20 11:01 | disposition home or self-care (01) ==
PROVIDERS: Nurse Practitioner; PCP Nurse Practitioner Family; Visit Provider Surgery
PROC: (CPT 46260; principal; 2023-05-20 09:10)
PROC: (CPT 46260; 2023-05-20 09:10)
DX: K64.8 Other hemorrhoids (principal); K64.4 Residual hemorrhoidal skin tags; D50.9 Iron deficiency anemia, unspecified; J45.909 Unspecified asthma, uncomplicated; K21.9 Gastro-esophageal reflux disease without esophagitis; R10.31 Right lower quadrant pain; G89.29 Other chronic pain; K91.2 Postsurgical malabsorption, not elsewhere classified; Z98.84 Bariatric surgery status; N39.0 Urinary tract infection, site not specified; Z79.899 Other long term (current) drug therapy; Z90.49 Acquired absence of other specified parts of digestive tract; Z86.16 Personal history of COVID-19
CPT/HCPCS: 46260; 81025; 88304; J1885; J2405; J3010

== ENCOUNTER → 2023-05-20 07:44 | Outpatient (BNV) | payer OTHER, SELFPAY | PROVIDERS: PCP Nurse Practitioner Family; Visit Provider Surgery | DX: K64.8 Other hemorrhoids (principal) | CPT/HCPCS: 46260 ==

== ENCOUNTER 2023-05-26 11:27 | Outpatient (AMB) | payer OTHER, SELFPAY ==
--- NOTE | 2023-05-26 11:38 | A.OFFVIS_ITS ---
Intake Intake Visit Reasons: EUA, hemorrhoidectomy Intake Note: This patient presents for a post-op assessment status post EUA, hemorrhoidectomy. Patient c/o; reports rectal bleeding; pinkish color, reports severe pain, reports something poking out of rectum, ? more hemorrhoids. Life Guard Required: No Accompanied by: Self / Same As Patient Allergies carrot [CARROTS] Allergy (Intermediate, Verified 05/26/23 11:44) SWELLING cat dander [CATS] Allergy (Intermediate, Verified 05/26/23 11:44) ITCHING insect venom [INSECT BITES] Allergy (Intermediate, Verified 05/26/23 11:44) HIVES HPI EUA, hemorrhoidectomy HPI Details She had undergone hemorrhoidectomy x3 columns last 05/20/2023. She tolerated the procedure well. She wanted to be checked today because of pain and swelling on the hemorrhoidectomy sites. She denies being constipated. She says she is about to run out of her pain meds today. [facility] Medical History Muscle spasm Internal and external bleeding hemorrhoids Constipation Breakthrough bleeding on Nexplanon COVID-19 Left arm pain Encounter for removal and reinsertion of Nexplanon Chronic abdominal pain Sacroiliac joint pain Hypovitaminosis D Iron deficiency anemia GERD (gastroesophageal reflux disease) Ovarian mass Sinusitis BCP ( control pills) initiation Yeast infection involving the vagina and surrounding area Problematic vaginal discharge Pelvic pain Lumbar pain Hip asymmetry Intestinal malabsorption following gastrectomy Obesity (BMI 30-39.9) Sleep apnea Asthma Bile duct abnormality Cholecystectomy planned Surgical History H/O colonoscopy History of esophagogastroduodenoscopy (EGD) Hx of cholecystectomy Gastric bypass status for obesity Family History Father Obesity Diabetes mellitus Mother Obesity Arthritis of knee Paternal Grandfather Diabetes mellitus Paternal Grandmother Diabetes mellitus Maternal Grandmother Arthritis of knee Diabetes mellitus Maternal Grandfather Diabetes mellitus Social History Household Members: None Housing: House Alcohol intake: never Patient Tobacco Use Status: Never used Tobacco e-Cigarette/Vaping Use: Never Used Second Hand Smoke Exposure: No service: No Current occupational status: unemployed Cognitive needs: No Hearing needs: No Vision needs: Yes Female Reproductive History Menstrual Age of Menarche: 10 Review of Systems Const Denies chills and Denies fever(s) Physical Exam Const General: no acute distress Resp Effort & Inspection: normal respiratory effort GI Other: Some edema of the hemorrhoidectomy sites, no pus, no induration, no fluctuance Assessment & Plan Assessment & Plan (1) Bleeding hemorrhoids: Code(s): K64.9 - Unspecified hemorrhoids Plan: Status post hemorrhoidectomy x3 columns. Her path report shows hemorrhoids. She still has significant swelling from the hemorrhoidectomy sites. I told her to continue doing hot Sitz baths and warm soaks. I will refill her pain medications I will see her again in the office next week for another wound check. Coding Level of Care Code Global (93584) Diagnoses Bleeding hemorrhoids K64.9
== END 2023-05-26 11:53 | disposition home or self-care (01) ==
PROVIDERS: PCP Nurse Practitioner Family; Visit Provider Surgery
DX: K64.9 Unspecified hemorrhoids (principal)
CPT/HCPCS: 99024

== ENCOUNTER → 2023-05-26 11:27 | Outpatient (BNVA) | payer OTHER, SELFPAY | PROVIDERS: PCP Nurse Practitioner Family; Visit Provider Surgery ==

== ENCOUNTER 2023-06-02 09:18 | Outpatient (AMB) | payer OTHER, SELFPAY ==
--- NOTE | 2023-06-02 09:19 | MHC.OFFVIS ---
Intake Intake Visit Reasons: S/p debridement/I&D Hidra Supp Intake Note: This patient presents for a post-op follow-up assessment status post hemorrhoidectomy. Patient c/o; reports still having pain but it is getting much better. 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 She had significant residual edema I saw her postoperatively last week. I had instructed her to continue doing hot Sitz baths. She says that she now feels much better. She is able to sit down with much less pain. She says she has bowel movements every day. [facility] Medical History Muscle spasm Internal and external bleeding hemorrhoids Constipation Breakthrough bleeding on Nexplanon COVID-19 Left arm pain Encounter for removal and reinsertion of Nexplanon Chronic abdominal pain Sacroiliac joint pain Hypovitaminosis D Iron deficiency anemia GERD (gastroesophageal reflux disease) Ovarian mass Sinusitis BCP ( control pills) initiation Yeast infection involving the vagina and surrounding area Problematic vaginal discharge Pelvic pain Lumbar pain Hip asymmetry Intestinal malabsorption following gastrectomy Obesity (BMI 30-39.9) Sleep apnea Asthma Bile duct abnormality Cholecystectomy planned Surgical History History of hemorrhoidectomy (~05/20/23) H/O colonoscopy History of esophagogastroduodenoscopy (EGD) Hx of cholecystectomy Gastric bypass status for obesity Family History Father Obesity Diabetes mellitus Mother Obesity Arthritis of knee Paternal Grandfather Diabetes mellitus Paternal Grandmother Diabetes mellitus Maternal Grandmother Arthritis of knee Diabetes mellitus Maternal Grandfather Diabetes mellitus Social History Household Members: None Housing: House Alcohol intake: never Patient Tobacco Use Status: Never used Tobacco e-Cigarette/Vaping Use: Never Used Second Hand Smoke Exposure: No service: No Current occupational status: unemployed Cognitive needs: No Hearing needs: No Vision needs: Yes Female Reproductive History Menstrual Age of Menarche: 10 Review of Systems Const Denies chills and Denies fever(s) Card Denies chest pain, Denies dyspnea and Denies dyspnea on exertion Resp Denies cough, Denies dyspnea and Denies dyspnea on exertion GI Denies hematochezia and Denies change in bowel habits Denies hematuria Musc Denies back pain and Denies limited range of motion Neuro Denies focal weakness and Denies convulsions Psych Denies depression and Denies mood swings Physical Exam Const Other: Sitting down comfortably General: comfortable and no acute distress Resp Effort & Inspection: normal respiratory effort GI Other: Hemorrhoidectomy sites are healing well, some mild residual edema but much improved, no redness, no induration Assessment & Plan Assessment & Plan (1) Bleeding hemorrhoids: Code(s): K64.9 - Unspecified hemorrhoids Plan: Status post hemorrhoidectomy. She is doing well. Her pain is much improved. There is much less edema as well on the hemorrhoidectomy sites I had advised her to continue doing hot Sitz baths. I will see her again in the office in about a month for another wound check. Coding Level of Care Code Global (85691) Diagnoses Bleeding hemorrhoids K64.9
== END 2023-06-02 09:30 | disposition home or self-care (01) ==
PROVIDERS: PCP Internal Medicine; Visit Provider Surgery
DX: K64.9 Unspecified hemorrhoids (principal)
CPT/HCPCS: 99024

== ENCOUNTER → 2023-06-02 09:18 | Outpatient (BNVA) | payer OTHER, SELFPAY | PROVIDERS: PCP Internal Medicine; Visit Provider Surgery ==

== ENCOUNTER 2023-07-09 08:55 | Outpatient (AMB) | payer OTHER, SELFPAY ==
--- NOTE | 2023-07-09 09:02 | A.OFFPC_ITS ---
Vital Signs 07/09/23 09:06 Height 5 ft 7 in Weight 182 lb BMI 28.5 BP 100/70 Blood Pressure Location Lt brachial Position Sitting Respiration 17 Pulse 65 Pulse Source Pulse Oximeter Pulse Oximetry (%) 98 Oxygen Delivery Method Room Air Intake Visit Reasons: discuss medical issues adhd Intake Note: Pt is here to discuss medical issue ADHD. 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 Accompanied by: Son Allergies carrot [CARROTS] Allergy (Intermediate, Verified 07/09/23 09:39) SWELLING cat dander [CATS] Allergy (Intermediate, Verified 07/09/23 09:39) ITCHING insect venom [INSECT BITES] Allergy (Intermediate, Verified 07/09/23 09:39) HIVES Medication List - Last Reconciled 07/09/23 by Nik Teran PA-C cyclobenzaprine 10 mg PO BEDTIME docusate sodium (Colace) 100 mg PO BID ibuprofen 600 mg PO Q6H PRN lancets (FreeStyle Lancets) As directed lidocaine 5% 1 patch topical DAILY Tobacco use date assessed: 04/28/23 HPI discuss medical issues adhd HPI Details Patient is a 27-year-old female here today for a follow-up visit. She reports she has been dealing with her son whom is autistic and getting evaluated for ADHD. She identified with the symptoms and would like to be evaluated for ADHD as well. She does report having some difficulty with staying on tasks and focused. She reports often starting projects though has not been able to finish them. [facility] Medical History Muscle spasm Internal and external bleeding hemorrhoids Constipation Breakthrough bleeding on Nexplanon COVID-19 Left arm pain Encounter for removal and reinsertion of Nexplanon Chronic abdominal pain Sacroiliac joint pain Hypovitaminosis D Iron deficiency anemia GERD (gastroesophageal reflux disease) Ovarian mass Sinusitis BCP ( control pills) initiation Yeast infection involving the vagina and surrounding area Problematic vaginal discharge Pelvic pain Lumbar pain Hip asymmetry Intestinal malabsorption following gastrectomy Obesity (BMI 30-39.9) Sleep apnea Asthma Bile duct abnormality Cholecystectomy planned Surgical History History of hemorrhoidectomy (~05/20/23) H/O colonoscopy History of esophagogastroduodenoscopy (EGD) Hx of cholecystectomy Gastric bypass status for obesity Family History Father Obesity Diabetes mellitus Mother Obesity Arthritis of knee Paternal Grandfather Diabetes mellitus Paternal Grandmother Diabetes mellitus Maternal Grandmother Arthritis of knee Diabetes mellitus Maternal Grandfather Diabetes mellitus Social History Household Members: None Housing: House Alcohol intake: never Patient Tobacco Use Status: Never used Tobacco e-Cigarette/Vaping Use: Never Used Second Hand Smoke Exposure: No service: No Current occupational status: unemployed Cognitive needs: No Hearing needs: No Vision needs: Yes Female Reproductive History Menstrual Age of Menarche: 10 Questionnaire Thrive Questionnaire Date Thrive assessed: 12/09/22 GAGAN-7 AMB Questionnaire GAGAN-7 Date GAGAN - 7 assessed: 12/09/22 Source: Developed by Drs. George Cortes, Aga Donovan, Jose Hwang and colleagues, with an educational hiren from [employer]. Review of Systems Const Denies headache(s) Eyes Denies loss of vision ENT Denies vertigo, Denies dizziness, Denies headache(s) and Denies sore throat Card Denies chest pain, Denies leg edema and Denies lightheadedness Resp Denies cough, Denies hemoptysis and Denies wheezing GI Denies abdominal pain, Denies melena, Denies constipation, Denies diarrhea and Denies vomiting Denies urinary frequency, Denies dysuria and Denies urinary urgency Musc Denies arthralgias, Denies joint swelling, Denies numbness and Denies tingling Neuro Denies Abnormal speech present, Denies behavioral changes, Denies vertigo, Denies dizziness, Denies headache(s), Denies loss of vision, Denies memory loss, Denies numbness and Denies tingling Psych Denies anxiety, Denies behavioral changes, Denies depression, Denies memory loss and Denies panic attacks Ernesto/Lymph Denies easy bleeding and Denies easy bruising Aller/Immun Denies wheezing Physical exam (Primary Care) Vital Signs: Last Vital Signs Pulse 65 07/09/23 09:06 Resp 17 07/09/23 09:06 BP 100/70 07/09/23 09:06 Pulse Ox 98 07/09/23 09:06 Oxygen Delivery Method Room Air 10/25/23 09:06 BMI result Body Mass Index 28.5 Tobacco/Smoking Status: Tobacco use Status Tobacco use date assessed 04/28/23 07/09/23 09:04 Patient Tobacco Use Status Never used Tobacco 07/09/23 09:04 e-Cigarette/Vaping Use Never Used 07/09/23 09:04 Thrive Assessment: Date of Thrive Assessment Date Thrive assessed 12/09/22 07/09/23 09:04 Const General: healthy appearing, no acute distress, alert and awake Nutritional Appearance: well nourished Orientation/consciousness: oriented to person, oriented to place and oriented to time HENMT Ears: TM's normal bilaterally General nose exam: Normal nasal mucous membranes and turbinates present Eyes Conjunctivae: conjunctivae normal Sclerae: sclerae normal Pupils: Equal, round and reactive pupils present Neck Neck: Yes no lymphadenopathy and Yes no JVD Thyroid: Thyroid normal Carotids: no bruits Resp Effort & Inspection: normal respiratory effort and not tachypneic Auscultation: no crackles, no rales, no rhonchi and no wheezes Cardio Rate: regular rate Rhythm: regular rhythm Heart sounds: no murmurs and normal S1 and S2 GI Palpation (GI): Soft to palpation, nontender, no hepatomegaly and no splenomegaly Auscultation: normal bowel sounds Skin General skin exam: no rashes or lesions noted and dry skin Neuro General: oriented to person, oriented to place and oriented to time Cranial nerves: Yes Equal, round and reactive pupils present Speech: No Abnormal speech present Gait exam (Neuro): Normal gait present Motor exam (neuro): no tremor noted Extrem Right upper extremity: full ROM Left upper extremity: full ROM Right lower extremity: full ROM; no edema Left lower extremity: full ROM; no edema Psych Mental Status: mental status grossly normal Speech and movement: Normal speech and movement present Affect: normal affect Attitude: cooperative Thought process: Normal thought process present Office Procedures Flu Questionnaire Does the patient have a severe egg allergy?: No Does the patient have severe life threatening allergies?: No Does the patient have a fever or illness today?: No Has the patient ever had Guillain-[place] Syndrome?: No Has the patient ever had any past reaction to a flu shot?: No Immunizations flu vacc [id number] 6mos up(PF) 60 mcg(15 mcgx4)/0.5 mL IM syringe Performing Provider: Nik Teran PA-C [facility] Administered by: DENIZ Oden on 07/09/23 09:24 Dose Route Admin Location Dispensed Lot Number Expiration Date NDC Keyseating Machine Set Up Operator 0.5 mL IM Left Deltoid 0.5 mL [id number] 03/14/24 [id number] VIS Given Date VIS Provided VIS Publication Date 07/09/23 Single Vaccine 21 Eligibility Eligibility Date Funding Source Not [facility] Eligible 07/09/23 Private Assessment and Plan Assessment & Plan (1) ADHD: Code(s): F90.9 - Attention-deficit hyperactivity disorder, unspecified type Qualifiers: Attention deficit-hyperactivity disorder type: combined inattentive- hyperactive Qualified Code(s): F90.2 - Attention-deficit hyperactivity disorder, combined type Plan: Patient noted difficulty with ting on task has been disrupting her personal life. She reports her son recently evaluated for ADHD and she has recognized the symptoms in herself. She is willing to try a nonstimulant ADHD medication. Will follow-up in 4 weeks to evaluate the effectiveness of the medication. Orders: Orders Influenza [id number] Immunization 07/09/23 Z23 - Encounter for immunization Referrals Counseling Referral F90.2 - Attention-deficit hyperactivity disorder, combined type Medications: New atomoxetine (Strattera) 40 mg PO DAILY 30 days 30 caps 1RF F90.2 - Attention- deficit hyperactivity disorder, combined type Coding Level of Care Code Est Pt Level 4 (40542) Diagnoses Attention deficit hyperactivity disorder (ADHD), combined type F90.2 Attention deficit-hyperactivity disorder type: combined inattentive- hyperactive
[2023-07-09 09:06] VITALS: BP 100/70; PULSE 65; RESP 17; O2SAT 98; BMI 28.5
== END 2023-07-09 10:03 | disposition home or self-care (01) ==
PROVIDERS: PCP Internal Medicine; Visit Provider Physician Assistant
DX: Z23 Encounter for immunization (principal)
CPT/HCPCS: 90471; 90686; 99214

== ENCOUNTER 2023-07-21 09:12 | Outpatient (AMB) | payer OTHER, SELFPAY ==
--- NOTE | 2023-07-21 09:13 | A.OFFVIS_ITS ---
Intake Vital Signs 07/21/23 09:15 Height 5 ft 7 in Weight 182 lb 15.739 oz BMI 28.7 BP 112/64 Blood Pressure Location Lt brachial Position Sitting Pulse 78 Intake Visit Reasons: f/u abdominal pain Intake Note: Muriel presents in the office as a follow up for abdominal pains. CC: She is not sure if this is abdomen related or kidney pains. She gets more pains when it is time to have a BM. She has soft stools but she feels like she is backed up. She gets a stabbing pain on the left side of her abdomen. right side pain is more consistent but when she has a BM the left side will get a stabbing pain. Allergies carrot [CARROTS] Allergy (Intermediate, Verified 07/21/23 09:16) SWELLING cat dander [CATS] Allergy (Intermediate, Verified 07/21/23 09:16) ITCHING insect venom [INSECT BITES] Allergy (Intermediate, Verified 07/21/23 09:16) HIVES HPI f/u abdominal pain HPI Details 27 yr old f with hx of gastric bypass, c holecystectomy and suspected SOD s/p intra op ERCP and sphincterotomy who I am seeing for f/u RECAP; seen 11/2019 ? she had c/o? ruq pain ongoing ? feesl like stabbing and aching ? worse with dairy usually ? she does have diarrhea and constipation alternating ? no blood in stool or melena ? denies nausea or vomiting ? appetite is variable ? weight is stable ? she was unsure if she was taking iron supplement ? admitted to irregular periods due to implant, but not heavy ? no epistaxis or hematuria ? I suspected pain could be myofascial in origin but arranged further w/u as below ?? ? labs 08/2019 with severe iron def and b12 def, HGB 10, LFT 09/2019 normal, prior AMA neg ? latest hgb: ? EGD/colon--11/2019--essentially normal, retained suture removed ?IMAGING: ? CT A/P--07/2019-- moderate stool, ovarian cysts ? CTe 01/2020--no IBD, ?small paraesophagela hernia, malrotation of right kidney, no acute findings ? VCE--inflammation around anastomosis, small bowel otherwise nml ?? ? She had admission for LUQ thought to be due to diet indiscretion and over eating CT imaging was neg, she had mild LFT abn compared to her last numbers before the admission MRI 10/2020--no liver or biliary abn seen I ordered small bowel series: slow transit time otherwise normal liver serologies neg I referred her to pain management and commenced ursodiol with gabapentin for possible retention gastritis she felt some beenfit but stopped after some time MRe: 2021- normal bowel, Mild right hydronephrosis, CT 04/28/23 for RLQ pain normal Pelvic US: small ovary follicles she has been seeing Dr Wiley for hemorrhoids seeing urology for malrotation of kidney INTERIM: she still has pain LLQ and RLQ LLq is worse when using bathroom LLq pain goes away by itself in a day or two, but when it comes it can be like a stabbing pain stools are soft, no blood she gets anusea, no vomiting She feels the RLQ is from her kidney--goes into the back as well, seeing urology for frequent UTI EXAM: GENERAL: The patient is well developed and nontoxic. VITAL SIGNS:see workflow HEENT: Nonicteric sclerae, PERRLA, EOMI. Oropharynx clear. Moist mucous membranes. Conjunctivae appear well perfused. No thyroid mass. CHEST: Chest wall is nontender. HEART: Regular rate and rhythm without murmurs. LUNGS: Clear to auscultation bilaterally. ABDOMEN: Soft, positive bowel sounds, tender epigastrium, point tenderness in LLQ and RLQ worse with head lift, no organomegaly.+ right flank tenderness SKIN: No rash, no excessive bruising, petechiae, or purpura. NEUROLOGIC: Cranial nerves II-XII intact without motor/sensory deficit. Psych- nml affect Assessment & Plan ? Abn LFT and RUq pain, prior hx of ERCP and sphincterotomy ?Iron deficiency anemia 2/2 gastric bypass, menstrual losses better with removal of explanon suspected myofascial pain in LLQ and RLQ with point tenderness ? PLAN: 1/ refer pain clinic for consideration o f trigger point injections--mssg sent to Dr Hernandez 2/ Avoid constipation , laxatives prn PFSH Medical History Muscle spasm Internal and external bleeding hemorrhoids Constipation Breakthrough bleeding on Nexplanon COVID-19 Left arm pain Encounter for removal and reinsertion of Nexplanon Chronic abdominal pain Sacroiliac joint pain Hypovitaminosis D Iron deficiency anemia GERD (gastroesophageal reflux disease) Ovarian mass Sinusitis BCP ( control pills) initiation Yeast infection involving the vagina and surrounding area Problematic vaginal discharge Pelvic pain Lumbar pain Hip asymmetry Intestinal malabsorption following gastrectomy Obesity (BMI 30-39.9) Sleep apnea Asthma Bile duct abnormality Cholecystectomy planned Surgical History History of hemorrhoidectomy (~05/20/23) H/O colonoscopy History of esophagogastroduodenoscopy (EGD) Hx of cholecystectomy Gastric bypass status for obesity Family History Father Obesity Diabetes mellitus Mother Obesity Arthritis of knee Paternal Grandfather Diabetes mellitus Paternal Grandmother Diabetes mellitus Maternal Grandmother Arthritis of knee Diabetes mellitus Maternal Grandfather Diabetes mellitus Social History Household Members: None Housing: House Alcohol intake: never Patient Tobacco Use Status: Never used Tobacco e-Cigarette/Vaping Use: Never Used Second Hand Smoke Exposure: No service: No Current occupational status: unemployed Cognitive needs: No Hearing needs: No Vision needs: Yes Female Reproductive History Menstrual Age of Menarche: 10 Physical Exam Vital Signs: BMI result Body Mass Index 28.7 Assessment & Plan Assessment & Plan (1) Right lower quadrant pain: Code(s): R10.31 - Right lower quadrant pain Coding Level of Care Code Est Pt Level 3 (73126) Diagnoses Right lower quadrant pain R10.31
[2023-07-21 09:15] VITALS: BP 112/64; PULSE 78; BMI 28.7
== END 2023-07-21 09:37 | disposition home or self-care (01) ==
PROVIDERS: PCP Internal Medicine; Visit Provider Internal Medicine Gastroenterology
DX: R10.31 Right lower quadrant pain (principal)
CPT/HCPCS: 99213

== ENCOUNTER → 2023-07-21 09:12 | Outpatient (BNVA) | payer OTHER, SELFPAY | PROVIDERS: PCP Internal Medicine; Visit Provider Internal Medicine Gastroenterology | DX: R10.31 Right lower quadrant pain (principal); Z98.84 Bariatric surgery status; Z90.49 Acquired absence of other specified parts of digestive tract | CPT/HCPCS: 99212 ==

== ENCOUNTER 2023-07-23 09:46 | Emergency (ER) | payer OTHER, SELFPAY ==
[2023-07-23 10:57] VITALS: BP 113/64; PULSE 82; RESP 18; TEMP 36.7; O2SAT 98; BMI 28.6
== END 2023-07-23 12:28 | disposition left against medical advice (07) ==
PROVIDERS: Emergency Provider Emergency Medicine; PCP Internal Medicine
DX: R10.9 Unspecified abdominal pain (principal)
CPT/HCPCS: 99281

== ENCOUNTER 2023-07-23 14:29 | Emergency (ER) | payer OTHER, SELFPAY ==
[2023-07-23 14:59] VITALS: BP 106/61; PULSE 68; RESP 18; TEMP 36.7; O2SAT 99; BMI 28.3
--- NOTE | 2023-07-23 15:01 | ED.GENADULT ---
HPI - General Adult General Chief complaint: Abdominal Pain Stated complaint: R side pain Related Data Home Medications Medication Instructions Recorded Confirmed lancets 28 gauge (FreeStyle #100 ea 07/19/22 07/09/23 Lancets) atomoxetine 40 mg capsule 40 mg PO DAILY 07/21/23 (Strattera) Previous Rx's Medication Instructions Recorded cyclobenzaprine 10 mg tablet 10 mg PO BEDTIME #30 tabs 09/02/22 lidocaine 5 % topical patch 1 patch topical DAILY #30 ea 09/02/22 docusate sodium 100 mg capsule 100 mg PO BID #60 caps 05/20/23 (Colace) ibuprofen 600 mg tablet 600 mg PO Q6H PRN pain #30 tabs 05/26/23 Allergies Allergy/AdvReac Type Severity Reaction Status Date / Time carrot [CARROTS] Allergy Intermediate SWELLING Verified 07/21/23 09:16 cat dander [CATS] Allergy Intermediate ITCHING Verified 07/21/23 09:16 insect venom [INSECT BITES] Allergy Intermediate HIVES Verified 07/21/23 09:16 [facility] Past Medical History Medical History Muscle spasm Internal and external bleeding hemorrhoids Constipation Breakthrough bleeding on Nexplanon COVID-19 Left arm pain Encounter for removal and reinsertion of Nexplanon Chronic abdominal pain Sacroiliac joint pain Hypovitaminosis D Iron deficiency anemia GERD (gastroesophageal reflux disease) Ovarian mass Sinusitis BCP ( control pills) initiation Yeast infection involving the vagina and surrounding area Problematic vaginal discharge Pelvic pain Lumbar pain Hip asymmetry Intestinal malabsorption following gastrectomy Obesity (BMI 30-39.9) Sleep apnea Asthma Bile duct abnormality Cholecystectomy planned Surgical History History of hemorrhoidectomy (~05/20/23) H/O colonoscopy History of esophagogastroduodenoscopy (EGD) Hx of cholecystectomy Gastric bypass status for obesity Family History Family History Father Obesity Diabetes mellitus Mother Obesity Arthritis of knee Paternal Grandfather Diabetes mellitus Paternal Grandmother Diabetes mellitus Maternal Grandmother Arthritis of knee Diabetes mellitus Maternal Grandfather Diabetes mellitus Social History Social History Household Members: None Housing: House Alcohol intake: never Patient Tobacco Use Status: Never used Tobacco e-Cigarette/Vaping Use: Never Used Second Hand Smoke Exposure: No Advance Directives: No Advance Directives Information Provided: No service: No Current occupational status: unemployed Cognitive needs: No Hearing needs: No Vision needs: Yes Physical Exam ED Vital Signs: BMI result Body Mass Index 28.3 Course Course Course Narrative: This is an RME: Additional HPI, ROS, PE not included below will be deferred to primary provider. This is a [id number]-female presenting to the emergency department with foul smelling urine, trouble urinating, and right sided flank pain x 5 days. No hematuria. No fevers or chills. Patient comfortable appearing, further ER evaluation needed Plan: Labs, UA, hcg Reevaluation(s) Reevaluation #1: pt eloped prior to full evaluation. Medical Decision Making Lab Data 07/23/23 15:08 07/23/23 15:08 Labs: Lab Results 07/23/23 07/23/23 Range/Units 15:08 15:32 WBC 8.1 (4.8-10.8) X10*3/uL RBC 4.89 (4.20-5.50) X10*6/uL Hgb 12.4 (12.0-16.0) g/dl Hct 39.7 (37.0-47.0) % MCV 81.2 (80.0-98.0) fL MCH 25.4 L (27.0-33.0) pg MCHC 31.2 (31.0-35.0) g/dl RDW 14.7 (11.0-16.0) % Plt Count 300 (160-400) X10*3/uL MPV 9.6 (9.4-12.3) fL Immature Gran % (Auto) 0.1 (0.0-0.4) % Neut % (Auto) 56.3 (45-73) % Lymph % (Auto) 30.7 (20-40) % [place] % (Auto) 8.4 (2-11) % Eos % (Auto) 3.1 (0-4) % Baso % (Auto) 1.4 (0-2) % Lymph # (Auto) 2.5 (1.2-4.9) X10*3/uL [place] # (Auto) 0.7 (0.1-1.2) X10*3/uL Eos # (Auto) 0.3 (0.0-0.4) X10*3/uL Baso # (Auto) 0.1 (0.0-0.2) X10*3/uL Abs Immat Gran (auto) 0.01 (0.00-0.03) X10*3/uL Absolute Neuts (auto) 4.6 (2.0-8.3) x10*3/uL Absolute Nucleated RBC 0.000 (0.0-0.012) X10*3/uL Nucleated RBC % (auto) 0.0 (0.0-0.2) /100WBC Sodium 141 (135-145) mmol/L Potassium 4.4 (3.3-5.1) mmol/L Chloride 112 H (96-108) mmol/L Carbon Dioxide 26 (22-29) mmol/L Anion Gap 7 L (12-20) BUN 8 L (9-16) mg/dL Creatinine 0.82 (0.5-1.4) mg/dL Estim Creat Clear Calc 113.5 Estimated GFR > 60 Random Glucose 116 H (60-115) mg/dL Calcium 8.3 L (8.4-10.2) mg/dL Total Bilirubin 0.2 (0.0-1.0) mg/dL Direct Bilirubin < 0.2 (0.0-0.5) mg/dL AST 21 (5-31) U/L ALT 10 (0-31) U/L Alkaline Phosphatase 125 H (39-117) U/L Total Protein 6.7 (6.5-8.0) g/dL Albumin 4.0 (3.5-5.0) g/dL Lipase 23 (8-78) U/L Urine Color Yellow Urine Appearance Clear Urine pH 6.0 (5.0-9.0) Ur Specific [place] >= 1.030 H (1.005-1.025) Urine Protein Negative (Neg-Trace) mg/dL Urine Glucose (UA) Negative (Negative) mg/dL Urine Ketones Negative (Negative) mg/dL Urine Blood Negative (Negative) Urine Nitrite Negative (Negative) Ur Leukocyte Esterase Negative (Negative) Urine Test NEGATIVE (NEGATIVE) Discharge Plan Discharge Clinical Impression: Acute flank pain Patient Disposition: Left W/O Completing Treatment Prescriptions: No Action docusate sodium [Colace] 100 mg capsule 100 mg PO BID Qty: 60 2RF (DME) lancets [FreeStyle Lancets] 28 gauge misc See Rx Instructions .ROUTE QID Qty: 100 Rx Instructions: As directed lidocaine 5 % adhesive patch,medicated 1 patch topical DAILY Qty: 30 11RF cyclobenzaprine 10 mg tablet 10 mg PO BEDTIME Qty: 30 11RF atomoxetine [Strattera] 40 mg capsule 40 mg PO DAILY ibuprofen 600 mg tablet 600 mg PO Q6H PRN (Reason: pain) Qty: 30 0RF Discharge Date/Time: 07/23/23 19:30
[2023-07-23 15:11] LABS: MANUAL DIFF FLAG NO
[2023-07-23 15:15] LABS: Basophils Absolute Auto 0.1 X10*3/uL (0.0-0.2); Basophils Percent Auto 1.4 % (0-2); Eosinophils Absolute Auto 0.3 X10*3/uL (0.0-0.4); Eosinophils Percent Auto 3.1 % (0-4); Hematocrit 39.7 % (37.0-47.0); Hemoglobin 12.4 g/dl (12.0-16.0); Imm Gran Abs Auto 0.01 X10*3/uL (0.00-0.03); Imm Gran Pct Auto 0.1 % (0.0-0.4); Lymphocytes Absolute Auto 2.5 X10*3/uL (1.2-4.9); Lymphocytes Percent Auto 30.7 % (20-40); Mean Corpuscular HGB Conc 31.2 g/dl (31.0-35.0); Mean Corpuscular Hemoglobin 25.4 pg (27.0-33.0); Mean Corpuscular Volume 81.2 fL (80.0-98.0); Mean Platelet Volume 9.6 fL (9.4-12.3); Monocytes Absolute Auto 0.7 X10*3/uL (0.1-1.2); Monocytes Percent Auto 8.4 % (2-11); Neutrophils Absolute Auto 4.6 x10*3/uL (2.0-8.3); Neutrophils Percent Auto 56.3 % (45-73); Platelet Count 300 X10*3/uL (160-400); Red Blood Count 4.89 X10*6/uL (4.20-5.50); Red Cell Distribution Width 14.7 % (11.0-16.0); White Blood Count 8.1 X10*3/uL (4.8-10.8)
[2023-07-23 15:27] LABS: Alanine Aminotransferase 10 U/L (0-31); Alkaline Phosphatase 125 U/L (39-117); Anion Gap 7 (12-20); Aspartate Amino Transferase 21 U/L (5-31); Bilirubin Direct < 0.2 mg/dL (0.0-0.5); Bilirubin Total 0.2 mg/dL (0.0-1.0); Blood Urea Nitrogen 8 mg/dL (9-16); Calcium 8.3 mg/dL (8.4-10.2); Carbon Dioxide 26 mmol/L (22-29); Chloride 112 mmol/L (96-108); Creatinine Clr Calc Pharmacy 113.5; Estimated Glomerular Filt Rate > 60; Glucose Random 116 mg/dL (60-115); Lipase 23 U/L (8-78); Potassium 4.4 mmol/L (3.3-5.1); Sodium 141 mmol/L (135-145); Total Protein 6.7 g/dL (6.5-8.0)
[2023-07-23 15:43] LABS: Appearance Urine Clear; Color Urine Yellow; Glucose Urine UA Negative (Negative); Leukocyte Esterase Urine Negative (Negative); Nitrite Urine Negative (Negative); Specific Gravity - Urine >= 1.030 (1.005-1.025); Urine Blood Negative (Negative); Urine Ketones Negative (Negative); Urine Protein Negative (Neg-Trace)
[2023-07-23 15:44] LABS: UPreg QC Valid YES; Urine Pregnancy NEGATIVE (NEGATIVE)
[2023-07-23 17:06] VITALS: BP 109/68; PULSE 79; RESP 16; TEMP 36.8; O2SAT 97
--- NOTE | 2023-07-23 19:31 | PC.NURSE ---
pt not in waiting room at change of shift, staff witness pt leaving.
== END 2023-07-23 19:30 | disposition left against medical advice (07) ==
PROVIDERS: Physician Assistant Medical; Emergency Provider Emergency Medicine; PCP Internal Medicine
DX: R10.9 Unspecified abdominal pain (principal); Z79.899 Other long term (current) drug therapy
CPT/HCPCS: 36415; 80048; 80076; 81003; 81025; 83690; 85025; 99282; 99283

== ENCOUNTER 2023-07-28 11:13 | Outpatient (AMB) | payer OTHER, SELFPAY ==
--- NOTE | 2023-07-28 11:55 | A.OFFVIS_ITS ---
Intake Intake Visit Reasons: 4m/pelvic pain/h/o pyelonephritis Intake Note: Patient presents today for a follow-up on Pyelonephritis: Meds- None Allergies to Antibiotic- No Known Allergies Blood Thinner- None Patient Symptoms: Pelvic Pain Benefits Officer Required: No Accompanied by: Family/Other Allergies carrot [CARROTS] Allergy (Intermediate, Verified 07/28/23 11:57) SWELLING cat dander [CATS] Allergy (Intermediate, Verified 07/28/23 11:57) ITCHING insect venom [INSECT BITES] Allergy (Intermediate, Verified 07/28/23 11:57) HIVES HPI HPI Comments History of Present Illness Details Agustín is a 27-year-old female who presents today to the office for a follow-up. 07/28/2023-- She is followed today for complaints of pelvic pain. She was last seen by me on 12/18/2022 for FU pyelonephritis. She states she was in the ED on April with abdominal and pelvic pain. CT scan was done at that time - I reviewed results. Findings no acute findings. I have discussed further evaluation with cysto hydrodistension, I have discussed to avoid dietary bladder irritants 07/28/2023: Evaluation today--UA-- Leuko cytes: 2 +; blood: negative. Review of chart: Last visit: 12/18/2022-- The patient is here in for follow-up as she had pyelonephritis during her . 07/28/2023: Plan: Consent form was obtai erin for the procedure. Cystoscopy hydrodistention as an outpatient. I discussed with the patient to avoid dietary bladder irritants. REPLACED BY [facility] Medical History (Updated 07/28/23 @ 14:14 by Constance Beck MD) Pelvic pain Muscle spasm Internal and external bleeding hemorrhoids Constipation Breakthrough bleeding on Nexplanon COVID-19 Left arm pain Encounter for removal and reinsertion of Nexplanon Chronic abdominal pain Sacroiliac joint pain Hypovitaminosis D Iron deficiency anemia GERD (gastroesophageal reflux disease) Ovarian mass Sinusitis BCP ( control pills) initiation Yeast infection involving the vagina and surrounding area Problematic vaginal discharge Lumbar pain Hip asymmetry Intestinal malabsorption following gastrectomy Obesity (BMI 30-39.9) Sleep apnea Asthma Bile duct abnormality Cholecystectomy planned Surgical History History of hemorrhoidectomy (~05/20/23) H/O colonoscopy History of esophagogastroduodenoscopy (EGD) Hx of cholecystectomy Gastric bypass status for obesity Family History Father Obesity Diabetes mellitus Mother Obesity Arthritis of knee Paternal Grandfather Diabetes mellitus Paternal Grandmother Diabetes mellitus Maternal Grandmother Arthritis of knee Diabetes mellitus Maternal Grandfather Diabetes mellitus Social History Household Members: None Housing: House Alcohol intake: never Patient Tobacco Use Status: Never used Tobacco e-Cigarette/Vaping Use: Never Used Second Hand Smoke Exposure: No service: No Current occupational status: unemployed Cognitive needs: No Hearing needs: No Vision needs: Yes Female Reproductive History Menstrual Age of Menarche: 10 Review of Systems Const All systems reviewed & are unremarkable except as noted in HPI and below Reports no additional complaints Eyes Reports no additional complaints ENT Denies neck pain Card Denies leg edema Resp Denies cough GI Denies constipation Reports no additional complaints Musc Reports no additional complaints and Denies neck pain Skin/Breast Denies rash and Denies unusual bruising Neuro Reports no additional complaints Psych Reports no additional complaints Endo Reports no additional complaints Ernesto/Lymph Reports no additional complaints Aller/Immun Reports no additional complaints Results Reviewed Results Reviewed: Date of Service: 04/28/23 EXAMINATION: CT ABDOMEN AND PELVIS WITH CONTRAST CLINICAL INFORMATION: Right lower quadrant pain COMPARISON: CT abdomen pelvis 08/13/2020 TECHNIQUE: Multidetector volumetric images were obtained from the superior aspect of the liver through the pubic symphysis following administration 85 mL of Omnipaque 350 intravenous contrast. Sagittal and coronal reformatted images were obtained on the technologist's workstation. Oral contrast: No This CT examination was performed using dose optimization techniques as appropriate, variously including the following: *Automated exposure control *Adjustment of mA and/or kV according to patient size (this includes techniques or standardized protocols for targeted exams where dose is matched to indication/reason for exam; i.e. extremities or head) *Use of iterative reconstruction technique DLP: 509 mGy-cm FINDINGS: LUNG BASES: Unremarkable. ABDOMINAL AND PELVIC WALL: Unremarkable. LIVER AND BILIARY TREE: Unremarkable. GALLBLADDER: Status post cholecystectomy. PANCREAS: Unremarkable. SPLEEN: Unremarkable. ADRENAL GLANDS: Unremarkable. 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 Left kidney is unremarkable. GASTROINTESTINAL TRACT: Postsurgical changes of Royce-en-Y gastric bypass. The appendix is not identified with certainty however there are no inflammatory changes to suggest appendicitis. VASCULAR: Unremarkable. LYMPH NODES/PERITONEUM: No lymphadenopathy. FREE FLUID: None. BLADDER: Unremarkable. PELVIC VISCERA: Unremarkable. OSSEOUS STRUCTURES: Unremarkable. IMPRESSION: No acute findings to explain symptoms of right lower quadrant pain. The appendix is not identified with certainty however there are no inflammatory changes to suggest appendicitis. 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 Cystoscopy hidrodistention as an outpatient. I discussed with the patient to avoid dietary bladder irritants. Patient Instructions: The patient had an opportunity to ask questions regarding treatment plan. All questions were answered. Imaging, Laboratory studies and physical exam results were discussed and reviewed in detail. No major barriers to understanding were identified. The patient expressed understanding and agreement with the above treatment plan. The patient is aware they should contact our office by phone for worsening of their current condition or the appearance of new symptoms. Compliance is encouraged with any medications and followup testing that is ordered. It is a privilege to be allowed the opportunity to participate in the urologic care of your patient. If you have any questions or concerns regarding treatment for the above conditions please do not hesitate to contact me. The office telephone contact is [phone]. This note is constructed in part using voice recognition software. While every effort has been made to ensure accuracy experimental outboard motors mechanic errors may have been included. Yours sincerely, Constance Beck MD Coding Level of Care Code Est Pt Level 4 (29499) Diagnoses Malrotation, kidney Q63.2 History of pyelonephritis Z87.448 History of kidney stones Z87.442 Right flank pain R10.9 Pelvic pain R10.2
== END 2023-07-28 12:19 | disposition home or self-care (01) ==
PROVIDERS: PCP Internal Medicine; Visit Provider Urology
DX: Q63.2 Ectopic kidney (principal); Z87.448 Personal history of other diseases of urinary system; Z87.442 Personal history of urinary calculi; R10.9 Unspecified abdominal pain; R10.2 Pelvic and perineal pain
CPT/HCPCS: 99214

== ENCOUNTER → 2023-07-28 11:13 | Outpatient (BNVA) | payer OTHER, SELFPAY | PROVIDERS: PCP Internal Medicine; Visit Provider Urology | DX: Q63.2 Ectopic kidney (principal); R10.2 Pelvic and perineal pain; R10.9 Unspecified abdominal pain; Z87.448 Personal history of other diseases of urinary system; Z87.442 Personal history of urinary calculi | CPT/HCPCS: 99212 ==

== ENCOUNTER 2023-08-12 06:02 | Day surgery (SDC) | payer OTHER, SELFPAY ==
[2023-08-06 08:12] VITALS: BMI 28.5
--- NOTE | 2023-08-11 10:19 | HO.ANESPROP2 ---
Documented by User: Tasha Vásquez NP 08/11/23 10:20 HPI - Anesthesia Eval Consult details Narrative: 27yo F for Cystoscopy Hydrodistention of Bladder s/p EUA 05/2023 with GA-LMA 4 PMFSH Active Problems Active Problems: All Active Problems (Updated 07/28/23 @ 14:14 by Constance Beck MD) Right flank pain (Acute) Pelvic pain (Acute) ADHD (Acute) Right lower quadrant pain (Acute) Bleeding hemorrhoids (Acute) Streptococcal pharyngitis (Acute) History of kidney stones (Acute) Physical exam (Acute) History of pyelonephritis (Acute) Recurrent UTI (Acute) Malrotation, kidney (Acute) Insomnia (Acute) (Acute) Ovarian cyst, complex (Acute) Headache (Acute) Iron deficiency anemia (Acute) Abnormal LFTs (Acute) Diarrhea (Acute) Hypovitaminosis D (Acute) Iron deficiency anemia (Acute) GERD (gastroesophageal reflux disease) (Acute) Lumbar pain (Acute) Hip asymmetry (Acute) Intestinal malabsorption following gastrectomy (Acute) Bile duct abnormality (Acute) Gastric bypass status for obesity (Acute) Obesity (BMI 30-39.9) (Acute) Past Medical History Medical History Pelvic pain Muscle spasm Internal and external bleeding hemorrhoids Constipation Breakthrough bleeding on Nexplanon COVID-19 Left arm pain Encounter for removal and reinsertion of Nexplanon Chronic abdominal pain Sacroiliac joint pain Hypovitaminosis D Iron deficiency anemia GERD (gastroesophageal reflux disease) Ovarian mass Sinusitis BCP ( control pills) initiation Yeast infection involving the vagina and surrounding area Problematic vaginal discharge Lumbar pain Hip asymmetry Intestinal malabsorption following gastrectomy Obesity (BMI 30-39.9) Sleep apnea Asthma Bile duct abnormality Cholecystectomy planned Family History Family History Father Obesity Diabetes mellitus Mother Obesity Arthritis of knee Paternal Grandfather Diabetes mellitus Paternal Grandmother Diabetes mellitus Maternal Grandmother Arthritis of knee Diabetes mellitus Maternal Grandfather Diabetes mellitus Family history of problems with anesthesia: No Surgical History Surgical History History of hemorrhoidectomy (~05/20/23) H/O colonoscopy History of esophagogastroduodenoscopy (EGD) Hx of cholecystectomy Gastric bypass status for obesity History of Problems with Anesthesia: No Social History Household Members: None Housing: House Alcohol intake: never Patient Tobacco Use Status: Never used Tobacco e-Cigarette/Vaping Use: Never Used Second Hand Smoke Exposure: No Are you DNR?: No Advance Directives: No Advance Directives Information Provided: Yes Nutrition Risks: No Nutritional Risk FDLMP: i am breast feeding service: No Current occupational status: unemployed Cognitive needs: No Hearing needs: No Vision needs: Yes Meds Allergies Allergy/AdvReac Type Severity Reaction Status Date / Time carrot [CARROTS] Allergy Intermediate SWELLING Verified 08/12/23 06:18 cat dander [CATS] Allergy Intermediate ITCHING Verified 08/12/23 06:18 insect venom [INSECT BITES] Allergy Intermediate HIVES Verified 08/12/23 06:18 Home Medications Medication Instructions Recorded Confirmed Last Taken Type lancets 28 gauge (FreeStyle #100 ea 07/19/22 07/09/23 Unknown History Lancets) atomoxetine 40 mg capsule 40 mg PO DAILY 07/21/23 08/12/23 Unknown History (Strattera) Exam Height,Weight and Vital Signs: Height 5 ft 7 in Weight 82.554 kg Pertinent Lab Results Pertinent Lab Results: Laboratory Tests 07/23/23 15:08 WBC 8.1 Hgb 12.4 Hct 39.7 Plt Count 300 Sodium 141 Potassium 4.4 Chloride 112 H Carbon Dioxide 26 BUN 8 L Creatinine 0.82 Assessment and Plan Assessment Anesthesia Assessment: Chart Reviewed Final Anesthetic Review Family History of Problems with Anesthesia: No History of Problems with Anesthesia: No Documented by User: Teresa Lainez MD 08/12/23 07:20 [facility] Past Medical History Medical History Pelvic pain Muscle spasm Internal and external bleeding hemorrhoids Constipation Breakthrough bleeding on Nexplanon COVID-19 Left arm pain Encounter for removal and reinsertion of Nexplanon Chronic abdominal pain Sacroiliac joint pain Hypovitaminosis D Iron deficiency anemia GERD (gastroesophageal reflux disease) Ovarian mass Sinusitis BCP ( control pills) initiation Yeast infection involving the vagina and surrounding area Problematic vaginal discharge Lumbar pain Hip asymmetry Intestinal malabsorption following gastrectomy Obesity (BMI 30-39.9) Sleep apnea Asthma Bile duct abnormality Cholecystectomy planned Family History Family History Father Obesity Diabetes mellitus Mother Obesity Arthritis of knee Paternal Grandfather Diabetes mellitus Paternal Grandmother Diabetes mellitus Maternal Grandmother Arthritis of knee Diabetes mellitus Maternal Grandfather Diabetes mellitus Surgical History Surgical History History of hemorrhoidectomy (~05/20/23) H/O colonoscopy History of esophagogastroduodenoscopy (EGD) Hx of cholecystectomy Gastric bypass status for obesity Social History Household Members: None Housing: House Alcohol intake: never Patient Tobacco Use Status: Never used Tobacco e-Cigarette/Vaping Use: Never Used Second Hand Smoke Exposure: No Are you DNR?: No Advance Directives: No Advance Directives Information Provided: Yes Nutrition Risks: No Nutritional Risk FDLMP: i am breast feeding service: No Current occupational status: unemployed Cognitive needs: No Hearing needs: No Vision needs: Yes Meds Allergies Allergy/AdvReac Type Severity Reaction Status Date / Time carrot [CARROTS] Allergy Intermediate SWELLING Verified 08/12/23 06:18 cat dander [CATS] Allergy Intermediate ITCHING Verified 08/12/23 06:18 insect venom [INSECT BITES] Allergy Intermediate HIVES Verified 08/12/23 06:18 Home Medications Medication Instructions Recorded Confirmed Last Taken Type lancets 28 gauge (FreeStyle #100 ea 07/19/22 07/09/23 Unknown History Lancets) atomoxetine 40 mg capsule 40 mg PO DAILY 07/21/23 08/12/23 Unknown History (Strattera) Exam Airway Mallampati Class: I TM Dist: >3cm Neck ROM: Full Assessment and Plan Assessment Anesthesia Assessment: Anesthesia Plan Discussed Final Anesthetic Review NPO: Yes ASA Class: II Final Preanesthetic Review: No Changes in Pt Med Stat, Meds/Allgs Chart Reviewed, Consent Obtained/Reviewed and Anes Risks/Benef Reviewed Patient Risk: Low Procedure Risk: Low Anesthetic Plan Anesthetic Plan: GA Disposition: Standard PACU
[2023-08-12 06:16] VITALS: BMI 28.2
[2023-08-12] MEDS: Lactated Ringers 1,000 ML 100 ML IVCONT (06:25)
[2023-08-12 06:34] VITALS: BP 111/65; PULSE 69; RESP 18; TEMP 36.9; O2SAT 98
[2023-08-12 06:39] LABS: UPreg QC Valid YES; Urine Pregnancy NEGATIVE (NEGATIVE)
--- NOTE | 2023-08-12 07:07 | MHC.SHP ---
Pre-Procedural Eval Section A Date of Service: 08/12/23 The patient is an INPATIENT: No The History & Physical has been completed within 30 days and I have reviewed it.: Yes Section B Chief Complaint: Right flank pain, pelvic pain Allergies: Allergies Allergy/AdvReac Type Severity Reaction Status Date / Time carrot [CARROTS] Allergy Intermediate SWELLING Verified 08/12/23 06:18 cat dander [CATS] Allergy Intermediate ITCHING Verified 08/12/23 06:18 insect venom [INSECT BITES] Allergy Intermediate HIVES Verified 08/12/23 06:18 Plan Diagnosis/Plan: Unchanged I have reviewed the history and physical and performed a pertinent physical examination on my patient. No changes have occurred unless specified. Cystoscopy Hydrodistension. Discussed risks to include but not limited to, blood in the urine, burning with urination, urgency. Time Spent With Patient Time: Total time managing care of this patient today ____ minutes.
[2023-08-12 08:10] VITALS: BP 119/78; PULSE 63; RESP 13; TEMP 36.1; O2SAT 100
--- NOTE | 2023-08-12 08:14 | W.PM.OPN ---
Operative Note Operative Note Date of Service: 08/12/23 Narrative: PREOP DIAGNOSIS: Pelvic pain POSTOP DIAGNOSIS: Interstitial cystitis, pelvic pain PROCEDURE: CYSTOSCOPY HYDRODISTENTION Anethesia: General Surgeon: Dr. Constance Beck Indications: Evelyne azar had persistent right flank and intermittent pelvic pain, CT imaging and pelvic US with no acute findings noted. Details of procedure: The patient was brought into the operating room placed on the OR table in supine position. 2 g of Ancef IV. General anesthesia was administered. The patient was repositioned into lithotomy position, prepped and draped in the usual sterile fashion. Time-out was done per protocol. A 22 fr cystoscope was placed transurethrally into the bladder. Urine was drained from the bladder measuring 20 mL.The right and left ureteral orifices were visualized. The entire bladder was visualized. There were no suspicious bladder lesions seen. The bladder mucosa appeared thicked/denuded. The bladder was filled with sterile water at 80 cm of water pressure under gravity. The bladder was distended for 2 minutes. Bladder capacity measured 550 mL. Revisualization of the bladder, noted moderate glomerulations on several quadrants of the bladder. No Master ulcerations noted. The bladder was refilled with sterile water again at 80 cm of water pressure under gravity. The bladder was distended for 1 minutes. The fluid was drained from the bladder and measured 625 mL. The cystoscope was removed. 2% lidocaine urojet was passed transurethrally, Solution of (1% lidocaine plain, 15 mL, 0.5 % Marcaine 15 mL mixed with 30, 000 units of heparin concentration 5000 units per mL total of 6 mL hepaine) instilled transurethrally into the bladder. The patient was brought out of anesthesia and taken to recovery in stable condition. Complications: None Drains: none
[2023-08-12 08:15] VITALS: BP 122/75; PULSE 64; RESP 16; O2SAT 98
[2023-08-12 08:20] VITALS: BP 109/68; PULSE 72; RESP 16; O2SAT 98
[2023-08-12 08:25] VITALS: BP 112/76; PULSE 77; RESP 16; O2SAT 98
[2023-08-12] MEDS: oxyCODONE HCl Immed Release 5 MG TABLET PO (08:25)
[2023-08-12] MEDS: Phenazopyridine HCL 200 MG TABLET PO (08:25)
[2023-08-12 08:40] VITALS: BP 113/64; PULSE 60; RESP 16; TEMP 36.8; O2SAT 99
== END 2023-08-12 09:28 | disposition home or self-care (01) ==
PROVIDERS: Nurse Practitioner; PCP Internal Medicine; Visit Provider Urology
PROC: 0T7B7ZZ Dilation of Bladder, Via Natural or Artificial Opening (ICD-10-PCS; CPT 52000; principal; 2023-08-12 07:30)
DX: R10.9 Unspecified abdominal pain (principal); R10.2 Pelvic and perineal pain; Q63.2 Ectopic kidney; N12 Tubulo-interstitial nephritis, not specified as acute or chronic; Z87.442 Personal history of urinary calculi; Z87.440 Personal history of urinary (tract) infections; J45.909 Unspecified asthma, uncomplicated; D50.9 Iron deficiency anemia, unspecified; E55.9 Vitamin D deficiency, unspecified; F90.2 Attention-deficit hyperactivity disorder, combined type; R79.89 Other specified abnormal findings of blood chemistry; Z79.1 Long term (current) use of non-steroidal anti-inflammatories (NSAID); Z79.899 Other long term (current) drug therapy; Z98.84 Bariatric surgery status; Z90.49 Acquired absence of other specified parts of digestive tract
CPT/HCPCS: 52000; 81025; J0690; J1644; J2250; J2405; J2704; J2795; J3010

== ENCOUNTER → 2023-08-12 06:02 | Outpatient (BNV) | payer OTHER, SELFPAY | PROVIDERS: PCP Internal Medicine; Visit Provider Urology | DX: N30.10 Interstitial cystitis (chronic) without hematuria (principal); R10.2 Pelvic and perineal pain | CPT/HCPCS: 52260 ==

== ENCOUNTER 2023-08-16 05:52 | Emergency (ER) | payer OTHER, SELFPAY ==
--- NOTE | ~2023-08-16 | CT_ITS ---
EXAMINATION: CT ABDOMEN AND PELVIS WITH CONTRAST CLINICAL INFORMATION: Bilateral lower abdominal tenderness COMPARISON: 04/28/2023 TECHNIQUE: Multidetector volumetric images were obtained from the superior aspect of the liver through the pubic symphysis following administration 85 mL of Omnipaque 350 intravenous contrast. Sagittal and coronal reformatted images were obtained on the technologist's workstation. Oral contrast: No This CT examination was performed using dose optimization techniques as appropriate, variously including the following: *Automated exposure control *Adjustment of mA and/or kV according to patient size (this includes techniques or standardized protocols for targeted exams where dose is matched to indication/reason for exam; i.e. extremities or head) *Use of iterative reconstruction technique DLP: 618 mGy-cm FINDINGS: LUNG BASES: The visualized lung bases are unremarkable. LIVER, GALLBLADDER, AND BILIARY TREE: The liver is normal in size, shape, and attenuation. No focal hepatic lesion or biliary ductal dilatation is present. Status post cholecystectomy PANCREAS: Unremarkable. SPLEEN: Unremarkable. ADRENAL GLANDS: Unremarkable. KIDNEYS AND URETERS: The kidneys are normal in size, shape, and attenuation. No hydronephrosis, hydroureter, or calculi seen. No perinephric stranding. BLADDER: Unremarkable. GASTROINTESTINAL TRACT: The bowel pattern is felt to be nonobstructing. I believe exam is showing some thickening of the wall of small bowel. Enteritis would need to be considered. A normal appendix is not seen but no definitive suspicion around the cecum. ABDOMINAL WALL: No significant hernia is appreciated. LYMPH NODES: Prominent mesenteric nodes are noted. Mildly increasing from previous VASCULAR: Unremarkable. PELVIC VISCERA: Unremarkable. OSSEOUS STRUCTURES: Unremarkable. CT/CT abdomen pelvis w IV con IMPRESSION: Exam is demonstrating small bowel wall thickening and prominent increasing mesenteric nodes. Therefore enteritis would need to be considered here with reactive mesenteric adenopathy. Attention to follow-up
[2023-08-16 06:05] VITALS: BP 107/61; RESP 20; TEMP 36.1; O2SAT 99; BMI 28.2
[2023-08-16 07:56] LABS: UPreg QC Valid YES; Urine Pregnancy NEGATIVE (NEGATIVE)
[2023-08-16 08:00] LABS: Appearance Urine Hazy; Color Urine Orange; PH 6.5 (5.0-9.0); Specific Gravity - Urine 1.015 (1.005-1.025); UMIC TRIGGER UACC YES; Urine Blood Negative (Negative); Urine Ketones Trace mg/dL (Negative)
[2023-08-16 08:06] LABS: Bacteria Urine None Seen (None Seen); Hyaline Casts Urine 0-2 /LPF (0-2); Squamous Epithelial Cell Urine 0-2 /HPF (0-2); WBC Urine 0-5 /HPF (0-5)
--- NOTE | 2023-08-16 08:09 | ED.GENADULT ---
HPI - General Adult General Chief complaint: Abdominal Pain Stated complaint: Abd pain Time Seen by Provider: 08/16/23 07:35 Source: patient and old records reviewed Mode of arrival: ambulatory Limitations: no limitations History of Present Illness HPI narrative: Patient is a 27-year-old female with history of gastric bypass, cholecystectomy, SOD s/p intra-op ERCP and sphincterectomy, 8 months post , hemorrhoidectomy in may, recent cystoscopy done by urology on 08/12 presenting to the emergency department with complaint of lower abdominal pain and cramping which radiates to lower and mid back. States has been on doxycycline and pyridium for UTI, was prescribed hydromorphone from urology which she last took at 4am. States pain waxes and wanes, rates current pain at 8/10. Endorses some nausea. Denies vomiting, diarrhea, constipation. MD complaint: abdominal pain Onset (ago): hour(s) Location: abdomen Radiation: back Severity: severe Severity scale (1-10): 8 Quality: other (cramping) Pain Consistency: colicky Relieving factors: none Exacerbating factors: none Associated symptoms: denies other symptoms Treatments prior to arrival: other (prescribed hydromorphone) Related Data Home Medications Medication Instructions Recorded Confirmed lancets 28 gauge (FreeStyle #100 ea 07/19/22 07/09/23 Lancets) atomoxetine 40 mg capsule 40 mg PO DAILY 07/21/23 08/12/23 (Strattera) Previous Rx's Medication Instructions Recorded cyclobenzaprine 10 mg tablet 10 mg PO BEDTIME #30 tabs 09/02/22 lidocaine 5 % topical patch 1 patch topical DAILY #30 ea 09/02/22 docusate sodium 100 mg capsule 100 mg PO BID #60 caps 05/20/23 (Colace) ibuprofen 600 mg tablet 600 mg PO Q6H PRN pain #30 tabs 05/26/23 doxycycline hyclate 100 mg capsule 100 mg PO BID 5 days #10 caps 08/12/23 hydromorphone 2 mg tablet 2 mg PO Q6H PRN pain #8 tabs 08/12/23 (Dilaudid) phenazopyridine 200 mg tablet 200 mg PO TID pain with urination 08/12/23 (Pyridium) #30 tabs lidocaine 5 % topical patch 1 patch topical DAILY #15 ea 08/16/23 Allergies Allergy/AdvReac Type Severity Reaction Status Date / Time carrot [CARROTS] Allergy Intermediate SWELLING Verified 08/12/23 06:18 cat dander [CATS] Allergy Intermediate ITCHING Verified 08/12/23 06:18 insect venom [INSECT BITES] Allergy Intermediate HIVES Verified 08/12/23 06:18 Review of Systems Review of Systems: As per HPI Yes all other systems are reviewed and are negative Constitutional: Constitutional: Reports as per HPI PMFSH Past Medical History Medical History (Updated 08/16/23 @ 12:45 by Soledad Lion NP) Pelvic pain Muscle spasm Internal and external bleeding hemorrhoids Constipation Breakthrough bleeding on Nexplanon COVID-19 Left arm pain Encounter for removal and reinsertion of Nexplanon Chronic abdominal pain Sacroiliac joint pain Hypovitaminosis D Iron deficiency anemia GERD (gastroesophageal reflux disease) Ovarian mass Sinusitis BCP ( control pills) initiation Yeast infection involving the vagina and surrounding area Problematic vaginal discharge Lumbar pain Hip asymmetry Intestinal malabsorption following gastrectomy Obesity (BMI 30-39.9) Sleep apnea Asthma Bile duct abnormality Cholecystectomy planned Surgical History History of hemorrhoidectomy (~05/20/23) H/O colonoscopy History of esophagogastroduodenoscopy (EGD) Hx of cholecystectomy Gastric bypass status for obesity Family History Family History Father Obesity Diabetes mellitus Mother Obesity Arthritis of knee Paternal Grandfather Diabetes mellitus Paternal Grandmother Diabetes mellitus Maternal Grandmother Arthritis of knee Diabetes mellitus Maternal Grandfather Diabetes mellitus Social History Social History Household Members: None Housing: House Alcohol intake: never Comment: still nauseous Patient Tobacco Use Status: Never used Tobacco Smoked in Last 30 Days: No e-Cigarette/Vaping Use: Never Used Second Hand Smoke Exposure: No Use of substances other than those prescribed or required for medical reasons: No Advance Directives: No Patient : No service: No Current occupational status: unemployed Cognitive needs: No Hearing needs: No Vision needs: Yes Physical Exam ED Vital Signs: Vital Signs - 24 hr 08/16/23 06:05 08/16/23 08:37 08/16/23 11:00 Temperature 97.0 F 98.1 F Pulse Rate 52 50 Respiratory Rate 20 16 18 Blood Pressure 107/61 107/64 106/61 Pulse Oximetry 99 98 98 Oxygen Delivery Method Room Air Room Air Room Air BMI result Body Mass Index 28.2 Vital signs have been reviewed and appear to be correct. Blood pressure normal. Heart rate normal. Respiratory rate normal. Temperature normal. Oxygen saturation normal. Const General: cooperative, healthy appearing and no acute distress Orientation/consciousness: oriented to person, oriented to place, oriented to time and patient oriented x3 Limitations: no limitations [facility] Head: Yes normocephalic and Yes atraumatic Ears: external ears normal General nose exam: Normal external nose present Face and sinus: Yes face symmetric Mouth: oropharynx normal and moist mucous membranes Throat: Yes uvula midline Eyes Pupils: Equal, round and reactive pupils present Neck Neck: Yes normal visual inspection and Yes supple Resp Effort & Inspection: normal respiratory effort and able to speak in complete sentences Auscultation: clear to auscultation bilaterally Cardio Rate: regular rate Rhythm: regular rhythm Heart sounds: S1 normal heart sound present and S2 normal heart sound present GI Inspection: Yes normal to inspection Palpation (GI): Soft to palpation, Tenderness to palpation present (GI) in the LLQ and in the RLQ; with no rebound tenderness, no guarding and No Rebound tenderness present Auscultation: normoactive bowel sounds General: Yes no CVA tenderness Back/Spine/Pelvis Back: no CVA tenderness Skin General skin exam: elasticity normal and turgor normal Neuro General: oriented to person, oriented to place, oriented to time, patient oriented x3, moves all extremities, no focal motor deficits and CN's II-XI intact bilaterally Cranial nerves: Yes Equal, round and reactive pupils present Cognition (Neuro): normal cognition Extrem General: Yes full ROM, Yes no pedal edema and Yes no calf tenderness Psych Mental Status: mental status grossly normal Affect: normal affect Thought process: Normal thought process present Course Reevaluation(s) Reevaluation #1: Patient denies any relief of pain after IV morphine, states pain remains at 8/10, describes as cramping. Will order Bentyl. Time: 11:45 Medications Administered Discontinued Medications Generic Name Dose Route Start Last Admin Trade Name Freq PRN Reason Stop Dose Admin Dicyclomine HCl 10 mg 08/16/23 11:45 08/16/23 12:05 Dicyclomine Hcl 10 Mg Capsule PO 08/16/23 11:46 10 mg ONCE ONE Administration Iohexol 85 ml 08/16/23 09:05 08/16/23 09:05 Iohexol 350 Mg/Ml 100 Ml Infus..Btl IV 08/16/23 09:06 85 ml ONCE ONE Administration Ketorolac Tromethamine 15 mg 08/16/23 08:21 08/16/23 08:35 Ketorolac Tromethamine 15 Mg/Ml Vial IVPUSH 08/16/23 08:22 15 mg ONCE ONE Administration Morphine Sulfate 4 mg 08/16/23 10:46 08/16/23 10:57 Morphine Sulfate 4 Mg/Ml Cartridge IVPUSH 08/16/23 10:47 4 mg ONCE ONE Administration Protocol Medical Decision Making Medical Decision Making MDM Narrative: Patient is a 27-year-old female with history of gastric bypass, cholecystectomy, SOD s/p intra-op ERCP and sphincterectomy, recent cystoscopy done by urology on 08/12 presenting to the emergency department with complaint of lower abdominal pain and cramping which radiates to lower and mid back. On exam patient is awake, A+Ox3, VS WNL, afebrile, normal neurological exam without focal deficits, physical exam findings as above. Given reported symptoms and physical exam findings, initial differential includes UTI, pyelonephritis, renal colic, appendicitis, diverticulitis, ovarian cyst, constipation. Labs notable for no leukocytosis, no anemia, elevated LFTs and alk phos, history of same in the past, no significant electrolyte abnormalities. No evidence of infection on UA. CT notable for prominent mesenteric nodes. My interpretation is in agreement with the radiologist's interpretation. Discussed with patient that pain could be related to recent cystoscopy. Case discussed with Dr. Deras who also examined patient and feels she is stable for discharge home. Pain medication discussed with patient as she is currently . Patient advised to discard any breast milk for the next 24 hours due to medications administered in the emergency department today. Will prescribe topical lidocaine patches which patient is agreeable to this, stating she has used them in the past with good relief. Instructed patient to follow up with Dr. Cowart and Dr. Medel on Friday. Return precautions discussed. Patient verbalized understanding of and agreement with plan. Differential Diagnosis Differential Diagnoses: The differential diagnosis associated with the presentation includes As per [facility] Admission/Observation Consideration of admission/observation: Escalation of care including admission/observation considered Lab Data [facility] Lab Attestation statement: I reviewed the patient's lab results. As per [facility]. 08/16/23 08:11 08/16/23 08:11 Labs: Lab Results 08/16/23 08/16/23 Range/Units 07:45 08:11 WBC 8.9 (4.8-10.8) X10*3/uL RBC 4.68 (4.20-5.50) X10*6/uL Hgb 11.7 L (12.0-16.0) g/dl Hct 37.9 (37.0-47.0) % MCV 81.0 (80.0-98.0) fL MCH 25.0 L (27.0-33.0) pg MCHC 30.9 L (31.0-35.0) g/dl RDW 14.1 (11.0-16.0) % Plt Count 277 (160-400) X10*3/uL MPV 9.5 (9.4-12.3) fL Immature Gran % (Auto) 0.3 (0.0-0.4) % Neut % (Auto) 57.0 (45-73) % Lymph % (Auto) 28.3 (20-40) % Hanson % (Auto) 11.5 H (2-11) % Eos % (Auto) 2.0 (0-4) % Baso % (Auto) 0.9 (0-2) % Lymph # (Auto) 2.5 (1.2-4.9) X10*3/uL Hanson # (Auto) 1.0 (0.1-1.2) X10*3/uL Eos # (Auto) 0.2 (0.0-0.4) X10*3/uL Baso # (Auto) 0.1 (0.0-0.2) X10*3/uL Abs Immat Gran (auto) 0.03 (0.00-0.03) X10*3/uL Absolute Neuts (auto) 5.1 (2.0-8.3) x10*3/uL Absolute Nucleated RBC 0.000 (0.0-0.012) X10*3/uL Nucleated RBC % (auto) 0.0 (0.0-0.2) /100WBC Sodium 142 (135-145) mmol/L Potassium 4.2 (3.3-5.1) mmol/L Chloride 110 H (96-108) mmol/L Carbon Dioxide 25 (22-29) mmol/L Anion Gap 11 L (12-20) BUN 12 (9-16) mg/dL Creatinine 0.72 (0.5-1.4) mg/dL Estim Creat Clear Calc 128.9 Estimated GFR > 60 Random Glucose 81 (60-115) mg/dL Calcium 8.7 (8.4-10.2) mg/dL Total Bilirubin 0.4 (0.0-1.0) mg/dL AST 230 H (5-31) U/L ALT 185 H (0-31) U/L Alkaline Phosphatase 339 H (39-117) U/L Total Protein 6.6 (6.5-8.0) g/dL Albumin 3.8 (3.5-5.0) g/dL Lipase 18 (8-78) U/L Urine Color Hiller Urine Appearance Hazy Urine pH 6.5 (5.0-9.0) Ur Specific [place] 1.015 (1.005-1.025) Urine Protein TNP Urine Glucose (UA) TNP Urine Ketones Trace (Negative) mg/dL Urine Blood Negative (Negative) Urine Nitrite TNP Ur Leukocyte Esterase TNP Urine RBC 3-5 H (0-2) /HPF Urine WBC 0-5 (0-5) /HPF Ur Squamous Epith Cells 0-2 (0-2) /HPF Urine Bacteria None Seen (None Seen) Hyaline Casts 0-2 (0-2) /LPF Urine Test NEGATIVE (NEGATIVE) Independent Interpretation I performed an independent interpretation of an: CT Scan Interpretation: mesenteric nodes with reactive adenopathy Radiology Impression Discussion of test interpretation with radiology: I have reviewed the radiologist's reading. Radiologist Impression: CT/CT abdomen pelvis w IV con IMPRESSION: Exam is demonstrating small bowel wall thickening and prominent increasing mesenteric nodes. Therefore enteritis would need to be considered here with reactive mesenteric adenopathy. Attention to follow-up External Record Review External record reviewed: Inpatient record, Office record and Outpatient record Prescription Management I considered prescription management with: Pain Medication Critical Care Time Critical Care Time Critical Care Time: Yes Total Critical Care Time: 45 Attestation: I have personally provided critical care time exclusive of time spent on separately billable procedures. Time includes review of lab data, radiology results, discussion with consultants, and monitoring for potential decompensation. Intervention performed as documented. Discharge Plan Discharge Clinical Impression: Abdominal pain Patient Disposition: Home, Self-Care Instructions: Abdominal Pain (ED) Additional Instructions: You have been evaluated in the emergency department today for abdominal pain. Your evaluation did not show evidence of medical conditions requiring emergent intervention at this time. Please schedule an appointment with your primary care physician. Return to the emergency department if you experience worsening or uncontrolled pain, fevers 100.4? F or greater, recurrent vomiting, inability to tolerate food or fluids by mouth, bloody stools or vomit, black or tarry stools, or any other concerning symptoms. Prescriptions: New lidocaine 5 % adhesive patch,medicated 1 patch topical DAILY Qty: 15 0RF Rx Instructions: leave on most painful area for up to 12 hrs No Action docusate sodium [Colace] 100 mg capsule 100 mg PO BID Qty: 60 2RF doxycycline hyclate 100 mg capsule 100 mg PO BID 5 Days Qty: 10 0RF phenazopyridine [Pyridium] 200 mg tablet 200 mg PO TID Qty: 30 1RF Rx Instructions: take with food hydromorphone [Dilaudid] 2 mg tablet 2 mg PO Q6H PRN (Reason: pain) Qty: 8 0RF Rx Instructions: Partial Fill upon patient request. (DME) lancets [FreeStyle Lancets] 28 gauge misc See Rx Instructions .ROUTE QID Qty: 100 Rx Instructions: As directed lidocaine 5 % adhesive patch,medicated 1 patch topical DAILY Qty: 30 11RF cyclobenzaprine 10 mg tablet 10 mg PO BEDTIME Qty: 30 11RF atomoxetine [Strattera] 40 mg capsule 40 mg PO DAILY ibuprofen 600 mg tablet 600 mg PO Q6H PRN (Reason: pain) Qty: 30 0RF Referrals: [facility] [place] Gastro[facility]ology Services [Provider Group] [facility] [place] Urology Services [Provider Group]
[2023-08-16 08:16] LABS: MANUAL DIFF FLAG NO
[2023-08-16 08:17] LABS: Basophils Absolute Auto 0.1 X10*3/uL (0.0-0.2); Basophils Percent Auto 0.9 % (0-2); Eosinophils Absolute Auto 0.2 X10*3/uL (0.0-0.4); Hematocrit 37.9 % (37.0-47.0); Hemoglobin 11.7 g/dl (12.0-16.0); Imm Gran Abs Auto 0.03 X10*3/uL (0.00-0.03); Imm Gran Pct Auto 0.3 % (0.0-0.4); Lymphocytes Absolute Auto 2.5 X10*3/uL (1.2-4.9); Lymphocytes Percent Auto 28.3 % (20-40); Mean Corpuscular HGB Conc 30.9 g/dl (31.0-35.0); Mean Platelet Volume 9.5 fL (9.4-12.3); Monocytes Percent Auto 11.5 % (2-11); Neutrophils Absolute Auto 5.1 x10*3/uL (2.0-8.3); Platelet Count 277 X10*3/uL (160-400); Red Blood Count 4.68 X10*6/uL (4.20-5.50); Red Cell Distribution Width 14.1 % (11.0-16.0); White Blood Count 8.9 X10*3/uL (4.8-10.8)
[2023-08-16 08:33] LABS: Alanine Aminotransferase 185 U/L (0-31); Albumin Level 3.8 g/dL (3.5-5.0); Alkaline Phosphatase 339 U/L (39-117); Anion Gap 11 (12-20); Aspartate Amino Transferase 230 U/L (5-31); Bilirubin Total 0.4 mg/dL (0.0-1.0); Blood Urea Nitrogen 12 mg/dL (9-16); Calcium 8.7 mg/dL (8.4-10.2); Carbon Dioxide 25 mmol/L (22-29); Chloride 110 mmol/L (96-108); Creatinine Clr Calc Pharmacy 128.9; Estimated Glomerular Filt Rate > 60; Glucose Random 81 mg/dL (60-115); Lipase 18 U/L (8-78); Potassium 4.2 mmol/L (3.3-5.1); Sodium 142 mmol/L (135-145); Total Protein 6.6 g/dL (6.5-8.0)
[2023-08-16] MEDS: Ketorolac Tromethamine 15 MG/ML VIAL IVPUSH (08:35)
[2023-08-16 08:37] VITALS: BP 107/64; PULSE 52; RESP 16; TEMP 36.7; O2SAT 98
[2023-08-16] MEDS: iohexoL 350 MG/ML 100 ML INFUS..BTL 85 ML IV (09:05)
[2023-08-16] MEDS: Morphine Sulfate 4 MG/ML CARTRIDGE IVPUSH (10:57)
[2023-08-16 11:00] VITALS: BP 106/61; PULSE 50; RESP 18; O2SAT 98
--- NOTE | 2023-08-16 11:00 | PC.NURSE ---
medicated permar for 9/10 central lower abd pain
[2023-08-16] MEDS: Dicyclomine HCl 10 MG CAPSULE PO (12:05)
== END 2023-08-16 13:14 | disposition home or self-care (01) ==
PROVIDERS: Emergency Provider Emergency Medicine; PCP Internal Medicine
DX: R10.30 Lower abdominal pain, unspecified (principal)
CPT/HCPCS: 36415; 74177; 80053; 81001; 81025; 83690; 85025; 96374; 96375; 99284; J1885; J2270; Q9967

== ENCOUNTER → 2023-08-29 13:43 | Outpatient (BNVA) | payer OTHER, SELFPAY | PROVIDERS: PCP Internal Medicine; Visit Provider Urology ==

== ENCOUNTER 2023-09-02 11:24 | Outpatient (AMB) | payer OTHER, SELFPAY ==
--- NOTE | 2023-09-02 11:28 | MHC.OFFVISWM ---
Intake VS Expanded 09/02/23 11:39 BP 104/7 L Blood Pressure Location Rt brachial Blood Pressure Position Sitting Pulse 75 Pulse Source Pulse Oximeter Temp 98.7 F Temperature Source Temporal Artery Scan Pulse Oximetry 95 Oxygen Delivery Method Room Air Height 5 ft 7 in Weight 175 lb 6.4 oz BMI 27.5 Body Fat % 40.1 Body Fat Mass 70.4 Fat Free Mass 105.0 Visceral Fat Rating 6.0 Body Water % 43.0 Body Water Mass 75.4 Muscle Mass/Score 99.6 Basal Metabolic Rate/Score 1,492 Intake Visit Reasons: (OV) GBP 02/2017 Allergies carrot [CARROTS] Allergy (Intermediate, Verified 09/02/23 11:34) SWELLING cat dander [CATS] Allergy (Intermediate, Verified 09/02/23 11:34) ITCHING insect venom [INSECT BITES] Allergy (Intermediate, Verified 09/02/23 11:34) HIVES Medication List - Last Reconciled 09/02/23 by GARIMA Miranda atomoxetine (Strattera) 40 mg PO DAILY cyclobenzaprine 10 mg PO BEDTIME docusate sodium (Colace) 100 mg PO BID doxycycline hyclate 100 mg PO BID 5 days hydromorphone (Dilaudid) 2 mg PO Q6H PRN ibuprofen 600 mg PO Q6H PRN lancets (FreeStyle Lancets) As directed lidocaine 5% 1 patch topical DAILY lidocaine 5% 1 patch topical DAILY phenazopyridine (Pyridium) 200 mg PO TID HPI HPI Comments History of Present Illness Details This?is a?28?yo female who is s/p RYGB 02/2017. Presents for 6.5 year post op visit. Weight at last visit on 04/24/2022 was 195 pounds with a BMI of 30.5, weight today is 175.4 pounds, representing a 19.6 pound weight loss with a BMI today of 27.5.? Pt reports some abdominal pain, R>L which started during . Following with GI and urology. 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 However pain continued post delivery. Since then, has had cystoscopy which showed interstitial cystitis. Has also had some difficulty with vomiting/burning sensation in stomach. Still , wants to eat so she will try to have a bar. Water is less bothersome. Has had cholecystectomy, as well as ERCP in 2019. Ibuprofen is in her med list but she states she does not take often at all. Denies tobacco, EtOH. [facility] Medical History (Updated 09/02/23 @ 12:26 by GARIMA Miranda) Pelvic pain Muscle spasm Internal and external bleeding hemorrhoids Constipation Breakthrough bleeding on Nexplanon COVID-19 Left arm pain Encounter for removal and reinsertion of Nexplanon Chronic abdominal pain Sacroiliac joint pain Hypovitaminosis D Iron deficiency anemia GERD (gastroesophageal reflux disease) Ovarian mass Sinusitis BCP ( control pills) initiation Yeast infection involving the vagina and surrounding area Problematic vaginal discharge Lumbar pain Hip asymmetry Intestinal malabsorption following gastrectomy Obesity (BMI 30-39.9) Sleep apnea Asthma Bile duct abnormality Cholecystectomy planned Surgical History History of hemorrhoidectomy (~05/20/23) H/O colonoscopy History of esophagogastroduodenoscopy (EGD) Hx of cholecystectomy Gastric bypass status for obesity Family History Father Obesity Diabetes mellitus Mother Obesity Arthritis of knee Paternal Grandfather Diabetes mellitus Paternal Grandmother Diabetes mellitus Maternal Grandmother Arthritis of knee Diabetes mellitus Maternal Grandfather Diabetes mellitus Social History Household Members: None Housing: House Alcohol intake: never Comment: still nauseous Patient Tobacco Use Status: Never used Tobacco e-Cigarette/Vaping Use: Never Used Second Hand Smoke Exposure: No service: No Current occupational status: unemployed Cognitive needs: No Hearing needs: No Vision needs: Yes Female Reproductive History Menstrual Age of Menarche: 10 Assessment & Plan Assessment & Plan (1) Gastric bypass status for obesity: Code(s): Z98.84 - Bariatric surgery status (2) Abdominal pain: Code(s): R10.9 - Unspecified abdominal pain Qualifiers: Abdominal location: unspecified location Qualified Code(s): R10.9 - Unspecified abdominal pain (3) Overweight: Code(s): E66.3 - Overweight Plan Remaining labs Orders: Orders Vitamin B12 and Folate Today Z98.84 - Bariatric surgery status Vitamin B1 Today Z98.84 - Bariatric surgery status Vitamin D 25-OH Total Today Z98.84 - Bariatric surgery status TSH reflex Free T4 Today Z98.84 - Bariatric surgery status Zinc Today Z98.84 - Bariatric surgery status Vitamin A Today Z98.84 - Bariatric surgery status Coding Level of Care Code Est Pt Level 4 (78871) Diagnoses Gastric bypass status for obesity Z98.84 Abdominal pain R10.9 Abdominal location: unspecified location Overweight E66.3
[2023-09-02 11:39] VITALS: BP 104/7; PULSE 75; TEMP 37.1; O2SAT 95; BMI 27.5
== END 2023-09-02 12:26 | disposition home or self-care (01) ==
PROVIDERS: PCP Internal Medicine; Visit Provider Physician Assistant Surgical
DX: E66.3 Overweight (principal); Z68.27 Body mass index [BMI] 27.0-27.9, adult; Z98.84 Bariatric surgery status; R10.9 Unspecified abdominal pain
CPT/HCPCS: 99214

== ENCOUNTER → 2023-09-02 11:24 | Outpatient (BNVA) | payer OTHER, SELFPAY | PROVIDERS: PCP Internal Medicine; Visit Provider Physician Assistant Surgical | DX: E66.3 Overweight (principal); R10.9 Unspecified abdominal pain; Z98.84 Bariatric surgery status; Z68.27 Body mass index [BMI] 27.0-27.9, adult | CPT/HCPCS: 99212 ==

== ENCOUNTER 2023-09-19 10:50 | Outpatient (AMB) | payer OTHER, SELFPAY ==
--- NOTE | 2023-09-19 10:52 | MHC.OFFVIS ---
Intake Vital Signs 09/19/23 10:56 Height 5 ft 7 in Weight 180 lb 12.465 oz BMI 28.3 BP 112/55 L Blood Pressure Location Lt brachial Position Sitting Pulse 65 Intake Visit Reasons: f/u N/V Intake Note: Maryann presents in the office as a follow up for N and V. CC: She states that her N/V has been controlled since she seen bariatrics. Right now she is doing shakes twice a day and she has to watch what her food is that she is eating. Her pains in the stomach continues. She was sent Carafate and pantoprazole but the pharmacy never gave it to her. It does not look like it was ever sent. Bladder was irritated and inflamed and she was told her lower intestines are also inflamed and she is not sure if that could be where the burning. She feels the burning all over. Whenever she has a BM it is always diarrhea - never solid stools. Can Filler Required: No Allergies carrot [CARROTS] Allergy (Intermediate, Verified 09/19/23 10:57) SWELLING cat dander [CATS] Allergy (Intermediate, Verified 09/19/23 10:57) ITCHING insect venom [INSECT BITES] Allergy (Intermediate, Verified 09/19/23 10:57) HIVES HPI f/u N/V HPI Details 28 yr old f with hx of gastric bypass, cholecystectomy and suspected SOD s/p intra op ERCP and sphincterotomy who I am seeing for f/u RECAP; seen 11/2019 ? she had c/o? ruq pain ongoing ? feesl like stabbing and aching ? worse with dairy usually ? she does have diarrhea and constipation alternating ? no blood in stool or melena ? denies nausea or vomiting ? appetite is variable ? weight is stable ? she was unsure if she was taking iron supplement ? admitted to irregular periods due to implant, but not heavy ? no epistaxis or hematuria ? I suspected pain could be myofascial in origin but arranged further w/u as below ?? ? labs 08/2019 with severe iron def and b12 def, HGB 10, LFT 09/2019 normal, prior AMA neg ? latest hgb:11.7--m111/07 ? EGD/colon--11/2019--essentially normal, retained suture removed ?IMAGING: ? CT A/P--07/2019-- moderate stool, ovarian cysts ? CTe 01/2020--no IBD, ?small paraesophagela hernia, malrotation of right kidney, no acute findings ? VCE--inflammation around anastomosis, small bowel otherwise nml ?? ? She had admission for LUQ thought to be due to diet indiscretion and over eating CT imaging was neg, she had mild LFT abn compared to her last numbers before the admission MRI 10/2020--no liver or biliary abn seen I ordered small bowel series: slow transit time otherwise normal liver serologies neg I referred her to pain management and commenced ursodiol with gabapentin for possible retention gastritis she felt some beenfit but stopped after some time MRe: 2021- normal bowel, Mild right hydronephrosis, CT 04/28/23 for RLQ pain normal Pelvic US: small ovary follicles she has been seeing Dr Wiley for hemorrhoids seeing urology for malrotation of kidney INTERIM: since last time she had hemorrhoidectomy she saw urology and had f/u she saw nutrition and given diet plan she was advised to cont with pantoprazole and carafate she feels diet has helped her pain, eating more healthy and avoiding fatty, greasy foods she still gets bouts of burning abdominal pain upper and mid abdomen albert with food and nausea CT 09/06 with suspected enteritis and some prominent LN noted EXAM: GENERAL: The patient is well developed and nontoxic. VITAL SIGNS:see workflow HEENT: Nonicteric sclerae, PERRLA, EOMI. Oropharynx clear. Moist mucous membranes. Conjunctivae appear well perfused. No thyroid mass. CHEST: Chest wall is nontender. HEART: Regular rate and rhythm without murmurs. LUNGS: Clear to auscultation bilaterally. ABDOMEN: Soft, positive bowel sounds, tender epigastrium, point tenderness in LLQ and RLQ worse with head lift, no organomegaly SKIN: No rash, no excessive bruising, petechiae, or purpura. NEUROLOGIC: Cranial nerves II-XII intact without motor/sensory deficit. Psych- nml affect Assessment & Plan 1/ enteritis uncertain if could be IBD or sequel of viral or other infection, other enteropathy Recent ? PLAN: 1/ capsule 2/ can consider trial of budesonide but she breast feeds and wants to hold right now [facility] Medical History (Updated 09/19/23 @ 11:26 by Dennis Cowart MD) Pelvic pain Muscle spasm Internal and external bleeding hemorrhoids Constipation Breakthrough bleeding on Nexplanon COVID-19 Left arm pain Encounter for removal and reinsertion of Nexplanon Chronic abdominal pain Sacroiliac joint pain Hypovitaminosis D Iron deficiency anemia GERD (gastroesophageal reflux disease) Ovarian mass Sinusitis BCP ( control pills) initiation Yeast infection involving the vagina and surrounding area Problematic vaginal discharge Lumbar pain Hip asymmetry Intestinal malabsorption following gastrectomy Obesity (BMI 30-39.9) Sleep apnea Asthma Bile duct abnormality Cholecystectomy planned Surgical History (Updated 09/19/23 @ 10:57 by RUFINO Olivares) H/O cystoscopy History of hemorrhoidectomy (~05/20/23) H/O colonoscopy History of esophagogastroduodenoscopy (EGD) Hx of cholecystectomy Gastric bypass status for obesity Family History Father Obesity Diabetes mellitus Mother Obesity Arthritis of knee Paternal Grandfather Diabetes mellitus Paternal Grandmother Diabetes mellitus Maternal Grandmother Arthritis of knee Diabetes mellitus Maternal Grandfather Diabetes mellitus Social History Household Members: None Housing: House Alcohol intake: never Comment: still nauseous Patient Tobacco Use Status: Never used Tobacco e-Cigarette/Vaping Use: Never Used Second Hand Smoke Exposure: No service: No Current occupational status: unemployed Cognitive needs: No Hearing needs: No Vision needs: Yes Female Reproductive History Menstrual Age of Menarche: 10 Physical Exam Vital Signs: Last Vital Signs Pulse 65 09/19/23 10:56 BP 112/55 L 09/19/23 10:56 BMI result Body Mass Index 28.3 Assessment & Plan Assessment & Plan (1) Enteritis: Code(s): K52.9 - Noninfective gastroenteritis and colitis, unspecified Plan: Assessment & Plan 1/ enteritis uncertain if could be IBD or sequel of viral or other infection, other enteropathy Recent ? PLAN: 1/ capsule 2/ can consider trial of budesonide but she breast feeds and wants to hold right now Medications: New peg-electrolyte soln 420 gram until fecal effluent is clear; 240 mL PO Q10M 4,000 mL 0RF Coding Level of Care Code Est Pt Level 3 (10656) Diagnoses Enteritis K52.9
[2023-09-19 10:56] VITALS: BP 112/55; PULSE 65; BMI 28.3
== END 2023-09-19 11:59 | disposition home or self-care (01) ==
PROVIDERS: PCP Internal Medicine; Visit Provider Internal Medicine Gastroenterology
DX: K52.9 Noninfective gastroenteritis and colitis, unspecified (principal)
CPT/HCPCS: 99213

== ENCOUNTER → 2023-09-19 10:50 | Outpatient (BNVA) | payer OTHER, SELFPAY | PROVIDERS: PCP Internal Medicine; Visit Provider Internal Medicine Gastroenterology | DX: K52.9 Noninfective gastroenteritis and colitis, unspecified (principal) | CPT/HCPCS: 99212 ==

== ENCOUNTER 2023-09-24 08:28 | Outpatient (AMB) | payer OTHER, SELFPAY ==
--- NOTE | 2023-09-24 08:42 | AM.OFFVISNUR ---
Intake Intake Visit Reasons: CAPSULE ENDOSCOPY Allergies carrot [CARROTS] Allergy (Intermediate, Verified 09/19/23 10:57) SWELLING cat dander [CATS] Allergy (Intermediate, Verified 09/19/23 10:57) ITCHING insect venom [INSECT BITES] Allergy (Intermediate, Verified 09/19/23 10:57) HIVES Nursing Note Patient presents to the office for a capsule endoscopy. I discussed the procedure with the patient and provided with instructions to take home. Patient informed of risk with capsule endoscopy and consent was obtained. Patient was advised to return to the office at 4:30pm to remove equipment. Patient had no further questions or concerns. Coding
== END 2023-09-24 08:43 | disposition home or self-care (01) ==
PROVIDERS: PCP Internal Medicine; Visit Provider Internal Medicine Gastroenterology
DX: D64.9 Anemia, unspecified (principal)
CPT/HCPCS: 91110

== ENCOUNTER → 2023-09-24 08:28 | Outpatient (BNVA) | payer OTHER, SELFPAY | PROVIDERS: PCP Internal Medicine; Visit Provider Internal Medicine Gastroenterology | DX: L53.9 Erythematous condition, unspecified (principal); R60.1 Generalized edema | CPT/HCPCS: 91110 ==

== ENCOUNTER 2023-10-02 13:17 | Outpatient (AMB) | payer OTHER, SELFPAY ==
--- NOTE | 2023-10-02 13:07 | MHC.OFFVISWM ---
Intake Intake Visit Reasons: (telephone ) [facility] 02/2017 Allergies carrot [CARROTS] Allergy (Intermediate, Verified 09/19/23 10:57) SWELLING cat dander [CATS] Allergy (Intermediate, Verified 09/19/23 10:57) ITCHING insect venom [INSECT BITES] Allergy (Intermediate, Verified 09/19/23 10:57) HIVES HPI HPI Comments History of Present Illness Details This?is a?28?yo female who is s/p RYGB 02/2017. Started PPI and carafate since last visit, although she has been holding PPI due to capsule endoscopy ordered by GI. Does not have results yet. Reports that her episodes of pain have not completely resolved, but much improved. Back on carafate. Shares today that she has an aunt who was diagnosed with Crohn's disease and was recently found to have stage IV intestinal cancer. Per pt, GI considering anoscopy, as well as endoscopy depending on capsule results. Present meal plan includes: 3 shakes per day (2 shakes with 2 scoops celebrate each, 1 shake with 1 scoop, mix all shakes in 8oz UAM) and one small meal of 4 forks/4 forks. Advised softer proteins. Shakes to take 2 hours each. [facility] Medical History (Updated 09/19/23 @ 11:26 by Dennis Cowart MD) Pelvic pain Muscle spasm Internal and external bleeding hemorrhoids Constipation Breakthrough bleeding on Nexplanon COVID-19 Left arm pain Encounter for removal and reinsertion of Nexplanon Chronic abdominal pain Sacroiliac joint pain Hypovitaminosis D Iron deficiency anemia GERD (gastroesophageal reflux disease) Ovarian mass Sinusitis BCP ( control pills) initiation Yeast infection involving the vagina and surrounding area Problematic vaginal discharge Lumbar pain Hip asymmetry Intestinal malabsorption following gastrectomy Obesity (BMI 30-39.9) Sleep apnea Asthma Bile duct abnormality Cholecystectomy planned Surgical History (Updated 09/19/23 @ 10:57 by RUFINO Olivares) H/O cystoscopy History of hemorrhoidectomy (~05/20/23) H/O colonoscopy History of esophagogastroduodenoscopy (EGD) Hx of cholecystectomy Gastric bypass status for obesity Family History Father Obesity Diabetes mellitus Mother Obesity Arthritis of knee Paternal Grandfather Diabetes mellitus Paternal Grandmother Diabetes mellitus Maternal Grandmother Arthritis of knee Diabetes mellitus Maternal Grandfather Diabetes mellitus Social History Household Members: None Housing: House Alcohol intake: never Comment: still nauseous Patient Tobacco Use Status: Never used Tobacco e-Cigarette/Vaping Use: Never Used Second Hand Smoke Exposure: No service: No Current occupational status: unemployed Cognitive needs: No Hearing needs: No Vision needs: Yes Female Reproductive History Menstrual Age of Menarche: 10 Assessment & Plan Assessment & Plan (1) Gastric bypass status for obesity: Code(s): Z98.84 - Bariatric surgery status (2) GERD (gastroesophageal reflux disease): Code(s): K21.9 - Gastro-esophageal reflux disease without esophagitis Qualifiers: Esophagitis presence: esophagitis presence not specified Qualified Code(s): K21.9 - Gastro-esophageal reflux disease without esophagitis (3) Overweight: Code(s): E66.3 - Overweight (4) Abdominal pain: Code(s): R10.9 - Unspecified abdominal pain Qualifiers: Abdominal location: unspecified location Qualified Code(s): R10.9 - Unspecified abdominal pain Plan Pt to continue carafate and if no objections from Dr. Cowart, restart PPI. Will await capsule results and decision for endoscopy. Continue same meal plan for now. Pt to have vitamin levels drawn. RTC 6-8 weeks and encouraged pt to text me between appts with any concerns. Patient is overweight with abdominal pain and is not considered stable at this time. I spent a total of 30 minutes reviewing/updating records, examining the patient and counseling the patient on weight management as detailed above. Telehealth Telehealth Location of provider rendering services: practice address Location of patient: address on file Patient Identification confirmed using: Name, : Yes Telehealth method: voice only Patient verbally consented to treatment: Yes Patient verbally consented to billing insurance company: Yes Patient informed of any privacy concerns related to visit: Yes Minutes spent on Phone/Video with Pt.: 15 Coding Level of Care Code Tele Est Pt Level 4 (29692) Diagnoses Gastric bypass status for obesity Z98.84 Gastroesophageal reflux disease, unspecified whether esophagitis present K21.9 Esophagitis presence: esophagitis presence not specified Overweight E66.3 Abdominal pain R10.9 Abdominal location: unspecified location
== END 2023-10-02 13:21 | disposition home or self-care (01) ==
LOC: HO.HBS 13:18
PROVIDERS: PCP Internal Medicine; Visit Provider Physician Assistant Surgical
DX: E66.3 Overweight (principal); Z68.42 Body mass index [BMI] 45.0-49.9, adult; Z90.3 Acquired absence of stomach [part of]; Z98.84 Bariatric surgery status; K21.9 Gastro-esophageal reflux disease without esophagitis
CPT/HCPCS: 99214

== ENCOUNTER → 2023-10-02 13:17 | Outpatient (BNVA) | payer OTHER, SELFPAY | PROVIDERS: PCP Internal Medicine; Visit Provider Physician Assistant Surgical ==

== ENCOUNTER 2023-10-22 09:52 | Day surgery (SDC) | payer OTHER, SELFPAY ==
--- NOTE | 2023-10-21 11:53 | HO.ANESPROP2 ---
Documented by User: Tasha Vásquez NP 10/21/23 11:53 HPI - Anesthesia Eval Consult details Narrative: 28yo F for Push Enteroscopy PMFSH Active Problems Active Problems: All Active Problems (Updated 09/19/23 @ 11:26 by Dennis Cowart MD) Enteritis (Acute) Overweight (Acute) Right flank pain (Acute) Pelvic pain (Acute) ADHD (Acute) Right lower quadrant pain (Acute) Bleeding hemorrhoids (Acute) Streptococcal pharyngitis (Acute) History of kidney stones (Acute) Physical exam (Acute) History of pyelonephritis (Acute) Recurrent UTI (Acute) Malrotation, kidney (Acute) Insomnia (Acute) (Acute) Ovarian cyst, complex (Acute) Headache (Acute) Iron deficiency anemia (Acute) Abnormal LFTs (Acute) Diarrhea (Acute) Hypovitaminosis D (Acute) Iron deficiency anemia (Acute) GERD (gastroesophageal reflux disease) (Acute) Lumbar pain (Acute) Hip asymmetry (Acute) Intestinal malabsorption following gastrectomy (Acute) Bile duct abnormality (Acute) Gastric bypass status for obesity (Acute) Obesity (BMI 30-39.9) (Acute) Past Medical History Medical History (Updated 09/19/23 @ 11:26 by Dennis Cowart MD) Pelvic pain Muscle spasm Internal and external bleeding hemorrhoids Constipation Breakthrough bleeding on Nexplanon COVID-19 Left arm pain Encounter for removal and reinsertion of Nexplanon Chronic abdominal pain Sacroiliac joint pain Hypovitaminosis D Iron deficiency anemia GERD (gastroesophageal reflux disease) Ovarian mass Sinusitis BCP ( control pills) initiation Yeast infection involving the vagina and surrounding area Problematic vaginal discharge Lumbar pain Hip asymmetry Intestinal malabsorption following gastrectomy Obesity (BMI 30-39.9) Sleep apnea Asthma Bile duct abnormality Cholecystectomy planned Family History Family History Father Obesity Diabetes mellitus Mother Obesity Arthritis of knee Paternal Grandfather Diabetes mellitus Paternal Grandmother Diabetes mellitus Maternal Grandmother Arthritis of knee Diabetes mellitus Maternal Grandfather Diabetes mellitus Family history of problems with anesthesia: No Surgical History Surgical History (Updated 09/19/23 @ 10:57 by RUFINO Olivares) H/O cystoscopy History of hemorrhoidectomy (~05/20/23) H/O colonoscopy History of esophagogastroduodenoscopy (EGD) Hx of cholecystectomy Gastric bypass status for obesity History of Problems with Anesthesia: No Social History Social History Household Members: None Housing: House Alcohol intake: never Comment: still nauseous Patient Tobacco Use Status: Never used Tobacco e-Cigarette/Vaping Use: Never Used Second Hand Smoke Exposure: No Are you DNR?: No Advance Directives: No Advance Directives Information Provided: Yes Nutrition Risks: No Nutritional Risk Patient : No service: No Current occupational status: unemployed Cognitive needs: No Hearing needs: No Vision needs: Yes Meds Allergies Allergy/AdvReac Type Severity Reaction Status Date / Time carrot [CARROTS] Allergy Intermediate SWELLING Verified 09/19/23 10:57 cat dander [CATS] Allergy Intermediate ITCHING Verified 09/19/23 10:57 insect venom [INSECT BITES] Allergy Intermediate HIVES Verified 09/19/23 10:57 Home Medications Medication Instructions Recorded Confirmed Last Taken Type lancets 28 gauge (FreeStyle #100 ea 07/19/22 09/02/23 Unknown History Lancets) Assessment and Plan Assessment Anesthesia Assessment: Chart Reviewed Final Anesthetic Review Family History of Problems with Anesthesia: No History of Problems with Anesthesia: No Documented by User: Teresa Lainez MD 10/22/23 10:45 [facility] Past Medical History Medical History (Updated 09/19/23 @ 11:26 by Dennis Cowart MD) Pelvic pain Muscle spasm Internal and external bleeding hemorrhoids Constipation Breakthrough bleeding on Nexplanon COVID-19 Left arm pain Encounter for removal and reinsertion of Nexplanon Chronic abdominal pain Sacroiliac joint pain Hypovitaminosis D Iron deficiency anemia GERD (gastroesophageal reflux disease) Ovarian mass Sinusitis BCP ( control pills) initiation Yeast infection involving the vagina and surrounding area Problematic vaginal discharge Lumbar pain Hip asymmetry Intestinal malabsorption following gastrectomy Obesity (BMI 30-39.9) Sleep apnea Asthma Bile duct abnormality Cholecystectomy planned Family History Family History Father Obesity Diabetes mellitus Mother Obesity Arthritis of knee Paternal Grandfather Diabetes mellitus Paternal Grandmother Diabetes mellitus Maternal Grandmother Arthritis of knee Diabetes mellitus Maternal Grandfather Diabetes mellitus Surgical History Surgical History (Updated 09/19/23 @ 10:57 by RUFINO Olivares) H/O cystoscopy History of hemorrhoidectomy (~05/20/23) H/O colonoscopy History of esophagogastroduodenoscopy (EGD) Hx of cholecystectomy Gastric bypass status for obesity Social History Social History Household Members: None Housing: House Alcohol intake: never Comment: still nauseous Patient Tobacco Use Status: Never used Tobacco e-Cigarette/Vaping Use: Never Used Second Hand Smoke Exposure: No Are you DNR?: No Advance Directives: No Advance Directives Information Provided: Yes Nutrition Risks: No Nutritional Risk Patient : No service: No Current occupational status: unemployed Cognitive needs: No Hearing needs: No Vision needs: Yes Meds Allergies Allergy/AdvReac Type Severity Reaction Status Date / Time carrot [CARROTS] Allergy Intermediate SWELLING Verified 09/19/23 10:57 cat dander [CATS] Allergy Intermediate ITCHING Verified 09/19/23 10:57 insect venom [INSECT BITES] Allergy Intermediate HIVES Verified 09/19/23 10:57 Home Medications Medication Instructions Recorded Confirmed Last Taken Type lancets 28 gauge (FreeStyle #100 ea 07/19/22 09/02/23 Unknown History Lancets) Exam Airway Mallampati Class: I TM Dist: >3cm Neck ROM: Full Assessment and Plan Assessment Anesthesia Assessment: Anesthesia Plan Discussed Final Anesthetic Review NPO: Yes ASA Class: II Final Preanesthetic Review: No Changes in Pt Med Stat, Meds/Allgs Chart Reviewed, Consent Obtained/Reviewed and Anes Risks/Benef Reviewed Patient Risk: Intermediate Procedure Risk: Low Anesthetic Plan Anesthetic Plan: TIVA Disposition: Standard PACU
[2023-10-22 09:58] VITALS: BP 104/60; PULSE 58; RESP 18; TEMP 36.9; O2SAT 97; BMI 26.7
[2023-10-22] MEDS: Lactated Ringers 1,000 ML 100 ML IVCONT (10:23)
[2023-10-22 10:28] LABS: UPreg QC Valid YES; Urine Pregnancy NEGATIVE (NEGATIVE)
--- NOTE | 2023-10-22 10:56 | P.HPSUR_ITS ---
Pre-Procedural Eval Section A - 24 Hr Update-Section A only Date of Service: 10/22/23 Section B - Complete if H&P > 30 days Chief Complaint: Noninfective gastroenteritis and colitis, unspecif Relevant Family History (Specify if Yes): No Relevant Social History: Tobacco Use Present Medications: see Short Stay Collaborative assessment Medical History: Significant History (Pelvic pain Muscle spasm Internal and external bleeding hemorrhoids Constipation Breakthrough bleeding on Nexplanon COVID-19 Left arm pain Encounter for removal and reinsertion of Nexplanon Chronic abdominal pain Sacroiliac joint pain Hypovitaminosis D Iron deficiency anemia GERD (gastroesophageal r) History of Previous Operations: Relevant previous surgery/procedure and date(s) (H/O cystoscopy History of hemorrhoidectomy (~05/20/23) H/O colonoscopy History of esophagogastroduodenoscopy (EGD) Hx of cholecystectomy Gastric bypass status for obesity) Allergies: Allergies Allergy/AdvReac Type Severity Reaction Status Date / Time carrot [CARROTS] Allergy Intermediate SWELLING Verified 09/19/23 10:57 cat dander [CATS] Allergy Intermediate ITCHING Verified 09/19/23 10:57 insect venom [INSECT BITES] Allergy Intermediate HIVES Verified 09/19/23 10:57 Review of Systems Sugical H&P ROS: Negative: Constitution, Cardiovascular, Respiratory, Neurological, Psychiatric, Hem-Onc, Allergic/Immunologic, Gastrointestinal, Genitourinary, Musculoskeletal, Integumentary, Endocrine and Eyes /Ears/Nose/Throat Exam Surgical H&P Exam: Normal: HEENT, Normal: Heart, Normal: Lungs, Normal: Extremities, Normal: Abdomen, Normal: Skin and Normal: Neurological Plan Diagnosis/Plan: Unchanged I have reviewed the history and physical and performed a pertinent physical examination on my patient. No changes have occurred unless specified. Time Spent With Patient Time: Total time managing care of this patient today ____ minutes.
--- NOTE | 2023-10-22 10:57 | W.PM.OPN ---
Operative Note Operative Note Date of Service: 10/22/23 Narrative: Procedure Description: Pushenteroscopy Indication: enteritis--hx of gastric bypass Anesthesia: MAC FLEXIBLE TRANSORAL UPPER GASTROINTESTINAL ENDOSCOPY and Push Enteroscopy UPPER ENDOSCOPY Consent: Indications for the procedure and potential complications of bleeding, perforation, reaction to medications and missed diagnosis were discussed with the patient and informed consent was obtained. Instrument: pediatric olympus colonoscope Monitoring: Vital signs and clinical assessment, continuous EKG monitoring, Pulse oximetry, Carbon Dioxide monitoring and blood pressure monitoring were done throughout the procedure. Procedure: The patient was placed in the left lateral decubitis position and pre-procedure medications were administered and a bite block was placed. The endoscope was inserted into the mouth and advanced under direct vision to the jejuno jejunal anastomosis. A careful inspection was made as the upper endoscope was withdrawn including a retroflexed examination of the proximal stomach; Findings and interventions are described below. Findings: Larynx:normal Esophagus: GE junction at 38 cm, diaphragm hiatus at 38 cm, no varices or esophagitis. Stomach pouch: Normal, bx taken Jejunum: Mild patchy erythema, random bx taken, jejuno jenjunal anastomosis was reached Intervention: Biopsies as noted above Impression/Findings: mild enteritis PLAN: aait bx trial of budeosnide meantime
[2023-10-22 11:54] VITALS: BP 118/77; PULSE 56; RESP 16; O2SAT 100
[2023-10-22 12:09] VITALS: BP 120/80; PULSE 76; RESP 16; TEMP 36.3; O2SAT 99
[2023-10-22 12:24] VITALS: BP 109/61; PULSE 56; RESP 16; TEMP 36.5; O2SAT 100
== END 2023-10-22 12:53 | disposition home or self-care (01) ==
PROVIDERS: Nurse Practitioner; PCP Internal Medicine; Visit Provider Internal Medicine Gastroenterology
PROC: (CPT 43239; principal; 2023-10-22 13:20)
DX: K52.9 Noninfective gastroenteritis and colitis, unspecified (principal); Z98.84 Bariatric surgery status
CPT/HCPCS: 43239; 36415; 81025; 88184; 88185; 88300; 88305; 88313; 88342; J1596; J2704

== ENCOUNTER → 2023-10-22 09:52 | Outpatient (BNV) | payer OTHER, SELFPAY | PROVIDERS: PCP Internal Medicine; Visit Provider Internal Medicine Gastroenterology | DX: K52.9 Noninfective gastroenteritis and colitis, unspecified (principal); Z98.84 Bariatric surgery status | CPT/HCPCS: 43239 ==

== ENCOUNTER 2023-10-29 12:45 | Outpatient (AMB) | payer OTHER, SELFPAY ==
[2023-10-29 12:53] VITALS: BP 120/80; BMI 27.2
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
== END 2023-10-29 13:17 | disposition home or self-care (01) ==
PROVIDERS: PCP Internal Medicine; Visit Provider Internal Medicine
DX: G43.909 Migraine, unspecified, not intractable, without status migrainosus (principal); Z04.3 Encounter for examination and observation following other accident
CPT/HCPCS: 99213

== ENCOUNTER 2023-11-13 03:02 | Emergency (ER) | payer OTHER, SELFPAY ==
--- NOTE | ~2023-11-13 | CT_ITS ---
EXAMINATION: CT ABDOMEN AND PELVIS WITH CONTRAST CLINICAL INFORMATION: Abdominal pain, history of bypass COMPARISON: 08/16/2023 TECHNIQUE: Multidetector volumetric images were obtained from the superior aspect of the liver through the pubic symphysis following administration 85 mL of Omnipaque 350 intravenous contrast. Sagittal and coronal reformatted images were obtained on the technologist's workstation. Oral contrast: Yes This CT examination was performed using dose optimization techniques as appropriate, variously including the following: *Automated exposure control *Adjustment of mA and/or kV according to patient size (this includes techniques or standardized protocols for targeted exams where dose is matched to indication/reason for exam; i.e. extremities or head) *Use of iterative reconstruction technique DLP: 649 mGy-cm FINDINGS: LUNG BASES: The visualized lung bases are unremarkable. LIVER, GALLBLADDER, AND BILIARY TREE: The liver is normal in size, shape, and attenuation. A small focal region of hypoattenuation adjacent to the falciform ligament could be due to focal fatty infiltration or alterations in hepatic perfusion. No biliary ductal dilatation is present. Patient is status post cholecystectomy. PANCREAS: Unremarkable. SPLEEN: Unremarkable. ADRENAL GLANDS: Unremarkable. KIDNEYS AND URETERS: No hydronephrosis or obstructing calculus identified. Right kidney appears malrotated. Bilateral nephrograms are symmetric. BLADDER: Unremarkable. GASTROINTESTINAL TRACT: Status post gastric bypass surgery. Contrast material is present in the distal esophagus, gastric pouch, and multiple small bowel loops throughout the abdomen. No convincing evidence of bowel obstruction. There is a somewhat thick-walled appearance of small bowel in the lower anterior abdomen. No free fluid or free air is seen. ABDOMINAL WALL: No significant hernia is appreciated. LYMPH NODES: Multiple nonspecific lymph nodes again demonstrated in the mesentery, some of which measure near the upper limits of normal in size. VASCULAR: Unremarkable. PELVIC VISCERA: Left adnexal cyst measuring up to approximately 2.9 cm is most consistent with a functional cyst; no follow-up recommended. OSSEOUS STRUCTURES: Unremarkable. CT/CT abdomen pelvis w IV con IMPRESSION: 1. Somewhat thick-walled appearance of small bowel in the lower anterior abdomen, which could be due to enteritis. No convincing evidence of bowel obstruction. 2. Status post gastric bypass surgery. Contrast material is present in the distal esophagus, gastric pouch, and multiple small bowel loops throughout the abdomen. 3. Redemonstrated nonspecific mesenteric lymph nodes, some of which measure near the upper limits of normal in size.
[2023-11-13 03:07] VITALS: BP 106/64; PULSE 100; RESP 16; TEMP 36.4; O2SAT 99; BMI 26.6
--- NOTE | 2023-11-13 03:27 | ED.ABDPAIN ---
HPI - Abdominal Pain General Chief Complaint: Abdominal Pain Stated Complaint: Abd pain Time Seen by Provider: 11/13/23 03:25 Source: patient Mode of arrival: ambulatory History of Present Illness HPI narrative: 28-year-old female with history of Crohn's and currently being followed by Dr. Cowart in states that she was started on budesonide the beginning of the month and has been feeling okay but states that she had acute on chronic onset of her abdominal discomfort that worsened over the past couple of days and has been associated with nausea, vomiting, she has not had a good appetite. Related Data Home Medications Medication Instructions Recorded Confirmed lancets 28 gauge (FreeStyle #100 ea 07/19/22 09/02/23 Lancets) Previous Rx's Medication Instructions Recorded cyclobenzaprine 10 mg tablet 10 mg PO BEDTIME #30 tabs 09/02/22 pantoprazole 40 mg tablet,delayed 40 mg PO BID #60 tabs 09/25/23 release budesonide 3 mg 9 mg (3 x 3 mg) PO QAM #90 ea 10/22/23 capsule,delayed,extended release sucralfate 100 mg/mL oral 10 ml PO BID #414 mL 11/06/23 suspension (Carafate) Allergies Allergy/AdvReac Type Severity Reaction Status Date / Time carrot [CARROTS] Allergy Intermediate SWELLING Verified 11/13/23 03:07 cat dander [CATS] Allergy Intermediate ITCHING Verified 11/13/23 03:07 insect venom [INSECT BITES] Allergy Intermediate HIVES Verified 11/13/23 03:07 Review of Systems Review of Systems Pertinent positives and negatives as stated in HPI PMFSH Past Medical History Source: nursing notes reviewed Medical History Pelvic pain Muscle spasm Internal and external bleeding hemorrhoids Constipation Breakthrough bleeding on Nexplanon COVID-19 Left arm pain Encounter for removal and reinsertion of Nexplanon Chronic abdominal pain Sacroiliac joint pain Hypovitaminosis D Iron deficiency anemia GERD (gastroesophageal reflux disease) Ovarian mass Sinusitis BCP ( control pills) initiation Yeast infection involving the vagina and surrounding area Problematic vaginal discharge Lumbar pain Hip asymmetry Intestinal malabsorption following gastrectomy Obesity (BMI 30-39.9) Sleep apnea Asthma Bile duct abnormality Cholecystectomy planned Surgical History H/O cystoscopy History of hemorrhoidectomy (~05/20/23) H/O colonoscopy History of esophagogastroduodenoscopy (EGD) Hx of cholecystectomy Gastric bypass status for obesity Family History Family History Father Obesity Diabetes mellitus Mother Obesity Arthritis of knee Paternal Grandfather Diabetes mellitus Paternal Grandmother Diabetes mellitus Maternal Grandmother Arthritis of knee Diabetes mellitus Maternal Grandfather Diabetes mellitus Social History Social History Household Members: None Housing: House Alcohol intake: never Comment: still nauseous Patient Tobacco Use Status: Never used Tobacco Smoked in Last 30 Days: No e-Cigarette/Vaping Use: Never Used Second Hand Smoke Exposure: No Use of substances other than those prescribed or required for medical reasons: No Advance Directives: No Advance Directives Information Provided: Yes Patient : No service: No Current occupational status: unemployed Cognitive needs: No Hearing needs: No Vision needs: Yes Physical Exam ED Vital Signs: Vital Signs - 24 hr 11/13/23 03:07 11/13/23 04:15 11/13/23 06:14 Temperature 97.6 F 98.0 F 98.5 F Pulse Rate 100 95 94 Respiratory Rate 16 16 18 Blood Pressure 106/64 105/61 105/55 L Pulse Oximetry 99 98 98 Oxygen Delivery Method Room Air Room Air Room Air BMI result Body Mass Index 26.6 VITAL SIGNS: Reviewed. GENERAL: Well developed, well nourished, in no acute distress. HEAD: Normocephalic/atraumatic EYES: PERRLA, EOMI EARS: Ext canals without abnormality NOSE: Nares patent bilateral OROPHARYNX: no oral lesions noted, posterior pharynx clear NECK: Supple, no adenopathy LUNGS: Normal breath sounds. No adventitious sounds or accessory muscle use. SpO2<98> CARDIOVASCULAR: Regular rate and rhythm without noted murmurs ABDOMEN: Soft, non-tender, non-distended with bowel sounds. MUSCULOSKELETAL: No tenderness, deformities, or effusions noted on gross inspection. EXTREMITIES: No cyanosis, clubbing or edema. SKIN: Inspection of the skin reveals no rashes NEUROLOGIC: Alert and oriented x 4. Strength and sensation to light touch were grossly intact x 4. Medical Decision Making Medical Decision Making MDM Narrative: This is a 28-year-old female with history and clinical presentation, DDX: Low clinical suspicion for Crohn's flare given the fact that she has been on 9 mg of budesonide since 10/22 shortly after having her push enteroscopy, I suspect some of this is likely secondary to inflammation and irritation from the steroid use in combination with historical surgical history gastric bypass, possible viral illness. Will proceed with CT abdomen pelvis with oral and IV contrast. I reviewed patient's recent gastroenterology procedure which involved a push enteroscopy and was only significant for mild enteritis. Reviewed all investigations in hematologic indices are negative for leukocytosis/anemia/thrombocytopenia. Chemistry indices demonstrate increasing values for transaminases though still within the range since August of 2023. Otherwise, there is no evidence of JAYDA or electrolyte derangements and beta hCG is undetectable. Urinalysis is negative for UTI or hematuria. Viral testing is negative for COVID-19/influ[address]. CT scan demonstrates some thick walled appearance of the small bowel in the lower anterior abdomen consistent with likely enteritis but no evidence to suggest bowel obstruction, no other acute findings, and patient is status post cholecystectomy. 0720: I discussed case with Dr. Cowart who recommends that patient continues with steroids and stresses the point that she needs to keep the appointment with hematology. I discussed this with the patient at the bedside who acknowledges understanding and is otherwise discharged. Differential Diagnosis Differential Diagnoses: The differential diagnosis associated with the presentation includes Please see the discussion above Admission/Observation Consideration of admission/observation: Escalation of care including admission/observation considered Please see the discussion above Consult Healthcare Provider Management of the patient was discussed with: Gallery Or Museum Technician Please see the discussion above Lab Data MDM Lab Attestation statement: I reviewed the patient's lab results. Please see the discussion above 11/13/23 03:38 11/13/23 03:38 Labs: Lab Results 11/13/23 11/13/23 11/13/23 Range/Units 03:38 03:41 05:28 WBC 6.7 (4.8-10.8) X10*3/uL RBC 5.12 (4.20-5.50) X10*6/uL Hgb 12.8 (12.0-16.0) g/dl Hct 40.4 (37.0-47.0) % MCV 78.9 L (80.0-98.0) fL MCH 25.0 L (27.0-33.0) pg MCHC 31.7 (31.0-35.0) g/dl RDW 13.8 (11.0-16.0) % Plt Count 203 D (160-400) X10*3/uL MPV 9.9 (9.4-12.3) fL Immature Gran % (Auto) 0.2 (0.0-0.4) % Neut % (Auto) 85.3 H (45-73) % Lymph % (Auto) 6.0 L (20-40) % [place] % (Auto) 7.1 (2-11) % Eos % (Auto) 0.9 (0-4) % Baso % (Auto) 0.5 (0-2) % Lymph # (Auto) 0.4 L (1.2-4.9) X10*3/uL [place] # (Auto) 0.5 (0.1-1.2) X10*3/uL Eos # (Auto) 0.1 (0.0-0.4) X10*3/uL Baso # (Auto) 0.0 (0.0-0.2) X10*3/uL Abs Immat Gran (auto) 0.01 (0.00-0.03) X10*3/uL Absolute Neuts (auto) 5.7 (2.0-8.3) x10*3/uL Absolute Nucleated RBC 0.000 (0.0-0.012) X10*3/uL Nucleated RBC % (auto) 0.0 (0.0-0.2) /100WBC Sodium 138 (135-145) mmol/L Potassium 3.9 (3.3-5.1) mmol/L Chloride 109 H (96-108) mmol/L Carbon Dioxide 20 L (22-29) mmol/L Anion Gap 13 (12-20) BUN 13 (9-16) mg/dL Creatinine 0.75 (0.5-1.4) mg/dL Estim Creat Clear Calc 123.5 Estimated GFR > 60 Random Glucose 183 H (60-115) mg/dL Calcium 7.9 L D (8.4-10.2) mg/dL Total Bilirubin 0.8 (0.0-1.0) mg/dL AST 650 H (5-31) U/L ALT 166 H (0-31) U/L Alkaline Phosphatase 197 H (39-117) U/L Total Protein 6.5 (6.5-8.0) g/dL Albumin 4.0 (3.5-5.0) g/dL Lipase 26 (8-78) U/L Beta HCG, Quant < 2 mIU/mL Urine Color Yellow Urine Appearance Clear Urine pH 6.0 (5.0-9.0) Ur Specific [place] 1.015 (1.005-1.025) Urine Protein Trace (Neg-Trace) mg/dL Urine Glucose (UA) Negative (Negative) mg/dL Urine Ketones Trace (Negative) mg/dL Urine Blood Negative (Negative) Urine Nitrite Negative (Negative) Ur Leukocyte Esterase Negative (Negative) COVID-19 (PILY) Negative (Negative) COVID-19 Clin Com See Note Influenza Type A (ALVARO) Negative (Negative) Influenza Type B (ALVARO) Negative (Negative) Influenza A & B Note See Note External Record Review External record reviewed: Office record, Outpatient record, Prior outpatient labs and Prior outpatient radiology Medications Administered Discontinued Medications Generic Name Dose Route Start Last Admin Trade Name Freq PRN Reason Stop Dose Admin Diatrizoate Meglum/Diatrizoate Sod 30 ml 11/13/23 05:54 11/13/23 05:55 Diatrizoate Meglumine, Sodium 30 Ml Solution PO 11/13/23 05:55 30 ml ONCE ONE Administration Iohexol 85 ml 11/13/23 05:51 11/13/23 05:51 Iohexol 350 Mg/Ml 100 Ml Infus..Btl IV 11/13/23 05:52 85 ml ONCE ONE Administration Ondansetron HCl 4 mg 11/13/23 04:12 11/13/23 04:16 Ondansetron Hcl 4 Mg/2 Ml Vial IVPUSH 11/13/23 04:13 4 mg ONCE ONE Administration Critical Care Time Critical Care Time Critical Care Time: Yes Total Critical Care Time: 60 Attestation: I personally attest to this time spent taking care of the patient. Discharge Plan Discharge Clinical Impression: Abdominal pain, Gastritis Patient Disposition: Home, Self-Care Instructions: Gastritis (ED), Diet for Stomach Ulcers and Gastritis (ED), Abdominal Pain (ED) Additional Instructions: 1. Resume all home medications as prescribed. 2. Please keep your scheduled appointment with hematology. Return to the ER for any worsening symptoms. Prescriptions: No Action sucralfate [Carafate] 100 mg/mL suspension 10 ml PO BID Qty: 414 3RF budesonide 3 mg capsule,delayed,extend.release 9 mg PO QAM Qty: 90 0RF Rx Instructions: open capsule and mix with apple sauce and take (DME) lancets [FreeStyle Lancets] 28 gauge misc See Rx Instructions .ROUTE QID Qty: 100 Rx Instructions: As directed cyclobenzaprine 10 mg tablet 10 mg PO BEDTIME Qty: 30 11RF pantoprazole 40 mg tablet,delayed release (DR/EC) 40 mg PO BID Qty: 60 3RF Referrals: Marita Toledo MD [Primary Care Provider] -
[2023-11-13 03:43] LABS: Basophils Percent Auto 0.5 % (0-2); Eosinophils Absolute Auto 0.1 X10*3/uL (0.0-0.4); Eosinophils Percent Auto 0.9 % (0-4); Hematocrit 40.4 % (37.0-47.0); Hemoglobin 12.8 g/dl (12.0-16.0); Imm Gran Abs Auto 0.01 X10*3/uL (0.00-0.03); Imm Gran Pct Auto 0.2 % (0.0-0.4); Lymphocytes Absolute Auto 0.4 X10*3/uL (1.2-4.9); MANUAL DIFF FLAG NO; Mean Corpuscular HGB Conc 31.7 g/dl (31.0-35.0); Mean Corpuscular Volume 78.9 fL (80.0-98.0); Mean Platelet Volume 9.9 fL (9.4-12.3); Monocytes Absolute Auto 0.5 X10*3/uL (0.1-1.2); Monocytes Percent Auto 7.1 % (2-11); Neutrophils Absolute Auto 5.7 x10*3/uL (2.0-8.3); Neutrophils Percent Auto 85.3 % (45-73); Platelet Count 203 X10*3/uL (160-400); Red Blood Count 5.12 X10*6/uL (4.20-5.50); Red Cell Distribution Width 13.8 % (11.0-16.0); White Blood Count 6.7 X10*3/uL (4.8-10.8)
[2023-11-13 03:56] LABS: Alanine Aminotransferase 166 U/L (0-31); Alkaline Phosphatase 197 U/L (39-117); Anion Gap 13 (12-20); Aspartate Amino Transferase 650 U/L (5-31); Bilirubin Total 0.8 mg/dL (0.0-1.0); Blood Urea Nitrogen 13 mg/dL (9-16); Calcium 7.9 mg/dL (8.4-10.2); Carbon Dioxide 20 mmol/L (22-29); Chloride 109 mmol/L (96-108); Creatinine Clr Calc Pharmacy 123.5; Estimated Glomerular Filt Rate > 60; Glucose Random 183 mg/dL (60-115); Lipase 26 U/L (8-78); Potassium 3.9 mmol/L (3.3-5.1); Sodium 138 mmol/L (135-145); Total Protein 6.5 g/dL (6.5-8.0)
[2023-11-13 04:02] LABS: HCG Quantitative < 2 mIU/mL
[2023-11-13 04:08] LABS: COVID-19 Test Negative (Negative); IDNOW Serial# 08D9AD1C; IDNOW Serial# 152EDE1D; Influenza A Negative (Negative); Influenza B2 Negative (Negative)
[2023-11-13 04:15] VITALS: BP 105/61; PULSE 95; RESP 16; TEMP 36.7; O2SAT 98
[2023-11-13] MEDS: ondansetron HCL 4 MG/2 ML VIAL IVPUSH (04:16)
--- NOTE | 2023-11-13 05:26 | MHC.EDTECH ---
Patient ambulated to the bathroom with a steady gait,urine sample collected and sent to lab.
[2023-11-13 05:36] LABS: Appearance Urine Clear; Color Urine Yellow; Glucose Urine UA Negative (Negative); Leukocyte Esterase Urine Negative (Negative); Nitrite Urine Negative (Negative); Specific Gravity - Urine 1.015 (1.005-1.025); Urine Blood Negative (Negative); Urine Ketones Trace mg/dL (Negative); Urine Protein Trace mg/dL (Neg-Trace)
[2023-11-13] MEDS: iohexoL 350 MG/ML 100 ML INFUS..BTL 85 ML IV (05:51)
[2023-11-13] MEDS: Diatrizoate Meglumine, Sodium 30 ML SOLUTION PO (05:55)
--- NOTE | 2023-11-13 06:03 | PC.NURSE ---
Pt given heating pack per request.
[2023-11-13 06:14] VITALS: BP 105/55; PULSE 94; RESP 18; TEMP 36.9; O2SAT 98
--- NOTE | 2023-11-13 06:16 | MHC.EDTECH ---
Hourly rounds and vitals completed,patient ambulated to the bathroom with a steady gait. patient is resting at this time ad call escalante in reach
[2023-11-13 07:57] VITALS: BP 112/60; PULSE 99; RESP 16; TEMP 37.1; O2SAT 96
== END 2023-11-13 08:00 | disposition home or self-care (01) ==
PROVIDERS: Emergency Provider Student in an Organized Health Care Education/Training Program; PCP Internal Medicine
DX: K29.70 Gastritis, unspecified, without bleeding (principal); K50.90 Crohn's disease, unspecified, without complications; Z79.52 Long term (current) use of systemic steroids; Z11.52 Encounter for screening for COVID-19
CPT/HCPCS: 36415; 74177; 80053; 81003; 83690; 84702; 85025; 87502; 87635; 96374; 99284; J2405; Q9967

== ENCOUNTER → 2023-11-17 15:03 | Outpatient (BNV) | payer OTHER, SELFPAY | PROVIDERS: PCP Internal Medicine; Visit Provider Internal Medicine | DX: R10.32 Left lower quadrant pain (principal) | CPT/HCPCS: 99204; 99213 ==

== ENCOUNTER 2023-12-18 09:29 | Outpatient (AMB) | payer OTHER, SELFPAY ==
[2023-12-18 09:31] VITALS: BP 122/68; BMI 26.9
--- NOTE | 2023-12-18 09:31 | MHC.PC.OV ---
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 Services Required: No Accompanied by: Self / Same As Patient Allergies carrot [CARROTS] Allergy (Intermediate, Verified 12/18/23 09:56) SWELLING cat dander [CATS] Allergy (Intermediate, Verified 12/18/23 09:56) ITCHING insect venom [INSECT BITES] Allergy (Intermediate, Verified 12/18/23 09:56) HIVES Medication List - Last Reconciled 12/18/23 by Marita Solis MD budesonide DR-ER 9 mg (3 x 3 mg) PO QAM Carafate (sucralfate) 10 mL PO BID NS cholecalciferol (vitamin D3) 125 mcg PO DAILY cyclobenzaprine 10 mg PO BEDTIME lancets (FreeStyle Lancets) As directed pantoprazole 40 mg PO BID thiamine HCl (vitamin B1) 100 mg PO DAILY vitamin A palmitate 10,000 units PO DAILY Tobacco use date assessed: 10/29/23 Dental Screening Dental Screen Date: 12/18/23 Did you have a dental visit in the last 12 months?: Yes Did you have a dental problem in the last 6 months where you did not have access to dental care?: No Was dental information given to patient?: Patient has dentist HPI HPI Comments History of Present Illness Details This is a 28-year-old female with Crohn's disease that comes for her physical exam. On budesonide for her Crohn's disease and she still has abdominal pain and would like a 2nd opinion in [place]. Last Pap smear was 2022 as per patient. Denies any chest pain or shortness of breath. [facility] Medical History Pelvic pain Muscle spasm Internal and external bleeding hemorrhoids Constipation Breakthrough bleeding on Nexplanon COVID-19 Left arm pain Encounter for removal and reinsertion of Nexplanon Chronic abdominal pain Sacroiliac joint pain Hypovitaminosis D Iron deficiency anemia GERD (gastroesophageal reflux disease) Ovarian mass Sinusitis BCP ( control pills) initiation Yeast infection involving the vagina and surrounding area Problematic vaginal discharge Lumbar pain Hip asymmetry Intestinal malabsorption following gastrectomy Obesity (BMI 30-39.9) Sleep apnea Asthma Bile duct abnormality Cholecystectomy planned Surgical History H/O cystoscopy History of hemorrhoidectomy (~05/20/23) H/O colonoscopy History of esophagogastroduodenoscopy (EGD) Hx of cholecystectomy Gastric bypass status for obesity Family History Father Diabetes mellitus Obesity Mother Arthritis of knee Obesity Paternal Grandfather Diabetes mellitus Paternal Grandmother Diabetes mellitus Maternal Grandmother Diabetes mellitus Arthritis of knee Maternal Grandfather Diabetes mellitus Maternal Aunt Intestinal cancer Social History Household Members: Spouse and Children Housing: House Alcohol intake: never Comment: still nauseous Patient Tobacco Use Status: Never used Tobacco e-Cigarette/Vaping Use: Never Used Second Hand Smoke Exposure: No service: No Current occupational status: unemployed Cognitive needs: No Hearing needs: No Vision needs: Yes Female Reproductive History Menstrual Age of Menarche: 10 Questionnaire PHQ-9 Over the last 2 weeks, how often have you been bothered by any of the following problems? 1. Little interest or pleasure in doing things: not at all 2. Feeling down, depressed, or hopeless: not at all 3. Trouble falling or staying asleep, or sleeping too much: nearly every day 4. Feeling tired or having little energy: nearly every day 5. Poor appetite or overeating: not at all 6. Feeling bad about yourself - or that you are a failure or have let yourself or your family down: not at all 7. Trouble concentrating on things, such as reading the newspaper or watching television: not at all 8. Moving or speaking so slowly that other people could have noticed. Or the opposite - being so fidgety or restless that you have been moving around a lot more than usual: not at all 9. Thoughts that you would be better off or of hurting yourself in some way: not at all Total score: 6 Depression Screening Interpretation: Positive Depression Screening Follow-up: Existing condition Depression Screening Done: Yes 45897 - PHQ-9 Billing: Yes Source: Developed by Drs. George Cortes, Jose Birch and colleagues, with an educational hiren from [employer]. Thrive Questionnaire Date Thrive assessed: 12/18/23 I am a: Patient What is your living situation today?: I have a steady place to live Within the past 12 months, did the food you bought not last and you didn't have the money to get more?: Never true Within the past 12 months, did you worry whether your food would run out before you got money to buy more?: Never true Do you have trouble paying for medicines?: No Do you have trouble getting transportation to medical appointments?: No Do you have trouble paying your heating and electricity bill?: No Do you have trouble taking care of your child, family member or friend?: No Do you have trouble with day-to-day activities such as bathing, preparing meals, shopping, managing finances, etc.?: No Are you currently unemployed and looking for a job?: No Are you interested in more education?: No Please select the resources that you would like help with: None Currently or been in a relationship where the following occur: no concerns reported THRIVE Score: 0 AUDIT C Alcohol Use Questionnaire (AUDIT-C) 1. How often do you have a drink containing alcohol?: Never Total Score: 0 GAGAN-7 AMB Questionnaire GAGAN-7 Date GAGAN - 7 assessed: 12/18/23 Feeling nervous, anxious, or on edge: 0 = Not at all Not being able to stop or control worryin = Not at all Worrying too much about different things: 0 = Not at all Trouble relaxin = Not at all Being so restless that it is hard to sit still: 0 = Not at all Becoming easily annoyed or irritable: 0 = Not at all Feeling afraid as if something awful might happen: 0 = Not at all Total GAGAN-7 score (0-4 normal; 5-9 mild; 10-14 moderate; 15-21 severe): 0 Source: Developed by Drs. George Cortes, Jose Birch and colleagues, with an educational hiren from [employer]. GAGAN-7 Assessment Billing GAGAN-7 Assessment Tool: GAGAN-7 Assessment 00615 Review of Systems Const All systems reviewed & are unremarkable except as noted in HPI and below Eyes Reports no additional complaints, Denies change in vision and Denies other visual disturbances Card Denies chest pain at rest, Denies chest pain with activity, Denies edema, Denies irregular heart rhythm, Denies claudication, Denies dyspnea, Denies dyspnea on exertion, Denies orthopnea, Denies paroxysmal nocturnal dyspnea and Denies slow heart rate Resp Denies cough, Denies dyspnea and Denies dyspnea on exertion GI Reports abdominal pain Physical exam (Primary Care) Vital Signs: Last Vital Signs BP 122/68 12/18/23 09:31 BMI result Body Mass Index 26.9 Tobacco/Smoking Status: Tobacco use Status Tobacco use date assessed 10/29/23 12/18/23 09:40 Patient Tobacco Use Status Never used Tobacco 12/18/23 09:40 e-Cigarette/Vaping Use Never Used 12/18/23 09:40 PHQ-9: PHQ-9 Score PHQ-9: Total score 6 12/18/23 09:43 Depression Screening Interpretation: Positive Depression Screening Follow-up: Existing condition Thrive Assessment: Date of Thrive Assessment Date Thrive assessed 12/18/23 12/18/23 09:40 Currently or been in a relationship where the following occur: no concerns reported Const Orientation/consciousness: patient oriented x3 HENMT Head: Yes normal to inspection, Yes normocephalic and Yes atraumatic Ears: external ears normal Eyes General: appearance normal, both eyes and all related structures Eyelids: Yes eyelids normal Conjunctivae: conjunctivae normal Neck Neck: Yes normal visual inspection and Yes supple Resp Effort & Inspection: normal respiratory effort Auscultation: clear to auscultation bilaterally Cardio Jugular venous distension: no JVD Rate: regular rate Rhythm: regular rhythm Heart sounds: S1 normal heart sound present and S2 normal heart sound present GI Inspection: Yes normal to inspection Palpation (GI): Soft to palpation and nontender Auscultation: normal bowel sounds Skin General skin exam: no rashes or lesions noted Neuro General: patient oriented x3 and no focal motor deficits Extrem General: Yes full ROM Psych Appearance: grossly normal Assessment and Plan Assessment & Plan (1) Physical exam: Code(s): Z00.00 - Encounter for general adult medical examination without abnormal findings Plan: Repeat in a year. (2) Crohn's disease: Code(s): K50.90 - Crohn's disease, unspecified, without complications Plan: Continue budesonide. Orders: Orders Lipid Panel Today Z00.00 - Encounter for general adult medical examination without abnormal findings Comprehensive [place]. Panel Fast Today Z00.00 - Encounter for general adult medical examination without abnormal findings Referrals Gastroenterology Referral K50.90 - Crohn's disease, unspecified, without complications Coding Level of Care Code Est Pt Prev Care 18-39y(50597) Diagnoses Physical exam Z00.00 Crohn's disease K50.90 Additional Codes GAGAN-7 Assessment Billing - GAGAN-7 Assessment Tool: GAGAN-7 Assessment 34990 ([id number]) Time Spent (min) 32
== END 2023-12-18 10:15 | disposition home or self-care (01) ==
PROVIDERS: Visit Provider Internal Medicine
DX: Z00.00 Encounter for general adult medical examination without abnormal findings (principal); K50.90 Crohn's disease, unspecified, without complications
CPT/HCPCS: 99395

== ENCOUNTER 2023-12-22 09:05 | Outpatient (REF) | payer OTHER, SELFPAY ==
[2023-12-22 10:27] LABS: Alanine Aminotransferase 12 U/L (0-31); Albumin Level 3.8 g/dL (3.5-5.0); Alkaline Phosphatase 111 U/L (39-117); Anion Gap 11 (12-20); Aspartate Amino Transferase 24 U/L (5-31); Bilirubin Total 0.3 mg/dL (0.0-1.0); Blood Urea Nitrogen 10 mg/dL (9-16); Calcium 8.4 mg/dL (8.4-10.2); Carbon Dioxide 23 mmol/L (22-29); Chloride 113 mmol/L (96-108); Cholesterol 123 mg/dL (<200); Estimated Glomerular Filt Rate > 60; Glucose Fasting 91 mg/dL (60-99); HDL Cholesterol 58 mg/dL (>40); LDL Cholesterol Calculated 59 mg/dL (<100); Potassium 4.5 mmol/L (3.3-5.1); Sodium 142 mmol/L (135-145); Total Protein 6.8 g/dL (6.5-8.0); Triglycerides 31 mg/dL (<150)
== END 2023-12-22 09:06 | disposition home or self-care (01) ==
LOC: HO.LAB 09:05
PROVIDERS: Internal Medicine; PCP Internal Medicine; Visit Provider Internal Medicine
DX: Z00.00 Encounter for general adult medical examination without abnormal findings (principal); K52.9 Noninfective gastroenteritis and colitis, unspecified
CPT/HCPCS: 36415; 80053; 80061; 88184; 88185

== ENCOUNTER 2024-01-12 09:28 | Outpatient (AMB) | payer OTHER, SELFPAY ==
--- NOTE | 2024-01-12 09:34 | A.OFFVIS_ITS ---
Vital Signs 01/12/24 09:39 Height 5 ft 8 in Weight 180 lb 12.465 oz BMI 27.5 BP 106/64 Blood Pressure Location Lt brachial Position Sitting Pulse 73 Intake Visit Reasons: 5 month follow up R/S from 12/21 Intake Note: Muriel presents in the office as a 5 month follow up. CC: The main concern is that she is having horrible stomach pains, they do not go away and pains do not go away. Some day she feels like she is starving all day. She gets hunger but when she eats the pains are just so bad she is unable to eat. She is not hungry once the pains in the day have finally gone away. 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/p intra op ERCP and sphincterotomy who I am seeing for f/u RECAP; seen 11/2019 she had c/o ruq pain ongoing feesl like stabbing and aching worse with dairy usually she does have diarrhea and constipation alternating no blood in stool or melena denies nausea or vomiting appetite is variable weight is stable she was unsure if she was taking iron supplement admitted to irregular periods due to implant, but not heavy no epistaxis or hematuria I suspected pain could be myofascial in origin but arranged further w/u as below labs 08/2019 with severe iron def and b12 def, HGB 10, LFT 09/2019 normal, prior AMA neg latest hgb:11.7--m111/07 EGD/colon--11/2019--essentially normal, retained suture removed IMAGING: CT A/P--07/2019-- moderate stool, ovarian cysts CTe 01/2020--no IBD, ?small paraesophagela hernia, malrotation of right kidney, no acute findings VCE--inflammation around anastomosis, small bowel otherwise nml She had admission for LUQ thought to be due to diet indiscretion and over eating CT imaging was neg, she had mild LFT abn compared to her last numbers before the admission MRI 10/2020--no liver or biliary abn seen I ordered small bowel series: slow transit time otherwise normal liver serologies neg I referred her to pain management and commenced ursodiol with gabapentin for possible retention gastritis she felt some beenfit but stopped after some time MRe: 2021- normal bowel, Mild right hydronephrosis, CT 04/28/23 for RLQ pain normal Pelvic US: small ovary follicles she has been seeing Dr Wiley for hemorrhoids seeing urology for malrotation of kidney CT 09/06 with suspected enteritis and some prominent LN noted EGD: mild enteritis flow cytometry concerning for B cell lymphoma but bx were neg, [eripheral blood by heme was also neg INTERIM: ongoing abdominal pain with bouts of burning abdominal pain worse with food ongoing nausea, and diarrhea --no vomiting she felt budesonide only helped the first week, not thereafter she recalls her sx first started age 14 --mother has chronic pains, aunt has crohns EXAM: GENERAL: The patient is well developed and nontoxic. VITAL SIGNS:see workflow HEENT: Nonicteric sclerae, PERRLA, EOMI. Oropharynx clear. Moist mucous membranes. Conjunctivae appear well perfused. No thyroid mass. CHEST: Chest wall is nontender. HEART: Regular rate and rhythm without murmurs. LUNGS: Clear to auscultation bilaterally. ABDOMEN: Soft, positive bowel sounds, tender epigastrium, no organomegaly SKIN: No rash, no excessive bruising, petechiae, or purpura. NEUROLOGIC: Cranial nerves II-XII intact without motor/sensory deficit. Psych- nml affect Assessment & Plan 1/ enteritis uncertain if could be IBD or sequel of viral or other infection, other enteropathy--never really responded to budeosnide, maybe need to look at other differentials, e.g FMF, seronegative AIH ([place] budesonide would have helped this as well) PLAN: 1/ Trial of colchicine --stop budesonide 2/ Liver bx PFSH Medical History Pelvic pain Muscle spasm Internal and external bleeding hemorrhoids Constipation Breakthrough bleeding on Nexplanon COVID-19 Left arm pain Encounter for removal and reinsertion of Nexplanon Chronic abdominal pain Sacroiliac joint pain Hypovitaminosis D Iron deficiency anemia GERD (gastroesophageal reflux disease) Ovarian mass Sinusitis BCP ( control pills) initiation Yeast infection involving the vagina and surrounding area Problematic vaginal discharge Lumbar pain Hip asymmetry Intestinal malabsorption following gastrectomy Obesity (BMI 30-39.9) Sleep apnea Asthma Bile duct abnormality Cholecystectomy planned Surgical History H/O cystoscopy History of hemorrhoidectomy (~05/20/23) H/O colonoscopy History of esophagogastroduodenoscopy (EGD) Hx of cholecystectomy Gastric bypass status for obesity Family History Father Diabetes mellitus Obesity Mother Arthritis of knee Obesity Paternal Grandfather Diabetes mellitus Paternal Grandmother Diabetes mellitus Maternal Grandmother Diabetes mellitus Arthritis of knee Maternal Grandfather Diabetes mellitus Maternal Aunt Intestinal cancer Social History Household Members: Spouse and Children Housing: House Alcohol intake: never Comment: still nauseous Patient Tobacco Use Status: Never used Tobacco e-Cigarette/Vaping Use: Never Used Second Hand Smoke Exposure: No service: No Current occupational status: unemployed Cognitive needs: No Hearing needs: No Vision needs: Yes Female Reproductive History Menstrual Age of Menarche: 10 Physical Exam Vital Signs: Last Vital Signs Pulse 73 01/12/24 09:39 BP 106/64 01/12/24 09:39 BMI result Body Mass Index 27.5 Assessment & Plan Assessment & Plan (1) Abnormal LFTs: Code(s): R94.5 - Abnormal results of liver function studies Category: Medical Plan: Assessment & Plan 1/ enteritis uncertain if could be IBD or sequel of viral or other infection, other enteropathy--never really responded to budeosnide, maybe need to look at other differentials, e.g FMF, seronegative AIH ([place] budesonide would have helped this as well) PLAN: 1/ Trial of colchicine --stop budesonide 2/ Liver bx (2) Iron deficiency anemia: Code(s): D50.9 - Iron deficiency anemia, unspecified Category: Medical Qualifiers: Iron deficiency anemia type: inadequate dietary iron intake Qualified Code(s): D50.8 - Other iron deficiency anemias Plan: Assessment & Plan 1/ enteritis uncertain if could be IBD or sequel of viral or other infection, other enteropathy--never really responded to budeosnide, maybe need to look at other differentials, e.g FMF, seronegative AIH ([place] budesonide would have helped this as well) PLAN: 1/ Trial of colchicine --stop budesonide 2/ Liver bx (3) Crohn's disease: Code(s): K50.90 - Crohn's disease, unspecified, without complications Category: Medical Plan: Assessment & Plan 1/ enteritis uncertain if could be IBD or sequel of viral or other infection, other enteropathy--never really responded to budeosnide, maybe need to look at other differentials, e.g FMF, seronegative AIH ([place] budesonide would have helped this as well) PLAN: 1/ Trial of colchicine --stop budesonide 2/ Liver bx (4) Malnutrition: Code(s): E46 - Unspecified protein-calorie malnutrition Category: Medical Plan: Assessment & Plan 1/ enteritis uncertain if could be IBD or sequel of viral or other infection, other enteropathy--never really responded to budeosnide, maybe need to look at other differentials, e.g FMF, seronegative AIH ([place] budesonide would have helped this as well) PLAN: 1/ Trial of colchicine --stop budesonide 2/ Liver bx Orders: Orders Vitamin B1 Today D50.8 - Other iron deficiency anemias, E46 - Unspecified protein-calorie malnutrition, K50.90 - Crohn's disease, unspecified, without complications, R94.5 - Abnormal results of liver function studies Vitamin B3 (Niacin) Today D50.8 - Other iron deficiency anemias, E46 - Unspecified protein-calorie malnutrition, K50.90 - Crohn's disease, unspecified, without complications, R94.5 - Abnormal results of liver function studies Vitamin C Today D50.8 - Other iron deficiency anemias, E46 - Unspecified pro tein-calorie malnutrition, K50.90 - Crohn's disease, unspecified, without complications, R94.5 - Abnormal results of liver function studies Vitamin E Today D50.8 - Other iron deficiency anemias, E46 - Unspecified protein-calorie malnutrition, K50.90 - Crohn's disease, unspecified, without complications, R94.5 - Abnormal results of liver function studies Vitamin K1 Today D50.8 - Other iron deficiency anemias, E46 - Unspecified protein-calorie malnutrition, K50.90 - Crohn's disease, unspecified, without complications, R94.5 - Abnormal results of liver function studies Zinc Today D50.8 - Other iron deficiency anemias, E46 - Unspecified protein- calorie malnutrition, K50.90 - Crohn's disease, unspecified, without c omplications, R94.5 - Abnormal results of liver function studies C Reactive Protein Today D50.8 - Other iron deficiency anemias, E46 - Unspecified protein-calorie malnutrition, K50.90 - Crohn's disease, unspecified, without complications, R94.5 - Abnormal results of liver function studies OMAR Reflex Titer and Pattern Today D50.8 - Other iron deficiency anemias, E46 - Unspecified protein-calorie malnutrition, K50.90 - Crohn's disease, unspecified, without complications, R79.82 - Elevated C-reactive protein (CRP), R94.5 - Abnormal results of liver function studies Immunoglobulins,IgG IgA IgM Today D50.8 - Other iron deficiency anemias, E46 - Unspecified protein-calorie malnutrition, K50.90 - Crohn's disease, unspecified, without complications, R94.5 - Abnormal results of liver function studies Mitochondrial Antibody Today D50.8 - Other iron deficiency anemias, E46 - Unspecified protein-calorie malnutrition, K50.90 - Crohn's disease, unspecified, without complications, R79.89 - Other specified abnormal findings of blood chemistry Transglutaminase IgA Today D50.8 - Other iron deficiency anemias, E46 - Unspecified protein-calorie malnutrition, K50.90 - Crohn's disease, unspecified, without complications, R94.5 - Abnormal results of liver function studies Immunoglobulin G Subclasses Today D50.8 - Other iron deficiency anemias, E46 - Unspecified protein-calorie malnutrition, K50.90 - Crohn's disease, unspecified, without complications, R94.5 - Abnormal results of liver function studies US biopsy liver Today D50.8 - Other iron deficiency anemias, E46 - Unspecified protein-calorie malnutrition, K50.90 - Crohn's disease, unspecified, without complications, R94.5 - Abnormal results of liver function studies Ferritin Today D50.8 - Other iron deficiency anemias, E46 - Unspecified protein-calorie malnutrition, K50.90 - Crohn's disease, unspecified, without complications, R94.5 - Abnormal results of liver function studies Vitamin B12 and Folate Today D50.8 - Other iron deficiency anemias, E46 - Unspecified protein-calorie malnutrition, K50.90 - Crohn's disease, unspecified, without complications, R94.5 - Abnormal results of liver function studies Vitamin B5 (Pantothenic Acid) Today D50.8 - Other iron deficiency anemias, E46 - Unspecified protein-calorie malnutrition, K50.90 - Crohn's disease, unspecified, without complications, R94.5 - Abnormal results of liver function studies Vitamin B6 Today D50.8 - Other iron deficiency anemias, E46 - Unspecified protein-calorie malnutrition, K50.90 - Crohn's disease, unspecified, without complications, R94.5 - Abnormal results of liver function studies Vitamin D 25-OH Total Today D50.8 - Other iron deficiency anemias, E46 - Unspecified protein-calorie malnutrition, K50.90 - Crohn's disease, unspecified, without complications, R94.5 - Abnormal results of liver function studies Lactoferrin, Fecal, Quant. Today D50.8 - Other iron deficiency anemias, E46 - Unspecified protein-calorie malnutrition, K50.90 - Crohn's disease, unspecified, without complications, K51.50 - Left sided colitis without complications, R94.5 - Abnormal results of liver function studies Complete Blood Count Auto Diff Today D50.8 - Other iron deficiency anemias, E46 - Unspecified protein-calorie malnutrition, K50.90 - Crohn's disease, unspecified, without complications, R94.5 - Abnormal results of liver function studies Comprehensive Met. Panel Today D50.8 - Other iron deficiency anemias, E46 - Unspecified protein-calorie malnutrition, K50.90 - Crohn's disease, unspecified, without complications, K75.81 - Nonalcoholic steatohepatitis (MCCLELLAN), R94.5 - Abnormal results of liver function studies Alpha 1 Anti-trypsin Today D50.8 - Other iron deficiency anemias, E46 - Unspecified protein-calorie malnutrition, K50.90 - Crohn's disease, unspecified, without complications, R94.5 - Abnormal results of liver function studies Angiotensin Converting Enzyme Today D50.8 - Other iron deficiency anemias, E46 - Unspecified protein-calorie malnutrition, K50.90 - Crohn's disease, unspecified, without complications, R94.5 - Abnormal results of liver function studies ANCA Vasculitides Today D50.8 - Other iron deficiency anemias, E46 - Unspecified protein-calorie malnutrition, K50.90 - Crohn's disease, unspecified, without complications, R94.5 - Abnormal results of liver function studies Rheumatoid Factor Today D50.8 - Other iron deficiency anemias, E46 - Unspecified protein-calorie malnutrition, K50.90 - Crohn's disease, unspecified, without complications, R94.5 - Abnormal results of liver function studies Soluble Liver Ag Autoantibody Today D50.8 - Other iron deficiency anemias, E46 - Unspecified protein-calorie malnutrition, K50.90 - Crohn's disease, unspecified, without complications, R94.5 - Abnormal results of liver function studies Tryptase Today D50.8 - Other iron deficiency anemias, E46 - Unspecified protein-calorie malnutrition, K50.90 - Crohn's disease, unspecified, without complications, R19.7 - Diarrhea, unspecified, R94.5 - Abnormal results of liver function studies Medications: New colchicine 0.6 mg PO BID 60 caps 0RF Coding Level of Care Code Est Pt Level 4 (34882) Diagnoses Abnormal LFTs R94.5 Iron deficiency anemia secondary to inadequate dietary iron intake D50.8 Iron deficiency anemia type: inadequate dietary iron intake Crohn's disease K50.90 Malnutrition E46
[2024-01-12 09:39] VITALS: BP 106/64; PULSE 73; BMI 27.5
== END 2024-01-12 10:21 | disposition home or self-care (01) ==
PROVIDERS: PCP Internal Medicine; Visit Provider Internal Medicine Gastroenterology
DX: R94.5 Abnormal results of liver function studies (principal); D50.8 Other iron deficiency anemias; K50.90 Crohn's disease, unspecified, without complications; E46 Unspecified protein-calorie malnutrition
CPT/HCPCS: 99214

== ENCOUNTER → 2024-01-12 09:28 | Outpatient (BNVA) | payer OTHER, SELFPAY | PROVIDERS: PCP Internal Medicine; Visit Provider Internal Medicine Gastroenterology | DX: R10.9 Unspecified abdominal pain (principal); R94.5 Abnormal results of liver function studies; D50.8 Other iron deficiency anemias; K50.90 Crohn's disease, unspecified, without complications; E46 Unspecified protein-calorie malnutrition | CPT/HCPCS: 99212 ==

== ENCOUNTER 2024-01-22 09:03 | Day surgery (SDC) | payer OTHER, SELFPAY ==
[2024-01-22] VITALS (12 sets, daily range): BP systolic 102–114; BP diastolic 52–81; PULSE 49–80; RESP 13–16; TEMP 36.3–36.7; O2SAT 97–100; BMI 27.1
--- NOTE | ~2024-01-22 | US_ITS ---
Ultrasound-guided liver biopsy History: Elevated LFTs, abdominal pain Procedure: Ultrasound-guided liver biopsy Risks and benefits and possible complications were discussed with the patient and consent form was signed. The abdomen was prepped and draped in usual sterile fashion. 1% lidocaine was used for anesthesia. A 17-gauge coaxial needle was inserted through the skin and soft tissues and into the right lobe of the liver. A total of 3, 18-gauge cores were performed. Permanent ultrasound images were archived. 2 Gelfoam torpedoes were inserted through the coaxial and administered into the biopsy tract and at the level of the capsule. The needle was then removed. The specimens were placed in formalin and sent to pathology. The patient tolerated the procedure well. The procedure was performed under moderate sedation with a dedicated nurse for monitoring of vital signs. The patient received a total of 1.5 Versed, and 75 Fentanyl. Moderate sedation time: 15 min This procedure was performed by Jean Walsh PA-C, and supervised by Dr. Yan. US/US biopsy liver Impression: Ultrasound-guided liver biopsy
--- NOTE | ~2024-01-22 | CT_ITS ---
EXAMINATION: CT ABDOMEN AND PELVIS WITHOUT CONTRAST CLINICAL INFORMATION: Pain after liver biopsy. COMPARISON: Liver biopsy 01/22/[address] abdomen and pelvis 11/13/2023. TECHNIQUE: Multidetector volumetric imaging was performed from the superior aspect of the liver through the pubic symphysis. Sagittal and coronal reformatted images were obtained on the technologist's workstation. This CT examination was performed using dose optimization techniques as appropriate, variously including the following: *Automated exposure control *Adjustment of mA and/or kV according to patient size (this includes techniques or standardized protocols for targeted exams where dose is matched to indication/reason for exam; i.e. extremities or head) *Use of iterative reconstruction technique DLP: 527 mGy-cm FINDINGS: LUNG BASES: The visualized lung bases are unremarkable. LIVER, GALLBLADDER, AND BILIARY TREE: The liver is normal in size, shape, and attenuation. No focal hepatic lesion or biliary ductal dilatation is present. No evidence of a subcapsular bleed or perihepatic hematoma. Status post cholecystectomy. PANCREAS: Unremarkable. SPLEEN: Unremarkable. ADRENAL GLANDS: Unremarkable. KIDNEYS AND URETERS: The kidneys are normal in size, shape, and attenuation. No hydronephrosis, hydroureter, or calculi seen. No perinephric stranding. BLADDER: Unremarkable. GASTROINTESTINAL TRACT: A small hiatal hernia is present. Status post gastric bypass. The small and large bowel are unremarkable. The appendix is not seen but there is no evidence of appendicitis. ABDOMINAL WALL: No significant hernia is appreciated. LYMPH NODES: No retroperitoneal lymphadenopathy. VASCULAR: Unremarkable. PELVIC VISCERA: The uterus and adnexa are unremarkable. OSSEOUS STRUCTURES: Unremarkable. CT/CT abdomen pelvis wo IV con IMPRESSION: A cause for the patient's abdominal pain has not been found. No complication seen status post liver biopsy with no evidence of a perihepatic hematoma or subcapsular bleed. Fleischner guidelines were followed.
[2024-01-22 09:28] LABS: UPreg QC Valid YES; Urine Pregnancy NEGATIVE (NEGATIVE)
[2024-01-22 09:33] LABS: MANUAL DIFF FLAG NO
[2024-01-22 09:50] LABS: Basophils Absolute Auto 0.1 X10*3/uL (0.0-0.2); Basophils Percent Auto 1.2 % (0-2); Eosinophils Absolute Auto 0.2 X10*3/uL (0.0-0.4); Eosinophils Percent Auto 2.9 % (0-4); Hematocrit 35.8 % (37.0-47.0); Hemoglobin 11.4 g/dl (12.0-16.0); Imm Gran Abs Auto 0.03 X10*3/uL (0.00-0.03); Imm Gran Pct Auto 0.5 % (0.0-0.4); Lymphocytes Absolute Auto 2.2 X10*3/uL (1.2-4.9); Lymphocytes Percent Auto 36.5 % (20-40); Mean Corpuscular HGB Conc 31.8 g/dl (31.0-35.0); Mean Corpuscular Hemoglobin 24.8 pg (27.0-33.0); Mean Corpuscular Volume 77.8 fL (80.0-98.0); Mean Platelet Volume 10.2 fL (9.4-12.3); Monocytes Absolute Auto 0.6 X10*3/uL (0.1-1.2); Monocytes Percent Auto 9.7 % (2-11); Neutrophils Absolute Auto 2.9 x10*3/uL (2.0-8.3); Neutrophils Percent Auto 49.2 % (45-73); Platelet Count 297 X10*3/uL (160-400); Prothrombin Time 11.6 SEC (11.1-13.3); Red Cell Distribution Width 15.1 % (11.0-16.0); White Blood Count 5.9 X10*3/uL (4.8-10.8)
[2024-01-22 09:53] LABS: Partial Thromboplastin Time 33.6 SEC (26.0-36.8)
--- NOTE | 2024-01-22 10:44 | MHC.SHP ---
Pre-Procedural Eval Section A - 24 Hr Update-Section A only Date of Service: 01/22/24 Section B - Complete if H&P > 30 days Chief Complaint: liver bx, abnormal LFT's Details of Present Illness: 28 y/o female with elevated LFTs. Gi requests a liver biopsy Relevant Family History (Specify if Yes): No Relevant Social History: None Present Medications: see Short Stay Collaborative assessment Medical History: Significant History History of Previous Operations: No relevant previous surgery Allergies: Allergies Allergy/AdvReac Type Severity Reaction Status Date / Time carrot [CARROTS] Allergy Intermediate SWELLING Verified 01/22/24 09:11 cat dander [CATS] Allergy Intermediate ITCHING Verified 01/22/24 09:11 insect venom [INSECT BITES] Allergy Intermediate HIVES Verified 01/22/24 09:11 Review of Systems Sugical H&P ROS: Negative: Constitution, Cardiovascular and Respiratory and Yes, Specify: Gastrointestinal (abdominal pain) Exam Surgical H&P Exam: Normal: Heart, Normal: Lungs and Normal: Skin, Not Evaluated: HEENT and Significant Findings: Abdomen (soft, nd, ttp BLQ) Plan Diagnosis/Plan: Unchanged I have reviewed the history and physical and performed a pertinent physical examination on my patient. No changes have occurred unless specified. Nontargeted liver biopsy Time Spent With Patient Time: Total time managing care of this patient today ____ minutes.
[2024-01-22] MEDS: Lidocaine HCl 1 % MPF 5 ML VIAL 10 ML SUBCUT (11:24)
[2024-01-22] MEDS: HYDROmorphone HCl 0.5 MG/0.5 ML SYRINGE IM (11:46)
[2024-01-22] MEDS: HYDROmorphone HCl 0.5 MG/0.5 ML SYRINGE IVPUSH (11:59)
[2024-01-22] MEDS: oxyCODONE HCl Immed Release 5 MG TABLET PO (13:14)
[2024-01-22] MEDS: Ibuprofen 200 MG TABLET PO (14:19)
== END 2024-01-22 14:31 | disposition home or self-care (01) ==
LOC: HO.SSS 09:05
PROVIDERS: Physician Assistant Surgical; PCP Internal Medicine; Visit Provider Internal Medicine Gastroenterology
DX: R94.5 Abnormal results of liver function studies (principal); K50.90 Crohn's disease, unspecified, without complications; D50.8 Other iron deficiency anemias; E46 Unspecified protein-calorie malnutrition; Z68.27 Body mass index [BMI] 27.0-27.9, adult; E55.9 Vitamin D deficiency, unspecified; K21.9 Gastro-esophageal reflux disease without esophagitis; K59.00 Constipation, unspecified; K91.2 Postsurgical malabsorption, not elsewhere classified; Z98.84 Bariatric surgery status; J45.909 Unspecified asthma, uncomplicated; Z79.899 Other long term (current) drug therapy; Z90.49 Acquired absence of other specified parts of digestive tract; Z56.0 Unemployment, unspecified
CPT/HCPCS: 36415; 47000; 74176; 76942; 81025; 85025; 85610; 85730; 86850; 86900; 86901; 88307; 88313; J1170; J2250; J2310; J3010

== ENCOUNTER → 2024-01-22 10:26 | Outpatient (BNV) | payer OTHER, SELFPAY | PROVIDERS: PCP Internal Medicine; Visit Provider Physician Assistant Surgical | DX: R94.5 Abnormal results of liver function studies (principal) | CPT/HCPCS: 47000; 76942 ==

== ENCOUNTER 2024-02-13 09:56 | Outpatient (REF) | payer OTHER, SELFPAY ==
--- NOTE | ~2024-02-13 | XR_ITS ---
Exam: X-ray chest, abdomen INDICATION: Noninfected gastroenteritis and colitis unspecified COMPARISON: Chest 02/12/2022. CT abdomen and pelvis 01/22/2004 TECHNIQUE: 2 views of the chest. 2 views of the abdomen. FINDINGS: CHEST: Mild S-shaped thoracolumbar scoliosis. Heart size is normal. There is no gross pneumothorax. No pleural effusion. No focal consolidation to suggest pneumonia. ABDOMEN: Postsurgical changes with clips and sutures in the upper abdomen. Nonobstructive bowel gas pattern. Moderate amount of stool in the colon. XR/XR KUB IMPRESSION: 1. No evidence of pneumonia. 2. Nonobstructive bowel gas pattern.
--- NOTE | ~2024-02-13 | XR_ITS ---
Exam: X-ray chest, abdomen INDICATION: Noninfected gastroenteritis and colitis unspecified COMPARISON: Chest 02/12/2022. CT abdomen and pelvis 01/22/2004 TECHNIQUE: 2 views of the chest. 2 views of the abdomen. FINDINGS: CHEST: Mild S-shaped thoracolumbar scoliosis. Heart size is normal. There is no gross pneumothorax. No pleural effusion. No focal consolidation to suggest pneumonia. ABDOMEN: Postsurgical changes with clips and sutures in the upper abdomen. Nonobstructive bowel gas pattern. Moderate amount of stool in the colon. XR/XR chest 2V IMPRESSION: 1. No evidence of pneumonia. 2. Nonobstructive bowel gas pattern.
[2024-02-13 10:25] LABS: MANUAL DIFF FLAG NO
[2024-02-13 11:05] LABS: Basophils Absolute Auto 0.1 X10*3/uL (0.0-0.2); Basophils Percent Auto 1.4 % (0-2); Eosinophils Absolute Auto 0.2 X10*3/uL (0.0-0.4); Hemoglobin 11.6 g/dl (12.0-16.0); Imm Gran Abs Auto 0.02 X10*3/uL (0.00-0.03); Imm Gran Pct Auto 0.3 % (0.0-0.4); Lymphocytes Absolute Auto 1.8 X10*3/uL (1.2-4.9); Lymphocytes Percent Auto 30.8 % (20-40); Mean Corpuscular HGB Conc 31.4 g/dl (31.0-35.0); Mean Corpuscular Hemoglobin 24.8 pg (27.0-33.0); Mean Corpuscular Volume 79.1 fL (80.0-98.0); Mean Platelet Volume 10.6 fL (9.4-12.3); Monocytes Absolute Auto 0.5 X10*3/uL (0.1-1.2); Monocytes Percent Auto 8.2 % (2-11); Neutrophils Absolute Auto 3.2 x10*3/uL (2.0-8.3); Neutrophils Percent Auto 55.3 % (45-73); Platelet Count 258 X10*3/uL (160-400); Red Blood Count 4.68 X10*6/uL (4.20-5.50); Red Cell Distribution Width 15.9 % (11.0-16.0); White Blood Count 5.8 X10*3/uL (4.8-10.8)
[2024-02-13 11:13] LABS: Appearance Urine Clear; Color Urine Yellow; Glucose Urine UA Negative (Negative); Leukocyte Esterase Urine Negative (Negative); Nitrite Urine Negative (Negative); PH 6.5 (5.0-9.0); Specific Gravity - Urine 1.025 (1.005-1.025); Urine Blood Negative (Negative); Urine Ketones Negative (Negative); Urine Protein Negative (Neg-Trace)
[2024-02-13 12:16] LABS: Alanine Aminotransferase 21 U/L (0-31); Albumin Level 3.8 g/dL (3.5-5.0); Alkaline Phosphatase 116 U/L (39-117); Anion Gap 9 (12-20); Aspartate Amino Transferase 26 U/L (5-31); Bilirubin Total 0.3 mg/dL (0.0-1.0); Blood Urea Nitrogen 10 mg/dL (9-16); C Reactive Protein < 0.10 mg/dL (< or = 0.50); Calcium 8.6 mg/dL (8.4-10.2); Carbon Dioxide 24 mmol/L (22-29); Chloride 112 mmol/L (96-108); Estimated Glomerular Filt Rate > 60; Glucose Random 83 mg/dL (60-115); Potassium 3.9 mmol/L (3.3-5.1); Sodium 141 mmol/L (135-145); Total Protein 6.3 g/dL (6.5-8.0)
[2024-02-13 12:21] LABS: Rheumatoid Factor < 13.0 IU/mL (<15.0)
[2024-02-13 12:40] LABS: Ferritin 7 ng/mL (10-122); Vitamin D 25-OH Total 19.1 ng/mL (>30)
[2024-02-13 12:45] LABS: Folate 10.2 ng/mL (> or = 4.0); Vitamin B12 281 pg/mL (200-900)
[2024-02-15 17:28] LABS: Immunoglobulin G Subclass 1 662 mg/dL (382-929); Immunoglobulin G Subclass 2 185 mg/dL (241-700); Immunoglobulin G Subclass 3 58 mg/dL (22-178); Immunoglobulin G Subclass 4 10.2 mg/dL (4-86); Immunoglobulin G Total 927 mg/dL (600-1640)
[2024-02-16 14:53] LABS: Anti Nuclear Antibody Screen NEGATIVE (NEGATIVE)
[2024-02-16 16:38] LABS: IgA 110 mg/dL (47-310); IgG 1004 mg/dL (600-1640); IgM 52 mg/dL (50-300); Myeloperoxidase Antibody <1.0 AI; Proteinase 3 PR3 Antibodies <1.0 AI
[2024-02-16 18:28] LABS: Alpha 1 Anti-trypsin 119 mg/dL (83-199)
[2024-02-16 21:03] LABS: Transglutaminase IgA <1.0 U/mL
[2024-02-17 12:18] LABS: Zinc 78 mcg/dL (60-130)
[2024-02-17 13:52] LABS: Mitochondrial Antibodies NEGATIVE (NEGATIVE)
[2024-02-17 22:53] LABS: Angiotensin Converting Enzyme 48 U/L (9-67)
[2024-02-18 17:13] LABS: Vitamin C 0.3 mg/dL (0.3-2.7)
[2024-02-18 17:28] LABS: Alpha-Tocopherol 5.6 mg/L (5.7-19.9); Beta-Gamma Tocopherol <1.0 mg/L (<=4.3)
[2024-02-18 21:29] LABS: Vitamin K1 227 pg/mL (130-1500)
[2024-02-19 10:48] LABS: Nicotinamide 24 ng/mL; Vit B3 - Nicotinic Acid <20 ng/mL
[2024-02-19 11:08] LABS: Vitamin B5 (Pantothenic Acid) 49 ng/mL (<275)
[2024-02-19 13:42] LABS: Soluble Liver Ag Autoantibody <20.1 U (0.0-20.0)
[2024-02-19 15:38] LABS: Vitamin B1 9 nmol/L (8-30)
[2024-02-19 15:58] LABS: Vitamin B6 4.6 ng/mL (2.1-21.7)
== END 2024-02-13 09:57 | disposition home or self-care (01) ==
LOC: HO.LAB 09:56
PROVIDERS: PCP Internal Medicine; Visit Provider Internal Medicine Gastroenterology
DX: K50.90 Crohn's disease, unspecified, without complications (principal); R94.5 Abnormal results of liver function studies; D50.8 Other iron deficiency anemias; E46 Unspecified protein-calorie malnutrition; R79.82 Elevated C-reactive protein (CRP); R79.89 Other specified abnormal findings of blood chemistry; K52.9 Noninfective gastroenteritis and colitis, unspecified; R06.02 Shortness of breath; R30.0 Dysuria; K75.81 Nonalcoholic steatohepatitis (NASH)
CPT/HCPCS: 36415; 71046; 74018; 80053; 81003; 82103; 82164; 82180; 82306; 82607; 82728; 82746; 82784; 83520; 84207; 84425; 84446; 84591; 84597; 84630; 85025; 86021; 86038; 86140; 86364; 86381; 86431

== ENCOUNTER 2024-02-17 09:43 | Outpatient (REF) | payer OTHER, SELFPAY | END 2024-02-17 09:44 | disposition home or self-care (01) | LOC: HO.LNP 09:43 | PROVIDERS: Visit Provider Internal Medicine Gastroenterology | DX: K51.50 Left sided colitis without complications (principal); K50.90 Crohn's disease, unspecified, without complications; R94.5 Abnormal results of liver function studies; D50.8 Other iron deficiency anemias; E46 Unspecified protein-calorie malnutrition | CPT/HCPCS: 83631 ==

== ENCOUNTER 2024-04-12 07:47 | Emergency (ER) | payer OTHER, SELFPAY ==
--- NOTE | ~2024-04-12 | CT_ITS ---
EXAMINATION: CT HEAD WITHOUT CONTRAST CLINICAL INFORMATION: Acute upon chronic headache COMPARISON: 03/13/2020 TECHNIQUE: Contiguous axial imaging was performed from the skull base to vertex without intravenous administration of contrast. This CT examination was performed using dose optimization techniques as appropriate, variously including the following: *Automated exposure control *Adjustment of mA and/or kV according to patient size (this includes techniques or standardized protocols for targeted exams where dose is matched to indication/reason for exam; i.e. extremities or head) *Use of iterative reconstruction technique DLP: 615.77 mGy-cm FINDINGS: The ventricles and sulci are normal in size and configuration. No acute hemorrhage, mass effect or shift is evident. Valencia-white differentiation is maintained. In the posterior fossa, the brainstem, cerebellum and fourth ventricle image normally. The orbits and calvarium are intact. The paranasal sinuses and mastoid air cells are well pneumatized and clear. CT/CT head/brain wo IV con IMPRESSION: 1. Unremarkable noncontrast brain CT. No acute hemorrhage, mass effect or shift.
--- NOTE | ~2024-04-12 | XR_ITS ---
EXAMINATION: THORACIC SPINE, LUMBAR SPINE CLINICAL INFORMATION: Atraumatic back pain COMPARISON: CT abdomen pelvis 01/22/2024 TECHNIQUE: 3 views thoracic spine, 3 views lumbar spine. FINDINGS: There is minimal biconvex thoracolumbar scoliosis. Vertebral body heights and disc spaces are well preserved without evidence of significant degenerative change. No bony destructive lesions are seen. Paraspinal soft tissues appear normal. Surgical clips are present in the right upper quadrant, mid epigastrium and left upper quadrant. Visualized bowel gas pattern is unremarkable. XR/XR thoracic spine 2V IMPRESSION: Minimal biconvex thoracolumbar scoliosis. No acute finding.
--- NOTE | ~2024-04-12 | XR_ITS ---
EXAMINATION: THORACIC SPINE, LUMBAR SPINE CLINICAL INFORMATION: Atraumatic back pain COMPARISON: CT abdomen pelvis 01/22/2024 TECHNIQUE: 3 views thoracic spine, 3 views lumbar spine. FINDINGS: There is minimal biconvex thoracolumbar scoliosis. Vertebral body heights and disc spaces are well preserved without evidence of significant degenerative change. No bony destructive lesions are seen. Paraspinal soft tissues appear normal. Surgical clips are present in the right upper quadrant, mid epigastrium and left upper quadrant. Visualized bowel gas pattern is unremarkable. XR/XR lumbar spine 2-3V IMPRESSION: Minimal biconvex thoracolumbar scoliosis. No acute finding.
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
[2024-04-12 07:49] VITALS: BP 116/62; PULSE 75; RESP 16; TEMP 36.5; O2SAT 99; BMI 27.1
--- NOTE | 2024-04-12 08:07 | PC.NURSE ---
patient complaining of headache and neck and lower back pain for the last few days, states she sees a neurologist for migraines and chronic back pain, was prescribed a new medications but states she doesn't feel like they are working. patient endorsing headache radiating down her neck and also complaining of lower back pain that radiates to the left hip, denies any pins or needles or shooting pain down her leg. equal bilateral strength noted to all four extremities, patient states her neck is stiff and painful but she is able to move it while speaking to this RN. lights turned off for comfort neuros are intact at this time. awaiting Md mejia
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
[2024-04-12] MEDS: Metoclopramide HCl 10 MG/2 ML VIAL IVPUSH (09:23)
[2024-04-12] MEDS: Ketorolac Tromethamine 15 MG/ML VIAL IVPUSH (09:26)
[2024-04-12] MEDS: diphenhydrAMINE HCL 50 MG/ML VIAL IVPUSH (09:28)
[2024-04-12] MEDS: 0.9 % Sodium Chloride 1,000 ML 999 ML IV (09:32)
[2024-04-12 09:36] LABS: MANUAL DIFF FLAG NO
[2024-04-12 09:37] LABS: Basophils Absolute Auto 0.1 X10*3/uL (0.0-0.2); Basophils Percent Auto 1.1 % (0-2); Eosinophils Absolute Auto 0.2 X10*3/uL (0.0-0.4); Eosinophils Percent Auto 3.4 % (0-4); Hematocrit 34.8 % (37.0-47.0); Imm Gran Abs Auto 0.01 X10*3/uL (0.00-0.03); Imm Gran Pct Auto 0.2 % (0.0-0.4); Lymphocytes Absolute Auto 1.8 X10*3/uL (1.2-4.9); Lymphocytes Percent Auto 37.9 % (20-40); Mean Corpuscular HGB Conc 31.6 g/dl (31.0-35.0); Mean Corpuscular Volume 79.1 fL (80.0-98.0); Monocytes Absolute Auto 0.5 X10*3/uL (0.1-1.2); Neutrophils Absolute Auto 2.2 x10*3/uL (2.0-8.3); Neutrophils Percent Auto 46.4 % (45-73); Platelet Count 237 X10*3/uL (160-400); Red Cell Distribution Width 14.5 % (11.0-16.0); White Blood Count 4.6 X10*3/uL (4.8-10.8)
[2024-04-12 10:00] LABS: Alanine Aminotransferase 11 U/L (0-31); Albumin Level 3.7 g/dL (3.5-5.0); Alkaline Phosphatase 99 U/L (39-117); Anion Gap 11 (12-20); Aspartate Amino Transferase 16 U/L (5-31); Bilirubin Total 0.2 mg/dL (0.0-1.0); Blood Urea Nitrogen 12 mg/dL (9-16); Calcium 8.3 mg/dL (8.4-10.2); Carbon Dioxide 22 mmol/L (22-29); Chloride 112 mmol/L (96-108); Creatinine Clr Calc Pharmacy 126.4; Estimated Glomerular Filt Rate > 60; Glucose Random 67 mg/dL (60-115); Magnesium 2.1 mg/dL (1.6-2.6); Potassium 3.6 mmol/L (3.3-5.1); Sodium 141 mmol/L (135-145)
[2024-04-12 10:11] LABS: HCG Quantitative < 2 mIU/mL
[2024-04-12] MEDS: Cyclobenzaprine HCl 10 MG TABLET PO (12:59)
--- NOTE | 2024-04-12 13:03 | PC.NURSE ---
patient resting comfortably on stretcher at this time, still endorsing some pain. medicated per MAR. patient able to provide urine sample. sent to lab at this time
[2024-04-12 13:09] LABS: Appearance Urine Clear; Color Urine Yellow; Glucose Urine UA Negative (Negative); Leukocyte Esterase Urine Negative (Negative); Nitrite Urine Negative (Negative); PH 5.5 (5.0-9.0); Urine Blood Negative (Negative); Urine Ketones Negative (Negative); Urine Protein Negative (Neg-Trace)
[2024-04-12 13:11] LABS: UPreg QC Valid YES; Urine Pregnancy NEGATIVE (NEGATIVE)
[2024-04-12 13:52] VITALS: BP 93/50; PULSE 72; RESP 16; TEMP 36.6; O2SAT 97
[2024-04-12 13:53] VITALS: BP 93/50; PULSE 72; RESP 16; TEMP 36.6; O2SAT 97
== END 2024-04-12 13:54 | disposition home or self-care (01) ==
PROVIDERS: Physician Assistant Medical; Emergency Provider Emergency Medicine; PCP Internal Medicine
DX: M54.50 Low back pain, unspecified (principal); R51.9 Headache, unspecified; M54.6 Pain in thoracic spine; M54.2 Cervicalgia; D64.9 Anemia, unspecified; Z79.899 Other long term (current) drug therapy
CPT/HCPCS: 36415; 70450; 72070; 72100; 72125; 80053; 81003; 81025; 83735; 84702; 85025; 96361; 96374; 96375; 99284; 99285; J1200; J1885; J2765

== ENCOUNTER 2024-04-14 14:44 | Outpatient (AMB) | payer OTHER, SELFPAY ==
[2024-04-14 14:47] VITALS: BP 96/68; PULSE 82; O2SAT 100; BMI 27.7
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
== END 2024-04-14 15:38 | disposition home or self-care (01) ==
PROVIDERS: PCP Internal Medicine
DX: M54.50 Low back pain, unspecified (principal)
CPT/HCPCS: 99214

== ENCOUNTER 2024-04-19 08:29 | Outpatient (AMB) | payer OTHER, SELFPAY ==
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
[2024-04-19 08:32] VITALS: BP 120/68; PULSE 104; RESP 14; O2SAT 98; BMI 27.7
== END 2024-04-19 09:11 | disposition home or self-care (01) ==
LOC: HO.PMC 08:29
PROVIDERS: PCP Internal Medicine; Visit Provider Internal Medicine
DX: M54.12 Radiculopathy, cervical region (principal); M50.30 Other cervical disc degeneration, unspecified cervical region; G89.4 Chronic pain syndrome
CPT/HCPCS: 99213

== ENCOUNTER → 2024-04-19 08:29 | Outpatient (BNVA) | payer OTHER, SELFPAY | PROVIDERS: PCP Internal Medicine; Visit Provider Internal Medicine | DX: M54.50 Low back pain, unspecified (principal); M54.2 Cervicalgia | CPT/HCPCS: 99212 ==

== ENCOUNTER 2024-05-03 08:51 | Outpatient (AMB) | payer OTHER, SELFPAY ==
--- NOTE | 2024-05-03 09:00 | A.OFFVIS_ITS ---
Vital Signs 05/03/24 09:03 Height 5 ft 8 in Weight 185 lb 3.013 oz BMI 28.2 BP 106/58 L Blood Pressure Location Lt brachial Position Sitting Pulse 71 Intake Visit Reasons: 4 month f/u Intake Note: Maryann presents in the office as a 4 month follow up. CC: Farm Service Adviser Required: No Allergies carrot [CARROTS] Allergy (Intermediate, Verified 05/03/24 09:03) SWELLING cat dander [CATS] Allergy (Intermediate, Verified 05/03/24 09:03) ITCHING insect venom [INSECT BITES] Allergy (Intermediate, Verified 05/03/24 09:03) HIVES HPI HPI 4 month f/u: Details: 28 yr old f with hx of gastric bypass, cholecystectomy and suspected SOD s/p intra op ERCP and sphincterotomy who I am seeing for f/u RECAP; seen 11/2019 she had c/o ruq pain ongoing feesl like stabbing and aching worse with dairy usually she does have diarrhea and constipation alternating no blood in stool or melena denies nausea or vomiting appetite is variable weight is stable she was unsure if she was taking iron supplement admitted to irregular periods due to implant, but not heavy no epistaxis or hematuria I suspected pain could be myofascial in origin but arranged further w/u as below she recalls her sx first started age 14 --mother has chronic pains, aunt has crohns labs 08/2019 with severe iron def and b12 def, HGB 10, LFT 09/2019 normal, prior AMA neg latest hgb:11.7--m111/07 EGD/colon--11/2019--essentially normal, retained suture removed IMAGING: CT A/P--07/2019-- moderate stool, ovarian cysts CTe 01/2020--no IBD, ?small paraesophagela hernia, malrotation of right kidney, no acute findings VCE--inflammation around anastomosis, small bowel otherwise nml She had admission for LUQ thought to be due to diet indiscretion and over eating CT imaging was neg, she had mild LFT abn compared to her last numbers before the admission MRI 10/2020--no liver or biliary abn seen I ordered small bowel series: slow transit time otherwise normal liver serologies neg I referred her to pain management and commenced ursodiol with gabapentin for possible retention gastritis she felt some beenfit but stopped after some time MRe: 2021- normal bowel, Mild right hydronephrosis, CT 04/28/23 for RLQ pain normal Pelvic US: small ovary follicles she has been seeing Dr Wiley for hemorrhoids seeing urology for malrotation of kidney CT 09/06 with suspected enteritis and some prominent LN noted EGD: mild enteritis flow cytometry concerning for B cell lymphoma but bx were neg, [eripheral blood by heme was also neg Liver bx: 01/22/24- non specific minimal inflammation, non specific INTERIM: she has been feeling well with apriso minimal pain, maybe 1-2 times a month she is happy with it if she forgets it then she can have worsening sx no nausea or vomiting or diarrhea not always taking her vitamins EXAM: GENERAL: The patient is well developed and nontoxic. VITAL SIGNS:see workflow HEENT: Nonicteric sclerae, PERRLA, EOMI. Oropharynx clear. Moist mucous membranes. Conjunctivae appear well perfused. No thyroid mass. CHEST: Chest wall is nontender. HEART: Regular rate and rhythm without murmurs. LUNGS: Clear to auscultation bilaterally. ABDOMEN: Soft, positive bowel sounds, tender epigastrium, no organomegaly SKIN: No rash, no excessive bruising, petechiae, or purpura. NEUROLOGIC: Cranial nerves II-XII intact without motor/sensory deficit. Psych- nml affect Assessment & Plan 1/ enteritis uncertain if could be IBD or sequel of viral or other infection, responding well to apriso 2/ vitamin def due to bariatric surgery PLAN: 1/ cont with apriso 2. encouraged to take her vitamins, iron, low levels can cause her pain, etc [facility] Medical History Pelvic pain Muscle spasm Internal and external bleeding hemorrhoids Constipation Breakthrough bleeding on Nexplanon COVID-19 Left arm pain Encounter for removal and reinsertion of Nexplanon Chronic abdominal pain Sacroiliac joint pain Hypovitaminosis D Iron deficiency anemia GERD (gastroesophageal reflux disease) Ovarian mass Sinusitis BCP ( control pills) initiation Yeast infection involving the vagina and surrounding area Problematic vaginal discharge Lumbar pain Hip asymmetry Intestinal malabsorption following gastrectomy Obesity (BMI 30-39.9) Sleep apnea Asthma Bile duct abnormality Cholecystectomy planned Surgical History H/O cystoscopy History of hemorrhoidectomy (~05/20/23) H/O colonoscopy History of esophagogastroduodenoscopy (EGD) Hx of cholecystectomy Gastric bypass status for obesity Family History Father Diabetes mellitus Obesity Mother Arthritis of knee Obesity Paternal Grandfather Diabetes mellitus Paternal Grandmother Diabetes mellitus Maternal Grandmother Diabetes mellitus Arthritis of knee Maternal Grandfather Diabetes mellitus Maternal Aunt Intestinal cancer Social History Household Members: Spouse and Children Housing: House Alcohol intake: never Comment: patient states tolerable Patient Tobacco Use Status: Never used Tobacco e-Cigarette/Vaping Use: Never Used Second Hand Smoke Exposure: No service: No Current occupational status: unemployed Cognitive needs: No Hearing needs: No Vision needs: Yes Female Reproductive History Menstrual Age of Menarche: 10 Physical Exam Vital Signs: BMI result Body Mass Index 28.2 Assessment & Plan Assessment & Plan (1) Enteritis: Code(s): K52.9 - Noninfective gastroenteritis and colitis, unspecified Category: Medical Plan: see above Coding Level of Care Code Est Pt Level 3 (47007) Diagnoses Enteritis K52.9
[2024-05-03 09:03] VITALS: BP 106/58; PULSE 71; BMI 28.2
== END 2024-05-03 10:10 | disposition home or self-care (01) ==
PROVIDERS: PCP Internal Medicine; Visit Provider Internal Medicine Gastroenterology
DX: K52.9 Noninfective gastroenteritis and colitis, unspecified (principal)
CPT/HCPCS: 99213

== ENCOUNTER → 2024-05-03 08:51 | Outpatient (BNVA) | payer OTHER, SELFPAY | PROVIDERS: PCP Internal Medicine; Visit Provider Internal Medicine Gastroenterology | DX: K52.9 Noninfective gastroenteritis and colitis, unspecified (principal) | CPT/HCPCS: 99212 ==

== ENCOUNTER → 2024-05-19 17:29 | Outpatient (BNV) | payer OTHER, SELFPAY | PROVIDERS: PCP Internal Medicine; Visit Provider Radiology Diagnostic Radiology | DX: M54.50 Low back pain, unspecified (principal) | CPT/HCPCS: 72148 ==

== ENCOUNTER 2024-05-19 17:30 | Outpatient (REF) | payer OTHER, SELFPAY ==
--- NOTE | ~2024-05-19 | MR_ITS ---
EXAMINATION: MR LUMBAR SPINE WITHOUT CONTRAST CLINICAL INFORMATION: 28-year-old female, back pain going up the spine, can't sit or do anything, 10+ years getting worse, no fall no injury COMPARISON: No prior MRI. X-rays dated 04/12/2024. TECHNIQUE: Multiplanar multisequence MR imaging of the lumbar spine was done without IV contrast. Standard sequences were utilized on a 1.5 Hortencia Siemens magnet, with no gadolinium. FINDINGS: CORONAL ALIGNMENT: Normal. SAGITTAL ALIGNMENT: Normal. Normal lordosis. LUMBOSACRAL JUNCTION: Normal. There are 5 bta-rhm-hjjqbwy lumbar-type vertebral bodies. VERTEBRAL BODIES/BONE MARROW: -Normal. No bone marrow edema, or abnormal infiltrating bone marrow signal. -Bone marrow is somewhat diffusely hypointense on T1-weighted imaging, consistent with active/hematopoietic marrow. DISCS: -Mild loss of disc signal at L4-5 and L5-S1 is present without significant loss of disc height. -Discs are otherwise normal. SPINAL CANAL: No abnormal developmental findings. CONUS MEDULLARIS: Terminates at T12. Morphology and signal is normal. INTRADURAL NERVE ROOTS: -Within normal limits. No nerve root masses or abnormal clumping. Normal distribution. Axial Disc Space Images: T12-L1: No central canal or neural foraminal narrowing. Normal facets. L1-L2: No central canal or neural foraminal narrowing. Normal facets. L2-L3: No central canal or neural foraminal narrowing. Normal facets. L3-L4: No central canal or neural foraminal narrowing. Normal facets. L4-L5: Shallow diffuse disc bulge is present with a superimposed small central disc extrusion. This indents upon the ventral thecal sac but does not contact nerve roots. Mild hypertrophic facet changes bilaterally. Minimal central canal narrowing and minimal left subarticular recess narrowing. No contact or impingement of the traversing nerve roots. Mild left neural foraminal narrowing. L5-S1: Broad-based right paracentral protrusion of disc material with central annular fissuring. This does not cause any mass effect upon the thecal sac nor lateral recesses. Mild hypertrophic facet changes are present left greater than right. Neural foramen are widely patent. IMAGED SI JOINTS: Early degenerative changes. 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 -Remainder of the imaged retroperitoneal structures are normal within confines of study limitations. MR/MR lumbar spine wo con IMPRESSION: 1. Mild spondylosis L4-5 and L5-S1 as detailed. There is no significant central canal narrowing, subarticular recess narrowing, neuroforaminal narrowing, or evidence of nerve root impingement. 2. Mild disc degeneration L4-5 and L5-S1. See above for details. Electronically signed by: Krishna Cárdenas MD 06/04/2024 02:30 PM EDT
== END 2024-05-19 17:31 | disposition home or self-care (01) ==
LOC: HO.MRI 17:30
PROVIDERS: PCP Internal Medicine; Visit Provider Internal Medicine
DX: M54.50 Low back pain, unspecified (principal)
CPT/HCPCS: 72148

== ENCOUNTER 2024-06-14 08:45 | Outpatient (AMB) | payer OTHER, SELFPAY ==
--- NOTE | 2024-06-14 08:55 | A.OFFVIS_ITS ---
Vital Signs 06/14/24 08:56 Height 5 ft 8 in Weight 185 lb BMI 28.1 BP 110/70 Blood Pressure Location Lt brachial Position Sitting Pulse 77 Pulse Source Pulse Oximeter Pulse Oximetry (%) 99 Oxygen Delivery Method Room Air Intake Visit Reasons: Discuss MRI Results Allergies carrot [CARROTS] Allergy (Intermediate, Verified 06/14/24 08:59) SWELLING cat dander [CATS] Allergy (Intermediate, Verified 06/14/24 08:59) ITCHING insect venom [INSECT BITES] Allergy (Intermediate, Verified 06/14/24 08:59) HIVES Medication List - Last Reconciled 06/14/24 by Zara Vela, D[employer] SUBMER[employer]ENCE VEHICLE OPERATOR amitriptyline 25 mg PO BEDTIME Carafate (sucralfate) 10 mL PO BID NS cholecalciferol (vitamin D3) 125 mcg PO DAILY cyclobenzaprine 10 mg PO BEDTIME ferrous fumarate (Ferrocite) 324 mg PO DAILY lancets (FreeStyle Lancets) As directed lidocaine 5% (Lidoderm) 1 patch topical DAILY mesalamine ER (Apriso) 1.5 grams (4 x 0.375 gram) PO QAM naproxen 500 mg PO Q8-12H PRN naratriptan 2.5 mg PO DIRECTED nortriptyline 10 mg PO BEDTIME thiamine HCl (vitamin B1) 100 mg PO DAILY vitamin A PO HPI HPI Discuss MRI Results: Details: 28-year-old female who presents today to the office for a review of MRI scan result. The MRI scan result is reproduced below. She continues to have significant debilitating symptoms in her lower back. Medications and formal physical therapy have not been very helpful so far. FORMERLY [facility] Medical History Pelvic pain Muscle spasm Internal and external bleeding hemorrhoids Constipation Breakthrough bleeding on Nexplanon COVID-19 Left arm pain Encounter for removal and reinsertion of Nexplanon Chronic abdominal pain Sacroiliac joint pain Hypovitaminosis D Iron deficiency anemia GERD (gastroesophageal reflux disease) Ovarian mass Sinusitis BCP ( control pills) initiation Yeast infection involving the vagina and surrounding area Problematic vaginal discharge Lumbar pain Hip asymmetry Intestinal malabsorption following gastrectomy Obesity (BMI 30-39.9) Sleep apnea Asthma Bile duct abnormality Cholecystectomy planned Surgical History H/O cystoscopy History of hemorrhoidectomy (~05/20/23) H/O colonoscopy History of esophagogastroduodenoscopy (EGD) Hx of cholecystectomy Gastric bypass status for obesity Family History Father Diabetes mellitus Obesity Mother Arthritis of knee Obesity Paternal Grandfather Diabetes mellitus Paternal Grandmother Diabetes mellitus Maternal Grandmother Diabetes mellitus Arthritis of knee Maternal Grandfather Diabetes mellitus Maternal Aunt Intestinal cancer Social History Household Members: Spouse and Children Housing: House Alcohol intake: never Comment: patient states tolerable Patient Tobacco Use Status: Never used Tobacco e-Cigarette/Vaping Use: Never Used Second Hand Smoke Exposure: No service: No Current occupational status: unemployed Cognitive needs: No Hearing needs: No Vision needs: Yes Female Reproductive History Menstrual Age of Menarche: 10 Review of Systems Const All systems reviewed & are unremarkable except as noted in HPI and below Physical Exam Vital Signs: Last Vital Signs Pulse 77 06/14/24 08:56 BP 110/70 06/14/24 08:56 Pulse Ox 99 06/14/24 08:56 Oxygen Delivery Method Room Air 06/14/24 08:56 BMI result Body Mass Index 28.1 General: Appears afebrile. Alert and oriented. Mood and affect appropriate. Follows and participates in conversation appropriately. Respiratory effort is unlabored. Able to transition from sit to stand unassisted. Ambulates with bilaterally normal heel strike and toe off. Results Reviewed Results Reviewed: 05/19/24: MR LUMBAR SPINE WITHOUT CONTRAST FINDINGS: CORONAL ALIGNMENT: Normal. SAGITTAL ALIGNMENT: Normal. Normal lordosis. LUMBOSACRAL JUNCTION: Normal. There are 5 vvf-plv-glmuilu lumbar-type vertebral bodies. VERTEBRAL BODIES/BONE MARROW: -Normal. No bone marrow edema, or abnormal infiltrating bone marrow signal. -Bone marrow is somewhat diffusely hypointense on T1-weighted imaging, consistent with active/hematopoietic marrow. DISCS: -Mild loss of disc signal at L4-5 and L5-S1 is present without significant loss of disc height. -Discs are otherwise normal. SPINAL CANAL: No abnormal developmental findings. CONUS MEDULLARIS: Terminates at T12. Morphology and signal is normal. INTRADURAL NERVE ROOTS: -Within normal limits. No nerve root masses or abnormal clumping. Normal distribution. Axial Disc Space Images: T12-L1: No central canal or neural foraminal narrowing. Normal facets. L1-L2: No central canal or neural foraminal narrowing. Normal facets. L2-L3: No central canal or neural foraminal narrowing. Normal facets. L3-L4: No central canal or neural foraminal narrowing. Normal facets. L4-L5: Shallow diffuse disc bulge is present with a superimposed small central disc extrusion. This indents upon the ventral thecal sac but does not contact nerve roots. Mild hypertrophic facet changes bilaterally. Minimal central canal narrowing and minimal left subarticular recess narrowing. No contact or impingement of the traversing nerve roots. Mild left neural foraminal narrowing. L5-S1: Broad-based right paracentral protrusion of disc material with central annular fissuring. This does not cause any mass effect upon the thecal sac nor lateral recesses. Mild hypertrophic facet changes are present left greater than right. Neural foramen are widely patent. IMAGED SI JOINTS: Early degenerative changes. 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 -Remainder of the imaged retroperitoneal structures are normal within confines of study limitations. IMPRESSION: 1. Mild spondylosis L4-5 and L5-S1 as detailed. There is no significant central canal narrowing, subarticular recess narrowing, neuroforaminal narrowing, or evidence of nerve root impingement. 2. Mild disc degeneration L4-5 and L5-S1. See above for details. Assessment & Plan Assessment & Plan (1) Low back pain: Code(s): M54.50 - Low back pain, unspecified Category: Medical Plan She continues to have significant debilitating symptoms in her lower back, likely secondary to both lumbar spondylosis as well as intervertebral disc degeneration. I discussed with her conservative methods of spine care, including core strengthening, swimming, and inversion therapy if possible.?We will also look into whether her insurance might cover a temporary nerve stimulation trial for axial low back pain secondary to lumbar spondylosis. Medications and formal physical therapy have not been very helpful so far. I do not think she is a good candidate for facet denervation given her young age. Patient expressed understanding. We will follow up as needed. Scribed for Dr. Hernandez by Nahun zAul, chief medical physicist, on 06/14/2024. I, Dr. Hernandez, have personally reviewed and agree with the information entered by the scribe. Coding Level of Care Code Est Pt Level 4 (80972) Diagnoses Low back pain M54.50
[2024-06-14 08:56] VITALS: BP 110/70; PULSE 77; O2SAT 99; BMI 28.1
== END 2024-06-14 10:00 | disposition home or self-care (01) ==
LOC: HO.PMC 08:45
PROVIDERS: PCP Internal Medicine; Visit Provider Internal Medicine
DX: M54.50 Low back pain, unspecified (principal)
CPT/HCPCS: 99214

== ENCOUNTER → 2024-06-14 08:45 | Outpatient (BNVA) | payer OTHER, SELFPAY | PROVIDERS: PCP Internal Medicine; Visit Provider Internal Medicine | DX: M54.50 Low back pain, unspecified (principal); Z71.2 Person consulting for explanation of examination or test findings | CPT/HCPCS: 99212 ==

== ENCOUNTER 2024-07-22 12:13 | Emergency (ER) | payer OTHER, SELFPAY ==
--- NOTE | ~2024-07-22 | CT_ITS ---
EXAMINATION: CT HEAD WITHOUT CONTRAST CLINICAL INFORMATION: Headache. COMPARISON: CT head from 04/12/2024. TECHNIQUE: Contiguous axial imaging was performed from the skull base to vertex without intravenous administration of contrast. This CT examination was performed using dose optimization techniques as appropriate, variously including the following: *Automated exposure control. *Adjustment of mA and/or kV according to patient size (this includes techniques or standardized protocols for targeted exams where dose is matched to indication/reason for exam; i.e. extremities or head). *Use of iterative reconstruction technique. DLP: 660 mGy-cm FINDINGS: There is no evidence of acute intracranial hemorrhage or edematous territorial infarction. Valencia-white matter differentiation is preserved. There is no abnormal attenuation within the brain parenchyma. The ventricles are normal in morphology and size. No evidence for obstructive hydrocephalus. The suprasellar cistern remains widely patent. Normal positioning of the cerebellar tonsils. No abnormal mass effect or midline shift. No extra-axial fluid collections. No acute soft tissue or osseous abnormalities. The mastoid air cells and visualized paranasal sinuses are clear. CT/CT head/brain wo IV con IMPRESSION: No evidence of acute intracranial hemorrhage or edematous territorial infarction. Electronically signed by: Robert Smalls DO 07/22/2024 09:11 PM EST
[2024-07-22 12:18] VITALS: BP 119/69; PULSE 83; RESP 20; TEMP 36.5; O2SAT 99; BMI 31.3
--- NOTE | 2024-07-22 12:18 | ED_ITS ---
HPI - General Adult General Chief complaint: Weakness Stated complaint: L sided numbness, weak, cant open eye Time Seen by Provider: 07/22/24 18:17 Source: patient Mode of arrival: ambulatory Limitations: no limitations History of Present Illness ED Provider: elham CHILDS narrative: Patient's history of migraine headache and Crohn disease comes here for left forehead and eye pain since she woke up at 07:30 with light sensitivity and nausea was having difficulty in opening his left eye because of pain patient has a workup done prior to my evaluation including a CT scan head which was negative, no motor weakness Related Data Home Medications ?Medication ?Instructions ?Recorded ?Confirmed lancets 28 gauge (FreeStyle #100 ea 07/19/22 06/14/24 Lancets) amitriptyline 25 mg tablet 25 mg PO BEDTIME 04/14/24 06/14/24 naratriptan 2.5 mg tablet 2.5 mg PO DIRECTED 04/14/24 06/14/24 vitamin A 3,000 mcg (10,000 unit) PO 05/03/24 06/14/24 capsule Previous Rx's ?Medication ?Instructions ?Recorded cyclobenzaprine 10 mg tablet 10 mg PO BEDTIME #30 tabs 09/02/22 cholecalciferol (vitamin D3) 125 125 mcg PO DAILY #90 caps 11/25/23 mcg (5,000 unit) capsule thiamine HCl (vitamin B1) 100 mg 100 mg PO DAILY #90 tabs 11/25/23 tablet nortriptyline 10 mg capsule 10 mg PO BEDTIME #30 caps 01/22/24 Carafate 100 mg/mL oral suspension 10 ml PO BID #420 mL 03/02/24 (sucralfate) naproxen 500 mg tablet 500 mg PO Q8-12H PRN pain (scale 04/12/24 score 1-3) #20 tabs lidocaine 5 % topical patch 1 patch topical DAILY #15 ea 04/14/24 (Lidoderm) ferrous fumarate 324 mg (106 mg 324 mg PO DAILY #90 tabs 05/18/24 iron) tablet (Ferrocite) mesalamine 0.375 gram 1.5 g (4 x 0.375 gram) PO QAM #120 05/18/24 capsule,extended release 24 hr caps (Apriso) krkpcsfnnu-uxodvngfauuqq-znzpsywk 1 tab PO Q6H PRN haeadace #20 tabs 07/22/24 50 mg-325 mg-40 mg tablet Allergies Allergy/AdvReac Type Severity Reaction Status Date / Time carrot [CARROTS] Allergy Intermediate SWELLING Verified 07/22/24 12:20 cat dander [CATS] Allergy Intermediate ITCHING Verified 07/22/24 12:20 insect venom [INSECT BITES] Allergy Intermediate HIVES Verified 07/22/24 12:20 Review of Systems 2 Review of Systems: Yes all other systems are reviewed and are negative PMFSH Past Medical History Medical History Pelvic pain Muscle spasm Internal and external bleeding hemorrhoids Constipation Breakthrough bleeding on Nexplanon COVID-19 Left arm pain Encounter for removal and reinsertion of Nexplanon Chronic abdominal pain Sacroiliac joint pain Hypovitaminosis D Iron deficiency anemia GERD (gastroesophageal reflux disease) Ovarian mass Sinusitis BCP ( control pills) initiation Yeast infection involving the vagina and surrounding area Problematic vaginal discharge Lumbar pain Hip asymmetry Intestinal malabsorption following gastrectomy Obesity (BMI 30-39.9) Sleep apnea Asthma Bile duct abnormality Cholecystectomy planned Surgical History H/O cystoscopy History of hemorrhoidectomy (~05/20/23) H/O colonoscopy History of esophagogastroduodenoscopy (EGD) Hx of cholecystectomy Gastric bypass status for obesity Family History Family History Father Diabetes mellitus Obesity Mother Arthritis of knee Obesity Paternal Grandfather Diabetes mellitus Paternal Grandmother Diabetes mellitus Maternal Grandmother Diabetes mellitus Arthritis of knee Maternal Grandfather Diabetes mellitus Maternal Aunt Intestinal cancer Social History Social History Household Members: Spouse and Children Housing: House Alcohol intake: never Comment: patient states tolerable Patient Tobacco Use Status: Never used Tobacco Smoked in Last 30 Days: No e-Cigarette/Vaping Use: Never Used Second Hand Smoke Exposure: No Use of substances other than those prescribed or required for medical reasons: No Advance Directives: No Advance Directives Information Provided: Yes Patient : No service: No Current occupational status: unemployed Cognitive needs: No Hearing needs: No Vision needs: Yes Physical Exam ED Vital Signs: Vital Signs - 24 hr 07/22/24 12:18 07/22/24 17:59 07/22/24 18:28 Temperature 97.7 F 97 F Pulse Rate 83 77 Respiratory Rate 20 16 16 Blood Pressure 119/69 121/67 Pulse Oximetry 99 100 Oxygen Delivery Method Room Air Room Air 07/22/24 19:08 07/22/24 20:21 07/22/24 21:41 Temperature 97.6 F 98.5 F 98.5 F Pulse Rate 63 48 L 48 L Respiratory Rate 16 16 16 Blood Pressure 92/47 L 108/65 108/65 Pulse Oximetry 100 98 98 Oxygen Delivery Method Room Air Room Air Room Air BMI result Body Mass Index 31.3 Appearance: Alert. Oriented X3. No acute distress. Eyes: PERRLA, No Nystagmus ENT: Pharynx normal. Oral Mucosa moist no temporal artery tenderness Neck: Normal inspection. Neck supple. CVS: Normal heart rate and rhythm. Pulses normal. Respiratory: No respiratory distress. Equal air entry bilateral, no wheezing/rales/rhonchi Abdomen: Soft and nontender. Bowel sounds are present, no mass palpable, no CVA tenderness Skin: Skin warm and dry. Normal skin color. Normal skin turgor. Extremities: No lower extremity edema. No calf tenderness Neuro: Oriented X 3. No motor deficit. No sensory deficit.No cerebellar signs , cranial nerves II-XII intact Course Course Course Narrative: This is an RME: Additional HPI, ROS, PE not included below will be deferred to primary provider. RME assessment and note performed by: Hattie Adams PA-C This is a [id number]-[id number]-female, with a hx of Crohns, migraines, chronic LBP, asthma, SALIMA, GERD, and migraines, who presents to the ER with multiple complaints. Patient states that she has had weakness, nausea and vomiting for some time given her Crohn's disease. She states that this morning at 7:30 a.m. she felt as though she was weak on the left side of her face. She also reports that she has pain behind her left eye. She has no vision changes. She states that she feels a she is unable to open up her eye all the way. She states that she gets migraines however this does not feel like her migraines she has had in the past. She also reports that she has numbness on the left side of her face as well as her left arm. She has an NIH score of 0. No neurologic focal deficits on examination. When asked to do the neuro examination, she has no focal deficits elicited. She was ambulatory with steady gait. Plan: Labs 07/22/24 1801 - Pt reassessed, continues to have headache and nausea. Will get Tylenol 1 g and zofran in triage. Medications Administered Discontinued Medications Generic Name Dose Route Start Last Admin Trade Name Bhavana PRN Reason Stop Dose Admin Acetaminophen 975 mg 07/22/24 18:00 07/22/24 18:04 Acetaminophen 325 Mg Tablet PO 07/22/24 18:01 975 mg ONCE ONE Administration Al Hydroxide/Mg Hydroxide 30 ml 07/22/24 21:14 07/22/24 21:18 Magnesium Hydrox/Alum Hydrox 30 Ml Oral.Susp PO 07/22/24 21:15 30 ml ONCE ONE Administration Morphine Sulfate 4 mg 07/22/24 20:21 07/22/24 20:40 Morphine Sulfate 4 Mg/Ml Cartridge IM 07/22/24 20:22 4 mg ONCE ONE Administration Protocol Ondansetron HCl 4 mg 07/22/24 18:00 07/22/24 18:04 Ondansetron Odt 4 Mg Tab.Rapdis TRANSLINGU 07/22/24 18:01 4 mg ONCE ONE Administration Sumatriptan Succinate 6 mg 07/22/24 19:30 07/22/24 19:40 Sumatriptan Succinate 6 Mg/0.5 Ml Vial SUBCUT 07/22/24 19:31 6 mg ONCE ONE Administration Medical Decision Making Medical Decision Making [facility] Narrative: Patient clinically with ocular migraine no signs of Russell's palsy your neuro deficits CT scan head is negative improved after Imitrex and IM morphine will discharge patient home Differential Diagnosis Differential Diagnoses: The differential diagnosis associated with the presentation includes Russell's palsy/migraine/TIA Lab Data [facility] Lab Attestation statement: I reviewed the patient's lab results. 07/22/24 12:58 07/22/24 12:57 Labs: Lab Results 07/22/24 07/22/24 07/22/24 Range/Units 12:57 12:58 16:36 WBC 6.1 (4.8-10.8) X10*3/uL RBC 4.61 (4.20-5.50) X10*6/uL Hgb 11.4 L (12.0-16.0) g/dl Hct 35.8 L (37.0-47.0) % MCV 77.7 L (80.0-98.0) fL MCH 24.7 L (27.0-33.0) pg MCHC 31.8 (31.0-35.0) g/dl RDW 14.1 (11.0-16.0) % Plt Count 198 (160-400) X10*3/uL MPV 11.2 (9.4-12.3) fL Immature Gran % (Auto) 0.3 (0.0-0.4) % Neut % (Auto) 58.1 (45-73) % Lymph % (Auto) 28.1 (20-40) % Posey % (Auto) 9.6 (2-11) % Eos % (Auto) 2.6 (0-4) % Baso % (Auto) 1.3 (0-2) % Lymph # (Auto) 1.7 (1.2-4.9) X10*3/uL Posey # (Auto) 0.6 (0.1-1.2) X10*3/uL Eos # (Auto) 0.2 (0.0-0.4) X10*3/uL Baso # (Auto) 0.1 (0.0-0.2) X10*3/uL Abs Immat Gran (auto) 0.02 (0.00-0.03) X10*3/uL Absolute Neuts (auto) 3.6 (2.0-8.3) x10*3/uL Absolute Nucleated RBC 0.000 (0.0-0.012) X10*3/uL Nucleated RBC % (auto) 0.0 (0.0-0.2) /100WBC Sodium 141 (135-145) mmol/L Potassium 4.1 (3.3-5.1) mmol/L Chloride 113 H (96-108) mmol/L Carbon Dioxide 22 (22-29) mmol/L Anion Gap 10 L (12-20) BUN 11 (9-16) mg/dL Creatinine 0.67 (0.5-1.4) mg/dL Estim Creat Clear Calc 144.5 Estimated GFR > 60 Random Glucose 83 (60-115) mg/dL Calcium 8.4 (8.4-10.2) mg/dL Magnesium 2.2 (1.6-2.6) mg/dL Total Bilirubin 0.4 (0.0-1.0) mg/dL Direct Bilirubin 0.2 (0.0-0.5) mg/dL AST 22 (5-31) U/L ALT 11 (0-31) U/L Alkaline Phosphatase 93 (39-117) U/L Troponin I High Sens < 2.7 (<3.5-17.0) ng/L Total Protein 6.4 L (6.5-8.0) g/dL Albumin 3.9 (3.5-5.0) g/dL Beta HCG, Quant < 2 mIU/mL Influenza Type A (PCR) NEGATIVE (Negative) Influenza Type B (PCR) NEGATIVE (Negative) RSV RNA Qual (PCR) NEGATIVE (Negative) SARS-CoV-2 RNA (RT-PCR) NEGATIVE (Negative) Independent Interpretation I performed an independent interpretation of an: CT Scan Interpretation: No acute Discharge Plan Discharge Clinical Impression: Headache, migraine Patient Disposition: Home, Self-Care Instructions: Migraine Headache (ED) Additional Instructions: take medication for migraine as prescribed Your symptoms likely from ocular migraine which is type of migraine affects the eye Follow with your PCP Prescriptions: New avvmymfjrr-wlgzopucexkqf-gvsf 50-325-40 mg tablet 1 tab PO Q6H PRN (Reason: haeadace) Qty: 20 0RF No Action thiamine HCl (vitamin B1) 100 mg tablet 100 mg PO DAILY Qty: 90 3RF cholecalciferol (vitamin D3) 125 mcg (5,000 unit) capsule 125 mcg PO DAILY Qty: 90 3RF nortriptyline 10 mg capsule 10 mg PO BEDTIME Qty: 30 2RF sucralfate [Carafate] 100 mg/mL suspension 10 ml PO BID Qty: 420 3RF mesalamine [Apriso] 0.375 gram capsule,extended release 24hr 1.5 g PO QAM Qty: 120 1RF ferrous fumarate [Ferrocite] 324 mg (106 mg iron) tablet 324 mg PO DAILY Qty: 90 0RF naproxen 500 mg tablet 500 mg PO Q8-12H PRN (Reason: pain (scale score 1-3)) Qty: 20 0RF naratriptan 2.5 mg tablet 2.5 mg PO DIRECTED amitriptyline 25 mg tablet 25 mg PO BEDTIME lidocaine [Lidoderm] 5 % adhesive patch,medicated 1 patch topical DAILY Qty: 15 0RF Rx Instructions: leave on most painful area for up to 12 hrs (DME) lancets [FreeStyle Lancets] 28 gauge misc See Rx Instructions .ROUTE QID Qty: 100 Rx Instructions: As directed cyclobenzaprine 10 mg tablet 10 mg PO BEDTIME Qty: 30 11RF vitamin A 3,000 mcg (10,000 unit) capsule PO Stand Alone Forms: Work/School Release Interventions: ED Discharge Assessment Last Done: 07/22/24 21:41 Discharge Date/Time: 07/22/24 21:43 Print Language: Bangladeshi
--- NOTE | 2024-07-22 12:32 | ECG_ITS ---
Test Reason : NUEROLOGICAL PROBLEM Blood Pressure : / mmHG Vent. Rate : 058 BPM Atrial Rate : 058 BPM P-R Int : 158 ms QRS Dur : 094 ms QT Int : 428 ms P-R-T Axes : 156 143 138 degrees QTc Int : 420 ms Suspect limb lead reversal, interpretation assumes no reversal Unusual P axis, possible ectopic atrial bradycardia with undetermined rhythm irregularity Lateral infarct , age undetermined Abnormal ECG When compared with ECG of 13-MAR-2020 18:08, Ectopic atrial rhythm has replaced Sinus rhythm QRS axis Shifted right Lateral infarct is now Present T wave inversion now evident in Lateral leads Referred By: Hattie Adams Electronically Signed By:
[2024-07-22 13:10] LABS: Basophils Absolute Auto 0.1 X10*3/uL (0.0-0.2); Basophils Percent Auto 1.3 % (0-2); Eosinophils Absolute Auto 0.2 X10*3/uL (0.0-0.4); Eosinophils Percent Auto 2.6 % (0-4); Hematocrit 35.8 % (37.0-47.0); Hemoglobin 11.4 g/dl (12.0-16.0); Imm Gran Abs Auto 0.02 X10*3/uL (0.00-0.03); Imm Gran Pct Auto 0.3 % (0.0-0.4); Lymphocytes Absolute Auto 1.7 X10*3/uL (1.2-4.9); Lymphocytes Percent Auto 28.1 % (20-40); MANUAL DIFF FLAG NO; Mean Corpuscular HGB Conc 31.8 g/dl (31.0-35.0); Mean Corpuscular Hemoglobin 24.7 pg (27.0-33.0); Mean Corpuscular Volume 77.7 fL (80.0-98.0); Mean Platelet Volume 11.2 fL (9.4-12.3); Monocytes Absolute Auto 0.6 X10*3/uL (0.1-1.2); Monocytes Percent Auto 9.6 % (2-11); Neutrophils Absolute Auto 3.6 x10*3/uL (2.0-8.3); Neutrophils Percent Auto 58.1 % (45-73); Platelet Count 198 X10*3/uL (160-400); Red Blood Count 4.61 X10*6/uL (4.20-5.50); Red Cell Distribution Width 14.1 % (11.0-16.0); White Blood Count 6.1 X10*3/uL (4.8-10.8)
[2024-07-22 13:36] LABS: Alanine Aminotransferase 11 U/L (0-31); Albumin Level 3.9 g/dL (3.5-5.0); Alkaline Phosphatase 93 U/L (39-117); Anion Gap 10 (12-20); Aspartate Amino Transferase 22 U/L (5-31); Bilirubin Direct 0.2 mg/dL (0.0-0.5); Bilirubin Total 0.4 mg/dL (0.0-1.0); Blood Urea Nitrogen 11 mg/dL (9-16); Calcium 8.4 mg/dL (8.4-10.2); Carbon Dioxide 22 mmol/L (22-29); Chloride 113 mmol/L (96-108); Creatinine Clr Calc Pharmacy 144.5; Estimated Glomerular Filt Rate > 60; Glucose Random 83 mg/dL (60-115); HCG Quantitative < 2 mIU/mL; Magnesium 2.2 mg/dL (1.6-2.6); Potassium 4.1 mmol/L (3.3-5.1); Sodium 141 mmol/L (135-145); Total Protein 6.4 g/dL (6.5-8.0); Troponin-I High Sensitivity < 2.7 ng/L (<3.5-17.0)
[2024-07-22 17:24] LABS: Influenza A PCR NEGATIVE (Negative); Influenza B PCR NEGATIVE (Negative); Resp Syncy Virus RNA Qual PCR NEGATIVE (Negative); SARS COV2 PCR INHOUSE NEGATIVE (Negative)
[2024-07-22 17:59] VITALS: BP 121/67; PULSE 77; RESP 16; TEMP 36.1; O2SAT 100
[2024-07-22] MEDS: Ondansetron ODT 4 MG TAB.RAPDIS TRANSLINGU (18:04)
[2024-07-22] MEDS: Acetaminophen 325 MG TABLET 975 MG PO (18:04)
[2024-07-22 18:28] VITALS: RESP 16
[2024-07-22 19:08] VITALS: BP 92/47; PULSE 63; RESP 16; TEMP 36.4; O2SAT 100
--- NOTE | 2024-07-22 19:27 | PC.NURSE ---
Pt resting comfortably in stretcher at this time. Awaiting CT results of head. Lights dimmed. Visitor at bedside.
[2024-07-22] MEDS: SUMAtriptan succinate 6 MG/0.5 ML VIAL SUBCUT (19:40)
[2024-07-22 20:21] VITALS: BP 108/65; PULSE 48; RESP 16; TEMP 36.9; O2SAT 98
[2024-07-22] MEDS: Morphine Sulfate 4 MG/ML CARTRIDGE IM (20:40)
--- NOTE | 2024-07-22 20:48 | PC.NURSE ---
Pt c/o 06/24 HOOK after being given Sumatriptan. Medicated to MAR for increased pain. A&Ox4, speaking in full complete sentences. Awaiting CT Head read.
[2024-07-22] MEDS: Magnesium Hydrox/Alum Hydrox 30 ML ORAL.SUSP PO (21:18)
[2024-07-22 21:41] VITALS: BP 108/65; PULSE 48; RESP 16; TEMP 36.9; O2SAT 98
== END 2024-07-22 21:43 | disposition home or self-care (01) ==
PROVIDERS: Physician Assistant Medical; Emergency Provider Internal Medicine; PCP Internal Medicine
DX: G43.909 Migraine, unspecified, not intractable, without status migrainosus (principal); R20.0 Anesthesia of skin; R94.31 Abnormal electrocardiogram [ECG] [EKG]; Z03.818 Encounter for observation for suspected exposure to other biological agents ruled out; Z79.899 Other long term (current) drug therapy
CPT/HCPCS: 0241U; 36415; 70450; 80048; 80076; 83735; 84484; 84702; 85025; 93005; 96372; 99284; 99285; J2270; J3030

== ENCOUNTER 2024-08-03 13:24 | Outpatient (AMB) | payer OTHER, SELFPAY ==
[2024-08-03 13:44] VITALS: BP 128/84; PULSE 75; O2SAT 98; BMI 29.6
--- NOTE | 2024-08-03 13:44 | MHC.PC.OV ---
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 Pt was admitted to [facility] [place] on 07/22/24 due Migraine headaches and discharged home the same day. Has h/o Chronic Migraines, crohns and low back pain. She is followed with [facility] and she is waiting to receive Steroid injections. For Migraines she takes Amitriptyline and Naratriptan. [facility] Medical History Pelvic pain Muscle spasm Internal and external bleeding hemorrhoids Constipation Breakthrough bleeding on Nexplanon COVID-19 Left arm pain Encounter for removal and reinsertion of Nexplanon Chronic abdominal pain Sacroiliac joint pain Hypovitaminosis D Iron deficiency anemia GERD (gastroesophageal reflux disease) Ovarian mass Sinusitis BCP ( control pills) initiation Yeast infection involving the vagina and surrounding area Problematic vaginal discharge Lumbar pain Hip asymmetry Intestinal malabsorption following gastrectomy Obesity (BMI 30-39.9) Sleep apnea Asthma Bile duct abnormality Cholecystectomy planned Surgical History H/O cystoscopy History of hemorrhoidectomy (~05/20/23) H/O colonoscopy History of esophagogastroduodenoscopy (EGD) Hx of cholecystectomy Gastric bypass status for obesity Family History Father Diabetes mellitus Obesity Mother Arthritis of knee Obesity Paternal Grandfather Diabetes mellitus Paternal Grandmother Diabetes mellitus Maternal Grandmother Diabetes mellitus Arthritis of knee Maternal Grandfather Diabetes mellitus Maternal Aunt Intestinal cancer Social History Household Members: Spouse and Children Housing: House Alcohol intake: never Comment: patient states tolerable Patient Tobacco Use Status: Never used Tobacco e-Cigarette/Vaping Use: Never Used Second Hand Smoke Exposure: No service: No Current occupational status: unemployed Cognitive needs: No Hearing needs: No Vision needs: Yes Female Reproductive History Menstrual Age of Menarche: 10 Questionnaire Thrive Questionnaire Date Thrive assessed: 12/18/23 GAGAN-7 AMB Questionnaire GAGAN-7 Date GAGAN - 7 assessed: 12/18/23 Source: Developed by Drs. George Cortes, Aga Donovan, Jose Hwang and colleagues, with an educational hiren from [employer]. Review of Systems Const All systems reviewed & are unremarkable except as noted in HPI and below Physical exam (Primary Care) Vital Signs: Last Vital Signs Pulse 75 08/03/24 13:44 BP 128/84 08/03/24 13:44 Pulse Ox 98 08/03/24 13:44 Oxygen Delivery Method Room Air 08/03/24 13:44 BMI result Body Mass Index 29.6 Tobacco/Smoking Status: Tobacco use Status Tobacco use date assessed 10/29/23 08/03/24 13:45 Patient Tobacco Use Status Never used Tobacco 08/03/24 13:45 e-Cigarette/Vaping Use Never Used 08/03/24 13:45 Thrive Assessment: Date of Thrive Assessment Date Thrive assessed 12/18/23 08/03/24 13:45 Const General: no acute distress Nutritional Appearance: overweight Orientation/consciousness: patient oriented x3 HENMT Head: Yes normocephalic Resp Effort & Inspection: normal respiratory effort Auscultation: clear to auscultation bilaterally Cardio Heart sounds: S1 normal heart sound present and S2 normal heart sound present Back/Spine/Pelvis Back: back tenderness Neuro General: patient oriented x3, gait normal and moves all extremities Psych Speech and movement: Normal speech and movement present Office Procedures Flu Questionnaire Does the patient have a severe egg allergy?: No Immunizations Fluarix Triv [id number] (PF) 45 mcg (15 mcg x 3)/0.5 mL IM syringe Performing Provider: Melissa Burr NP Performing Location: [facility] [place] [facility] Documented (not given) by: DENIZ Oden on 08/03/24 13:48 Reason Not Given: Patient Refused Coding Level of Care Code Est Pt Level 4 (83164) Diagnoses Chronic midline low back pain without sciatica M54.50; G89.29 Chronicity: chronic Back pain laterality: midline Sciatica presence: without sciatica Chronic migraine without aura without status migrainosus, not intractable G43.709 Migraine type: chronic migraine (15 or more days per month) without aura Status migrainosus presence: without status migrainosus Intractability: not intractable Time Spent (min) 20 Assessment & Plan Assessment & Plan (1) Low back pain: Code(s): M54.50 - Low back pain, unspecified Category: Medical Qualifiers: Chronicity: chronic Back pain laterality: midline Sciatica presence: without sciatica Qualified Code(s): M54.50 - Low back pain, unspecified; G89.29 - Other chronic pain Plan: Managed by [facility] (2) Migraines: Code(s): G43.909 - Migraine, unspecified, not intractable, without status migrainosus Category: Medical Qualifiers: Migraine type: chronic migraine (15 or more days per month) without aura Status migrainosus presence: without status migrainosus Intractability: not intractable Qualified Code(s): G43.709 - Chronic migraine without aura, not intractable, without status migrainosus Plan: Continue on current regiment. Orders: Orders Influenza [id number] Immunization Today Z23 - Encounter for immunization
== END 2024-08-03 14:12 | disposition home or self-care (01) ==
PROVIDERS: PCP Internal Medicine; Visit Provider Nurse Practitioner Family
DX: M54.50 Low back pain, unspecified (principal); G89.29 Other chronic pain; G43.709 Chronic migraine without aura, not intractable, without status migrainosus; Z23 Encounter for immunization

== ENCOUNTER → 2024-08-03 13:24 | Outpatient (BNVA) | payer OTHER, SELFPAY | PROVIDERS: PCP Internal Medicine; Visit Provider Nurse Practitioner Family | DX: M54.50 Low back pain, unspecified (principal); G89.29 Other chronic pain; G43.709 Chronic migraine without aura, not intractable, without status migrainosus | CPT/HCPCS: 90471; 99212 ==

== ENCOUNTER 2024-08-05 13:00 | Outpatient (AMB) | payer OTHER, SELFPAY ==
--- NOTE | 2024-08-05 13:04 | MHC.OFFVISWM ---
VS Expanded 08/05/24 13:21 BP 113/61 Blood Pressure Location Rt brachial Blood Pressure Position Sitting Pulse 83 Pulse Source Pulse Oximeter Temp 97.7 F Temperature Source Temporal Artery Scan Pulse Oximetry 98 Oxygen Delivery Method Room Air Height 5 ft 7 in Weight 186 lb BMI 29.1 Body Fat % 42.5 Body Fat Mass 79.0 Fat Free Mass 107.0 Visceral Fat Rating 7.0 Body Water % 41.4 Body Water Mass 77.0 Muscle Mass/Score 101.4 Basal Metabolic Rate/Score 1,530 Intake Visit Reasons: (OV) PO GBP 02/2017 *SEE COMMENTS* Allergies carrot [CARROTS] Allergy (Intermediate, Verified 08/05/24 13:13) SWELLING cat dander [CATS] Allergy (Intermediate, Verified 08/05/24 13:13) ITCHING insect venom [INSECT BITES] Allergy (Intermediate, Verified 08/05/24 13:13) HIVES HPI Comments Details: This?is a?28?yo female who is s/p RYGB 02/2017. Has not followed up with us in 10 months. Weight loss of 3.2lbs since last OV. Per RN notes- Has had ongoing stomach pain, follows with GI, DX Crohn's per pt, started on Apriso by Dr. Cowart in summertime and taking. Also saw GI in [place], told them that every time she takes Apriso she experienced burning pain. Was scheduled with IBD doctor, for September. Also has back pain and was prescribed naprosyn at some point but indicated has taken no more then 2 doses in last month. She is aware NSAIDS not recommended post gastric surgery and was trying to avoid taking them, but she did take a few doses. Was started on esomeprazole by GI. Occasional vomiting, indicated only able to tolerate one meal (meat/veg /bread) and one celebrate shake a day for last month. Taking carafate. No tobacco, no EtOH, no cannabis. GERD: yes Score 0-5: 0=no symptoms, 1=noticeable but not bothersome (slight or occasional), 2=noticeable, bothersome but not daily, 3=bothersome and daily, 4=affects daily activities, 5=incapacitating, unable to do daily activities How bad is the heartburn: 1 Heartburn when lying down: 0 Heartburn when standing up: 0 Heartburn after meals: 1 Does heartburn change your diet: 1 Does heartburn wake you up from sleep: 0 Do you have difficulty swallowin Do you have pain with swallowin If you take medication for reflux, does this affect your daily life: 1 Total score: 4 PFSH Medical History Pelvic pain Muscle spasm Internal and external bleeding hemorrhoids Constipation Breakthrough bleeding on Nexplanon COVID-19 Left arm pain Encounter for removal and reinsertion of Nexplanon Chronic abdominal pain Sacroiliac joint pain Hypovitaminosis D Iron deficiency anemia GERD (gastroesophageal reflux disease) Ovarian mass Sinusitis BCP ( control pills) initiation Yeast infection involving the vagina and surrounding area Problematic vaginal discharge Lumbar pain Hip asymmetry Intestinal malabsorption following gastrectomy Obesity (BMI 30-39.9) Sleep apnea Asthma Bile duct abnormality Cholecystectomy planned Surgical History H/O cystoscopy History of hemorrhoidectomy (~05/20/23) H/O colonoscopy History of esophagogastroduodenoscopy (EGD) Hx of cholecystectomy Gastric bypass status for obesity Family History Father Diabetes mellitus Obesity Mother Arthritis of knee Obesity Paternal Grandfather Diabetes mellitus Paternal Grandmother Diabetes mellitus Maternal Grandmother Diabetes mellitus Arthritis of knee Maternal Grandfather Diabetes mellitus Maternal Aunt Intestinal cancer Social History Household Members: Spouse and Children Housing: House Alcohol intake: never Comment: patient states tolerable Patient Tobacco Use Status: Never used Tobacco e-Cigarette/Vaping Use: Never Used Second Hand Smoke Exposure: No service: No Current occupational status: unemployed Cognitive needs: No Hearing needs: No Vision needs: Yes Female Reproductive History Menstrual Age of Menarche: 10 Assessment & Plan Assessment & Plan (1) Gastric bypass status for obesity: Code(s): Z98.84 - Bariatric surgery status Category: Surgical (2) Epigastric pain: Code(s): R10.13 - Epigastric pain Category: Medical Plan High suspicion for an ulcer. I told her to stop NSAIDs, put her on a meal plan of protein shakes only, started pantoprazole BID and carafate QID. D/C other PPIs. Can take 2 Celebrate 4:1 shakes with 2 scoops each plus one Premier shake or 1 scoop x2, 2 scoops x1, and Premier. Labs ordered. Will schedule endoscopy. I spent a total of 30 minutes reviewing/updating records, examining the patient and counseling the patient on weight management as detailed above. Orders: Orders Lipid Panel Today Z98.84 - Bariatric surgery status Comprehensive Met. Panel Today Z98.84 - Bariatric surgery status Vitamin B12 and Folate Today Z98.84 - Bariatric surgery status Zinc Today Z98.84 - Bariatric surgery status C Reactive Protein Today Z98.84 - Bariatric surgery status Vitamin A Today Z98.84 - Bariatric surgery status Vitamin D 25-OH Total Today Z98.84 - Bariatric surgery status Insulin Today Z98.84 - Bariatric surgery status Hemoglobin A1c Today Z98.84 - Bariatric surgery status Complete Blood Count Auto Diff Today Z98.84 - Bariatric surgery status IRON PROFILE Today Z98.84 - Bariatric surgery status Vitamin B1 Today Z98.84 - Bariatric surgery status TSH reflex Free T4 Today Z98.84 - Bariatric surgery status Ferritin Today Z98.84 - Bariatric surgery status Medications: New pantoprazole 40 mg PO Q12H 180 tabs 3RF Changed From Carafate (sucralfate) 10 mL PO BID 420 mL 3RF NS To Carafate (sucralfate) 10 mL PO QID 420 mL 3RF NS Discontinued omeprazole open capsule and mix contents with apple sauce and take Discontinued Reason: Doctor's Order 40 mg PO DAILY 30 caps 2RF
[2024-08-05 13:21] VITALS: BP 113/61; PULSE 83; TEMP 36.5; O2SAT 98; BMI 29.1
== END 2024-08-05 13:38 | disposition home or self-care (01) ==
PROVIDERS: PCP Internal Medicine; Visit Provider Physician Assistant Surgical
DX: R10.13 Epigastric pain (principal); Z98.84 Bariatric surgery status
CPT/HCPCS: 99214; G2211

== ENCOUNTER → 2024-08-05 13:00 | Outpatient (BNVA) | payer OTHER, SELFPAY | PROVIDERS: PCP Internal Medicine; Visit Provider Physician Assistant Surgical | DX: R10.13 Epigastric pain (principal); Z98.84 Bariatric surgery status | CPT/HCPCS: 99212 ==

== ENCOUNTER 2024-08-24 09:52 | Day surgery (SDC) | payer OTHER, SELFPAY ==
--- NOTE | 2024-08-23 13:34 | HO.ANESPROP2 ---
HPI - Anesthesia Eval Consult details Narrative: 29yo F for Upper Endoscopy PMFSH Active Problems Active Problems: All Active Problems Epigastric pain (Acute) Hypoglycemia (Acute) Low back pain (Acute) SOB (shortness of breath) (Acute) Malnutrition (Acute) Crohn's disease (Acute) Concussion (Acute) Migraines (Acute) Enteritis (Acute) Overweight (Acute) Right flank pain (Acute) Pelvic pain (Acute) ADHD (Acute) Right lower quadrant pain (Chronic) Bleeding hemorrhoids (Acute) Streptococcal pharyngitis (Acute) History of kidney stones (Acute) Physical exam (Acute) History of pyelonephritis (Acute) Recurrent UTI (Acute) Malrotation, kidney (Acute) Insomnia (Acute) (Acute) Ovarian cyst, complex (Acute) Headache (Acute) Iron deficiency anemia (Acute) Abnormal LFTs (Acute) Diarrhea (Acute) Hypovitaminosis D (Acute) Iron deficiency anemia (Acute) GERD (gastroesophageal reflux disease) (Acute) Lumbar pain (Acute) Hip asymmetry (Acute) Intestinal malabsorption following gastrectomy (Acute) Bile duct abnormality (Acute) Gastric bypass status for obesity (Acute) Obesity (BMI 30-39.9) (Acute) Past Medical History Medical History Pelvic pain Muscle spasm Internal and external bleeding hemorrhoids Constipation Breakthrough bleeding on Nexplanon COVID-19 Left arm pain Encounter for removal and reinsertion of Nexplanon Chronic abdominal pain Sacroiliac joint pain Hypovitaminosis D Iron deficiency anemia GERD (gastroesophageal reflux disease) Ovarian mass Sinusitis BCP ( control pills) initiation Yeast infection involving the vagina and surrounding area Problematic vaginal discharge Lumbar pain Hip asymmetry Intestinal malabsorption following gastrectomy Obesity (BMI 30-39.9) Sleep apnea Asthma Bile duct abnormality Cholecystectomy planned Family History Family History Father Diabetes mellitus Obesity Mother Arthritis of knee Obesity Paternal Grandfather Diabetes mellitus Paternal Grandmother Diabetes mellitus Maternal Grandmother Diabetes mellitus Arthritis of knee Maternal Grandfather Diabetes mellitus Maternal Aunt Intestinal cancer Family history of problems with anesthesia: No Surgical History Surgical History H/O cystoscopy History of hemorrhoidectomy (~05/20/23) H/O colonoscopy History of esophagogastroduodenoscopy (EGD) Hx of cholecystectomy Gastric bypass status for obesity History of Problems with Anesthesia: No Social History Social History Household Members: Spouse and Children Housing: House Alcohol intake: never Comment: patient states tolerable Patient Tobacco Use Status: Never used Tobacco e-Cigarette/Vaping Use: Never Used Second Hand Smoke Exposure: No service: No Current occupational status: unemployed Cognitive needs: No Hearing needs: No Vision needs: Yes Meds Allergies Allergy/AdvReac Type Severity Reaction Status Date / Time carrot [CARROTS] Allergy Intermediate SWELLING Verified 08/05/24 13:13 cat dander [CATS] Allergy Intermediate ITCHING Verified 08/05/24 13:13 insect venom [INSECT BITES] Allergy Intermediate HIVES Verified 08/05/24 13:13 Home Medications ?Medication ?Instructions ?Recorded ?Confirmed ?Last Taken ?Type lancets 28 gauge (FreeStyle #100 ea 07/19/22 06/14/24 Unknown History Lancets) amitriptyline 25 mg tablet 25 mg PO BEDTIME 04/14/24 06/14/24 Unknown History naratriptan 2.5 mg tablet 2.5 mg PO DIRECTED 04/14/24 06/14/24 Unknown History vitamin A 3,000 mcg (10,000 unit) PO 05/03/24 06/14/24 Unknown History capsule Assessment and Plan Assessment Anesthesia Assessment: Chart Reviewed Final Anesthetic Review Family History of Problems with Anesthesia: No History of Problems with Anesthesia: No
[2024-08-24 11:48] VITALS: BP 109/51; PULSE 55; RESP 16; TEMP 36.8; O2SAT 100; BMI 28.4
[2024-08-24 11:52] LABS: UPreg QC Valid YES; Urine Pregnancy NEGATIVE (NEGATIVE)
--- NOTE | 2024-08-24 12:08 | P.HPSUR_ITS ---
Pre-Procedural Eval Section A - 24 Hr Update-Section A only Date of Service: 08/24/24 The patient is an INPATIENT: No The patient has been examined within 24 hours of the surgical procedure. The History & Physical has been completed within 30 days and I have reviewed it.: No Section B - Complete if H&P > 30 days Chief Complaint: Bariatric surgery status Details of Present Illness: Epigastric pain, s/p gastric bypass Relevant Family History (Specify if Yes): No Relevant Social History: None Present Medications: None Medical History: No relevant PMH History of Previous Operations: Relevant previous surgery/procedure and date(s) (laparoscopic gastric bypass) Allergies: Allergies Allergy/AdvReac Type Severity Reaction Status Date / Time carrot [CARROTS] Allergy Intermediate SWELLING Verified 08/24/24 11:44 cat dander [CATS] Allergy Intermediate ITCHING Verified 08/24/24 11:44 insect venom [INSECT BITES] Allergy Intermediate HIVES Verified 08/24/24 11:44 Review of Systems Sugical H&P ROS: Negative: Constitution, Cardiovascular, Respiratory, Neurological, Psychiatric, Hem-Onc, Allergic/Immunologic, Genitourinary, Musculoskeletal, Integumentary, Endocrine and Eyes/Ears/Nose/Throat and Yes, Specify: Gastrointestinal (abdominal pain, nausea) Exam Surgical H&P Exam: Normal: HEENT, Normal: Heart, Normal: Lungs, Normal: Extrem ities, Normal: Abdomen, Normal: Skin and Normal: Neurological Plan Diagnosis/Plan: Unchanged (EGD to assess etiology of the abdominal pain. Risks of bleeding and perforation were discussed with the patient and she is in agreement with the plan.) I have reviewed the history and physical and performed a pertinent physical examination on my patient. No changes have occurred unless specified. Time Spent With Patient Time: Total time managing care of this patient today ____ minutes.
[2024-08-24] MEDS: Lactated Ringers 1,000 ML 80 ML IVCONT (12:09)
--- NOTE | 2024-08-24 12:12 | PM.OP ---
Brief Operative Note Date of Service: 08/24/24 Pre-op diagnosis: Epigastric pain, possible Crohn's disease Procedure: PROCEDURE DATE: ?08/24/2024 PREOPERATIVE DIAGNOSIS: Epigastric abdominal pain, s/p gastric bypass POSTOPERATIVE DIAGNOSIS: ?Same as above. 1) Normal endoscopy PROCEDURE: [id number] with biopsies Surgeon: ?Matt Desai M.D.. Ph.D. Forensic Audit Expert: ?None ? Anesthesia: IV sedation Estimated blood loss: ?Minimal FINDINGS AND PROCEDURE: ? OPERATIVE INDICATIONS: ?The patient is a 29 year old female known to [place] who underwent a laparoscopic gastric bypass chris [place]. The patient has been diagnosed with Crohn's disease and was treated with Mesalamine. Since then the epigastric pain has increased and is constant.? Based on this information I recommended an upper endoscopy to evaluate the patient's symptoms.? Risks and complications of the surgery were discussed with the patient in advance particularly the possibility of perforation or bleeding that may require surgical intervention. The patient understood the risks and was in agreement with the plan. ? PROCEDURE: After informed consent was obtained by the patient, the patient was ?transferred to the Operating Room and was placed in the supine position.? After successful induction of IV sedation, a mouth block was placed and the patient was placed in the left lateral decubitus position. An upper endoscopy was performed next, the oropharynx and esophagus appeared within the normal limits. One biopsy was obtained from the proximal esophagus. There was no hiatal hernia.? The z-line was smooth. Two biopsies were obtained from the distal esophagus 2-3 cm proximal to the GE junction and two biopsies from the GE junction. The small pouch was entered, appeared to be of normal size. There was no gastritis and the gastrojejunostomy was patent. A biopsy was obtained from the gastric pouch. No significant bleeding was noted from any of the biopsy sites. There was no anastomotic ulcer.? At that point the scope was advanced into the small intestine (proximal Royce limb) all the way at the full length of the endoscope at 100 cm from incisors which appeared to be normal as well. Small bowel biopies were obtained at 100cm, 80cm, 50cm and near the GJ anastomosis. The Royce limb and the pouch were decompressed and the scope was withdrawn from the patient's mouth. The patient was awaken and was transferred in stable condition to the Recovery Room for further care. I was present and performed all steps of the procedure. There were no residents to assist with this case. Matt Desai M.D., Ph.D. Surgeon: Raman Desai MD Anesthesia: MAC Was an Forensic Audit Expert used for this Procedure?: No Estimated blood loss (mL): 0 IV fluids (mL): 400 Urine output (mL): 0 (No [place] to record output) Pathology: other (1) small bowel at 100cm x1, 2) small bowel at 80cm x1, 3) small bowel at 50cm x1, 4) small bowel near GJ anastomosis x1, 5) gastric pouch x1, 6) GEJ x2, 7) distal esophagus x2, 8) Proximal esophagus x1 ) Condition: stable Disposition: PACU
[2024-08-24 12:45] VITALS: BP 108/61; PULSE 70; RESP 16; TEMP 36.5; O2SAT 100
[2024-08-24 13:01] VITALS: BP 113/75; PULSE 73; RESP 17; TEMP 36.5; O2SAT 99
== END 2024-08-24 13:25 | disposition home or self-care (01) ==
PROVIDERS: Nurse Practitioner; PCP Internal Medicine; Visit Provider Surgery
PROC: 0DJ08ZZ Inspection of Upper Intestinal Tract, Via Natural or Artificial Opening Endoscopic (ICD-10-PCS; CPT 43235; principal; 2024-08-24 11:40)
DX: R10.13 Epigastric pain (principal); Z98.84 Bariatric surgery status; G89.29 Other chronic pain; K90.9 Intestinal malabsorption, unspecified; K50.90 Crohn's disease, unspecified, without complications; K21.9 Gastro-esophageal reflux disease without esophagitis; D50.9 Iron deficiency anemia, unspecified; J45.909 Unspecified asthma, uncomplicated; M54.9 Dorsalgia, unspecified; G47.30 Sleep apnea, unspecified; Z79.899 Other long term (current) drug therapy; Z90.49 Acquired absence of other specified parts of digestive tract; Z56.0 Unemployment, unspecified
CPT/HCPCS: 43239; 81025; 88305; 88313; 88342; J2003; J2250; J2704

== ENCOUNTER → 2024-08-24 09:52 | Outpatient (BNV) | payer OTHER, SELFPAY | PROVIDERS: PCP Internal Medicine; Visit Provider Surgery | DX: R10.13 Epigastric pain (principal); Z98.84 Bariatric surgery status | CPT/HCPCS: 43239 ==

== ENCOUNTER 2024-12-10 09:53 | Outpatient (AMB) | payer OTHER, SELFPAY ==
--- NOTE | 2024-12-10 09:59 | A.SPINEOV_ITS ---
Vital Signs 12/10/24 10:02 Height 5 ft 8 in Weight 185 lb BMI 28.1 Intake Visit Reasons: lumbar radiculopathy Intake Note: Ms. Lazaro is here today c/o Low back pain. 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: No Allergies carrot [CARROTS] Allergy (Intermediate, Verified 12/10/24 10:01) SWELLING cat dander [CATS] Allergy (Intermediate, Verified 12/10/24 10:01) ITCHING insect venom [INSECT BITES] Allergy (Intermediate, Verified 12/10/24 10:01) HIVES Physical Exam Vital Signs: BMI result Body Mass Index 28.1 Assessment & Plan Assessment & Plan (1) Low back pain: Code(s): M54.50 - Low back pain, unspecified Category: Medical Qualifiers: Chronicity: chronic Back pain laterality: midline Sciatica presence: without sciatica Qualified Code(s): M54.50 - Low back pain, unspecified; G89.29 - Other chronic pain Plan Dear Dr Zuniga, Thank you for referring Mrs Lazaro to our office today. She is a very nice 29-year-old female who has had chronic low back issues since 2014, getting worse in 2023. More recently a component of left leg pain which she did not have before which radiates down her left posterior thigh into her lateral thigh region into her distal leg. 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 She did undergo cortisone injection at your office twice. The 2nd 1 she tells me made the pain worse. She is very frustrated. She has been walking with a cane and having trouble sleeping. She takes a combination of medications including gabapentin, naproxen, Flexeril and lidocaine patches. She comes today with an MRI at [place] showing mild degenerative disc disease. PMH: Asthma, gastric bypass surgery with a subsequent bile duct repair, outside of that no major medical problems. She is down about 100 lb after gastric bypass surgery. Social hx: She has not smoke, drink or use any recreational drugs Medications: Gabapentin, naproxen, Flexeril, lidocaine patches Allergies: Please see the [employer] list Physical exam: She walks with a cane, strength and reflexes are normal Imaging review: Lumbar MRI done at [place] about 6 months ago shows very mild degenerative disc disease with no evidence of nerve compression. There is no misalignment, Modic endplate changes, fractures. Impression: 29-year-old female presents with chronic low back pain, more recently developing left leg pain shooting down her leg into her foot. Her pain has not responded to any conservative management and she did have a few injections at your office. She did not get any relief from those. She has some very mild degenerative disc disease at L4-5 and L5-S1. I explained to her that back pain is a very difficult diagnosis to corroborate with MRI findings and in light of the fact that she has such mild degenerative disc disease I do not think that is where the pain is coming from. I do not think we have a solution for her surgically. She was asking about a follow-up MRI because the left leg pain started more recently than her last MRI. I told her I would a blockage in order the MRI but I suspect her insurance would deny it. Thank you for allowing us to care for your patient. The total time spent with this visit with this patient was 45 minutes reviewing history, physical exam, lumbar imaging review, and implementation of treatment plan or further diagnostic testing Michael Baldwin MD,PhD [facility] Orders: Orders MR lumbar spine wo con Today G89.29 - Other chronic pain, M54.50 - Low back pain, unspecified Coding Level of Care Code New Pt Level 4 (27678) Diagnoses Chronic midline low back pain without sciatica M54.50; G89.29 Chronicity: chronic Back pain laterality: midline Sciatica presence: without sciatica
[2024-12-10 10:02] VITALS: BMI 28.1
== END 2024-12-10 10:34 | disposition home or self-care (01) ==
LOC: HO.HNS 09:53
PROVIDERS: PCP Internal Medicine; Referring Provider Student in an Organized Health Care Education/Training Program; Visit Provider Physician Assistant
DX: M54.50 Low back pain, unspecified (principal); G89.29 Other chronic pain
CPT/HCPCS: 99204

== ENCOUNTER → 2024-12-10 09:53 | Outpatient (BNVA) | payer OTHER, SELFPAY | PROVIDERS: PCP Internal Medicine; Referring Provider Student in an Organized Health Care Education/Training Program; Visit Provider Physician Assistant | DX: M54.50 Low back pain, unspecified (principal); G89.29 Other chronic pain | CPT/HCPCS: 99202 ==

== ENCOUNTER 2024-12-25 09:52 | Emergency (ER) | payer OTHER, SELFPAY ==
--- NOTE | ~2024-12-25 | US_ITS ---
CLINICAL HISTORY: L flank pain US Renal Comparison: None Findings: Left kidney normal size and echotexture, 10.4 cm length. The right kidney is not imaged. No hydronephrosis of either kidney. Normal color Doppler IMPRESSION: 1. Normal left kidney. This document has been electronically signed by: Randall Keating MD on 12/25/2024 11:54:57
[2024-12-25 10:06] VITALS: BP 106/66; PULSE 82; RESP 16; TEMP 36.1; O2SAT 97; BMI 28.1
--- NOTE | 2024-12-25 10:09 | ED_ITS ---
HPI - General Adult General Chief complaint: Back Pain/Injury Stated complaint: Back pain, abd pain Time Seen by Provider: 12/25/24 10:16 Source: patient and old records reviewed Mode of arrival: ambulatory Limitations: no limitations History of Present Illness ED Provider: JEAN CHILDS narrative: 29 yo female with PMH of Crohns disease, ADHD, kidney stones, pyelonephritis, anemia, GERD, gastric bypass, back pain follows with [facility] and has been cleared for need of surgery by [facility] she reports chronic back pain on gabapentin, NSAIDs even though she is bariatric status, lidocaine patch and flexeril. She is not on thinners, no IVDA here with c/o chronic L flank pain. She notes it has been much worse this past weekend, no b/b incontinence, no saddle anesthesia no fevers. She has pain when she urinates and the pain now radiates to the front hof her abdomen MD complaint: flank pain Onset (ago): month(s) Location: back and left Radiation: abdomen Severity: severe Quality: stabbing and aching Pain Consistency: constant Relieving factors: none Exacerbating factors: none Associated symptoms: other (dysuria) Treatments prior to arrival: NSAID and other Related Data Home Medications ?Medication ?Instructions ?Recorded ?Confirmed lancets 28 gauge (FreeStyle #100 ea 07/19/22 06/14/24 Lancets) amitriptyline 25 mg tablet 25 mg PO BEDTIME 04/14/24 08/24/24 naratriptan 2.5 mg tablet 2.5 mg PO DIRECTED 04/14/24 08/24/24 vitamin A 3,000 mcg (10,000 unit) 3,000 mcg PO DAILY 05/03/24 08/24/24 capsule Previous Rx's ?Medication ?Instructions ?Recorded cyclobenzaprine 10 mg tablet 10 mg PO BEDTIME #30 tabs 09/02/22 cholecalciferol (vitamin D3) 125 125 mcg PO DAILY #90 caps 11/25/23 mcg (5,000 unit) capsule thiamine HCl (vitamin B1) 100 mg 100 mg PO DAILY #90 tabs 11/25/23 tablet nortriptyline 10 mg capsule 10 mg PO BEDTIME #30 caps 01/22/24 naproxen 500 mg tablet 500 mg PO Q8-12H PRN pain (scale 04/12/24 score 1-3) #20 tabs qsfajwehnn-slbmqtzubqwsn-uuxjfsxs 1 tab PO Q6H PRN haeadace #20 tabs 07/22/24 50 mg-325 mg-40 mg tablet Carafate 100 mg/mL oral suspension 10 ml PO QID #420 mL 08/05/24 (sucralfate) pantoprazole 40 mg tablet,delayed 40 mg PO Q12H #180 tabs 08/05/24 release lidocaine 5 % topical patch 1 patch topical DAILY #15 ea 09/01/24 (Lidoderm) mesalamine 0.375 gram 1.5 g (4 x 0.375 gram) PO QAM #120 10/11/24 capsule,extended release 24 hr caps (Apriso) ferrous fumarate 324 mg (106 mg 324 mg PO DAILY #90 tabs 11/30/24 iron) tablet (Ferrocite) tramadol 50 mg tablet 50 mg PO Q8H PRN pain #14 tabs 12/25/24 Allergies Allergy/AdvReac Type Severity Reaction Status Date / Time carrot [CARROTS] Allergy Intermediate SWELLING Verified 12/25/24 10:07 cat dander [CATS] Allergy Intermediate ITCHING Verified 12/25/24 10:07 insect venom [INSECT BITES] Allergy Intermediate HIVES Verified 12/25/24 10:07 Review of Systems 2 Review of Systems: Constitutional : No Weight loss, No Fever, No Chills, ENT/Mouth : No Hearing loss, No Ear Pain, No Nasal Congestion, No Sinus Pain, No Hoarseness, No sore throat, No Rhinorrhea, No Swallowing Difficulty Cardiovascular : No Chest Pain, No SOB Respiratory : No Cough, No Dyspnea Gastrointestinal : No Nausea, No Vomiting, No Diarrhea, pos abdominal Pain, No Hematochezia, No Melena Genitourinary : pos Dysuria, No Urinary Frequency, No Hematuria, No Urinary Incontinence, Musculoskeletal : positive back pain Skin : No Skin Lesions, No rash Neuro : No Weakness, No Numbness, No Paresthesias, no loss of bowel or bladder incontinence, no saddle anesthesia All other systems are reviewed and are negative PMFSH Past Medical History Attestation statement: The following information was validated with the patient. Source: old records reviewed Medical History Pelvic pain Muscle spasm Internal and external bleeding hemorrhoids Constipation Breakthrough bleeding on Nexplanon COVID-19 Left arm pain Encounter for removal and reinsertion of Nexplanon Chronic abdominal pain Sacroiliac joint pain Hypovitaminosis D Iron deficiency anemia GERD (gastroesophageal reflux disease) Ovarian mass Sinusitis BCP ( control pills) initiation Yeast infection involving the vagina and surrounding area Problematic vaginal discharge Lumbar pain Hip asymmetry Intestinal malabsorption following gastrectomy Obesity (BMI 30-39.9) Sleep apnea Asthma Bile duct abnormality Cholecystectomy planned Surgical History H/O cystoscopy History of hemorrhoidectomy (~05/20/23) H/O colonoscopy History of esophagogastroduodenoscopy (EGD) Hx of cholecystectomy Gastric bypass status for obesity Family History Family History Father Diabetes mellitus Obesity Mother Arthritis of knee Obesity Paternal Grandfather Diabetes mellitus Paternal Grandmother Diabetes mellitus Maternal Grandmother Diabetes mellitus Arthritis of knee Maternal Grandfather Diabetes mellitus Maternal Aunt Intestinal cancer Social History Social History Household Members: Spouse and Children Housing: House Are you a primary respiratory care instructor to a significant other at home: No Do you presently have visiting nurse or other home services: No Alcohol intake: never Comment: patient states tolerable Patient Tobacco Use Status: Never used Tobacco e-Cigarette/Vaping Use: Never Used Second Hand Smoke Exposure: No Advance Directives: No Advance Directives Information Provided: No Do you have a plan to hurt others: No Plan service: No Current occupational status: unemployed Cognitive needs: No Hearing needs: No Vision needs: Yes Physical Exam ED Vital Signs: Vital Signs - 24 hr 12/25/24 10:06 Temperature 97.0 F Pulse Rate 82 Respiratory Rate 16 Blood Pressure 106/66 Pulse Oximetry 97 Oxygen Delivery Method Room Air BMI result Body Mass Index 28.1 Appearance: Alert. Oriented X3. No acute distress. Eyes: Pupils equal, round and reactive to light. ENT: Pharynx normal. Neck: Normal inspection. Neck supple. CVS: Normal heart rate and rhythm. Pulses normal. Respiratory: No respiratory distress. Breath sounds normal. Abdomen: Soft and mild L CVA ttp Back: L lumbar paraspinal ttp Skin: Skin warm and dry. Normal skin color. Normal skin turgor. Extremities: No lower extremity edema. No calf ttp Neuro: Oriented X 3. No motor deficit. No sensory deficit. CN2-12 intact Course Course Course Narrative: This is a rapid medical exam performed by Hardy Lion NP: Additional HPI, ROS, PE not included below will be deferred to primary provider. 12/25/24 10:10 Patient is a 29-year-old female with pmhx of asthma, gastric bypass surgery, chronic back pain presenting with 4 days of worsening back pain now radiating to abdomen. States pain is typically in lower back, over past few days has moved up to thoracic area and is now radiating to abdomen as well. On gabapentin which is not helping today. Goes to [facility]. Has been ambulating with a cane since end of November. Reports frequent urination and pain with initiation of urine stream. Plan: labs, UA, will defer imaging to primary provider Medications Administered Discontinued Medications Generic Name Dose Route Start Last Admin Trade Name Freq PRN Reason Stop Dose Admin Morphine Sulfate 4 mg 12/25/24 10:52 12/25/24 11:11 Morphine Sulfate 4 Mg/Ml Cartridge IVPUSH 12/25/24 10:53 4 mg ONCE ONE Administration Protocol Ondansetron HCl 4 mg 12/25/24 10:52 12/25/24 11:11 Ondansetron Hcl 4 Mg/2 Ml Vial IVPUSH 12/25/24 10:53 4 mg ONCE ONE Administration Medical Decision Making Medical Decision Making [facility] Narrative: 29 yo female with PMH of Crohns disease, ADHD, kidney stones, pyelonephritis, anemia, GERD, gastric bypass, back pain followed by [facility] without any cauda equina symptoms at this time labs, UA, US of L kidney, IV morphine for pain. Possible renal colic, urinary pathology, MSK back pain. She was also advised to stop taking any NSAIDs given her bariatric surgery status. Differential Diagnosis Differential Diagnoses: The differential diagnosis associated with the presentation includes renal colic, urinary pathology, MSK back pain Admission/Observation Consideration of admission/observation: Escalation of care including admission/observation considered work up negative at this time can follow up with spine doctor as outpatient Lab Data [facility] Lab Attestation statement: I reviewed the patient's lab results. 12/25/24 10:35 12/25/24 10:35 Labs: Lab Results 12/25/24 12/25/24 Range/Units 10:35 11:27 WBC 6.8 (4.8-10.8) X10*3/uL RBC 4.72 (4.20-5.50) X10*6/uL Hgb 11.3 L (12.0-16.0) g/dl Hct 35.9 L (37.0-47.0) % MCV 76.1 L (80.0-98.0) fL MCH 23.9 L (27.0-33.0) pg MCHC 31.5 (31.0-35.0) g/dl RDW 14.6 (11.0-16.0) % Plt Count 286 D (160-400) X10*3/uL MPV 9.8 (9.4-12.3) fL Immature Gran % (Auto) 0.1 (0.0-0.4) % Neut % (Auto) 61.2 (45-73) % Lymph % (Auto) 25.0 (20-40) % Hitchcock % (Auto) 9.0 (2-11) % Eos % (Auto) 3.7 (0-4) % Baso % (Auto) 1.0 (0-2) % Lymph # (Auto) 1.7 (1.2-4.9) X10*3/uL Hitchcock # (Auto) 0.6 (0.1-1.2) X10*3/uL Eos # (Auto) 0.3 (0.0-0.4) X10*3/uL Baso # (Auto) 0.1 (0.0-0.2) X10*3/uL Abs Immat Gran (auto) 0.01 (0.00-0.03) X10*3/uL Absolute Neuts (auto) 4.2 (2.0-8.3) x10*3/uL Absolute Nucleated RBC 0.000 (0.0-0.012) X10*3/uL Nucleated RBC % (auto) 0.0 (0.0-0.2) /100WBC Sodium 139 (135-145) mmol/L Potassium 4.0 (3.3-5.1) mmol/L Chloride 110 H (96-108) mmol/L Carbon Dioxide 22 (22-29) mmol/L Anion Gap 11 L (12-20) BUN 13 (9-16) mg/dL Creatinine 0.67 (0.5-1.4) mg/dL Estim Creat Clear Calc 140.6 Estimated GFR > 60 Random Glucose 90 (60-115) mg/dL Calcium 8.2 L (8.4-10.2) mg/dL Total Bilirubin 0.2 (0.0-1.0) mg/dL AST 24 (5-31) U/L ALT 31 (0-31) U/L Alkaline Phosphatase 125 H (39-117) U/L Total Protein 6.3 L (6.5-8.0) g/dL Albumin 3.7 (3.5-5.0) g/dL Lipase 19 (8-78) U/L Beta HCG, Quant < 2 mIU/mL Urine Color Yellow Urine Appearance Clear Urine pH 7.5 (5.0-9.0) Ur Specific Elmo 1.020 (1.005-1.025) Urine Protein Negative (Neg-Trace) mg/dL Urine Glucose (UA) Negative (Negative) mg/dL Urine Ketones Negative (Negative) mg/dL Urine Blood Negative (Negative) Urine Nitrite Negative (Negative) Ur Leukocyte Esterase Negative (Negative) Independent Interpretation I performed an independent interpretation of an: Ultrasound (normal ) Radiology Impression Discussion of test interpretation with radiology: I have reviewed the radiologist's reading. External Record Review External record reviewed: Outpatient record Prescription Management I considered prescription management with: Pain Medication and Other Discharge Plan Discharge Clinical Impression: Left flank pain Patient Disposition: Home, Self-Care Instructions: Flank Pain (ED) Additional Instructions: your kidney function, liver, pancreas labs are normal blood counts are stable no infection in your urine no blockage or stone in L kidney at this time stop taking motrin, ibuprofen, aleve but TYLENOL IS OKAY please follow up with [facility] return for any worsening symptoms or concerns Comparison: None Findings: Left kidney normal size and echotexture, 10.4 cm length. The right kidney is not imaged. No hydronephrosis of either kidney. Normal color Doppler IMPRESSION: 1. Normal left kidney. Prescriptions: New tramadol 50 mg tablet 50 mg PO Q8H PRN (Reason: pain) Qty: 14 0RF No Action thiamine HCl (vitamin B1) 100 mg tablet 100 mg PO DAILY Qty: 90 3RF cholecalciferol (vitamin D3) 125 mcg (5,000 unit) capsule 125 mcg PO DAILY Qty: 90 3RF nortriptyline 10 mg capsule 10 mg PO BEDTIME Qty: 30 2RF lidocaine [Lidoderm] 5 % adhesive patch,medicated 1 patch topical DAILY Qty: 15 0RF Rx Instructions: leave on most painful area for up to 12 hrs mesalamine [Apriso] 0.375 gram capsule,extended release 24hr 1.5 g PO QAM Qty: 120 1RF ferrous fumarate [Ferrocite] 324 mg (106 mg iron) tablet 324 mg PO DAILY Qty: 90 2RF naproxen 500 mg tablet 500 mg PO Q8-12H PRN (Reason: pain (scale score 1-3)) Qty: 20 0RF xbutkxpjji-jignohgrsuudf-xgng 50-325-40 mg tablet 1 tab PO Q6H PRN (Reason: haeadace) Qty: 20 0RF naratriptan 2.5 mg tablet 2.5 mg PO DIRECTED amitriptyline 25 mg tablet 25 mg PO BEDTIME (DME) lancets [FreeStyle Lancets] 28 gauge misc See Rx Instructions .ROUTE QID Qty: 100 Rx Instructions: As directed cyclobenzaprine 10 mg tablet 10 mg PO BEDTIME Qty: 30 11RF vitamin A 3,000 mcg (10,000 unit) capsule 3,000 mcg PO DAILY pantoprazole 40 mg tablet,delayed release (DR/EC) 40 mg PO Q12H Qty: 180 3RF sucralfate [Carafate] 100 mg/mL suspension 10 ml PO QID Qty: 420 3RF Stand Alone Forms: Work/School Release Print Language: Kazakh
[2024-12-25 10:43] LABS: MANUAL DIFF FLAG NO
--- OUTSIDE RECORDS SUMMARY | 2024-12-25 10:45 | XMS_ITS | Encounter Summary ---
Author Organization [facility] Address [address] [place] [id number] Phone Care Team Providers Care Lane Marker Installer Name Role Phone Ethel Murray MD Primary Care Provider [phone] Encounter Details Date Type Department Care Team (Late st Contact Info) Description 10/21/2013 Documentation [facility] Family Medicine [address] [place] [address] Family Medicine, Physician [address] [place], [place] [id number] Social History Tobacco Use Types Packs/Day Years Used Date Smoking Tobacco: Never Assessed Comments Unknown Sex and Gender Information Value Date Recorded Sex Assigned at Not on file Legal Sex Female 4:54 PM EDT Gender Identity Not on file Sexual Orientation Not on file documented as of this encounter Plan of Treatment Not on file documented as of this encounter Visit Diagnoses Not on filedocumented in this encounter Care Teams Lane Marker Installer Relationship Specialty Start Date End Date Ethel Murray MD [address] [place] [address] [place] [address] PCP - General 04/25/17 11/27/22 documented as of this encounter
--- OUTSIDE RECORDS SUMMARY | 2024-12-25 10:45 | XMS_ITS | Clinical Summary ---
Author Organization [facility] Address [address] [place] [id number] Phone Care Team Providers Care Software Engineer Advisor Name Role Phone Unavailable Primary Care Provider Unavailabl e Immunizations Immunization Administration Dates Next Due DTP 04/20/1996,02/13/1996,1995 DTaP 5 12/03/2000,01/31/1997 HPV, Quadrivalent 01/24/2010,12/08/2008,10/06/19 08 Hep A, ped/adol 04/13/2014,02/18/2011 Hep B, ped/adol 04/20/1996,02/13/1996,1995 Hib (PRP-T) 01/31/1997, 6,02/13/1996,11/12 IPV 12/03/2000, 6,02/13/1996,11/12 Influenza Split 06/24/2012 Influenza, injectable, quadr ivalent, preservative free 06/22/2014 Influenza, injectable, trivalent 08/13/2007 MMR 12/03/2000,11/02/1996 Meningococcal Conj (Menactra) MCV4P 10/06/2007 Td (adult) (Tenivac), 5 Lf t etanus toxoid, PF, adsorbed 04/13/2014 Tdap 10/06/2007 Varicella 12/08/2008,01/31/1997 Family History Relation Name Status Comments Brother Alive Brother: Alive and well Father Alive Father: Diabete s, elevated cholesteral Maternal Grandmother mat. au nt: lump in breast Mother Alive Mother: Alive a nd well Other Family history of Migraines, Family history of Asthma, Family history of Obesity, Family history of Deafness, Family history of Diabetes mellitus, Family history of Seizure disorder, Family history of Hyperlipidemia Paternal Grandmother Pat aun t: Cancer, breast Sister Alive Sister: Alive a nd well Social History Tobacco Use Types Packs/Day Years Used Date Smoking Tobacco: Never Comments:Never smoker Comments Unknown Sex and Gender Information Value Date Recorded Sex Assigned at Not on file Legal Sex Female 4:54 PM EDT Gender Identity Not on file Sexual Orientation Not on file Last Filed Vital Signs Vital Sign Reading Time Taken Comments Blood Pressure 112/71 07/21/2014 12:00 AM EST Pulse 61 07/21/2014 12:00 AM EST Temperature 36.4 ??C (97.6 ??F) 06/29/2014 12:00 AM E DT Respiratory Rate - - Oxygen Saturation - - Inhaled Oxygen Concentration - - Weight 124 kg (273 lb) 07/21/2014 12:00 AM EST Height 171.5 cm (5' 7.5 ) 06/29/2014 12:00 AM ED T Body Mass Index 42.13 06/29/2014 12:00 AM EDT Plan of Treatment Health Maintenance Due Date Last Done Comments DTaP,Tdap,and Td Vaccines (8 - Td or Tdap) 04/13/2024 04/13/2014, 10/06/2007, 12/03/2000, Additional history exists Influenza Vaccines (#1) 2024 06/22/20 14, 06/24/2012, 08/13/2007 COVID-19 Vaccine ( season) 2024 Hepatitis B Vaccines Completed 04/20/1996, 02/13/1996, 1995 HIB Vaccines Completed 01/31/1997, 04/17, 02/13/1996, Additional history exists IPV Vaccines Completed 12/03/2000, 02/1996, 02/13/1996, Additional history exists MMR Vaccines Completed 12/03/2000, 11/02/1996 Meningococcal Vaccine Aged Out 10/06/2007 No alexi silvano eligible based on patient's age to complete this topic Varicella Vaccines Completed 12/08/2008, 01/31/1997 HPV Vaccines Completed 01/24/2010, 11/14, 10/06/2007 Hepatitis A Vaccines Completed 04/13/2014, 02/19/20 11 Men B Vaccine Aged Out No longer elig ible based on patient's age to complete this topic Pneumococcal Vaccine Aged Out No long er eligible based on patient's age to complete this topic Procedures * Due to [place] state law, this organization might not be sharing sensitive test results. Procedure Name Priority Date/Time Associated Diagnosis Comments CHLAMYDIA AND GONORRHEA, AMPLIFIED Routine 01/18/2013 3:46 PM EDT from Last 3 Months or Most Recently Relevant to Health Maintenance Results * Due to [place] [employer] law, this organization might not be sharing sensitive test results. * Chlamydia and Gonorrhoea, Amplified (01/18/2013 3:46 PM EDT) URINE GC AMP PROBE NEGATIVE [facility] Comment: NO NEISSERIA GONORRHOEAE RNA DETECTED IN THIS PATIENT'S SAMPLE. ? (REFERENCE RANGE/NORMAL VALUE: NOT DETECTED) ? NOTE: THIS TEST USES PHARMACY DELIVERY DRIVER-MEDIATED AMPLIFICATION METHOD TO DETECT rRNA FROM C.TRACHOMATIS AND N.GONORRHOEAE. A NEGATIVE RESULT DOES NOT PRECLUDE INFECTION. THE APTIMA COMBO 2 ASSAY IS NOT INTENDED FOR THE EVALUATION OF SUSPECTED SEXUAL ABUSE OR FOR OTHER MEDICO LEGAL INDICATIONS. THERAPEUTIC FAILURE OR SUCCESS CANNOT BE DETERMINED WITH THE APTIMA COMBO 2 ASSAY SINCE NUCLEIC ACID MAY PERSIST FOLLOWING APPROPRIATE ANTIMICROBIAL THERAPY. IN THE CASE OF A NEGATIVE URINE RESULT, TESTING OF AN ENDOCERVICAL (FEMALE) OR URETHRAL (MALE) SPECIMEN IS RECOMMENDED IF THERE IS HIGH CLINICAL SUSPICION OF INFECTION. URINE CHLAMYDIA AMP PROBE NEGATIVE [facility] Comment: NO CHLAMYDIA TRACHOMATIS RNA DETECTED IN THIS PATIENT'S SAMPLE. ? (REFERENCE RANGE/NORMAL VALUE: NOT DETECTED) 01/18/2013 3:46 PM EDT Narrative [facility] - 01/18/2013 3:46 PM EDT URINE CHLAMYDIA GC AMP PROBE us Aishwarya Mackey MD LAB MICROBIOLOGY - GENERAL O RDERABLES Final Result [facility] [address] [place] [address], [place] from Last 3 Months or Most Recently Relevant to Health Maintenance
--- OUTSIDE RECORDS SUMMARY | 2024-12-25 10:45 | XMS_ITS | Encounter Summary ---
Author Organization [facility] Address [address] [place] [address] Phone Care Team Providers Care Creative Consultant Name Role Phone Ethel Murray MD Primary Care Provider [phone] Encounter Details Date Type Department Care Team (Late st Contact Info) Description 08/16/2014 Documentation [facility] Family Medicine [address] [place] [address] Family Medicine, Physician [address] [place] [address] Social History Tobacco Use Types Packs/Day Years [...] on filedocumented in this encounter Care Teams Creative Consultant Relationship Specialty Start Date End Date Ethel Murray MD [address] [place] [address] [place] [id number] PCP - General 04/25/17 11/27/22 documented as of this encounter
--- OUTSIDE RECORDS SUMMARY | 2024-12-25 10:45 | XMS_ITS | Encounter Summary ---
Author Organization [facility] Address [address] [place] [address] Phone Care Team Providers Care Network Field Engineer Name Role Phone Ethel Murray MD Primary Care Provider [phone] Encounter Details Date Type Department Care Team (Late st Contact Info) Description 04/07/2014 Documentation EM Family Medicine [address] [place] [address] Family Medicine, Physician [address] [place], [place] [id number] Social History Tobacco Use Types Packs/Day Years [...] on filedocumented in this encounter Care Teams Network Field Engineer Relationship Specialty Start Date End Date Ethel Murray MD [address] [place] [address] [place] [address] PCP - General 04/25/17 11/27/22 documented as of this encounter
--- OUTSIDE RECORDS SUMMARY | 2024-12-25 10:45 | XMS_ITS | Encounter Summary ---
Author Organization [facility] Address [address] [place] [address] Phone Care Team Providers Care Store Mgr Name Role Phone Ethel Murray MD Primary Care Provider [phone] Encounter Details Date Type Department Care Team (Late st Contact Info) Description 06/17/2014 Documentation EM Family Medicine [address] [place] [address] Family Medicine, Physician [address] [place], [place] [address] Social History Tobacco Use Types Packs/Day Years [...] on filedocumented in this encounter Care Teams Store Mgr Relationship Specialty Start Date End Date Ethel Murray MD [address] [place] [address] [place] [address] PCP - General 04/25/17 11/27/22 documented as of this encounter
--- OUTSIDE RECORDS SUMMARY | 2024-12-25 10:45 | XMS_ITS | Encounter Summary ---
Author Organization [facility] Address [address] [place] [address] Phone Care Team Providers Care Car Washer Name Role Phone Ethel Murray MD Primary Care Provider [phone] Encounter Details Date Type Department Care Team (Late st Contact Info) Description 06/21/2014 Documentation EM Family Medicine [address] [place] [address] Family Medicine, Physician [address] [place], [place] [address] Social History Tobacco Use Types Packs/Day Years [...] on filedocumented in this encounter Care Teams Car Washer Relationship Specialty Start Date End Date Ethel Murray MD [address] [place] [address] [place] [address] PCP - General 04/25/17 11/27/22 documented as of this encounter
--- OUTSIDE RECORDS SUMMARY | 2024-12-25 10:45 | XMS_ITS | Encounter Summary ---
Author Organization [facility] Address [address] [place] [address] Phone Care Team Providers Care Job Development Specialist Name Role Phone Ethel Murray MD Primary Care Provider [phone] Encounter Details Date Type Department Care Team (Late st Contact Info) Description 04/07/2014 Documentation EM Family Medicine [address] [place] [address] Family Medicine, Physician [address] [place], [place] [address] Social History Tobacco Use Types Packs/Day Years [...] on filedocumented in this encounter Care Teams Job Development Specialist Relationship Specialty Start Date End Date Ethel Murray MD [address] [place] [address] [place] [address] PCP - General 04/25/17 11/27/22 documented as of this encounter
--- OUTSIDE RECORDS SUMMARY | 2024-12-25 10:45 | XMS_ITS | Encounter Summary ---
Author Organization [facility] Address [address] [place] [address] Phone Care Team Providers Care Electrical Accessories Ii Assembler Name Role Phone Ethel Murray MD Primary Care Provider [phone] Encounter Details Date Type Department Care Team (Late st Contact Info) Description 04/07/2014 Documentation EM Family Medicine [address] [place] [address] Family Medicine, Physician [address] [place], [place] 135231 Social History Tobacco Use Types Packs/Day Years [...] on filedocumented in this encounter Care Teams Electrical Accessories Ii Assembler Relationship Specialty Start Date End Date Ethel Murray MD [address] [place] [address] [place] [address] PCP - General 04/25/17 11/27/22 documented as of this encounter
--- OUTSIDE RECORDS SUMMARY | 2024-12-25 10:45 | XMS_ITS | Encounter Summary ---
Author Organization [facility] Address [address] [place] [address] Phone Care Team Providers Care Health Data Analyst Name Role Phone Ethel Murray MD Primary Care Provider [phone] Encounter Details Date Type Department Care Team (Late st Contact Info) Description 05/01/2017 Conversion Encounter [facility] [address] [place] [address] Social History Tobacco Use Types Packs/Day Years [...] on filedocumented in this encounter Care Teams Health Data Analyst Relationship Specialty Start Date End Date Ethel Murray MD [address] [place] [address] PCP - General 04/25/17 11/27/22 documented as of this encounter
--- OUTSIDE RECORDS SUMMARY | 2024-12-25 10:45 | XMS_ITS | Encounter Summary ---
Author Organization [facility] Address [address] [place] [address] Phone Care Team Providers Care City Planning Engineer Name Role Phone Ethel Murray MD Primary Care Provider [phone] Encounter Details Date Type Department Care Team (Late st Contact Info) Description 05/26/2014 Documentation EM Family Medicine [address] [place] [address] Family Medicine, Physician [address] [place], [place] [id number] Social History Tobacco Use Types Packs/Day Years [...] on filedocumented in this encounter Care Teams City Planning Engineer Relationship Specialty Start Date End Date Ethel Murray MD [address] [place] [address] [place] [address] PCP - General 04/25/17 11/27/22 documented as of this encounter
--- OUTSIDE RECORDS SUMMARY | 2024-12-25 10:45 | XMS_ITS | Encounter Summary ---
Author Organization [facility] Address [address] [place] [address] Phone Care Team Providers Care Food Service Attendant Name Role Phone Ethel Murray MD Primary Care Provider [phone] Encounter Details Date Type Department Care Team (Late st Contact Info) Description 04/07/2014 Documentation EM Family Medicine [address] [place] [address] Family Medicine, Physician [address] [place], [place] 418091 Social History Tobacco Use Types Packs/Day Years [...] on filedocumented in this encounter Care Teams Food Service Attendant Relationship Specialty Start Date End Date Ethel Murray MD [address] [place] [address] [place] [address] PCP - General 04/25/17 11/27/22 documented as of this encounter
--- OUTSIDE RECORDS SUMMARY | 2024-12-25 10:45 | XMS_ITS | Encounter Summary ---
Author Organization [facility] Address [address] [place] [address] Phone Care Team Providers Care Hvac Controls Technician Name Role Phone Ethel Murray MD Primary Care Provider [phone] Encounter Details Date Type Department Care Team (Late st Contact Info) Description 06/22/2014 Documentation EM Family Medicine [address] [place] [address] Family Medicine, Physician [address] [place], [place] [address] Social History Tobacco Use Types Packs/Day Years [...] on filedocumented in this encounter Care Teams Hvac Controls Technician Relationship Specialty Start Date End Date Ethel Murray MD [address] [place] [address] [place] [address] PCP - General 04/25/17 11/27/22 documented as of this encounter
[2024-12-25 10:51] LABS: Basophils Absolute Auto 0.1 X10*3/uL (0.0-0.2); Eosinophils Absolute Auto 0.3 X10*3/uL (0.0-0.4); Eosinophils Percent Auto 3.7 % (0-4); Hematocrit 35.9 % (37.0-47.0); Hemoglobin 11.3 g/dl (12.0-16.0); Imm Gran Abs Auto 0.01 X10*3/uL (0.00-0.03); Imm Gran Pct Auto 0.1 % (0.0-0.4); Lymphocytes Absolute Auto 1.7 X10*3/uL (1.2-4.9); Mean Corpuscular HGB Conc 31.5 g/dl (31.0-35.0); Mean Corpuscular Hemoglobin 23.9 pg (27.0-33.0); Mean Corpuscular Volume 76.1 fL (80.0-98.0); Mean Platelet Volume 9.8 fL (9.4-12.3); Monocytes Absolute Auto 0.6 X10*3/uL (0.1-1.2); Neutrophils Absolute Auto 4.2 x10*3/uL (2.0-8.3); Neutrophils Percent Auto 61.2 % (45-73); Platelet Count 286 X10*3/uL (160-400); Red Blood Count 4.72 X10*6/uL (4.20-5.50); Red Cell Distribution Width 14.6 % (11.0-16.0); White Blood Count 6.8 X10*3/uL (4.8-10.8)
[2024-12-25] MEDS: ondansetron HCL 4 MG/2 ML VIAL IVPUSH (11:11)
[2024-12-25] MEDS: Morphine Sulfate 4 MG/ML CARTRIDGE IVPUSH (11:11)
[2024-12-25 11:31] LABS: Alanine Aminotransferase 31 U/L (0-31); Albumin Level 3.7 g/dL (3.5-5.0); Alkaline Phosphatase 125 U/L (39-117); Anion Gap 11 (12-20); Aspartate Amino Transferase 24 U/L (5-31); Bilirubin Total 0.2 mg/dL (0.0-1.0); Blood Urea Nitrogen 13 mg/dL (9-16); Calcium 8.2 mg/dL (8.4-10.2); Carbon Dioxide 22 mmol/L (22-29); Chloride 110 mmol/L (96-108); Creatinine Clr Calc Pharmacy 140.6; Estimated Glomerular Filt Rate > 60; Glucose Random 90 mg/dL (60-115); HCG Quantitative < 2 mIU/mL; Lipase 19 U/L (8-78); Sodium 139 mmol/L (135-145); Total Protein 6.3 g/dL (6.5-8.0)
[2024-12-25 11:41] LABS: Appearance Urine Clear; Color Urine Yellow; Glucose Urine UA Negative (Negative); Leukocyte Esterase Urine Negative (Negative); Nitrite Urine Negative (Negative); PH 7.5 (5.0-9.0); Urine Blood Negative (Negative); Urine Ketones Negative (Negative); Urine Protein Negative (Neg-Trace)
[2024-12-25 12:31] VITALS: BP 106/66; PULSE 82; RESP 16; TEMP 36.1; O2SAT 97
== END 2024-12-25 12:31 | disposition home or self-care (01) ==
PROVIDERS: Registered Nurse Emergency; Emergency Provider Emergency Medicine; PCP Internal Medicine
DX: M54.50 Low back pain, unspecified (principal); R10.2 Pelvic and perineal pain; Z79.899 Other long term (current) drug therapy
CPT/HCPCS: 36415; 76775; 80053; 81003; 83690; 84702; 85025; 96374; 96375; 99282; 99284; J2270; J2405

== ENCOUNTER → 2024-12-25 10:42 | Outpatient (BNV) | payer OTHER, SELFPAY | PROVIDERS: Emergency Provider Emergency Medicine; PCP Internal Medicine; Visit Provider Radiology Diagnostic Radiology | DX: R10.9 Unspecified abdominal pain (principal) | CPT/HCPCS: 76775 ==

== ENCOUNTER 2024-12-31 13:22 | Outpatient (AMB) | payer OTHER, SELFPAY ==
[2024-12-31 13:38] VITALS: BP 100/74; PULSE 87; RESP 20; TEMP 37; O2SAT 99; BMI 30.5
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
--- OUTSIDE RECORDS SUMMARY | 2024-12-31 13:49 | XMS_ITS | Encounter Summary ---
Author Organization [facility] Address [address] [place] [address] Phone Care Team Providers Care Wharfinger Chief Name Role Phone Ethel Murray MD Primary Care Provider [phone] Encounter Details Date Type Department Care Team (Late st Contact Info) Description 01/17/2012 Documentation EM Family Medicine [address] [place] [address] Family Medicine, Physician [address] [place], [place] [id number] Social History Tobacco Use Types Packs/Day Years [...] on filedocumented in this encounter Care Teams Wharfinger Chief Relationship Specialty Start Date End Date Ethel Murray MD [address] [place] [address] [place] [address] PCP - General 04/25/17 11/27/22 documented as of this encounter
--- OUTSIDE RECORDS SUMMARY | 2024-12-31 13:49 | XMS_ITS | Encounter Summary ---
Author Organization [facility] Address [address] [place] [address] Phone Care Team Providers Care Baggageman Name Role Phone Ethel Murray MD Primary Care Provider [phone] Encounter Details Date Type Department Care Team (Late st Contact Info) Description 05/01/2017 Conversion Encounter [facility] [address] [place] [address] Social History Tobacco Use Types Packs/Day Years [...] on filedocumented in this encounter Care Teams Baggageman Relationship Specialty Start Date End Date Ethel Murray MD [address] [place] [address] PCP - General 04/25/17 11/27/22 documented as of this encounter
--- OUTSIDE RECORDS SUMMARY | 2024-12-31 13:49 | XMS_ITS | Encounter Summary ---
Author Organization [facility] Address [address] [place] [address] Phone Care Team Providers Care Hay Farmer Name Role Phone Ethel Murray MD Primary Care Provider [phone] Encounter Details Date Type Department Care Team (Late st Contact Info) Description 06/22/2014 Documentation EM Family Medicine [address] [place] [address] Family Medicine, Physician [address] [place], [place] 4075[address] Social History Tobacco Use Types Packs/Day Years [...] on filedocumented in this encounter Care Teams Hay Farmer Relationship Specialty Start Date End Date Ethel Murray MD [address] [place] [address] [place] [address] PCP - General 04/25/17 11/27/22 documented as of this encounter
--- OUTSIDE RECORDS SUMMARY | 2024-12-31 13:49 | XMS_ITS | Encounter Summary ---
Author Organization [facility] Address [address] [place] [address] Phone Care Team Providers Care Vacuum Plastic Forming Machine Operator Name Role Phone Ethel Murray MD Primary Care Provider [phone] Encounter Details Date Type Department Care Team (Late st Contact Info) Description 06/17/2014 Documentation EM Family Medicine [address] [place] [address] Family Medicine, Physician [address] [place], [place] [address] Social History Tobacco Use Types Packs/Day Years [...] on filedocumented in this encounter Care Teams Vacuum Plastic Forming Machine Operator Relationship Specialty Start Date End Date Ethel Murray MD [address] [place] [address] [place] [address] PCP - General 04/25/17 11/27/22 documented as of this encounter
--- OUTSIDE RECORDS SUMMARY | 2024-12-31 13:49 | XMS_ITS | Encounter Summary ---
Author Organization [facility] Address [address] [place] [address] Phone Care Team Providers Care Heavy Rail Train Operator Name Role Phone Ethel Murray MD Primary Care Provider [phone] Encounter Details Date Type Department Care Team (Late st Contact Info) Description 06/21/2014 Documentation EM Family Medicine [address] [place] [address] Family Medicine, Physician [address] [place], [place] [address]141 Social History Tobacco Use Types Packs/Day Years [...] on filedocumented in this encounter Care Teams Heavy Rail Train Operator Relationship Specialty Start Date End Date Ethel Murray MD [address] [place] [address] [place] [address] PCP - General 04/25/17 11/27/22 documented as of this encounter
--- OUTSIDE RECORDS SUMMARY | 2024-12-31 13:49 | XMS_ITS | Clinical Summary ---
Author Organization [facility] Address [address] [place] [address] Phone Care Team Providers Care Power Tool Repairer Name Role Phone Unavailable Primary Care Provider [...] complete this topic Procedures * Due to [place] state law, this organization might not be sharing sensitive test results. Procedure Name Priority Date/Time Associated Diagnosis Comments CHLAMYDIA AND GONORRHEA, AMPLIFIED Routine 01/18/2013 3:46 PM EDT from Last 3 Months or Most Recently Relevant to Health Maintenance Results * Due to [place] [employer] law, this organization might not be sharing sensitive test results. * Chlamydia and Gonorrhoea, Amplified (01/18/2013 3:46 PM EDT) URINE GC AMP PROBE NEGATIVE [facility] Comment: NO NEISSERIA GONORRHOEAE RNA DETECTED IN THIS PATIENT'S SAMPLE. ? (REFERENCE RANGE/NORMAL VALUE: NOT DETECTED) ? NOTE: THIS TEST USES COUNTY PROGRAM TECHNICIAN-MEDIATED AMPLIFICATION METHOD TO DETECT rRNA FROM C.TRACHOMATIS [...] URINE CHLAMYDIA AMP PROBE NEGATIVE [facility] Comment: NO CHLAMYDIA TRACHOMATIS RNA DETECTED IN THIS PATIENT'S SAMPLE. ? (REFERENCE RANGE/NORMAL VALUE: NOT DETECTED) 01/18/2013 3:46 PM EDT Narrative [facility] - 01/18/2013 3:46 PM EDT URINE CHLAMYDIA GC AMP PROBE us Aishwarya Mackey MD LAB MICROBIOLOGY - GENERAL O RDERABLES Final Result [facility] [address] [place] [address], [place] from Last 3 Months or Most Recently Relevant to Health Maintenance
--- OUTSIDE RECORDS SUMMARY | 2024-12-31 13:49 | XMS_ITS | Encounter Summary ---
Author Organization [facility] Address [address] [place] [address] Phone Care Team Providers Care Water Use Inspector Name Role Phone Ethel Murray MD Primary Care Provider [phone] Encounter Details Date Type Department Care Team (Late st Contact Info) Description 05/26/2014 Documentation EM Family Medicine [address] [place] [address] Family Medicine, Physician [address] [place], [place] [id number] Social History Tobacco Use Types Packs/Day Years [...] on filedocumented in this encounter Care Teams Water Use Inspector Relationship Specialty Start Date End Date Ethel Murray MD [address] [place] [address] [place] [address] PCP - General 04/25/17 11/27/22 documented as of this encounter
--- OUTSIDE RECORDS SUMMARY | 2024-12-31 13:49 | XMS_ITS | Encounter Summary ---
Author Organization [facility] Address [address] [place] [address] Phone Care Team Providers Care Commercial Escrow Officer Name Role Phone Ethel Murray MD Primary Care Provider Encounter Details Date Type Department Care Team (Late st Contact Info) Description 08/16/2014 Documentation [facility] [address] [place] [address] Family Medicine, Physician [address] [place] [address] Social History Tobacco Use Types Packs/Day Years [...] on filedocumented in this encounter Care Teams Commercial Escrow Officer Relationship Specialty Start Date End Date Ethel Murray MD [address] [place] [address] [place] [address] PCP - General 04/25/17 11/27/22 documented as of this encounter
--- OUTSIDE RECORDS SUMMARY | 2024-12-31 13:49 | XMS_ITS | Encounter Summary ---
Author Organization [facility] Address [address] [place] [address] Phone Care Team Providers Care Individual Small Group Instructor Name Role Phone Ethel Murray MD Primary Care Provider [phone] Encounter Details Date Type Department Care Team (Late st Contact Info) Description 10/21/2013 Documentation EM Family Medicine [address] [place] [address] Family Medicine, Physician [address] [place], [place] [address] Social History Tobacco Use Types Packs/Day Years [...] on filedocumented in this encounter Care Teams Individual Small Group Instructor Relationship Specialty Start Date End Date Ethel Murray MD [address] [place] [address] [place] [address] PCP - General 04/25/17 11/27/22 documented as of this encounter
--- OUTSIDE RECORDS SUMMARY | 2024-12-31 13:49 | XMS_ITS | Encounter Summary ---
Author Organization [facility] Address [address] [place] [address] Phone Care Team Providers Care Automobile Radio Repairer Name Role Phone Ethel Murray MD Primary Care Provider [phone] Encounter Details Date Type Department Care Team (Late st Contact Info) Description 04/07/2014 Documentation EM Family Medicine [address] [place] [address] Family Medicine, Physician [address] [place], [place] [address] Social History Tobacco Use Types Packs/Day Years [...] on filedocumented in this encounter Care Teams Automobile Radio Repairer Relationship Specialty Start Date End Date Ethel Murray MD [address] [place] [address] [place] [address] PCP - General 04/25/17 11/27/22 documented as of this encounter
--- OUTSIDE RECORDS SUMMARY | 2024-12-31 13:50 | XMS_ITS | Encounter Summary ---
Author Organization [facility] Address [address] [place] [address] Phone Care Team Providers Care Food Safety Coordinator Name Role Phone Ethel Murray MD Primary Care Provider [phone] Encounter Details Date Type Department Care Team (Late st Contact Info) Description 04/07/2014 Documentation EM Family Medicine [address] [place] [address] Family Medicine, Physician [address] [place], [place] [address] Social History Tobacco Use Types Packs/Day Years [...] filedocumented in this encounter Care Teams Food Safety Coordinator Relationship Specialty Start Date End Date Ethel Murray MD [address] [place] [address] [place] [address] PCP - General 04/25/17 11/27/22 documented as of this encounter
--- OUTSIDE RECORDS SUMMARY | 2024-12-31 13:50 | XMS_ITS | Encounter Summary ---
Author Organization [facility] Address [address] [place] [address] Phone Care Team Providers Care Lotus Notes Developer Name Role Phone Ethel Murray MD Primary Care Provider [phone] Encounter Details Date Type Department Care Team (Late st Contact Info) Description 04/07/2014 Documentation EM Family Medicine [address] [place] [address] Family Medicine, Physician [address] [place], [place] [address] Social History Tobacco Use Types Packs/Day Years [...] on filedocumented in this encounter Care Teams Lotus Notes Developer Relationship Specialty Start Date End Date Ethel Murray MD [address] [place] [address] [place] [address] PCP - General 04/25/17 11/27/22 documented as of this encounter
--- OUTSIDE RECORDS SUMMARY | 2024-12-31 13:50 | XMS_ITS | Encounter Summary ---
Author Organization [facility] Address [address] [place] [address] Phone Care Team Providers Care Crayon Molding Machine Operator Name Role Phone Ethel Murray MD Primary Care Provider [phone] Encounter Details Date Type Department Care Team (Late st Contact Info) Description 04/07/2014 Documentation EM Family Medicine [address] [place] [address] Family Medicine, Physician [address] [place], [place] [address] Social History Tobacco Use Types Packs/Day Years [...] on filedocumented in this encounter Care Teams Crayon Molding Machine Operator Relationship Specialty Start Date End Date Ethel Murray MD [address] [place] [address] [place] [address] PCP - General 04/25/17 11/27/22 documented as of this encounter
== END 2024-12-31 14:28 | disposition home or self-care (01) ==
LOC: HO.HMCH 13:23
PROVIDERS: PCP Internal Medicine
DX: M54.50 Low back pain, unspecified (principal); G89.29 Other chronic pain; M25.552 Pain in left hip; R20.0 Anesthesia of skin

== ENCOUNTER → 2024-12-31 13:22 | Outpatient (BNVA) | payer OTHER, SELFPAY | PROVIDERS: PCP Internal Medicine | DX: M54.50 Low back pain, unspecified (principal); G89.29 Other chronic pain; M25.552 Pain in left hip; R20.0 Anesthesia of skin | CPT/HCPCS: 99212 ==

== ENCOUNTER 2025-01-21 11:49 | Outpatient (AMB) | payer OTHER, SELFPAY ==
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
[2025-01-21 11:55] VITALS: BP 130/76; PULSE 89; O2SAT 99; BMI 30.4
--- OUTSIDE RECORDS SUMMARY | 2025-01-21 12:20 | XMS_ITS | Encounter Summary ---
Author Organization [facility] Address [address] [place] [address] Phone Care Team Providers Care Coconut Jelly Roller Name Role Phone Ethel Murray MD Primary Care Provider [phone] Encounter Details Date Type Department Care Team (Late st Contact Info) Description 01/17/2012 Documentation EM Family Medicine [address] [place] [address] Family Medicine, Physician [address] [place], [place] [id number] Social History Tobacco Use Types Packs/Day Years [...] on filedocumented in this encounter Care Teams Coconut Jelly Roller Relationship Specialty Start Date End Date Ethel Murray MD [address] [place] [address] [place] [address] PCP - General 04/25/17 11/27/22 documented as of this encounter
--- OUTSIDE RECORDS SUMMARY | 2025-01-21 12:20 | XMS_ITS | Encounter Summary ---
Author Organization [facility] Address [address] [place] [address] Phone Care Team Providers Care Tube Making Machine Operator Name Role Phone Ethel Murray MD Primary Care Provider [phone] Encounter Details Date Type Department Care Team (Late st Contact Info) Description 04/07/2014 Documentation EM Family Medicine [address] [place] [address] Family Medicine, Physician [address] [place], [place] [address] Social History Tobacco Use Types Packs/Day Years [...] on filedocumented in this encounter Care Teams Tube Making Machine Operator Relationship Specialty Start Date End Date Ethel Murray MD [address] [place] [address] [place] [address] PCP - General 04/25/17 11/27/22 documented as of this encounter
--- OUTSIDE RECORDS SUMMARY | 2025-01-21 12:20 | XMS_ITS | Encounter Summary ---
Author Organization [facility] Address [address] [place] [address] Phone Care Team Providers Care Accounting Systems Manager Name Role Phone Ethel Murray MD Primary Care Provider [phone] Encounter Details Date Type Department Care Team (Late st Contact Info) Description 04/07/2014 Documentation [facility] Family [facility] [address] [place] [address] Family Medicine, Physician [address] [place], [place] [address] Social History Tobacco Use Types Packs/Day Years [...] on filedocumented in this encounter Care Teams Accounting Systems Manager Relationship Specialty Start Date End Date Ethel Murray MD [address] [place] [address] [place] [address] PCP - General 04/25/17 11/27/22 documented as of this encounter
--- OUTSIDE RECORDS SUMMARY | 2025-01-21 12:20 | XMS_ITS | Encounter Summary ---
Author Organization [facility] Address [address] [place] [address] Phone Care Team Providers Care Laborer Mine Name Role Phone Ethel Murray MD Primary Care Provider [phone] Encounter Details Date Type Department Care Team (Late st Contact Info) Description 10/21/2013 Documentation EM Family Medicine [address] [place] [address] Family Medicine, Physician [address] [place], [place] [address] Social History Tobacco Use Types Packs/Day Years [...] on filedocumented in this encounter Care Teams Laborer Mine Relationship Specialty Start Date End Date Ethel Murray MD [address] [place] [address] [place] [address] PCP - General 04/25/17 11/27/22 documented as of this encounter
--- OUTSIDE RECORDS SUMMARY | 2025-01-21 12:20 | XMS_ITS | Encounter Summary ---
Author Organization [facility] Address [address] [place] [address] Phone Care Team Providers Care Life Skills Trainer Name Role Phone Ethel Murray MD Primary Care Provider [phone] Encounter Details Date Type Department Care Team (Late st Contact Info) Description 06/22/2014 Documentation EM Family Medicine [address] [place] [address] Family Medicine, Physician [address] [place], [place] [address] Social History Tobacco Use Types Packs/Day Years [...] on filedocumented in this encounter Care Teams Life Skills Trainer Relationship Specialty Start Date End Date Ethel Murray MD [address] [place] [address] [place] [address] PCP - General 04/25/17 11/27/22 documented as of this encounter
--- OUTSIDE RECORDS SUMMARY | 2025-01-21 12:20 | XMS_ITS | Clinical Summary ---
Author Organization [facility] Address [address] [place] [address] Phone Care Team Providers Care Beater Out Name Role Phone Unavailable Primary Care Provider [...] complete this topic Procedures * Due to [place] state law, this organization might not be sharing sensitive test results. Procedure Name Priority Date/Time Associated Diagnosis Comments CHLAMYDIA AND GONORRHEA, AMPLIFIED Routine 01/18/2013 3:46 PM EDT from Last 3 Months or Most Recently Relevant to Health Maintenance Results * Due to [place] [employer] law, this organization might not be sharing sensitive test results. * Chlamydia and Gonorrhoea, Amplified (01/18/2013 3:46 PM EDT) URINE GC AMP PROBE NEGATIVE [facility] Comment: NO NEISSERIA GONORRHOEAE RNA DETECTED IN THIS PATIENT'S SAMPLE. ? (REFERENCE RANGE/NORMAL VALUE: NOT DETECTED) ? NOTE: THIS TEST USES DEBONE PROCESSING SUPERVISOR-MEDIATED AMPLIFICATION METHOD TO DETECT rRNA FROM C.TRACHOMATIS [...] OF INFECTION. URINE CHLAMYDIA AMP PROBE NEGATIVE [facility] Comment: NO CHLAMYDIA TRACHOMATIS RNA DETECTED IN THIS PATIENT'S SAMPLE. ? (REFERENCE RANGE/NORMAL VALUE: NOT DETECTED) 01/18/2013 3:46 PM EDT Narrative [facility] - 01/18/2013 3:46 PM EDT URINE CHLAMYDIA GC AMP PROBE us Aishwarya Mackey MD LAB MICROBIOLOGY - GENERAL O RDERABLES Final Result [facility] [address] [place] [address], [place] from Last 3 Months or Most Recently Relevant to Health Maintenance
--- OUTSIDE RECORDS SUMMARY | 2025-01-21 12:20 | XMS_ITS | Encounter Summary ---
Author Organization [facility] Address [address] [place] [address] Phone Care Team Providers Care Primer Expeditor And Drier Name Role Phone Ethel Murray MD Primary Care Provider [phone] Encounter Details Date Type Department Care Team (Late st Contact Info) Description 08/16/2014 Documentation [facility] [place] [address] [place] [address] Family Medicine, Physician [address] [place] [address] Social History Tobacco Use Types Packs/Day Years [...] on filedocumented in this encounter Care Teams Primer Expeditor And Drier Relationship Specialty Start Date End Date Ethel Murray MD [address] [place] [address] [place] [address] PCP - General 04/25/17 11/27/22 documented as of this encounter
--- OUTSIDE RECORDS SUMMARY | 2025-01-21 12:20 | XMS_ITS | Encounter Summary ---
Author Organization [facility] Address [address] [place] [address] Phone Care Team Providers Care High School Library Media Specialist Name Role Phone Ethel Murray MD Primary Care Provider [phone] Encounter Details Date Type Department Care Team (Late st Contact Info) Description 05/26/2014 Documentation EM Family Medicine [address] [place] [address] Family Medicine, Physician [address] [place], [place] [phone] Social History Tobacco Use Types Packs/Day Years [...] on filedocumented in this encounter Care Teams High School Library Media Specialist Relationship Specialty Start Date End Date Ethel Murray MD [address] [place] [address] [place] [address] PCP - General 04/25/17 11/27/22 documented as of this encounter
--- OUTSIDE RECORDS SUMMARY | 2025-01-21 12:20 | XMS_ITS | Encounter Summary ---
Author Organization [facility] Address [address] [place] [address] Phone Care Team Providers Care Surtass Analyst Name Role Phone Ethel Murray MD Primary Care Provider Encounter Details Date Type Department Care Team (Late st Contact Info) Description 05/01/2017 Conversion Encounter [facility] [place] [address] [place] [address] Social History Tobacco Use Types Packs/Day Years [...] on filedocumented in this encounter Care Teams Surtass Analyst Relationship Specialty Start Date End Date Ethel Murray MD [address] [place] [address] PCP - General 04/25/17 11/27/22 documented as of this encounter
--- OUTSIDE RECORDS SUMMARY | 2025-01-21 12:20 | XMS_ITS | Encounter Summary ---
Author Organization [facility] Address [address] [place] [address] Phone Care Team Providers Care Research Subject Name Role Phone Ethel Murray MD Primary Care Provider [phone] Encounter Details Date Type Department Care Team (Late st Contact Info) Description 06/21/2014 Documentation EM Family Medicine [address] [place] [address] Family Medicine, Physician [address] [place], [place] [address] Social History Tobacco Use Types Packs/Day Years [...] on filedocumented in this encounter Care Teams Research Subject Relationship Specialty Start Date End Date Ethel Murray MD [address] [place] [address] [place] [address] PCP - General 04/25/17 11/27/22 documented as of this encounter
--- OUTSIDE RECORDS SUMMARY | 2025-01-21 12:20 | XMS_ITS | Encounter Summary ---
Author Organization [facility] Address [address] [place] [address] Phone Care Team Providers Care C Consultant Name Role Phone Ethel Murray MD Primary Care Provider [phone] Encounter Details Date Type Department Care Team (Late st Contact Info) Description 06/17/2014 Documentation EM Family Medicine [address] [place] [address] Family Medicine, Physician [address] [place], [place] [address] Social History Tobacco Use Types Packs/Day Years [...] on filedocumented in this encounter Care Teams C Consultant Relationship Specialty Start Date End Date Ethel Murray MD [address] [place] [address] [place] [address] PCP - General 04/25/17 11/27/22 documented as of this encounter
--- OUTSIDE RECORDS SUMMARY | 2025-01-21 12:20 | XMS_ITS | Encounter Summary ---
Author Organization [facility] Address [address] [place] [address] Phone Care Team Providers Care J2Ee Java Developer Name Role Phone Ethel Murray MD Primary Care Provider [phone] Encounter Details Date Type Department Care Team (Late st Contact Info) Description 04/07/2014 Documentation EM Family Medicine [address] [place] [address] Family Medicine, Physician [address] [place], [place] [address] Social History Tobacco Use Types Packs/Day Years [...] on filedocumented in this encounter Care Teams J2Ee Java Developer Relationship Specialty Start Date End Date Ethel Murray MD [address] [place] [address] [place] [address] PCP - General 04/25/17 11/27/22 documented as of this encounter
--- OUTSIDE RECORDS SUMMARY | 2025-01-21 12:20 | XMS_ITS | Encounter Summary ---
Author Organization [facility] Address [address] [place] [address] Phone Care Team Providers Care Hip Hop Dance Instructor Name Role Phone Ethel Murray MD Primary Care Provider [phone] Encounter Details Date Type Department Care Team (Late st Contact Info) Description 04/07/2014 Documentation EM Family Medicine [address] [place] [address] Family Medicine, Physician [address] [place], [place] [address] Social History Tobacco Use Types Packs/Day Years [...] on filedocumented in this encounter Care Teams Hip Hop Dance Instructor Relationship Specialty Start Date End Date Ethel Murray MD [address] [place] [address] [place] [address] PCP - General 04/25/17 11/27/22 documented as of this encounter
== END 2025-01-21 12:43 | disposition home or self-care (01) ==
LOC: HO.PMC 11:50
PROVIDERS: PCP Internal Medicine; Visit Provider Nurse Practitioner Family
DX: M54.50 Low back pain, unspecified (principal); G89.29 Other chronic pain; G89.4 Chronic pain syndrome; M47.817 Spondylosis without myelopathy or radiculopathy, lumbosacral region; M51.369 Other intervertebral disc degeneration, lumbar region without mention of lumbar back pain or lower extremity pain; M53.3 Sacrococcygeal disorders, not elsewhere classified
CPT/HCPCS: 99215; G2211

== ENCOUNTER → 2025-01-21 11:49 | Outpatient (BNVA) | payer OTHER, SELFPAY | PROVIDERS: PCP Internal Medicine; Visit Provider Nurse Practitioner Family | DX: M51.360 Other intervertebral disc degeneration, lumbar region with discogenic back pain only (principal); G89.4 Chronic pain syndrome; M47.817 Spondylosis without myelopathy or radiculopathy, lumbosacral region; M51.369 Other intervertebral disc degeneration, lumbar region without mention of lumbar back pain or lower extremity pain; M53.3 Sacrococcygeal disorders, not elsewhere classified | CPT/HCPCS: 99212 ==

== ENCOUNTER 2025-03-17 17:04 | Emergency (ER) | payer OTHER, SELFPAY ==
[2025-03-17 17:09] VITALS: BP 125/70; PULSE 94; RESP 16; TEMP 36.7; O2SAT 99; BMI 31.6
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
--- NOTE | 2025-03-17 17:21 | ECG_ITS ---
Test Reason : dizzy troponin Blood Pressure : */* mmHG Vent. Rate : 85 BPM Atrial Rate : 85 BPM P-R Int : 160 ms QRS Dur : 94 ms QT Int : 388 ms P-R-T Axes : 46 24 49 degrees QTcB Int : 461 ms Normal sinus rhythm Normal ECG When compared with ECG of 22-Jul-2024 13:10, Vent. rate has increased by 28 bpm Referred By: Michael Arteaga Electronically Signed By: LIUDMILA PRASAD MD
[2025-03-17 17:54] LABS: MANUAL DIFF FLAG NO
[2025-03-17 17:56] LABS: Hematocrit 37.5 % (37.0-47.0); Hemoglobin 11.5 g/dl (12.0-16.0); Imm Gran Abs Auto 0.02 X10*3/uL (0.00-0.03); Imm Gran Pct Auto 0.3 % (0.0-0.4); Lymphocytes Absolute Auto 2.4 X10*3/uL (1.2-4.9); Mean Corpuscular HGB Conc 30.7 g/dl (31.0-35.0); Mean Corpuscular Hemoglobin 23.6 pg (27.0-33.0); Mean Corpuscular Volume 76.8 fL (80.0-98.0); NRBC Abs Auto 0.000 X10*3/uL (0.0-0.012); NRBC Pct Auto 0.0 /100WBC (0.0-0.2); Platelet Count 334 X10*3/uL (160-400); Red Blood Count 4.88 X10*6/uL (4.20-5.50); White Blood Count 7.6 X10*3/uL (4.8-10.8)
[2025-03-17 17:59] VITALS: BP 120/65; PULSE 87; RESP 16; TEMP 36.6; O2SAT 99
[2025-03-17 17:59] LABS: Appearance Urine Clear; Glucose Urine UA 250 mg/dL (Negative); PH 5.5 (5.0-9.0); Specific Gravity - Urine 1.015 (1.005-1.025); UMIC TRIGGER UACC YES
[2025-03-17 18:05] LABS: UACC Culture Trigger YES
[2025-03-17 18:17] LABS: Alanine Aminotransferase 23 U/L (0-31); Albumin Level 4.2 g/dL (3.5-5.0); Alkaline Phosphatase 129 U/L (39-117); Anion Gap 10 (12-20); Aspartate Amino Transferase 28 U/L (5-31); Blood Urea Nitrogen 10 mg/dL (9-16); Calcium 8.4 mg/dL (8.4-10.2); Carbon Dioxide 22 mmol/L (22-29); Chloride 110 mmol/L (96-108); Creatinine Clr Calc Pharmacy 138.5; Estimated Glomerular Filt Rate > 60; Magnesium 2.1 mg/dL (1.6-2.6); Potassium 3.9 mmol/L (3.3-5.1); Sodium 138 mmol/L (135-145); Total Protein 6.8 g/dL (6.5-8.0)
--- OUTSIDE RECORDS SUMMARY | 2025-03-17 18:26 | XMS_ITS | Encounter Summary ---
Author Organization [facility] Address [address] [place] [id number] Phone Care Team Providers Care Senior Energy Market Coordinator Name Role Phone Ethel Murray MD Primary Care Provider [phone] Encounter Details Date Type Department Care Team (Late st Contact Info) Description 01/17/2012 Documentation EM Family Medicine [address] [place] [address] Family Medicine, Physician [address] [place], [place] [id number] Social History Tobacco Use Types Packs/Day Years [...] on filedocumented in this encounter Care Teams Senior Energy Market Coordinator Relationship Specialty Start Date End Date Ethel Murray MD [address] [place] [address] [place] [address] PCP - General 04/25/17 11/27/22 documented as of this encounter
[2025-03-17 21:27] VITALS: BP 97/55; PULSE 66; RESP 18; TEMP 36.9; O2SAT 100
--- NOTE | 2025-03-17 22:46 | PC.NURSE ---
pt requests discharge PA notified
[2025-03-17 23:41] VITALS: BP 118/67; PULSE 69; RESP 16; TEMP 36.8; O2SAT 98
[2025-03-17 23:45] VITALS: BP 118/67; PULSE 69; RESP 16; TEMP 36.8; O2SAT 98
== END 2025-03-17 23:45 | disposition home or self-care (01) ==
PROVIDERS: Physician Assistant; Emergency Provider Emergency Medicine
DX: G43.709 Chronic migraine without aura, not intractable, without status migrainosus (principal); M54.50 Low back pain, unspecified; R53.83 Other fatigue; R53.1 Weakness; R42 Dizziness and giddiness; R11.0 Nausea; R79.89 Other specified abnormal findings of blood chemistry; Z98.84 Bariatric surgery status; Z79.899 Other long term (current) drug therapy
CPT/HCPCS: 36415; 80053; 81001; 83735; 84702; 85025; 87086; 93005; 96361; 96374; 96375; 99284; 99285; J1200; J1885; J2765

== ENCOUNTER → 2025-03-17 17:21 | Outpatient (BNV) | payer OTHER, SELFPAY | PROVIDERS: Emergency Provider Emergency Medicine; Visit Provider Internal Medicine Cardiovascular Disease | DX: R42 Dizziness and giddiness (principal); R79.89 Other specified abnormal findings of blood chemistry | CPT/HCPCS: 93010 ==

== ENCOUNTER 2025-03-29 08:49 | Emergency (ER) | payer OTHER, SELFPAY ==
--- NOTE | ~2025-03-29 | US_ITS ---
EXAMINATION: US PELVIS WITH DOPPLER CLINICAL INFORMATION: Right lower quadrant abdominal pain. COMPARISON: CT abdomen and pelvis dated earlier same day at 1:20 PM TECHNIQUE: Ultrasound of the pelvis is performed using transabdominal technique only along with Doppler. The patient refused transvaginal imaging. FINDINGS: Uterus: The uterus is anteverted and measures 8.2 x 3.1 x 4.6 cm. Normal appearing cervix. The double wall endometrial thickness is 0.3 mm. It is uniform. The uterus is smooth in contour and has normal myometrial echogenicity. No visible fibroid. Adnexa: Both ovaries are visualized. There is normal color flow to the adnexa. There is no ovarian torsion. There is no pelvic ascites or fluid collection. There are no adnexal masses. Right ovary measures 3.6 x 2.4 x 2.6 cm. Volume = 11.8 mL. There is a mildly complex follicular cyst measuring 2.0 x 1.6 x 1.8 cm, likely a corpus luteal cyst. Left ovary measures 2.5 x 1.4 x 1.8 cm. Volume = 3.3 mL. Normal sonographic appearance. US/US pelvic complete IMPRESSION: 1. Normal transabdominal pelvic ultrasound. The patient refused transvaginal imaging. 2. Normal-appearing uterus and endometrium. 3. No evidence of ovarian torsion or mass. 4. There is no free pelvic fluid. Electronically signed by: Krishna Cárdenas MD 03/29/2025 04:14 PM EDT
--- NOTE | ~2025-03-29 | CT_ITS ---
EXAMINATION: CT ABDOMEN AND PELVIS WITH CONTRAST CLINICAL INFORMATION: Right lower quadrant tenderness DLP: 870 mGY*cm COMPARISON: January 22, 2024 TECHNIQUE: Multidetector volumetric images were obtained from the superior aspect of the liver through the pubic symphysis following administration 85 mL of Omnipaque 350 intravenous contrast. Sagittal and coronal reformatted images were obtained on the technologist's workstation. Oral contrast: No This CT examination was performed using dose optimization techniques as appropriate, variously including the following: *Automated exposure control *Adjustment of mA and/or kV according to patient size (this includes techniques or standardized protocols for targeted exams where dose is matched to indication/reason for exam; i.e. extremities or head) *Use of iterative reconstruction technique FINDINGS: LUNG BASES: The visualized lung bases are unremarkable. LIVER, GALLBLADDER, AND BILIARY TREE: The gallbladder is surgically absent. There are clips in the gallbladder fossa. The liver is unremarkable. PANCREAS: Unremarkable. SPLEEN: Unremarkable. ADRENAL GLANDS: Unremarkable. KIDNEYS AND URETERS: Parapelvic cysts are again noted on the right. The right kidney is malrotated, with renal pelvis situated anterolateral. BLADDER: 3 mm calcification adjacent the posterior left bladder dome, unchanged for greater than a year. GASTROINTESTINAL TRACT: Gastric bypass surgery has been performed. There is a small sliding hiatal hernia, stable. Short retrocecal appendix does not appear thickened, dilated, or inflamed. ABDOMINAL WALL: No significant hernia is appreciated. LYMPH NODES: Normal. VASCULAR: Unremarkable. PELVIC VISCERA: Multiple ovarian cysts are present, and there is a dominant follicle on the right. Uterus is unremarkable. OSSEOUS STRUCTURES: Unremarkable. CT/CT abdomen pelvis w IV con IMPRESSION: Stable changes related to gastric bypass surgery with stable small sliding hiatal hernia. Cholecystectomy. Fleischner guidelines were followed. Electronically signed by: Huseyin Valdes MD 03/29/2025 01:50 PM EDT
--- NOTE | ~2025-03-29 | US_ITS ---
EXAMINATION: US PELVIS WITH DOPPLER CLINICAL INFORMATION: Right lower quadrant abdominal pain. COMPARISON: CT abdomen and pelvis dated earlier same day at 1:20 PM TECHNIQUE: Ultrasound of the pelvis is performed using transabdominal technique only along with Doppler. The patient refused transvaginal imaging. FINDINGS: Uterus: The uterus is anteverted and measures 8.2 x 3.1 x 4.6 cm. Normal appearing cervix. The double wall endometrial thickness is 0.3 mm. It is uniform. The uterus is smooth in contour and has normal myometrial echogenicity. No visible fibroid. Adnexa: Both ovaries are visualized. There is normal color flow to the adnexa. There is no ovarian torsion. There is no pelvic ascites or fluid collection. There are no adnexal masses. Right ovary measures 3.6 x 2.4 x 2.6 cm. Volume = 11.8 mL. There is a mildly complex follicular cyst measuring 2.0 x 1.6 x 1.8 cm, likely a corpus luteal cyst. Left ovary measures 2.5 x 1.4 x 1.8 cm. Volume = 3.3 mL. Normal sonographic appearance. US/US pelvic ovarian doppler IMPRESSION: 1. Normal transabdominal pelvic ultrasound. The patient refused transvaginal imaging. 2. Normal-appearing uterus and endometrium. 3. No evidence of ovarian torsion or mass. 4. There is no free pelvic fluid. Electronically signed by: Krishna Cárdenas MD 03/29/2025 04:14 PM EDT
--- NOTE | ~2025-03-29 | US_ITS ---
EXAMINATION: US RETROPERITONEAL LIMITED, RIGHT (RENAL ONLY) CLINICAL INFORMATION: R flank pain. COMPARISON: Ultrasound of the left kidney on December 25, 2024. Abdomen/pelvis CT on January 22, 2024. TECHNIQUE: Ultrasound along with color Doppler imaging was performed of the right kidney. FINDINGS: RIGHT KIDNEY: Measures 12.9 cm in length. The kidney is normal in size, contour, and echogenicity. Renal cortical thickness is normal. No shadowing calculi or focal parenchymal lesions. Mild pelvic fullness and suggestion of duplicated collecting system. US/US renal RT IMPRESSION: No shadowing calculi. Mild pelvic fullness. Electronically signed by: Shivam Mills MD 03/29/2025 10:09 AM EDT
[2025-03-29 09:10] VITALS: BP 119/77; PULSE 93; RESP 16; TEMP 36.6; O2SAT 96; BMI 30.4
--- NOTE | 2025-03-29 09:15 | ED.FEMALEGU ---
HPI - Female Genitourinary General Chief complaint: Urogenital-Female Stated complaint: side abd pain, unable to pee Time Seen by Provider: 03/29/25 11:22 Source: patient, RN notes reviewed and old records reviewed Mode of arrival: ambulatory Limitations: no limitations History of Present Illness ED Provider: Amisha HPI Narrative: Patient is a 29-year-old female with reported past medical history of cholecystectomy, laparoscopic gastric bypass, Crohn's disease, GERD, iron deficiency anemia, sleep apnea, asthma presenting to the emergency department with complaint of right upper quadrant abdominal pain radiating around to her back for the past 3-4 days. Reports some episodes of diarrhea, denies hematochezia or melena. Reports nausea without vomiting. Denies fevers, chills, body aches. States that she feels she has been unable to fully empty her bladder and has been having to strain while urinating to fully empty her bladder. Denies gross hematuria. States symptoms feel different from her typical Crohn's symptoms. Reports vaginal discharge which she describes as ?smelling like acetone. ? Denies concern for STIs. Denies abnormal vaginal bleeding. Related Data Home Medications ?Medication ?Instructions ?Recorded ?Confirmed lancets 28 gauge (FreeStyle #100 ea 07/19/22 06/14/24 Lancets) amitriptyline 25 mg tablet 25 mg PO BEDTIME 04/14/24 12/31/24 naratriptan 2.5 mg tablet 2.5 mg PO DIRECTED 04/14/24 12/31/24 vitamin A 3,000 mcg (10,000 unit) 3,000 mcg PO DAILY 05/03/24 12/31/24 capsule Previous Rx's ?Medication ?Instructions ?Recorded cholecalciferol (vitamin D3) 125 125 mcg PO DAILY #90 caps 11/25/23 mcg (5,000 unit) capsule thiamine HCl (vitamin B1) 100 mg 100 mg PO DAILY #90 tabs 11/25/23 tablet nortriptyline 10 mg capsule 10 mg PO BEDTIME #30 caps 01/22/24 riisewhado-mikqrarjmgwqm-vhuhmcvr 1 tab PO Q6H PRN haeadace #20 tabs 07/22/24 50 mg-325 mg-40 mg tablet Carafate 100 mg/mL oral suspension 10 ml PO QID #420 mL 08/05/24 (sucralfate) ferrous fumarate 324 mg (106 mg 324 mg PO DAILY #90 tabs 11/30/24 iron) tablet (Ferrocite) cyclobenzaprine 10 mg tablet 10 mg PO BEDTIME #30 tabs 12/31/24 naproxen 500 mg tablet 500 mg PO Q8-12H PRN pain (scale 12/31/24 score 1-3) #20 tabs prednisone 10 mg tablet 10 mg PO DIRECTED #20 tabs 12/31/24 tramadol 50 mg tablet 50 mg PO Q8H PRN pain #14 tabs 12/31/24 gabapentin 300 mg capsule 600 mg (2 x 300 mg) PO TID 30 days 01/07/25 #180 caps lidocaine 5 % topical patch 1 patch topical DAILY #15 ea 01/25/25 (Lidoderm) miconazole nitrate 4 % (200 mg)-2 See Rx Instructions vaginal 03/29/25 % (9 gram)vaginal,prefill .COMPLEX #24 grams appl,cream (Miconazole-3) Allergies Allergy/AdvReac Type Severity Reaction Status Date / Time carrot (CARROTS) Allergy Intermediate SWELLING Verified 03/29/25 09:12 cat dander (CATS) Allergy Intermediate ITCHING Verified 03/29/25 09:12 insect venom (INSECT BITES) Allergy Intermediate HIVES Verified 03/29/25 09:12 Review of Systems Review of Systems: As per HPI Yes all other systems are reviewed and are negative Constitutional: Constitutional: Reports as per HPI [facility] Past Medical History Medical History (Updated 03/29/25 @ 16:33 by Soledad Lion NP) Sacroiliac joint pain Pelvic pain Muscle spasm Internal and external bleeding hemorrhoids Constipation Breakthrough bleeding on Nexplanon COVID-19 Left arm pain Encounter for removal and reinsertion of Nexplanon Chronic abdominal pain Hypovitaminosis D Iron deficiency anemia GERD (gastroesophageal reflux disease) Ovarian mass Sinusitis BCP ( control pills) initiation Yeast infection involving the vagina and surrounding area Problematic vaginal discharge Lumbar pain Hip asymmetry Intestinal malabsorption following gastrectomy Obesity (BMI 30-39.9) Sleep apnea Asthma Bile duct abnormality Cholecystectomy planned Surgical History H/O cystoscopy History of hemorrhoidectomy (~05/20/23) H/O colonoscopy History of esophagogastroduodenoscopy (EGD) Hx of cholecystectomy Gastric bypass status for obesity Family History Family History Father Diabetes mellitus Obesity Mother Arthritis of knee Obesity Paternal Grandfather Diabetes mellitus Paternal Grandmother Diabetes mellitus Maternal Grandmother Diabetes mellitus Arthritis of knee Maternal Grandfather Diabetes mellitus Maternal Aunt Intestinal cancer Social History Social History Household Members: Spouse and Children Housing: House Are you a primary care process manager to a significant other at home: No Do you presently have visiting nurse or other home services: No Alcohol intake: never Comment: patient states tolerable Patient Tobacco Use Status: Never used Tobacco Smoked in Last 30 Days: No e-Cigarette/Vaping Use: Never Used Second Hand Smoke Exposure: No Use of substances other than those prescribed or required for medical reasons: No Advance Directives: No Advance Directives Information Provided: Yes Do you have a plan to hurt others: No Plan service: No Current occupational status: unemployed Cognitive needs: No Hearing needs: No Vision needs: Yes (Glasses) Physical Exam Vital Signs: Vital Signs: Last Vital Signs Temp 97.8 F 03/29/25 09:10 Pulse 73 03/29/25 14:00 Resp 16 03/29/25 14:00 BP 128/77 03/29/25 14:00 Pulse Ox 97 03/29/25 14:00 O2 Del Method Room Air 03/29/25 09:10 BMI result Body Mass Index 30.4 Vital signs have been reviewed and appear to be correct. Blood pressure normal. Heart rate normal. Respiratory rate normal. Temperature normal. Oxygen saturation normal. Const: General: cooperative and no acute distress Orientation/consciousness: oriented to person, oriented to place, oriented to time and patient oriented x3 Limitations: no limitations HEENT: Head: Yes normocephalic and Yes atraumatic Ears: external ears normal General nose exam: Normal external nose present Face and sinus: Yes face symmetric Mouth: oropharynx normal and moist mucous membranes Throat: Yes uvula midline Eyes: Pupils: Equal, round and reactive pupils present Neck: Neck: Yes normal visual inspection and Yes supple Resp: Effort & Inspection: normal respiratory effort and able to speak in complete sentences Auscultation: clear to auscultation bilaterally Cardio: Rate: regular rate Rhythm: regular rhythm Heart sounds: S1 normal heart sound present and S2 normal heart sound present GI: Palpation (GI): Soft to palpation, Tenderness to palpation present (GI) in the RLQ, no guarding and No Rebound tenderness present Auscultation: normoactive bowel sounds : General: Yes no CVA tenderness Back/Spine/Pelvis: Back: no CVA tenderness Skin: General skin exam: elasticity normal and turgor normal Neuro: General: oriented to person, oriented to place, oriented to time, patient oriented x3, moves all extremities, no focal motor deficits and CN's II-XI intact bilaterally Cranial nerves: Yes Equal, round and reactive pupils present Cognition (Neuro): normal cognition Extrem: General: Yes full ROM, Yes no pedal edema and Yes no calf tenderness Psych: Mental Status: mental status grossly normal Affect: normal affect Thought process: Normal thought process present Course Course Course Narrative: 29 yo female with PMH of UTIs during prior no prior stones. She does have Crohns not currently on medications. She has had 4 days of R flank pain with some diarrhea and has difficulty voiding. No fevers, + nausea but no vomiting. No fevers. At this time labs, UA, US of R kidney ordered. this is a RAPID medical screening exam the rest of the history and physical exam is to be done by the main provider. JEAN 03/29/25 917am Medications Administered Discontinued Medications Generic Name Dose Route Start Last Admin Trade Name Freq PRN Reason Stop Dose Admin Iohexol 100 ml 03/29/25 13:23 03/29/25 13:25 Iohexol 350 Mg/Ml 100 Ml Infus..Btl IV 03/29/25 13:24 85 ml ONCE ONE Administration Ketorolac Tromethamine 15 mg 03/29/25 12:35 03/29/25 12:48 Ketorolac Tromethamine 15 Mg/Ml Vial IVPUSH 03/29/25 12:36 15 mg ONCE ONE Administration Medical Decision Making Medical Decision Making [facility] Narrative: Patient is a 29-year-old female with reported past medical history of cholecystectomy, laparoscopic gastric bypass, Crohn's disease, GERD, iron deficiency anemia, sleep apnea, asthma presenting to the emergency department with complaint of right upper quadrant abdominal pain radiating around to her back for the past 3-4 days. On exam patient is awake, A+Ox3, VS WNL, afebrile, normal neurological exam without focal deficits, physical exam findings as above. Given reported symptoms and physical exam findings, initial differential includes but is not limited to UTI, pyelonephritis, renal colic, obstructing calculi, hydronephrosis, , ectopic, ovarian cyst, less likely torsion/TOA. Labs notable for no leukocytosis, chronic anemia, negative hCG, initial asymptomatic hypoglycemia. Renal ultrasound notable for no shadowing calculi, no hydronephrosis, mild pelvic fullness. CT abdomen pelvis is without evidence of acute appendicitis, notable for right-sided parapelvic cysts, multiple right ovarian cysts. Pelvic ultrasound is without evidence of ovarian torsion, TOA. My interpretation is in agreement with the radiologist's interpretation. BV panel positive for candidiasis. Will treat with miconazole. Advised patient to follow up with PCP and bariatric surgeon for ongoing symptoms. Return precautions discussed at bedside. Patient verbalized understanding of and agreement with plan. Differential Diagnosis Differential Diagnoses: The differential diagnosis associated with the presentation includes as per [facility] Admission/Observation Consideration of admission/observation: Escalation of care including admission/observation considered Patient would have been admitted to the hospital had their clinical presentation warranted hospital admission. Lab Data [facility] Lab Attestation statement: I reviewed the patient's lab results. as per [facility] 03/29/25 09:44 03/29/25 09:44 Labs: Lab Results 03/29/25 03/29/25 03/29/25 Range/Units 09:44 11:02 11:04 WBC 8.1 (4.8-10.8) X10*3/uL RBC 4.55 (4.20-5.50) X10*6/uL Hgb 10.9 L (12.0-16.0) g/dl Hct 34.8 L (37.0-47.0) % MCV 76.5 L (80.0-98.0) fL MCH 24.0 L (27.0-33.0) pg MCHC 31.3 (31.0-35.0) g/dl RDW 15.5 (11.0-16.0) % Plt Count 292 (160-400) X10*3/uL MPV 9.8 (9.4-12.3) fL Immature Gran % (Auto) 0.2 (0.0-0.4) % Neut % (Auto) 62.3 (45-73) % Lymph % (Auto) 23.4 (20-40) % [place] % (Auto) 10.3 (2-11) % Eos % (Auto) 2.6 (0-4) % Baso % (Auto) 1.2 (0-2) % Lymph # (Auto) 1.9 (1.2-4.9) X10*3/uL [place] # (Auto) 0.8 (0.1-1.2) X10*3/uL Eos # (Auto) 0.2 (0.0-0.4) X10*3/uL Baso # (Auto) 0.1 (0.0-0.2) X10*3/uL Abs Immat Gran (auto) 0.02 (0.00-0.03) X10*3/uL Absolute Neuts (auto) 5.1 (2.0-8.3) x10*3/uL Absolute Nucleated RBC 0.000 (0.0-0.012) X10*3/uL Nucleated RBC % (auto) 0.0 (0.0-0.2) /100WBC Sodium 142 (135-145) mmol/L Potassium 3.9 (3.3-5.1) mmol/L Chloride 113 H (96-108) mmol/L Carbon Dioxide 26 (22-29) mmol/L Anion Gap 7 L (12-20) BUN 11 (9-16) mg/dL Creatinine 0.74 (0.5-1.4) mg/dL Estim Creat Clear Calc 132.1 Estimated GFR > 60 POC Glucose 96 (60-115) mg/dL Random Glucose 58 L* (60-115) mg/dL Calcium 8.4 (8.4-10.2) mg/dL Total Bilirubin 0.1 (0.0-1.0) mg/dL Direct Bilirubin < 0.2 (0.0-0.5) mg/dL AST 28 (5-31) U/L ALT 36 H (0-31) U/L Alkaline Phosphatase 114 (39-117) U/L Total Protein 6.5 (6.5-8.0) g/dL Albumin 4.0 (3.5-5.0) g/dL Beta HCG, Quant < 2 mIU/mL Urine Color Yellow Urine Appearance Clear Urine pH 7.0 (5.0-9.0) Ur Specific [place] 1.025 (1.005-1.025) Urine Protein Negative (Neg-Trace) mg/dL Urine Glucose (UA) Negative (Negative) mg/dL Urine Ketones Trace (Negative) mg/dL Urine Blood Negative (Negative) Urine Nitrite Negative (Negative) Ur Leukocyte Esterase Small (1+) H (Negative) Urine RBC 0-2 (0-2) /HPF Urine WBC 0-5 (0-5) /HPF Ur Squamous Epith Cells 3-5 (0-2) /HPF Urine Bacteria Trace (None Seen) Hyaline Casts 0-2 (0-2) /LPF Chlam trachomat DNA PCR (Not Detect.) N.gonorrhoeae DNA (PCR) (Not Detect.) T. vaginalis (PCR) (Not Detect) Bact vaginosis (PCR) (Negative) C. krusei/glabrata (PCR) (Not Detect) Nataly group (PCR) (Not Detect) 03/29/25 Range/Units 13:45 WBC (4.8-10.8) X10*3/uL RBC (4.20-5.50) X10*6/uL Hgb (12.0-16.0) g/dl Hct (37.0-47.0) % MCV (80.0-98.0) fL MCH (27.0-33.0) pg MCHC (31.0-35.0) g/dl RDW (11.0-16.0) % Plt Count (160-400) X10*3/uL MPV (9.4-12.3) fL Immature Gran % (Auto) (0.0-0.4) % Neut % (Auto) (45-73) % Lymph % (Auto) (20-40) % [place] % (Auto) (2-11) % Eos % (Auto) (0-4) % Baso % (Auto) (0-2) % Lymph # (Auto) (1.2-4.9) X10*3/uL [place] # (Auto) (0.1-1.2) X10*3/uL Eos # (Auto) (0.0-0.4) X10*3/uL Baso # (Auto) (0.0-0.2) X10*3/uL Abs Immat Gran (auto) (0.00-0.03) X10*3/uL Absolute Neuts (auto) (2.0-8.3) x10*3/uL Absolute Nucleated RBC (0.0-0.012) X10*3/uL Nucleated RBC % (auto) (0.0-0.2) /100WBC Sodium (135-145) mmol/L Potassium (3.3-5.1) mmol/L Chloride (96-108) mmol/L Carbon Dioxide (22-29) mmol/L Anion Gap (12-20) BUN (9-16) mg/dL Creatinine (0.5-1.4) mg/dL Estim Creat Clear Calc Estimated GFR POC Glucose (60-115) mg/dL Random Glucose (60-115) mg/dL Calcium (8.4-10.2) mg/dL Total Bilirubin (0.0-1.0) mg/dL Direct Bilirubin (0.0-0.5) mg/dL AST (5-31) U/L ALT (0-31) U/L Alkaline Phosphatase (39-117) U/L Total Protein (6.5-8.0) g/dL Albumin (3.5-5.0) g/dL Beta HCG, Quant mIU/mL Urine Color Urine Appearance Urine pH (5.0-9.0) Ur Specific [place] (1.005-1.025) Urine Protein (Neg-Trace) mg/dL Urine Glucose (UA) (Negative) mg/dL Urine Ketones (Negative) mg/dL Urine Blood (Negative) Urine Nitrite (Negative) Ur Leukocyte Esterase (Negative) Urine RBC (0-2) /HPF Urine WBC (0-5) /HPF Ur Squamous Epith Cells (0-2) /HPF Urine Bacteria (None Seen) Hyaline Casts (0-2) /LPF Chlam trachomat DNA PCR NOT DETECTED (Not Detect.) N.gonorrhoeae DNA (PCR) NOT DETECTED (Not Detect.) T. vaginalis (PCR) NOT DETECTED (Not Detect) Bact vaginosis (PCR) NEGATIVE (Negative) C. krusei/glabrata (PCR) NOT DETECTED (Not Detect) Nataly group (PCR) DETECTED A (Not Detect) Independent Interpretation I performed an independent interpretation of an: Ultrasound and CT Scan Interpretation: Renal ultrasound notable for no shadowing calculi, no hydronephrosis, mild pelvic fullness. CT abdomen pelvis is without evidence of acute appendicitis, notable for right-sided parapelvic cysts, multiple right ovarian cysts. Pelvic ultrasound is without evidence of ovarian torsion, TOA. Radiology Impression Discussion of test interpretation with radiology: I have reviewed the radiologist's reading. Radiologist Impression: US/US pelvic complete IMPRESSION: 1. Normal transabdominal pelvic ultrasound. The patient refused transvaginal imaging. 2. Normal-appearing uterus and endometrium. 3. No evidence of ovarian torsion or mass. 4. There is no free pelvic fluid. External Record Review External record reviewed: Inpatient record, Office record and Outpatient record Prescription Management I considered prescription management with: Other Critical Care Time Critical Care Time Critical Care Time: Yes Total Critical Care Time: 47 Attestation: I have personally provided critical care time exclusive of time spent on separately billable procedures. Time includes review of lab data, radiology results, discussion with consultants, and monitoring for potential decompensation. Intervention performed as documented. Discharge Plan Discharge Clinical Impression: Abdominal pain, Vulvovaginal candidiasis Patient Disposition: Home, Self-Care Instructions: Yeast Infection (ED), Abdominal Pain (ED) Additional Instructions: You have been evaluated in the emergency department today for abdominal pain. Your evaluation did not show evidence of medical conditions requiring emergent intervention at this time. You are being treated for a vaginal yeast infection, use medication as prescribed. Please schedule an appointment with your primary care physician and bariatric surgeon. Return to the emergency department if you experience worsening or uncontrolled pain, fevers 100.4? F or greater, recurrent vomiting, inability to tolerate food or fluids by mouth, bloody stools or vomit, black or tarry stools, or any other concerning symptoms. Prescriptions: New miconazole nitrate [Miconazole-3] 4 % (200 mg)- 2 % (9 gram) comb pack,prefill appl, cream See Rx Instructions .ROUTE .COMPLEX Qty: 24 0RF Rx Instructions: put 1 supp in vagina at bedtime x 3nites;use cream on area outside vagina 2X/day for up to 7days No Action thiamine HCl (vitamin B1) 100 mg tablet 100 mg PO DAILY Qty: 90 3RF cholecalciferol (vitamin D3) 125 mcg (5,000 unit) capsule 125 mcg PO DAILY Qty: 90 3RF nortriptyline 10 mg capsule 10 mg PO BEDTIME Qty: 30 2RF ferrous fumarate [Ferrocite] 324 mg (106 mg iron) tablet 324 mg PO DAILY Qty: 90 2RF gabapentin 300 mg capsule 600 mg PO TID 30 Days Qty: 180 0RF lidocaine [Lidoderm] 5 % adhesive patch,medicated 1 patch topical DAILY Qty: 15 0RF Rx Instructions: leave on most painful area for up to 12 hrs njqhrunaly-xurcwoeunihdj-iddx 50-325-40 mg tablet 1 tab PO Q6H PRN (Reason: haeadace) Qty: 20 0RF naratriptan 2.5 mg tablet 2.5 mg PO DIRECTED amitriptyline 25 mg tablet 25 mg PO BEDTIME (DME) lancets [FreeStyle Lancets] 28 gauge misc See Rx Instructions .ROUTE QID Qty: 100 Rx Instructions: As directed vitamin A 3,000 mcg (10,000 unit) capsule 3,000 mcg PO DAILY sucralfate [Carafate] 100 mg/mL suspension 10 ml PO QID Qty: 420 3RF cyclobenzaprine 10 mg tablet 10 mg PO BEDTIME Qty: 30 11RF naproxen 500 mg tablet 500 mg PO Q8-12H PRN (Reason: pain (scale score 1-3)) Qty: 20 0RF prednisone 10 mg tablet 10 mg PO DIRECTED Qty: 20 0RF Rx Instructions: see taper instructions take 4 tabs x 2 days, then 3 tabs x2 days, 2 tabs x2 days, then 1 tab x2 days =20 tabs for 8 days tramadol 50 mg tablet 50 mg PO Q8H PRN (Reason: pain) Qty: 14 0RF Print Language: Divehi
[2025-03-29 09:51] LABS: MANUAL DIFF FLAG NO
[2025-03-29 09:55] LABS: Hematocrit 34.8 % (37.0-47.0); Hemoglobin 10.9 g/dl (12.0-16.0); Imm Gran Abs Auto 0.02 X10*3/uL (0.00-0.03); Imm Gran Pct Auto 0.2 % (0.0-0.4); Lymphocytes Absolute Auto 1.9 X10*3/uL (1.2-4.9); Mean Corpuscular HGB Conc 31.3 g/dl (31.0-35.0); Mean Corpuscular Hemoglobin 24.0 pg (27.0-33.0); Mean Corpuscular Volume 76.5 fL (80.0-98.0); NRBC Abs Auto 0.000 X10*3/uL (0.0-0.012); NRBC Pct Auto 0.0 /100WBC (0.0-0.2); Platelet Count 292 X10*3/uL (160-400); Red Blood Count 4.55 X10*6/uL (4.20-5.50); White Blood Count 8.1 X10*3/uL (4.8-10.8)
[2025-03-29 10:16] LABS: Alanine Aminotransferase 36 U/L (0-31); Albumin Level 4.0 g/dL (3.5-5.0); Alkaline Phosphatase 114 U/L (39-117); Anion Gap 7 (12-20); Aspartate Amino Transferase 28 U/L (5-31); Blood Urea Nitrogen 11 mg/dL (9-16); Calcium 8.4 mg/dL (8.4-10.2); Carbon Dioxide 26 mmol/L (22-29); Chloride 113 mmol/L (96-108); Creatinine Clr Calc Pharmacy 132.1; Estimated Glomerular Filt Rate > 60; Potassium 3.9 mmol/L (3.3-5.1); Sodium 142 mmol/L (135-145); Total Protein 6.5 g/dL (6.5-8.0)
--- NOTE | 2025-03-29 10:20 | PC.NURSE ---
Lab called critical glucose of 58, pt in waiting room, she is A/Ox4, no complaints of low sugar symptoms. Pt given Apple juice and crackers with peanut butter and advised when to alert staff if symptoms worsen.
--- NOTE | 2025-03-29 10:58 | PC.NURSE ---
Addendum entered by Trisha Victor RN 03/29/25 11:09: Patient is a 29 yo female with a history of chronic pain who presents with right flank/suprapubic pain for the past 2 days with assoc difficuly voiding, feeling full, and foul smelling urine. States had a history of kidney infections when . Lungs clear bilat. Respirations even and non-labored. Abdomen soft, with positive bowel sounds. No significant tenderness noted. Positive pedal pulses with no edema. Renal U/S negative for a stone. Original Note: Medical History Sacroiliac joint pain Pelvic pain Muscle spasm Internal and external bleeding hemorrhoids Constipation Breakthrough bleeding on Nexplanon COVID-19 Left arm pain Encounter for removal and reinsertion of Nexplanon Chronic abdominal pain Hypovitaminosis D Iron deficiency anemia GERD (gastroesophageal reflux disease) Ovarian mass Sinusitis BCP ( control pills) initiation Yeast infection involving the vagina and surrounding area Problematic vaginal discharge Lumbar pain Hip asymmetry Intestinal malabsorption following gastrectomy Obesity (BMI 30-39.9) Sleep apnea Asthma Bile duct abnormality Cholecystectomy planned
[2025-03-29 11:08] LABS: Appearance Urine Clear; Glucose Urine UA Negative (Negative); PH 7.0 (5.0-9.0); Specific Gravity - Urine 1.025 (1.005-1.025); UMIC TRIGGER UACC YES
[2025-03-29 11:08] LABS: Glucose, Whole Blood 96 mg/dL (60-115)
[2025-03-29 11:16] LABS: UACC Culture Trigger YES
--- OUTSIDE RECORDS SUMMARY | 2025-03-29 12:28 | XMS_ITS | Encounter Summary ---
Author Organization [facility] Address [address] [place] [phone] Phone Care Team Providers Care Parachute Folder Name Role Phone Ethel Murray MD Primary Care Provider Encounter Details Date Type Department Care Team (Late st Contact Info) Description 01/17/2012 Documentation EM Family Medicine [address] [place] [address] Family Medicine, Physician [address] [place], [place] [id number] Social History Tobacco Use Types Packs/Day Years [...] on filedocumented in this encounter Care Teams Parachute Folder Relationship Specialty Start Date End Date Ethel Murray MD [address] [place] [address] [place] [address] PCP - General 04/25/17 11/27/22 documented as of this encounter
[2025-03-29] MEDS: iohexoL 350 MG/ML 100 ML INFUS..BTL IV (13:25)
[2025-03-29 14:00] VITALS: BP 128/77; PULSE 73; RESP 16; O2SAT 97
--- NOTE | 2025-03-29 14:27 | PC.NURSE ---
Patient noted to have sudden onset sharp/stabbing right groin pain. Provider notified and formal U/S ordered.
--- NOTE | 2025-03-29 14:53 | PC.NURSE ---
U/S at the bedside
[2025-03-29 15:55] LABS: Bacterial Vaginosis PCR NEGATIVE (Negative); Candida Group PCR DETECTED (Not Detect); Candida glab krusei PCR NOT DETECTED (Not Detect); Trichomonas vaginalis PCR NOT DETECTED (Not Detect)
[2025-03-29 16:27] LABS: CT PCR NOT DETECTED (Not Detect.); NG PCR NOT DETECTED (Not Detect.)
[2025-03-29 16:52] VITALS: BP 128/77; PULSE 73; RESP 16; TEMP 36.7; O2SAT 97
== END 2025-03-29 16:53 | disposition home or self-care (01) ==
PROVIDERS: Emergency Medicine; Registered Nurse Emergency; Emergency Provider Emergency Medicine; PCP Internal Medicine
DX: B37.31 Acute candidiasis of vulva and vagina (principal); R39.198 Other difficulties with micturition; R10.31 Right lower quadrant pain; K50.90 Crohn's disease, unspecified, without complications; K21.9 Gastro-esophageal reflux disease without esophagitis; D50.9 Iron deficiency anemia, unspecified; J45.909 Unspecified asthma, uncomplicated; R19.7 Diarrhea, unspecified; Z98.84 Bariatric surgery status; Z79.899 Other long term (current) drug therapy
CPT/HCPCS: 36415; 74177; 76775; 76856; 80048; 80076; 81001; 81515; 82947; 84702; 85025; 87086; 87491; 87591; 93975; 96374; 99285; 99291; J1885; Q9967

== ENCOUNTER → 2025-03-29 09:15 | Outpatient (BNV) | payer OTHER, SELFPAY | PROVIDERS: PCP Internal Medicine; Visit Provider Radiology Body Imaging | DX: N21.0 Calculus in bladder (principal); R10.31 Right lower quadrant pain; N83.11 Corpus luteum cyst of right ovary | CPT/HCPCS: 76775; 93975 ==

== ENCOUNTER 2025-04-13 12:28 | Outpatient (AMB) | payer OTHER, SELFPAY ==
--- NOTE | 2025-04-13 12:29 | A.OFFPC_ITS ---
Vital Signs 04/13/25 12:30 Height 5 ft 8 in Weight 219 lb BMI 33.3 BP 130/70 Blood Pressure Location Lt brachial Position Sitting Intake Visit Reasons: Annual Exam Intake Note: Patient here for a physical exam Operations Scheduler Required: No Accompanied by: Self / Same As Patient Allergies carrot (CARROTS) Allergy (Intermediate, Verified 04/13/25 12:44) SWELLING cat dander (CATS) Allergy (Intermediate, Verified 04/13/25 12:44) ITCHING insect venom (INSECT BITES) Allergy (Intermediate, Verified 04/13/25 12:44) HIVES Medication List - Last Reconciled 04/13/25 by Marita Solis MD amitriptyline 25 mg PO BEDTIME [id number] 50-325-40 mg 1 tab PO Q6H PRN Carafate (sucralfate) 10 mL PO QID NS cholecalciferol (vitamin D3) 125 mcg PO DAILY cyclobenzaprine 10 mg PO BEDTIME ferrous fumarate (Ferrocite) 324 mg PO DAILY gabapentin 600 mg (2 x 300 mg) PO TID 30 days lancets (FreeStyle Lancets) As directed lidocaine 5% (Lidoderm) 1 patch topical DAILY naproxen 500 mg PO Q8-12H PRN naratriptan 2.5 mg PO DIRECTED nortriptyline 10 mg PO BEDTIME thiamine HCl (vitamin B1) 100 mg PO DAILY tizanidine 2 mg PO TID PRN tramadol 50 mg PO Q8H PRN vitamin A 3,000 mcg PO DAILY Tobacco use date assessed: 12/31/24 Dental Screening Dental Screen Date: 12/31/24 HPI HPI Comments History of Present Illness Details The patient is a 29-year-old female presenting for a physical exam and management of chronic back and stomach pain. The patient reports persistent back pain that has led to multiple emergency room visits within the past month, although no definitive cause has been identified. She has been under the care of pain management and has received injections at [facility], which worsened her condition, necessitating the use of a cane. Current medications include gabapentin and tizanidine, but she reports cognitive side effects such as forgetfulness attributed to gabapentin. The patient also experiences stomach pain, but despite multiple evaluations, including a gastroenterology consultation and endoscopy, no abnormalities have been found. She has undergone several procedures in the past year, including cystoscopy, hemorrhoidectomy, colonoscopy, endoscopy, and gastric bypass surgery. The patient has a history of low hemoglobin, with recent blood work showing a level of 10.9 g/dL, and she is currently taking ferrous sulfate. She denies any issues with her current vitamin regimen but requests a re-evaluation of her vitamin levels due to recent feelings of malaise. The patient reports a family history of arthritis in her mother and diabetes in her father. She denies alcohol consumption and smoking but acknowledges experiencing depression, which she attributes to her ongoing health issues. - Tdap vaccination up to date, next due in 2027 - Pap smear up to date, last performed p ost-childbirth - Vitamin levels to be re-evaluated due to recent malaise [facility] Medical History (Updated 04/13/25 @ 13:04 by Marita Solis MD) Malnutrition Sacroiliac joint pain Pelvic pain Muscle spasm Internal and external bleeding hemorrhoids Constipation Breakthrough bleeding on Nexplanon COVID-19 Left arm pain Encounter for removal and reinsertion of Nexplanon Chronic abdominal pain Hypovitaminosis D Iron deficiency anemia GERD (gastroesophageal reflux disease) Ovarian mass Sinusitis BCP ( control pills) initiation Yeast infection involving the vagina and surrounding area Problematic vaginal discharge Lumbar pain Hip asymmetry Intestinal malabsorption following gastrectomy Obesity (BMI 30-39.9) Sleep apnea Asthma Bile duct abnormality Cholecystectomy planned Surgical History H/O cystoscopy History of hemorrhoidectomy (~05/20/23) H/O colonoscopy History of esophagogastroduodenoscopy (EGD) Hx of cholecystectomy Gastric bypass status for obesity Family History Father Diabetes mellitus Obesity Mother Arthritis of knee Obesity Paternal Grandfather Diabetes mellitus Paternal Grandmother Diabetes mellitus Maternal Grandmother Diabetes mellitus Arthritis of knee Maternal Grandfather Diabetes mellitus Maternal Aunt Intestinal cancer Social History Household Members: Spouse and Children Housing: House Are you a primary pet care worker to a significant other at home: No Do you presently have visiting nurse or other home services: No Alcohol intake: never Comment: patient states tolerable Patient Tobacco Use Status: Never used Tobacco e-Cigarette/Vaping Use: Never Used Second Hand Smoke Exposure: No service: No Current occupational status: unemployed Cognitive needs: No Hearing needs: No Vision needs: Yes (Glasses) Female Reproductive History Menstrual Age of Menarche: 10 Questionnaire PHQ-9 Over the last 2 weeks, how often have you been bothered by any of the following problems? 1. Little interest or pleasure in doing things: more than half the days 2. Feeling down, depressed, or hopeless: more than half the days 3. Trouble falling or staying asleep, or sleeping too much: nearly every day 4. Feeling tired or having little energy: nearly every day 5. Poor appetite or overeating: nearly every day 6. Feeling bad about yourself - or that you are a failure or have let yourself or your family down: not at all 7. Trouble concentrating on things, such as reading the newspaper or watching television: more than half the days 8. Moving or speaking so slowly that other people could have noticed. Or the opposite - being so fidgety or restless that you have been moving around a lot more than usual: several days 9. Thoughts that you would be better off or of hurting yourself in some way: not at all Total score: 16 Depression Screening Interpretation: Positive Depression Screening Follow-up: Existing condition, In treatment and Follow-up Visit Requested Depression Screening Done: Yes 78920 - PHQ-9 Billing: Yes Source: Developed by Drs. George Cortes, Aga Donovan, Jose Hwang and colleagues, with an educational hiren from [employer]. Thrive Questionnaire Date Thrive assessed: 04/13/25 I am a: Patient What is your living situation today?: I have a steady place to live Within the past 12 months, did the food you bought not last and you didn't have the money to get more?: I choose not to answer this question Within the past 12 months, did you worry whether your food would run out before you got money to buy more?: Sometimes True Do you have trouble paying for medicines?: No Do you have trouble getting transportation to medical appointments?: No Do you have trouble paying your heating and electricity bill?: Yes Do you have trouble taking care of your child, family member or friend?: No Do you have trouble with day-to-day activities such as bathing, preparing meals, shopping, managing finances, etc.?: I choose not to answer this question Are you currently unemployed and looking for a job?: No Are you interested in more education?: No Please select the resources that you would like help with: None Currently or been in a relationship where the following occur: No concerns reported THRIVE Score: 2 AUDIT C Alcohol Use Questionnaire (AUDIT-C) 1. How often do you have a drink containing alcohol?: Never Total Score: 0 Score Reviewed/Action Taken: No GAGAN-7 AMB Questionnaire GAGAN-7 Date GAGAN - 7 assessed: 04/13/25 Feeling nervous, anxious, or on edge: 1 = Several days Not being able to stop or control worryin = Not at all Worrying too much about different things: 1 = Several days Trouble relaxin = Several days Being so restless that it is hard to sit still: 0 = Not at all Becoming easily annoyed or irritable: 3 = Nearly every day Feeling afraid as if something awful might happen: 1 = Several days Total GAGAN-7 score (0-4 normal; 5-9 mild; 10-14 moderate; 15-21 severe): 7 Source: Developed by Drs. George Cortes, Aga Donovan, Jose Hwang and colleagues, with an educational hiren from [employer]. GAGAN-7 Assessment Billing GAGAN-7 Assessment Tool: GAGAN-7 Assessment 58687 Review of Systems Const All systems reviewed & are unremarkable except as noted in HPI and below Card Denies chest pain at rest, Denies chest pain with activity, Denies edema, Denies irregular heart rhythm, Denies claudication, Denies dyspnea, Denies dyspnea on exertion, Denies orthopnea, Denies paroxysmal nocturnal dyspnea and Denies slow heart rate Resp Denies cough, Denies dyspnea and Denies dyspnea on exertion GI Denies abdominal pain, Denies change in bowel habits, Denies excessive flatus, Denies nausea and Denies vomiting Denies urinary incontinence, Denies urinary hesitancy and Denies urinary urgency Musc Denies abnormal gait, Denies atrophy, Denies deformity and Denies limited range of motion Skin/Breast Denies bleeding lesions, Denies changing lesions and Denies rash Neuro Denies abnormal gait and Denies lack of coordination Physical exam (Primary Care) Vital Signs: Last Vital Signs BP 130/70 04/13/25 12:30 BMI result Body Mass Index 33.3 Tobacco/Smoking Status: Tobacco use Status Tobacco use date assessed 12/31/24 04/13/25 12:35 Patient Tobacco Use Status Never used Tobacco 04/13/25 12:35 e-Cigarette/Vaping Use Never Used 04/13/25 12:35 PHQ-9: PHQ-9 Score PHQ-9: Total score 16 04/13/25 12:50 Depression Screening Interpretation: Positive Depression Screening Follow-up: Existing condition, In treatment and Follow-up Visit Requested Thrive Assessment: Date of Thrive Assessment Date Thrive assessed 04/13/25 04/13/25 12:35 Currently or been in a relationship where the following occur: No concerns reported HENMT Head: Yes normal to inspection, Yes normocephalic and Yes atraumatic Ears: external ears normal Eyes General: appearance normal, both eyes and all related structures Eyelids: Yes eyelids normal Conjunctivae: conjunctivae normal Neck Neck: Yes normal visual inspection and Yes supple Resp Effort & Inspection: normal respiratory effort Auscultation: clear to auscultation bilaterally Cardio Jugular venous distension: no JVD Rate: regular rate Rhythm: regular rhythm Heart sounds: S1 normal heart sound present and S2 normal heart sound present GI Inspection: Yes normal to inspection Palpation (GI): Soft to palpation and nontender Auscultation: normal bowel sounds Skin General skin exam: no rashes or lesions noted Neuro General: no focal motor deficits Extrem General: Yes full ROM Psych Appearance: grossly normal Coding Level of Care Code Est Pt Level 3 (40877) Est Pt Prev Care 18-39y(02089) Diagnoses Physical exam Z00.00 Lumbar degenerative disc disease M51.369 Crohn's disease K50.90 Moderate recurrent major depression F33.1 Hypovitaminosis D E55.9 Vitamin A deficiency E50.9 Thiamine deficiency E51.9 Additional Codes GAGAN-7 Assessment Billing - GAGAN-7 Assessment Tool: GAGAN-7 Assessment 38328 ([id number]) PHQ-9 - 53203 - PHQ-9 Billing: Yes ([id number]) Time Spent (min) 34 Assessment & Plan Assessment & Plan (1) Physical exam: Code(s): Z00.00 - Encounter for general adult medical examination without abnormal findings Category: Medical (2) Lumbar degenerative disc disease: Code(s): M51.369 - Other intervertebral disc degeneration, lumbar region without mention of lumbar back pain or lower extremity pain Category: Medical (3) Crohn's disease: Code(s): K50.90 - Crohn's disease, unspecified, without complications Category: Medical (4) Moderate recurrent major depression: Code(s): F33.1 - Major depressive disorder, recurrent, moderate Category: Medical (5) Hypovitaminosis D: Code(s): E55.9 - Vitamin D deficiency, unspecified Category: Medical (6) Vitamin A deficiency: Code(s): E50.9 - Vitamin A deficiency, unspecified Category: Medical (7) Thiamine deficiency: Code(s): E51.9 - Thiamine deficiency, unspecified Category: Medical Plan The plan includes a referral to gastroenterology in [place] for further evaluation of the stomach pain, as previous local evaluations have not yielded a diagnosis. For the management of back pain, the gabapentin dosage will be decreased to 300 mg three times a day for two weeks, followed by a transition to Lyrica to assess its efficacy in pain management. A comprehensive blood workup will be conducted to reassess vitamin levels and check cholesterol, as part of the routine physical exam. The patient is advised to continue taking ferrous sulfate for low hemoglobin and to monitor for any changes in symptoms. Patient was informed and verbally consented to the use of an ambient scribe for clinic note documentation during this visit. Orders: Orders Vitamin B12 and Folate Today E53.8 - Deficiency of other specified B group vitamins IRON PROFILE Today D64.9 - Anemia, unspecified Vitamin A Today E50.9 - Vitamin A deficiency, unspecified Vitamin B1 Today E51.9 - Thiamine deficiency, unspecified Vitamin D 25-OH Total Today E55.9 - Vitamin D deficiency, unspecified Complete Blood Count Auto Diff Today D64.9 - Anemia, unspecified Referrals Gastroenterology Referral K50.90 - Crohn's disease, unspecified, without complications Medications: New gabapentin 300 mg PO TID 90 caps 0RF 30 days pregabalin 50 mg PO BID 60 caps 0RF 30 days M51.369 - Other intervertebral disc degeneration, lumbar region without mention of lumbar back pain or lower extremity pain Discontinued gabapentin Discontinued Reason: Patient Completed Course 600 mg (2 x 300 mg) PO TID 30 days 180 caps 0RF
[2025-04-13 12:30] VITALS: BP 130/70; BMI 33.3
--- OUTSIDE RECORDS SUMMARY | 2025-04-13 13:05 | XMS_ITS | Encounter Summary ---
Author Organization [facility] Address [address] [place] [id number] Phone Care Team Providers Care Reconstructive Surgeon Name Role Phone Ethel Murray MD Primary Care Provider [phone] Encounter Details Date Type Department Care Team (Late st Contact Info) Description 01/17/2012 Documentation EM Family Medicine [address] [place] [address] Family Medicine, Physician [address] [place], [place] [id number] Social History Tobacco Use Types Packs/Day Years [...] on filedocumented in this encounter Care Teams Reconstructive Surgeon Relationship Specialty Start Date End Date Ethel Murray MD [address] [place] [address] [place] [address] PCP - General 04/25/17 11/27/22 documented as of this encounter
--- OUTSIDE RECORDS SUMMARY | 2025-04-13 13:06 | XMS_ITS | Clinical Summary ---
Author Organization 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 40 tablet 11/22/2022 Active budesonide (ENTOCORT EC) 3 mg 24 hr capsule 9 mg. 12/01/2023 Ac tive CARAFATE 100 mg/mL suspension 100 mg. 12/03/2023 Ac tive vitamin A 30721 UNIT capsule Take 1 capsule by mouth every morning. 02/20/2024 Active thiamine (VITAMIN B-1) 100 MG tablet Take 1 tablet by mouth every morning. 02/22/2024 Active FERROCITE 324 mg (106 mg iron) Tab Take 1 tablet by mouth every morning. 02/17/2024 Active amitriptyline (ELAVIL) 25 MG tabletIndication s:Intractable migraine without aura and with status migrainosus,Intr actable chronic post-traumatic headache Take 1 tablet (25 mg total) by mouth nightly at bedtime. 30 tablet 11 03/29/2024 Active naratriptan (AMERGE) 2.5 MG tabletIndication s:Intractable migraine without aura and with status migrainosus Take 1 tablet (2.5 mg total) by mouth as needed for migraine. Take one (1) tablet at onset of headache; if returns or does not resolve, may repeat after 4 hours; do not exceed five (5) mg in 24 hours. 9 tablet 11 03/29/2024 Active cyclobenzaprine (FLEXERIL) 5 MG tablet Take 5 mg by mouth every 8 (eight) hours as needed. 04/14/2024 Active lidocaine (LIDODERM) 5 % 1 patch. 04/23/2024 Acti ve APRISO 0.375 gram 24 hr capsule 375 mg. 04/08/2024 Active naproxen (NAPROSYN) 500 MG tablet 500 mg. 04/12/2024 Active nitrofurantoin (MACROBID) 100 MG capsule Take 1 capsule (100 mg total) by mouth 2 (two) times a day. 10 capsule 05/18/2024 Active Hospital, Clinic, or Other Facility Administered Medication Ordered Dose Route Frequency Start Date End Date Status etonogestreL (NEXPLANON) subdermal implant 68 mgIndications:Negative test,Encounter for insertion of subdermal contraceptive 68 mg IDrm Every 3 years 12/13/2022 Active Active Problems Problem Noted Date Diagnosed Date Lower abdominal pain 05/18/2024 Overview (05/18/2024): Pain x 4 days excruciating Bladder tender on exam Assessment & Plan (05/18/2024 5:40 PM EDT): POssible UTI (though cx in past did not confirm a UTI)- will treat empirically pending urine cx results LLQ pain 12/14/2022 Assessment & Plan (01/15/2023 9:11 PM EDT): Evelyne is here to follow up for the LLQ pain. She still feels it coming and going but it does feel a bit better since last visit. Does not notice any association with BM changes. O: Results for orders placed during the hospital encounter of 01/10/23 US Pelvis Narrative Procedure: US PELVIS TRANSABDOMINAL ONLY 01/10/2023 1:54 PM US Indications: Pain; LLQ pain. Comparison: No relevant recent comparisons. Technique: Transabdominal sonography of the pelvis was performed. No 3-D images were acquired. Reported LMP: 7 weeks , no menses yet FINDINGS: Uterus: The uterus measurements acquired; 6.90 cm x 6.17 cm x 3.71 cm with volume of 82.70 ml. The uterus is anteverted in its positioning. The myometrium is homogeneous. Endometrium: The endometrium measures 2.00 mm and appears thin. No endometrial masses. No fluid is identified within the endometrial canal. No focal cervical masses. Ovaries: The right ovary measures 2.62 cm x 2.55 cm x 1.49 cm with volume of 5.21 ml. Multiple tiny peripheral follicles noted. Right Adnexa: No masses seen. The left ovary measures 2.75 cm x 1.94 cm x 1.76 cm with volume of 4.92 ml. Multiple tiny peripheral follicles noted. Left Adnexa: No masses seen. Cul de Sac: There is no evidence of free pelvic fluid. Tech Comments: Impression The ovaries contain multiple peripheral follicles in a pattern suggestive of PCOS. However, clinical correlation is required. Remainder of the ultrasound appears normal including the endometrium which is without focal masses or defects. A: LLQ of indeterminate cause, improving GI vs Musculoskeletal No POST HOLE DIGGER cause seen by US Polycystic Ovaries - no known irregular cycles, infertility, or s/s of hyperandrogenism so unlikely PCOS P: Recommended continuing to monitor LLQ - if no improvement, could see PCP for consideration of other etiology Assessment & Plan (12/19/2022 4:21 AM EDT): Had LLQ pain during and is still having some intermittent LLQ pain. Feels majority of cramping there. Pelvic US ordered with appt to follow No mass felt on exam Concern about neurological disease without diagn osis 11/20/2022 Overview (11/20/2022): See 10/2022 neurology note for migraines. Anesthesia expressed concern for undiagnosed pseudotumor cerebri, declined epidural until additional documentation and/or assessment by neurology completed. Needs follow up and likely imaging which would be especially important prior and possibly during to any future pregnancies. Please see note in media from 06/09/[address] Iain MD faxed to Dr. Pierson in Neurology for 10/2022 consult in [employer]. Which reports no s/s of pseudotumor cerebri on imaging or LP, dx is headaches. Reviewed notes with Dr. Alejandra Coel who notes that now considering ophthalmology visit to rule out papilledema and follow up consult with Dr. Pierson in to resolve question definitively. Migraine without status migrainosus, not intract able 07/31/2022 Overview (07/31/2022): Having more migraines in . Rx for magnesium supplement and fioricet as needed. Assessment & Plan (09/21/2022 7:20 PM EST): Evelyne stopped taking Unisom and feels like the HAs feel like they are gone. Will continue not taking the Unisom and see if the HOOK stay away Recommended still making Neuro appt in case they come back - info given on how to make appt Assessment & Plan (08/30/2022 8:31 PM EST): Continues to have migraines daily. Taking tylenol sometimes and Fioricet - knows to minimize Fioricet to minimize chance of rebound HOOK. Neuro referral was requested at last routine appt but she has not received a call - will send a message to check in on Neuro referral. Assessment & Plan (08/06/2022 4:37 PM EST): Having daily headaches. Today was seeing spots while driving. Normotensive. Reports fioricet helped the first time she took it, not as much after that. Taking 1 tablet at a time. Drinks water all day. Does not drink caffeine. Discussed it is okay to take 2 fioricet at once but not to take more than 8 tablets in 24 hours. Encouraged continued hydration. Will initiate neuro consult. Assessment & Plan (07/31/2022 3:40 PM EST): Having more migraines in . Rx for magnesium supplement and fioricet as needed. 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 has exacerbated her lows which she is unable to take preventative action without a CGM alarm. The CGM has reduced these lows to 5-12% recently, and far less critical lows. These lows are hard to capture due to brief, although deleterious nature of her sugar spikes. Vitamin D deficiency 07/11/2022 Assessment & Plan (09/21/2022 7:19 PM EST): Vitamin D level still low at 17. Increased daily Vitamin D to 2000 units daily Assessment & Plan (07/31/2022 3:18 PM EST): Is taking vitamin D supplementation Assessment & Plan (07/11/2022 10:48 PM EDT): Rx D3 1000 units daily Atypical squamous cell styles es of undetermined significance (ASCUS) on cervical cytology with negative high risk human papilloma virus (HPV) test result 06/27/2022 Overview (06/27/2022): Needs rpt pap with HPV testing in 3 years (06/2025) Assessment & Plan (12/14/2022 8:32 PM EDT): Next pap due 2024 Right lateral abdominal pain 05/21/2022 Assessment & Plan (05/21/2022 1:39 PM EDT): Maryann presents for f/u after being seen in the ED at [facility] yesterday with RUQ pain. Upon discussion today, the pain starts directly on her right side at about midline and extends toward about the middle of the abdomen. Around 05/10/22, Maryann went to [facility] with the same pain. Reports they did an US showing her kidney was inflamed. Sent her home with antibiotics. Pt wasn't clear if it was to avoid a kidney infection or a UTI but her testing came back normal and did not show an infection. Antiobiotic rx was for 10 days - she took the antibiotics for 7 days, pain was getting worse despite the medicine, couldn't eat anything. Pain is so bad it is making her immediately nauseated, can't keep food down. In the past two days, the pain kept getting worse, and she got a bad HOOK. Took a nap yeaster, woke up and the HOOK was worse. Tylenol hasn't helped. The HOOK and the worsening right abd pain prompted the visit to [facility] ED yesterday. LFTs and BMP were normal. BP normal. FHT present in 160s on bedside US. HOOK improved with Reglan. Pain slightly lessened after receiving IV fluids. History is significant for: - cholecystecmy Aug 2018. A few months after the surgery, Evelyne had the same excruitiating pain she is having now. Blood work at that time showed elevated LFTs. Had laproscopic exploration, was told her bile duct wasn't functioning correctly, it was repaired. Has been fine since then recently. - Gastric bypass surgery February 2017. Evelyne has a GI specialist at [facility]. 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 Had MRI and cat scan, reports the Dr called her and said they saw some inflammation in the right kidney. Was referred to a kidney doctor, [place] [facility] [place]: - discussed the pain does not sound related but could be exacerbated by - recommended following up with her GI doctor and keeping appt with kidney specialist - discussed pain coping including using tylenol, heat, massage, chiropractice. Evelyne feels like she can cope with the pain, her biggest concern is that she doesn't want to have someone recommend pain medicine and have it not be safe, and she does not want to take narcotics. Reviewed she can call our office any time to check on safety if a prescription is suggested. All questions answered. RTO in one week for schedule new OB visit. History of gastric bypass 05/07/2022 Overview (11/20/2022): Stress importance of vitamin and continuing with any vitamin supplementation recommended by bariatric surgeon. Screen for micronutrient deficiencies at first visit and q trimester o CBC, Ferritin, Iron, Vitamin B12, Thiamine, Folate, Calcium, Vitamin D [*Vitamin B12 required to use nitrous oxide] Consider serial growth ultrasounds in third trimester, albert for patients with poor weight gain or who conceive within 2 years of surgery Avoid 50g glucose tolerance test due to risk of dumping syndrome. Refer patient to [facility] for QID testing x 2 weeks as an alternative. First trimester screening can be performed with HgbA1C as indicated Low threshold for abdominal imaging in patients with abdominal pain due to risk of bowel obstruction, cholelithiasis Timing and mode of delivery based on standard obstetric indications See Up-To-Date article F ertility and after bariatric surgery . [email or web address]&source=search_result&selectedTitle=1~150& usage _type=default&display_rank=1 Assessment & Plan (11/20/2022 7:50 AM EST): Recheck B12 in and consider ongoing supplementation. Received NO in labor. B12 252 09/2022. Assessment & Plan (08/30/2022 8:26 PM EST): As Evelyne is continuing to have headaches and fatigue and is in second trimester I recommended that we repeat full micronutrient panel along with TSH and CBC. Assessment & Plan (07/31/2022 3:39 PM EST): Rx sent for calcium supplementation Resolved Problems Problem Noted Date Diagnosed Date Resolved Date Encounter for initial prescr iption of Nexplanon 11/21/2022 12/04/2023 Overview (11/22/2022): Wants prior to DC. If she cannot get it in house, could come back next week to get it. Nexplanon not available at time of discharge, will make office appt for insertion Assessment & Plan (12/19/2022 4:21 AM EDT): Nexplanon inserted at 3 weeks PP Normal , unspecified trimester 11/20/2022 12/14/2022 Encounter for induction of labor 11/20/2022 12/14/2022 Overview (11/20/2022): 11/20/2229- Plan made w/ MD Burrows and pt to have an IOL at this time due to occassional prolonged decelerations in FHR -AROM and FSE placed -VE 2/75/-2 per MD Giaebalyson -Pitocin ordered -Pt glenn spontaneously 0112 -Pitocin infusing at 2 mUnits Assessment & Plan (11/20/2022 6:41 AM EST): 11/20/2229- Plan made w/ MD Burrows and pt to have an IOL at this time due to occassional prolonged decelerations in FHR -AROM and FSE placed -VE 2/75/-2 per MD Giaebalyson -Pitocin ordered -Pt glenn spontaneously 0112 -Pitocin infusing at 2 mUnits 0447 -Pt feeling like she needs to push VE 4/80/-1. Dose of fentanyl given 6:39 AM -Pitocin infusing at 6mUnits. Pt comfortable after fentanyl dose Normal intrauterine , antepartum 11/20/2022 12/14/2022 Back pain affecting pregnanc y in third trimester 09/21/2022 12/14/2022 Assessment & Plan (09/21/2022 7:26 PM EST): Back pain is mid back more on left side. Recommended Spinning Babies exercises, Maternity belt (Rx'd), lidocaine patches or ointment, ice. She has stopped Flexeril due to recommendation by prescriber. Fatigue during in second trimester 2 12/14/2022 Assessment & Plan (09/21/2022 7:24 PM EST): Micronutrient panel shows vitamin D is low. Increased supplementation ordered. Otherwise normal micronutrients, TSH and CBC. Assessment & Plan (08/30/2022 8:28 PM EST): See note other other problem Assessment & Plan (08/06/2022 4:38 PM EST): Reports extreme fatigue, difficult to get out of bed or want to do anything. Will check CBC and TSH. Hyperglycemia in 07/18/2022 0 12/04/2023 Overview (07/18/2022): Alternating hyperglycemia with hypoglycemia with critical lows due to Dumping syndrome s/p gastric bypass Abdominal pain affecting 07/13/2022 12/14/2022 Assessment & Plan (11/13/2022 9:16 AM EST): Client reporting worsening sharp stabbing lower abdominal pain that radiates superiorly and bilaterally, worse with baby movement. Has been worse over the last week. Reports no abdominal trauma (unable to collect full history as partner in room) and no vaginal bleeding. Reports new green vaginal discharge, self swab for gc/ct/trich collected. Assessment & Plan (10/14/2022 12:46 PM EST): A: IUP at 31 5/7 weeks GA with abdominal cramping No evidence of contractions at this time Cat I tracing No evidence of SROM Pelvic pain c/w musculoskeletal changes in P: Send UA, U culture Will monitor to confirm no ctxs Assessment & Plan (08/26/2022 1:33 PM EST): Here for same day visit for continued cramping/general abdominal pain. Evelyne was evaluated for this same complaint on Friday and had an essentially normal exam. She reports on going cramping over the weekend with one episode of pink spotting after voiding yesterday. She denies leaking fluid or abnormal discharge. She has been feeling regular movement. She reports near constant abdominal pain with periods of sharper pain that radiate from her belly button down. She has been increasing her water intake- no changes in bowel or bladder health. SVE L/T/C. We reviewed normal discomforts vs PTL s/s. Evelyne will call with any vaginal bleeding or increase in cramping/pain. Routine OB visit is scheduled for the later this week. She will keep this appt. Assessment & Plan (08/26/2022 12:47 PM EST): Here for same-day visit due to uterine cramping. Around a week ago 08/16 began having belly tightening along with lower abdominal cramping every 5 minutes lasting for about an hour at a time. Used heating pad and Tylenol for the pain. This continued to happen multiple times per day over the past week. Having bowel movements 1-2 times per day, more than usual. They are soft. She feels like she is urinating less than expected and has some pedal edema, feels like she is retaining water. Reports an increase in clear watery discharge over the past week. No vaginal bleeding. Baby has been moving well. Also reports some dizzy spells along with nausea, headaches, vision goes blurry. Feels like she is drinking plenty of water, today has had 3 16 oz water bottles along with a cup from [employer]. On NST, FHR is reassuring. 4 contractions noted in 30 min of monitoring, irregular. Sterile spec is neg pooling, neg ferning, neg nitrazine. White curdy discharge in vault along with watery discharge, wet prep shows +hyphae. Recommended treatment due to symptoms, will use Terconazole 7. SVE L/T/C Recommended light activity and increase hydration, monitor symptoms over the next several days. Reviewed s/s of labor at length, she will call with any of these Assessment & Plan (07/13/2022 12:32 PM EDT): A: IUP at 18 3/7 weeks GA with low back and abdominal pain status reassuring No evidence of vaginal infection, PTL, UTI Possible musculoskeletal pain P: Urine culture pending Will send GC/CT to be thorough GBS and FFN not indicated VWP was done and negative Will try heat pack and Tylenol and reassess in one hour Reassured and reviewed this may be musculoskeletal Consider discharge home at reassessment Pyelonephritis 06/13/2022 05/18/2024 Overview (10/23/2022): Inpatient x2 days now on antibioitics for 2 weeks. She has f/u w nephrology, was already aware of plan for suppression for remainder of PG. Ensure NV she has started suppression - Yes 10/23: Evelyne hasn't been taking keflex for a week - new rx sent, instructed to resume and take for the remainder of the Assessment & Plan (09/21/2022 7:21 PM EST): Taking suppression. Should consider a repeat culture in third trimester Assessment & Plan (08/30/2022 8:29 PM EST): Taking suppression Assessment & Plan (07/31/2022 3:18 PM EST): Continues with suppression Assessment & Plan (07/11/2022 10:43 PM EDT): Evelyne has started suppression and will continue. We discussed s/s of kidney infection and when to call. Recent urine culture was contaminated. Should have monthly Urine cultures per [facility] Assessment & Plan (07/03/2022 9:36 AM EDT): Is taking suppression. Still having burning sensation when voiding. Feeling some left back pain. Mild CVA tenderness. Noted that she was dehydrated on last urinalysis. Encouraged to drink more water. Will continue suppression. Urine culture ordered for tomorrow. Assessment & Plan (06/13/2022 5:49 PM EDT): Inpatient x2 days now on antibioitics for 2 weeks. She has f/u w nephrology, was already aware of plan for suppression for remainder of PG. Ensure NV she has started suppression Supervision of high risk pre gnancy in third trimester 05/07/2022 12/14/2022 Overview (11/22/2022): CNM OB-CMI score 1 Rh pos GC/Chlam neg/neg PAP: ASC-US, HPV neg--> next pap 3 yrs Tdap * Flu * COVID-19* Hgb 12.2 GTT N/A 28 wk Repeat RPR NR GBS neg 10/08/22 PPBC nexplanon screening neg cfDNA and nml L2 sono Assessment & Plan (11/16/2022 12:04 PM EST): Evelyne is a 27 y.o. at 36w2d doing well. + FM. GBS was done at [facility], pending. NST today reactive Assessment & Plan (11/05/2022 10:03 AM EST): Was seen 10/27 and 10/28 for labor evals. Discharged but continued to have contractions. Feels like she has so much pressure she can't close her legs, has sharp pain around cervical area, rectal pressure. Pain has been intense around night, has barely slept the past two nights. Has had some spotting but thinks that was because of painful exams. Was treated with antibiotics for BV. Switched to metrogel. Assessment & Plan (09/21/2022 7:25 PM EST): Evelyne is a 27 y.o. at 28w2d doing well. Denies VB/LOF/Ctxs. + FM. Assessment & Plan (08/30/2022 8:28 PM EST): Evelyne is a 27 y.o. at 25w1d doing ok. Denies VB/LOF/Ctxs. + FM. Feeling very fatigued. Has not yet had other bloodwork drawn. Assessment & Plan (08/06/2022 4:39 PM EST): Evelyne is a 26 y.o. at 21w6d. Here with her partner and son. Active baby. Has cramping when she goes for a walk. Uncomfortable in general. Has SHARON scheduled 08/29. Will schedule next SHARON and US for 28 weeks. Assessment & Plan (07/31/2022 3:41 PM EST): Evelyne is doing well overall. Had level 2 ultrasound at [facility]. All normal. No concerns. Starting to feel baby move. Assessment & Plan (07/11/2022 10:47 PM EDT): Evelyne is a 26 y.o. at 17w4d doing well. Here with her partner and son. Assessment & Plan (07/03/2022 9:38 AM EDT): Agustín is doing ok. She fell on her belly yesterday and was having some cramping yesterday afternoon but it is better now. No bleeding or leaking fluid. She is feeling movement. No other concerns. Happy to hear heart beat today. Assessment & Plan (06/13/2022 6:01 PM EDT): Using Reglan for nausea which has been helping. Will await MFM c/s to determine L2 vs nml FAS, pt aware may need to cancel FAS based on MFM cristian. Has had a VERY difficult T1 with lots of nausea, +pyelo, unstable blood sugars. She also has a child w autism. She is overwhelmed and has been struggling and feels she needs a break. Cristian she look into STD x2w. I offered to write a note in support of this--she will let me know. Pap collected today. Assessment & Plan (05/29/2022 5:39 PM EDT): Evelyne is here with her family. She is still struggling with nausea and vomiting. Zofran does not seem to help. Saw some blood in her vomit today. Continues to take VB6 and unisom. Rx for reglan sent. She will try that. If no improvement she will call us. No other concerns. Happy to hear heartbeat today. Normal brief physical exam. Pap deferred to next visit as her son is in the office today. Wanted NT scan but it has not been scheduled. Will schedule today. Will do labs after NT ultrasound. History of delivery 05/07/2022 12/14/2022 Overview (07/31/2022): Delivery at 35+5, PPROM, no precipitating incident Baby 6 lb 4 oz, did well at History of PTL/PPROM 17 Hydroxyprogesterone (Alessandra injection) 16-36 wks Declines Cervical length at anatomy scan--WNL at 3.8 cm Betamethasone 24 - 36+6 wks if symptomatic Assessment & Plan (11/16/2022 12:03 PM EST): Happy to be at 36 weeks! Assessment & Plan (09/21/2022 7:23 PM EST): Evelyne sometimes has cramping but it feels better with rest/hydration. She does sometimes have low back pain and is unsure if those are contractions or not. We discussed doing the same rest and hydration to see if it improves and call with abdominal or back pain that comes in waves more than 6 x/hr or with bleeding/LOF. She agrees Assessment & Plan (08/30/2022 8:29 PM EST): Contractions have gone away since her last visit. Feels like some may have been stress related, her grandfather just . We reviewed s/s of labor and when to call. Assessment & Plan (08/26/2022 12:44 PM EST): Here for same-day visit due to uterine cramping. Around a week ago 08/16 began having belly tightening along with lower abdominal cramping every 5 minutes lasting for about an hour at a time. Used heating pad and Tylenol for the pain. This continued to happen multiple times per day over the past week. Having bowel movements 1-2 times per day, more than usual. They are soft. She feels like she is urinating less than expected and has some pedal edema, feels like she is retaining water. Reports an increase in clear watery discharge over the past week. No vaginal bleeding. Baby has been moving well. Also reports some dizzy spells along with nausea, headaches, vision goes blurry. Feels like she is drinking plenty of water, today has had 3 16 oz water bottles along with a cup from [employer]. Assessment & Plan (07/31/2022 3:19 PM EST): CL at anatomy scan was 3.8 cm Assessment & Plan (07/11/2022 10:46 PM EDT): Declining [place], Will have CL at US Assessment & Plan (07/03/2022 9:37 AM EDT): Cervial length planned at Level 2. Has decided to decline Alessandra. Assessment & Plan (06/13/2022 5:47 PM EDT): Pt has c/s w MFM in 2 weeks Assessment & Plan (05/07/2022 12:45 PM EDT): Discussed Alessandra with patient and reviewed risks/benefits. We did discuss that benefit of this therapy is less clear with patients who delivered late . Offered MFM consult to discuss this and other comorbidities, which patient accepts. Gestational diabetes mellitu s (GDM) affecting second 05/07/2022 12/04/2023 Overview (11/18/2022): Pt began randomly testing in first trimester due to symptoms of shakiness, sweating, headache, and saw both hypo- and hyperglycemia (range 60-280). Had glucometer because she tested in her first (unable to tolerate GTT due to h/o gastric bypass) Recommended HgbA1C and CEDE consult - referral entered Per MFM consult In terms of testing, I would recommend a detailed/level 2 anatomic survey at 19-20 weeks gestation and growth ultrasounds monthly starting at 28 weeks. I would recommend initiating 2 x weekly testing at 32 weeks (NST/BPP) if medications are required. If medications are not required testing may not be indicated. I would also recommend delivery by 39 weeks gestation. A1C: 06/14/22 4.8 -Level 2 US: -Growth US at 28wks: -Growth US at 32 wks: -Growth US at 36 wks: If meds are req twice weekly testing @ 28wks -IOL at 39wks 11/18/22 C/W Dr Wilks about delivery timing d/t uncertainty about glycemic control (see notes by RP). She suggests that Evelyne see Dr Smith from [facility] (manages Diabetes in ) for recommendations for delivery timing. She will do a virtual visit with Evelyne for 11/20/22 at 1230 pm Assessment & Plan (12/14/2022 8:31 PM EDT): Discuss at OR, will need follow up with MALINI (cannot do GTT d/t dumping syndrome) Assessment & Plan (11/16/2022 12:01 PM EST): Evelyne was seen for ctxs This week on CBC and she reviewed Blood glucose monitoring with CNM. There was a period where she was lost to follow up with MAILNI and had run out of supplies for checking. For blood sugars she has been checking she reviewed that her FBS and 1 hr PP are in range but when she looks at her CGM she sometime has high and low spikes throughout the day. She reported that she had a few 200 range and one 300 range. When we looked at data over last 2 days her average is in range as well as the FBS and 1 hr PP. Looking at CGM range it does range occ up but <200 and this is not in the 1 hr PP or fasting. Recently she has had some hypoglemia in the 50s/60s overnight and we discussed some remedies for hypoglycemia. Evelyne is feeling nervous about that. Has an alarm on CGM that goes off and does have food at bedside (mini fridge). She has found that when she is hypoglycemic she can eat jello or pudding or fruit cup and that often works. She has candy as well if needed. She cannot do juice as that makes her blood sugar spike. She tried apple with honey before bed. I recommended something with more complex carbs that will take longer to wear off - like whole grain toast with peanut butter and banana or honey or apple with peanut butter. She could also try nuts with fruit. Will continue to monitor closely. Doing twice weekly testing. NST today reactive. BPP will schedule for Friday. Was scheduled for IOL at 38 1/ due to concern by CNM that there was significant hyperglycemia although then the HgbA1C and GINNY came back normal. Krishna Leigh spoke to me before visit about these results. We discussed that because with GDM it can sometimes take longer for the lungs to mature, I would recommend that we check with M about delivery timing. Message sent to MFM. Will follow up with Evelyne once we have this information. Assessment & Plan (11/13/2022 3:48 PM EST): Client lost to follow up at [facility], last seen 08/29/23 was waiting on a call from them, was under impression diabetes was diet controlled and that they weren't recommending medication due to her hx of hypoglycemia/dumping syndrome with gastric bypass history. Last week of October was waiting on glucometer strip refill and hasn't checked sugars. Now has refills Prior, CBG reports fasting 80's-low 90's (never over 95) and post prandial usually 90's-low 100's after 1 hour postprandial. However random glucoses checked when having symptoms WITHIN 1 hour post prandial 140's- 200's, one 309. BPP reactive on 12/09, NST / extended monitoring reactive / category 1 overnight on 11/13/22 (see 11/13/22 inpatient documentation. Plan for NST on Friday with CNM visit, BPP on Saturday 11/18. Given this is within 1 week and we don't have current accurate data to initiate insulin and client at high risk of hypoglycemia, will plan to restart monitoring QID, encourage low glycemic index diet and have client call if consistently having CBG > 200- would indicate possible need for sooner induction or additional GDM mgmt. Will see if possible to be seen by MALINI in interim. Scheduled for IOL at 38.0 weeks evening of 11/27/22 for ripening at recommendation of M to deliver by 39 weeks. BIW monitoring and visits. Collaborative plan made with client, Dr. Mtz and Krishna Leigh CNM. Needs induction counseling at next visit. Assessment & Plan (09/21/2022 7:18 PM EST): Has continued to work with MALINI. On CGM, BS are in range. Per note from ENGRAVER, Needs to scan more frequently - Reminded Evelyne and she agrees to work on this. Per MFM needs monthly growth US scheduled - Inventory Technician is working on scheduling this, but only needs weekly BPP if meds for diabetes are started which they have not been at this time. Assessment & Plan (09/02/2022 8:03 PM EST): Evelyne continues to have rapid increases followed by rapid decrease in blood sugars, but her lows are only 1% with use of continuous glucose monitoring and no further critical lows. Her high sugars are modestly higher but mostly return to acceptable levels in less than an hour. There were only 2 occasions they remained elevated which coincided with the of her grandfather and his . Her sugars appear to have improved over the last few days now that she is under less stress. Evelyne will continue to monitor her sugars closely. We reviewed the importance of eating small, frequent, and healthy meals. We additionally discussed different ideas to help relieve stress and encouraged her to get plenty of sleep. Finally we reviewed target glucose goals. Reviewed hypoglycemia prevention, recognition and management. Encouraged to continue to make healthy diet choices and remain as physically active as tolerates. Encouraged to contact us with any concerns or question and follow up in 3 weeks. Assessment & Plan (08/30/2022 8:25 PM EST): Managing blood sugars with CEDE. Has growth scan ordered for 28 weeks Assessment & Plan (08/06/2022 4:36 PM EST): Reports blood glucose has been normal. Testing QID. Will schedule growth US for 28 weeks Assessment & Plan (08/01/2022 12:34 PM EST): Evelyne's CGM data continues to reflect controlled reactive spikes in sugars to eating, returning to baseline usually within an hour. Again this is due to Hx of gastric bypass with dumping syndrome. Her variation is less pronounced keeping her sugars mostly in GDM target range. Most of her lows (12%) are between 65-70 (still normal range for GDM) during sleep with the deeper and critical lows sporadically caused by compression. These lows do not correspond to fingerstick which she tests when low alarm <65. The FSL3, similar to the Dexcom G6, tends to experience more compression lows. We discussed other sites on her upper arm which may be less prone to these lows. The FSL3 will not be covered by insurance with FSL2 reordered and additionally may prove more reliable. FSL2 tends not to be as sensitive to compression lows. Congratulated Evelyne on mostly keeping her sugars within the target range. We discussed a very small and balanced diabetic snack both at bedtime and to keep at bedside for true lows. Asked Evelyne whether she would like to consider Acarbose if she were to experience true, frequent lows. Evelyne is wary of (1) trying anything that may restart GI distress now that she is able to tolerate eating again, and (2) is relatively unproven in . Reviewed hypoglycemia prevention, recognition and management. Encouraged to continue to make healthy diet choices and remain as physically active as tolerates. Encouraged to contact us with any concerns or question and follow up 4 weeks. Assessment & Plan (07/31/2022 3:18 PM EST): Has a new CGM. Is not sure that it is working because it keeps alarming that her blood sugar is low when she feels fine and if she does a finger prick it is 75. Will discuss with MALINI tomorrow. No current meds for diabetes. Diet control at this time. Assessment & Plan (07/11/2022 10:45 PM EDT): Evelyne is following closely with MALINI. States blood sugars have been up and down. Reviewed Dr Wilks's consult Per M consult In terms of testing, I would recommend a detailed/level 2 anatomic survey at 19-20 weeks gestation and growth ultrasounds monthly starting at 28 weeks. I would recommend initiating 2 x weekly testing at 32 weeks (NST/BPP) if medications are required. If medications are not required testing may not be indicated. I would also recommend delivery by 39 weeks gestation. Level II is scheduled for 07/26 Recommend Baby ASA- Rx'd Dr Wilks also recommend Acarbose d/t dumping syndrome. Evelyne talked with MALINI about but is hesitant because it has not been well studied in prengancy. I will see if I can forward some info to Evelyne to consider. Assessment & Plan (07/04/2022 12:59 PM EDT): Evelyne's glucose is rising greater than 180 on multiple occasions. It spikes quite high with subsequent drop to <70 resembling classic Dumping Syndrome which she had in the past due to Hx gastric bypass surgery. This pattern repeats itself to varying degrees throughout the day whenever she eats. A goal during her would be to minimize the degree of variation with each occurrence. Although her sugar goes fairly high on occasion, she more frequently has low sugars, total of 19% and sporadically into the 40s with these dumping episodes which is more concerning with her . Diabetic medications or insulin are not likely to be helpful at this point and may worsen her already high frequency of low sugars. Finally, he is still fairly early with good insulin sensitivity, her insulin resistance is likely to increase as her progresses. It would be optimal for Evelyne to be able to evaluate the effects of her food choices in real time to regulate her sugars with diet and physical activity. A personal CGM during would be most beneficial to blunt the effects of dumping syndrome , prevent lows, and stabilize her sugars overall. Reviewed hypoglycemia prevention, recognition and management. Encouraged to continue to make healthy and less rich diet choices with smaller portions more frequently.Encouraged to contact us with any concerns or question and follow up in 4 weeks. Assessment & Plan (07/03/2022 9:34 AM EDT): Saw MFM. Has CGM. Has appointment with MALINI tomorrow. Message sent to schedule Level 2. Assessment & Plan (06/13/2022 6:02 PM EDT): Now that she is out of the hospital (being tx for pyelo) she can focus more on checking her BS regularly. Assessment & Plan (06/03/2022 3:38 PM EDT): It is difficult to evaluate Evelyne's overall glycemic control is relatively uncertain. Her recent log of 2-3 days is reassuring, although there is x1 low sugar. She has only just been able to tolerate any food or drink in limited quantities. Her h/o gastric bypass surgery also makes it difficult to assess with testing. We discussed being able to gradually tolerate meals again and resume testing. More consistent glucose data per CGM trial would be helpful to evaluate overall patterns and should be considered when she is able to have an in office follow up visit. Reviewed target goals with her as well as healthy diet recommendations. Reviewed hypoglycemia prevention, recognition and management. Plan to check on her later this week. Encouraged to contact us with any concerns or question and follow up in 4 weeks. Recommendations for patients with Gestational Diabetes or Diabetes in . 1. HgA1c target in is 6-6.5%, ideally less than 6% if able to achieve without significant hypoglycemia -- is associated with increased red blood cell turnover therefore A1c will tend to be lower than at comparable glycemia in non state 2. A1c alone may not capture the postprandial hyperglycemia that drives macrosomia therefore postprandial glucose monitoring is preferred for monitoring glycemic control in . Monitoring blood sugars on waking/fasting and 1 hour after eating; Blood sugar targets Fasting 65-95, 1hr postprandial <140, 2hr postprandial <120; 3. Lifestyle modifications may improve outcomes alone in GDM and may reduce insulin requirement in preexisting diabetes, visits with special educator are strongly encouraged, attention to exercise and diet at paramount 3. Vaccinations including influenza, Tdap. 4. Eye examination is recommended if preexisting diabetes due to increased risk of development and/or progression of diabetic retinopathy. 5. According to the 2018 ADA diabetes management guidelines, women with preexisting diabetes should be counseled to take ASA 81mg from the end of the first trimester through the end of to reduce risk of preeclampsia 6. Women with GDM should be screened for diabetes 4-12 weeks using the 75g OGTT, A1c may continue to be falsely low in the immediate period; women with GDM have a lifetime increased risk of developing diabetes, routine screening for diabetes should continue every 1-3 years or more frequently if future pregnancies are planned Assessment & Plan (05/29/2022 5:35 PM EDT): Working with MALINI. Hgb A1C ordered with labs. Assessment & Plan (05/07/2022 12:46 PM EDT): Recommended HgbA1C and CEDE consult - referral entered contractions 023 Overview (10/23/2022): Multiple admissions for contractions- cervix closed 20mg nifedipine given on 10/23 admission with improvement pain w/ ctx Assessment & Plan (11/16/2022 12:03 PM EST): Ctxs noted today on the monitor but Evelyne is not bothered by them. She does still have periodic low abdominal pain which is sometimes severe. She is not sure that the pain is associated with ctxs. As she is 36 weeks, we reviewed term labor precautions and when to call. Denies bleeding, LOF. Assessment & Plan (11/05/2022 10:35 AM EST): Seen today for ongoing painful contractions, which she has had multiple admissions for. Most recently seen 10/27 and 10/28 at [facility] for labor evals, states cervix was 1cm with both admissions. She was treated for bacterial vaginosis, initially started oral abx but did not tolerate so she was switched to metrogel, which she is still taking. Has continued to have contractions, sometimes as close together as q 3 min. At times feels like she has so much pressure she can't close her legs, has sharp pain around cervical area, rectal pressure. Does have a little watery discharge. Contractions have been worst at night, has barely slept the past two nights. Has had some spotting over the past week but thinks that was due to what she describes as rough pelvic exams at [facility]. On exam, abd is soft, nontender SSE: neg pooling, neg ferning. No blood seen. Cervix visibly closed. Small amount curdy white discharge Wet prep shows normal epithelial cells, no yeast, no WBCs, ph 4.5 Discussed differentiating false vs true labor, advised always safest to come in for eval if unsure or if it seems like ctx are progressing despite rest and hydration. Call with vaginal bleeding, ongoing leaking of fluid. She has tried benadryl for rest without much effect. Discussed and sent an Rx for vistaril for sporadic use as needed. She has a routine visit with U/S in one week Assessment & Plan (11/18/2022 1:28 PM EST): -Pt arrives having a lot of contractions. She is unable to walk without having to stop and breath through contractions. Took a long time to room her based on her discomfort. She states she began having contractions last night but stated they were pretty mild. This morning her contractions became stronger and have intensify as time goes on. Now her ucs are every 2-3 min. She reports feeling a lot of rectal pressure and states she is unable to sit down because the pressure is too intense. -Reports +FM this morning. Denies feeling any FM over the past 2 hrs due to pain -Denies any LOF/VB -Attempted to place pt on NST in the office and attempted to do a VE however pt was too uncomfortable to get on the exam table -At this time recommended pt to go to the [facility] for labor eval. -+ FFN on 10/21/22 all other labs neg -VE on 10/21/22 was 0.5/20-30/-2 Immunizations Immunization Administration Dates Next Due DTP 04/20/1996,02/13/1996,1995 Dtap, 5 Pertussis Antigens 12/03/2000,01/31/1997 HPV,quadrivalent 01/24/2010,12/08/2008, 8 Hepatitis A, ped/adol, 2 dose 04/13/2014, 011 Hepatitis B 04/20/1996,02/13/1996,1995 Hib,PRP-T 01/31/1997, 6,02/13/1996,11/12 IPV 12/03/2000, 6,02/13/1996,11/12 Influenza Quadrivalent Prese rvative Free IM 06/22/2014 Influenza Split (Incl. Purif ied Surface Antigen) 06/24/2012 Influenza Trivalent Preserva tive Free IM 08/01/2016 Influenza Trivalent w/ Preservative IM 5,08/13/2007 MMR 12/03/2000,11/02/1996 Meningococcal MCV4P 10/06/2007 Pneumococcal polysaccharide PPSV23 03/25/2018 Td (adult) 5 Lf Tetanus Toxo id, PF, Adsorbed 04/13/2014,01/06/2013 Tdap 02/12/2018,06/26/2011,10/06/2007 Varicella 12/08/2008,01/31/1997 Family History Medical History Relation Comments Diabetes Father Alzheimer's disease Maternal Grandfather Diabetes Maternal Grandfather Seizures Maternal Grandfather Alzheimer's disease Maternal Grandmother Diabetes Maternal Grandmother Asthma Mother Fibromyalgia Mother Alzheimer's disease Paternal Grandfather Diabetes Paternal Grandfather Diabetes Paternal Grandmother Relation Status Comments Father Maternal Grandfather Maternal Grandmother Mother Paternal Grandfather Paternal Grandmother Social History Tobacco Use Types Packs/Day Years Used Date Smoking Tobacco: Never Smokeless Tobacco: Never Tobacco Cessation:Counseling Given: Not Answered Alcohol Use Standard Drinks/Week Comments Not Currently 0 (1 standard drink = 0.6 oz pur e alcohol) Education Answer Date Recorded Are you interested in more education? Not on brian e 01/10/2023 Are you concerned about learning? Not on file 01/10/2023 No 01/10/2023 No 01/10/2023 Digital Access Answer Date Recorded No 02/09/2023 No 02/09/2023 Reliable internet access at home? Not on file 02/09/2023 Device with a working camera? Not on file Intimate Partner Violence Answer Date R ecorded Are you denied basic needs s uch as food, clothing, or medical care? No 09/28/2024 In the past 12 months have y ou been in a relationship with a person who hurts, threatens, or tries to control you? No 09/28/2024 Are you denied basic needs s uch as food, clothing, or medical care? No 09/28/2024 In the past 12 months have y ou been in a relationship with a person who hurts, threatens, or tries to control you? No 09/28/2024 Comments No Sex and Gender Information Value Date Recorded Sex Assigned at Female 05/20/2022 8:31 PM EDT Legal Sex Female 12:55 PM EDT Gender Identity Female 05/20/2022 8:31 PM EDT Sexual Orientation Straight 07/13/2022 10 :58 AM EDT Last Filed Vital Signs Vital Sign Reading Time Taken Comments Blood Pressure 95/67 09/28/2024 2:00 PM EST Pulse 61 09/28/2024 2:00 PM EST Temperature 36.8 C (98.2 F) 09/28/2024 2:00 PM EST Respiratory Rate 19 09/28/2024 2:00 PM EST Oxygen Saturation 100% 09/28/2024 2:00 PM EST Inhaled Oxygen Concentration - - Weight 83.9 kg (185 lb) 09/28/2024 11:44 AM EST Height 172.7 cm (5' 8 ) 09/28/2024 11:44 AM EST Body Mass Index 28.13 09/28/2024 11:44 AM EST Plan of Treatment Health Maintenance Due Date Last Done Comments DEPRESSION SCREENING 2007 COVID-19 VACCINE ( season) 2024 02/23/2021, 02/02/2021 PAP SMEAR 06/10/2025 06/10/2022 Contraceptive Implant 12/13/2025 12/13/2022 Adult Td,Tdap Booster 02/13/2028 02/12/2018 , 04/13/2014, 01/06/2013, Additional history exists HIB VACCINES Completed 01/31/1997, 04/17, 02/13/1996, Additional history exists MENINGOCOCCAL VACCINES (ACWY) Aged Out 10/06/2007 No longer eligible based on patient's age to complete this topic HEPATITIS A VACCINES Completed 04/13/2014, 02/19/20 11 PNEUMOCOCCAL VACCINES (0-49 years) Aged Out 03/25/2018 No longer eligible based on patient's age to complete this topic HEPATITIS C SCREENING Completed 06/14/2022 HIV ONE-TIME SCREENING (18-65 YEARS) Completed 06/14/2022 SMOKING STATUS SCREENING (Once After 26 Yrs) Completed 05/18/2024 MENINGOCOCCAL VACCINES (B) Aged Out N o longer eligible based on patient's age to complete this topic Medical Devices Not on file Procedures Procedure Name Priority Date/Time Associated Diagnosis Comments HEPATITIS C ANTIBODY, QUALITATIVE Routine 06/14/2022 2:05 PM EDT Supervision of high risk in first trimester Need for hepatitis C screening test PAP TEST Routine 06/10/2022 12:00 AM EDT from Last 3 Months or Most Recently Relevant to Health Maintenance Results * Hepatitis C antibody, qualitative (06/14/2022 2:05 PM EDT) HCV NON-REACTIV E NON-REACTI VE [facility] Blood 06/14/2022 2:05 PM EDT 06/14/2022 2:17 PM EDT us Leonie Colón CNM, MPH LAB BLOOD ORDERABLES F inal Result [address] [address] * (ABNORMAL) Pap Smear (06/10/2022 12:00 AM EDT) 06/10/2022 06/11/2022 10: 24 AM EDT Narrative SEE NARRATIVE - 06/25/2022 1:43 PM EDT [address] [address] Product Designer: Evie Cedeno MD POST HOLE DIGGER Cytology Report FINAL DIAGNOSIS A. PAP SMEAR (SUREPATH) CE: SPECIMEN ADEQUACY: Satisfactory for evaluation; transformation zone present. INTERPRETATION: EPITHELIAL CELL ABNORMALITY - SQUAMOUS. Atypical squamous cells of undetermined significance. Fungal organisms morphologically consistent with Nataly species. Electronically Signed Out By: MD Ramone Perez CT(ASCP) By his/her signature above, the pathologist listed as making the Final Diagnosis certifies that he/she has personally reviewed this case and confirmed or corrected the diagnosis. The Pap test is a screening test primarily for squamous cancers and precursors and has associated false-negative and false-positive results. New technologies such as liquid-based preparations may decrease but will not eliminate all false-negative results. Regular sampling and follow-up of unexplained clinical signs and symptoms are recommended to minimize false negative results. PROCEDURES/ADDENDA HPV Testing (Reflex) Ordered Date: 06/18/2022 A. PAP SMEAR (SUREPATH) CE: Human Papilloma Virus Test Negative for high-risk human papillomavirus types 16, 18, 45 and the Other high risk probe set (Includes 31, 33, 35, 39, 51, 52, 56, 58, 59, 66, 68) by [employer] Onclarity HR-HPV analysis. Clinical correlation is advised. This HPV test was performed at [facility], [address] [place] [address]. This test has been FDA approved for SurePath cervical cytology specimens. The accuracy and precision of this test for all other specimen sources has been verified in the Cytopathology Laboratory of the [facility] and has not been cleared or approved by the U.S. Food and Drug Administration. Clinical correlation is advised. CLINICAL HISTORY Date of Last Menstrual Period: Not Provided Menstrual History: Other Clinical Conditions: Screening Pap SPECIMEN SOURCE A: PAP SMEAR (SUREPATH) CE Patient Name: EVELYNE GOVEA : 1995 (Age: 26) Sex: F Institution: [facility] Location: [facility] Date of Collection: 06/10/2022 Date of Reported: 06/18/2022 17:09 Results to: Leonie Colón CNM Leonie Colón CNM, MPH CYTOLOGY ORDERABLES Ed ited Result - Final SEE NARRATIVE from Last 3 Months or Most Recently Relevant to Health [place] [address] [address] [place] [address] [address] [address] ACO [facility] ACO Advance Directives For more information, please contact: [phone] (9AM - 5PM Maureen/[facility], Friday-Friday) * Full Code (Latest Code Status on File) Date Activated Date Inactivated Comments 11/20/2022 12:39 PM Question Answer Comments Code Status Confirmed With: Patient * Full Code Date Activated Date Inactivated Comments 11/20/2022 2:07 AM 11/20/2022 12:39 PM Question Answer Comments Code Status Confirmed With: Patient * Full Code Date Activated Date Inactivated Comments 10/23/2022 1:03 PM 11/20/2022 2:07 AM Question Answer Comments Code Status Confirmed With: Patient * Full Code Date Activated Date Inactivated Comments 10/21/2022 2:42 PM 10/23/2022 1:03 PM Question Answer Comments Code Status Confirmed With: Patient * Full Code Date Activated Date Inactivated Comments 10/14/2022 12:42 PM 10/21/2022 2:42 PM Question Answer Comments Code Status Confirmed With: Patient Care Teams Medical Or Surgical Instrument Maker Relationship Specialty Start Date End Date Marita Toledo MD [address] [place] [address] PCP - General Internal Medicine 04/12/22 Additional Source Comments The information contained in this document represents components of the legal health record. It is not the complete legal health record.[facility]
== END 2025-04-13 13:39 | disposition home or self-care (01) ==
LOC: HO.HMCH 12:28
PROVIDERS: PCP Internal Medicine; Visit Provider Internal Medicine
DX: Z00.00 Encounter for general adult medical examination without abnormal findings (principal); M51.369 Other intervertebral disc degeneration, lumbar region without mention of lumbar back pain or lower extremity pain; K50.90 Crohn's disease, unspecified, without complications; F33.1 Major depressive disorder, recurrent, moderate; E55.9 Vitamin D deficiency, unspecified; E50.9 Vitamin A deficiency, unspecified; E51.9 Thiamine deficiency, unspecified

== ENCOUNTER → 2025-04-13 12:28 | Outpatient (BNVA) | payer OTHER, SELFPAY | PROVIDERS: PCP Internal Medicine; Visit Provider Internal Medicine | DX: Z00.00 Encounter for general adult medical examination without abnormal findings (principal); M51.369 Other intervertebral disc degeneration, lumbar region without mention of lumbar back pain or lower extremity pain; K50.90 Crohn's disease, unspecified, without complications; F33.1 Major depressive disorder, recurrent, moderate; E55.9 Vitamin D deficiency, unspecified; E50.9 Vitamin A deficiency, unspecified; E51.9 Thiamine deficiency, unspecified; Z13.31 Encounter for screening for depression; Z13.39 Encounter for screening examination for other mental health and behavioral disorders | CPT/HCPCS: 96127; 99212; 99395 ==

== ENCOUNTER 2025-05-03 11:32 | Outpatient (REF) | payer OTHER, SELFPAY ==
[2025-05-03 11:57] LABS: MANUAL DIFF FLAG NO
[2025-05-03 12:23] LABS: Hematocrit 40.2 % (37.0-47.0); Hemoglobin 12.5 g/dl (12.0-16.0); Imm Gran Abs Auto 0.02 X10*3/uL (0.00-0.03); Imm Gran Pct Auto 0.2 % (0.0-0.4); Lymphocytes Absolute Auto 2.1 X10*3/uL (1.2-4.9); Mean Corpuscular HGB Conc 31.1 g/dl (31.0-35.0); Mean Corpuscular Hemoglobin 24.0 pg (27.0-33.0); Mean Corpuscular Volume 77.3 fL (80.0-98.0); NRBC Abs Auto 0.000 X10*3/uL (0.0-0.012); NRBC Pct Auto 0.0 /100WBC (0.0-0.2); Platelet Count 349 X10*3/uL (160-400); Red Blood Count 5.20 X10*6/uL (4.20-5.50); White Blood Count 9.3 X10*3/uL (4.8-10.8)
--- OUTSIDE RECORDS SUMMARY | 2025-05-03 13:06 | XMS_ITS | Encounter Summary ---
Author Organization [facility] Address [address] [place] [phone] Phone Care Team Providers Care Senior Analytical Chemist Name Role Phone Ethel Murray MD Primary Care Provider [phone] Encounter Details Date Type Department Care Team (Late st Contact Info) Description 01/17/2012 Documentation EM Family Medicine [address] [place] [address] Family Medicine, Physician [address] [place], [place] [id number] Social History Tobacco Use Types Packs/Day Years [...] filedocumented in this encounter Care Teams Senior Analytical Chemist Relationship Specialty Start Date End Date Ethel Murray MD [address] [place] [address] [place] [address] PCP - General 04/25/17 11/27/22 documented as of this encounter
--- OUTSIDE RECORDS SUMMARY | 2025-05-03 13:07 | XMS_ITS | Clinical Summary ---
Author Organization [facility] Address [address] [place] [address] Phone Care Team Providers Care Electrical Design Engineer Name Role Phone Marita Toledo MD Primary Care Provid er Allergies Active Allergy Reactions Criticality Noted Date Comments Carrot 05/07/2022 Cat Hair Std Allergenic Ext 05/07/20 22 House Dust 05/07/2022 Medications acetaminophen (TYLENOL) 325 mg tablet Take 2 tablets (650 mg total) by mouth every 6 (six) hours as needed. 40 tablet 3 Active budesonide (ENTOCORT EC) 3 mg 24 hr capsule 9 mg. 4 Active CARAFATE 100 mg/mL suspension 100 mg. 4 Active vitamin A 17307 UNIT capsule Take 1 capsule by mouth every morning. 4 Active thiamine (VITAMIN B-1) 100 MG tablet Take 1 tablet by mouth every morning. 4 Active FERROCITE 324 mg (106 mg iron) Tab Take 1 tablet by mouth every morning. 4 Active naratriptan (AMERGE) 2.5 MG tabletIndicatio ns:Intractable migraine without aura and with status migrainosus Take 1 tablet (2.5 mg total) by mouth as needed for migraine. Take one (1) tablet at onset of headache; if returns or does not resolve, may repeat after 4 hours; do not exceed five (5) mg in 24 hours. 9 tablet 11 4 Active cyclobenzaprine (FLEXERIL) 5 MG tablet Take 5 mg by mouth every 8 (eight) hours as needed. 4 Active lidocaine (LIDODERM) 5 % 1 patch. 4 Active APRISO 0.375 gram 24 hr capsule 375 mg. 4 Active naproxen (NAPROSYN) 500 MG tablet 500 mg. 4 Active nitrofurantoin (MACROBID) 100 MG capsule Take 1 capsule (100 mg total) by mouth 2 (two) times a day. 10 capsule 4 Active amitriptyline (ELAVIL) 25 MG tabletIndicatio ns:Intractable migraine without aura and with status migrainosus,Int ractable chronic post-traumatic headache TAKE 1 TABLET BY MOUTH NIGHTLY AT BEDTIME. 30 tablet 11 5 Active amitriptyline (ELAVIL) 25 MG tabletIndicatio ns:Intractable migraine without aura and with status migrainosus,Int ractable chronic post-traumatic headache Take 1 tablet (25 mg total) by mouth nightly at bedtime. 30 tablet 11 4 025 Discontinued Hospital, Clinic, or Other Facility Administered Medication [...] indeterminate cause, improving GI vs Musculoskeletal No AERONAUTICAL PROJECT ENGINEER cause seen by US Polycystic Ovaries - [...] Pierson in Neurology for 10/2022 consult in [facility]. Which reports no s/s of pseudotumor cerebri on imaging or LP, dx is headaches. Reviewed notes with Dr. Alejandra Cole who notes that now considering ophthalmology visit [...] after being seen in the ED at [facility] yesterday with RUQ pain. Upon discussion today, the pain starts directly on her right side at about midline and extends toward about the middle of the abdomen. Around 05/10/22, Maryann went to [facility] with the same pain. Reports they did [...] got a bad HOOK. Took a nap , woke up and the HOOK was worse. Tylenol hasn't helped. The HOOK and the worsening right abd pain prompted the visit to [facility] ED yesterday. LFTs and BMP were [...] 2017. Evelyne has a GI specialist at [facility]. 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 Had MRI and cat scan, reports the Dr called her and said they saw some inflammation in the right kidney. Was referred to a kidney doctor, has appt 07/19 at [facility]. Plan: - discussed the pain does not [...] F ertility and after bariatric surgery . https://www.Wire[employer]/contents/qrjfscjgr-srx-qrqkiprlg-tszbt-zwulqmhvl-yvwgln y?sea rch=gastric%20bypass%20and%20pregnancy&source=search_result&selectedTitle=1~150& usage _type=default&display_rank=1 Assessment & Plan [...] and FSE placed -VE 2/75/-2 per MD Burrows -Pitocin ordered -Pt glenn spontaneously 0112 -Pitocin infusing at 2 mUnits Assessment & Plan (11/20/2022 6:41 AM EST): 11/20/220- Plan made w/ MD Burrows and pt to have an IOL at this time due to occassional prolonged decelerations in FHR -AROM and FSE placed -VE 2/75/-2 per MD Burrows -Pitocin ordered -Pt glenn spontaneously 0112 -Pitocin [...] by prescriber. Fatigue during in second trimester 12/14/2022 Assessment & Plan (09/21/2022 7:24 PM [...] water bottles along with a cup from [employer]. On NST, FHR is reassuring. 4 contractions [...] contaminated. Should have monthly Urine cultures per [facility] [facility] [facility] Assessment & Plan (07/03/2022 9:36 AM EDT): [...] well. + FM. GBS was done at [facility], pending. NST today reactive Assessment & Plan [...] well overall. Had level 2 ultrasound at [facility]. All normal. No concerns. Starting to feel [...] well at History of PTL/PPROM 17 Hydroxyprogesterone (Tolono injection) 16-36 wks Declines Cervical length at [...] water bottles along with a cup from [employer]. Assessment & Plan (07/31/2022 3:19 PM EST): CL at anatomy scan was 3.8 cm Assessment & Plan (07/11/2022 10:46 PM EDT): Declining Tolono, Will have CL at US Assessment & Plan (07/03/2022 9:37 AM EDT): Cervial length planned at Level 2. Has decided to decline Tolono. Assessment & Plan (06/13/2022 5:47 PM EDT): Pt has c/s w MFM in 2 weeks Assessment & Plan (05/07/2022 12:45 PM EDT): Discussed Tolono with patient and reviewed risks/benefits. We did [...] suggests that Evelyne see Dr Smith from [facility] (manages Diabetes in ) for recommendations for delivery timing. She will do a virtual visit with Evelyne for 11/20/22 at 1230 pm Assessment & Plan (12/14/2022 8:31 PM EDT): Discuss at [facility], will need follow up with MALIN[facility] (cannot do GTT d/t dumping syndrome) Assessment & Plan (11/16/2022 12:01 PM EST): Evelyne was seen for ctxs This week on [facility] and she reviewed Blood glucose monitoring with CNM. There was a period where she was lost to follow up with MALINI and had run out of supplies for [...] I would recommend that we check with [facility] [facility] [facility] about delivery timing. Message sent to [employer] [facility] [facility]. Will follow up with Evelyne once we have this information. Assessment & Plan (11/13/2022 3:48 PM EST): Client lost to follow up at [facility], last seen 08/29/23 was waiting on a [...] see [facility]. Scheduled for IOL at 38.0 weeks evening of 11/27/22 for ripening at recommendation of [facility] [facility] [facility] [employer] to deliver by 39 weeks. BIW monitoring and visits. Collaborative plan made with client, Dr. Mtz and Krishna Leigh, [facility]. Needs induction counseling at next visit. Assessment & Plan (09/21/2022 7:18 PM EST): Has continued to work with [facility]. On CGM, BS are in range. Per note from [facility], Needs to scan more frequently - Reminded Evelyne and she agrees to work on this. Per MFM needs monthly growth US scheduled - Death Clearance Coordinator is working on scheduling this, but only [...] Assessment & Plan (07/04/2022 12:59 PM EDT): Bijans glucose is rising greater than 180 on [...] & Plan (07/03/2022 9:34 AM EDT): Saw M. Has CGM. Has appointment with MALINI tomorrow. [...] insulin requirement in preexisting diabetes, visits with digital production artist are strongly encouraged, attention to exercise and [...] Most recently seen 10/27 and 10/28 at [facility] for labor evals, states cervix was 1cm [...] she describes as rough pelvic exams at [facility]. On exam, abd is soft, nontender SSE: [...] other labs neg -VE on 10/21/22 was 0.5/20-30//-2 Encounters Date Type Department Care Team Description 04/19/2025 Refill [facility] Neurology [address] [place] [address] Edwin Pierson MD Medication Refill 04/19/2025 Transcribe Orders [facility] [address] [place] [address] Marita Toledo MD Crohn's disease without complication, unspecified gastrointestinal tract location (Primary Dx) from Last 3 Months Immunizations Immunization Administration Dates Next Due DTP 04/20/1996,02/13/1996,1995 Dtap, 5 Pertussis Antigens 12/03/2000,01/31/1997 HPV,quadrivalent 01/24/2010,12/08/2008, 8 Hepatitis A, ped/adol, 2 dose 04/13/2014, 011 Hepatitis B 04/20/1996,02/13/1996,1995 Hib,PRP-T 01/31/1997, 6,02/13/1996,11/12 INFLUENZA, SPLIT VIRUS, TRIVALENT PF 08/01/2016 INFLUENZA, SPLIT VIRUS, TRIV ALENT W/ PRESERVATIVE IM 07/31/2015,08/13/2007 IPV 12/03/2000, 6,02/13/1996,11/12 Influenza Quadrivalent Prese rvative Free IM 06/22/2014 Influenza Split (Incl. Purif ied Surface Antigen) 06/24/2012 MMR 12/03/2000,11/02/1996 Meningococcal MCV4P 10/06/2007 Pneumococcal polysaccharide [...] 09/28/2024 11:44 AM EST Plan of Treatment Upcoming Encounters Date Type Department Care Team (Late st Contact Info) Description 10/07/2025 12:00 PM EST Office Visit [facility] Neurology [address] [place] [id number] Edwin Pierson MD [address] [place] [address] [email or web address] Health Maintenance Due Date Last Done Comments [...] Procedure Name Priority Date/Time Associated Diagnosis Comments OUTSIDE IMAGING 04/15/2025 OUTSIDE IMAGING 04/15/2025 HEPATITIS C ANTIBODY, QUALITATIVE Routine 06/14/2022 2:05 PM EDT Supervision of high risk in first trimester Need for hepatitis C screening test PAP TEST Routine 06/10/2022 12:00 AM EDT from Last 3 Months or Most Recently Relevant to Health Maintenance Results * Outside Imaging Report Only (04/15/2025) us Scanning Interface Provider IMG XR CHEST Yelitza l Result * Outside Imaging Report Only (04/15/2025) us Scanning Interface Provider IMG XR CHEST Yelitza l Result * Hepatitis C antibody, qualitative (06/14/2022 2:05 PM EDT) HCV NON-REACTIV E NON-REACTI VE [facility] Blood 06/14/2022 2:05 PM EDT 06/14/2022 2:17 PM EDT us Leonie Colón CNM, MPH LAB BLOOD ORDERABLES F inal Result [facility] [address] [place] [address] * (ABNORMAL) Pap Smear (06/10/2022 12:00 AM EDT) 06/10/2022 06/11/2022 10: 24 AM EDT Narrative SEE NARRATIVE - 06/25/2022 1:43 PM EDT [address] [address] Caustic Room Attendant: Evie Cedeno MD AERONAUTICAL PROJECT ENGINEER Cytology Report FINAL DIAGNOSIS A. PAP SMEAR [...] 52, 56, 58, 59, 66, 68) by Sirisha Acertiv Onclarity HR-HPV analysis. Clinical correlation is advised. This HPV test was performed at [facility], [address] [place] [address]. This test has been FDA approved for [facility] cervical cytology specimens. The accuracy and precision of this test for all other specimen sources has been verified in the Cytopathology Laboratory of the [facility] and has not been cleared or approved by the U.S. Food and Drug Administration. Clinical correlation is advised. CLINICAL HISTORY Date of Last Menstrual Period: Not Provided Menstrual History: Other Clinical Conditions: Screening Pap SPECIMEN SOURCE A: PAP SMEAR (SUREPATH) CE Patient Name: EVELYNE GOVEA : 1995 (Age: 26) Sex: F Institution: [facility] Location: [facility] Date of Collection: 06/10/2022 Date of Reported: 06/18/2022 17:09 Results to: Leonie Colón CNM us Leonie Colón CNM, MPH CYTOLOGY ORDERABLES Ed ited Result - Final SEE NARRATIVE from Last 3 Months or Most Recently Relevant to Health Maintenance Insurance ACO ACO ACO ACO ACO [facility] [address] [place] [address] ACO Advance Directives For more information, please contact: [phone] (9AM - 5PM [place], Friday-Friday) * Full Code (Latest Code Status [...] Code Status Confirmed With: Patient Care Teams Electrical Design Engineer Relationship Specialty Start Date End Date Marita Toledo MD [address] [place] [address] PCP - General Internal Medicine 04/12/22 Additional Source Comments The information contained in this document represents components of the legal health record. It is not the complete legal health record.[facility]
[2025-05-03 13:11] LABS: Iron 36 mcg/dL (30-160); Percent Iron Saturation 9 % (15-50); Total Iron Binding Capacity 419 mcg/dL (228-428); Unsaturated Iron Binding 383 ug/dL
[2025-05-03 13:39] LABS: Folate 10.5 ng/mL (> or = 4.0); Vitamin B12 284 pg/mL (200-900)
== END 2025-05-03 11:33 | disposition home or self-care (01) ==
LOC: HO.LAB 11:32
PROVIDERS: PCP Internal Medicine; Visit Provider Internal Medicine
DX: E53.8 Deficiency of other specified B group vitamins (principal); E50.9 Vitamin A deficiency, unspecified; E55.9 Vitamin D deficiency, unspecified; E51.9 Thiamine deficiency, unspecified; D64.9 Anemia, unspecified
CPT/HCPCS: 36415; 82306; 82607; 82746; 83540; 84425; 84590; 85025

== ENCOUNTER 2025-07-08 06:35 | Emergency (ER) | payer OTHER, SELFPAY ==
--- OUTSIDE RECORDS SUMMARY | 2025-07-07 08:20 | XMS_ITS | Encounter Summary ---
Author Organization [facility] Address [address] [place] [address] [place] [address] Phone Care Team Providers Care Partner Name Role Phone Marita Toledo MD Primary Care Provid er Reason for Visit * Reason Comments Pelvic Pain Encounter Details Date Type Department Care Team (Late st Contact Info) Description 07/07/2025 8:20 AM EDT Office Visit [facility] [address] [place] [address] Marv Davis MD 22 [facility], [address] [place] [address] [email or web address] Dyspareunia in female (Primary Dx); [...] mouth every 6 (six) hours asneeded. 11/22/22 Zaida Gutierrez CNM amitriptyline (ELAVIL) 25 MG tablet [...] tablet by mouth every morning. 02/22/24 Sara Montemayor MD vitamin A 32251 UNIT capsule Take 1 capsule by mouth [...] History Patient's last menstrual period was 06/10/2025. 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: Denies STIs/fibroids/abnormal paps/cysts Physical Exam Vitals: [...] Description 08/16/2025 10:30 AM EST Office Visit [facility] [address] [place] [address] Unknown, Unknown, Aga Cheng, LOSS PREVENTION COORDINATOR [address] [address] [email or web address] 08/24/2025 11:40 AM EST Office Visit [facility] [address] [place] [address] Marv Davis MD [address] [place] [address], [address] [place] [address] [email or web address] 10/07/2025 12:00 PM EST Office Visit [facility] [address] [place] [address] Edwin Pireson MD [address] [place] [address], [address]nd [place] [address] Pending Results Name Type Priority Associated Diagnoses Date /Time Chlamydia trachomatis and Neisseria gonorrhoeae Nucleic Acid Amplification Microbiology Routine Dyspareunia in female Dysuria 07/07/2025 8:46 AM EDT documented as of this encounter Procedures Procedure Name Priority Date/Time Associated Diagnosis Comments URINALYSIS W/REFLEX URINE CULTURE Routine 07/07/2025 8:46 AM EDT Dyspareunia in female Dysuria VAGINITIS PANEL Routine 07/07/2025 8:46 AM EDT Dyspareunia in female Dysuria CHLAMYDIA TRACHOMATIS AND NEISSERIA GONORRHOEAE NUCLEIC ACID DETECTION Routine 07/07/2025 8:46 AM EDT Dyspareunia in female Dysuria documented in this encounter Results * (ABNORMAL) Vaginitis Panel (07/07/2025 8:46 AM EDT) Bacterial Vaginosis Negative Negative [facility] Nataly Species Detected(A) Not Detected [facility] Nataly glabrata Not Detected Not Detected [facility] Trichomonas Vaginalis Not Detected Not Detected [facility] Other (Vaginal) 07/07/2025 8 :46 AM EDT 07/07/2025 3:14 PM EDT Marv Davis MD MICROBIOLOGY - GENERAL O RDERABLES Final Result Performing Organization Address [facility] de Phone Number [address] [address] * Urinalysis w/reflex Urine Culture (07/07/2025 8:46 AM EDT) COLOR Yellow Yellow [facility] CLARITY Clear [facility] GLUCOSE Negative Negative [facility] BILI Negative Negative [facility] KETONES Negative Negative [facility] SPECIFIC GRAVITY 1.025 1.005 - 1.030 [facility] BLOOD Negative Negative [facility] PH 6.0 5.0 - 8.0 [facility] Protein-UA Negative Negative [facility] NITRITE Negative Negative [facility] Leukocyte esterase, ur Negative Negative [facility] Urine (Urine) 07/07/2025 8:4 6 AM EDT 07/07/2025 3:13 PM EDT Marv Davis MD URINE ORDERABLES Final R esult Performing Organization Address [facility] de Phone Number [address] [address] documented in this encounter Visit Diagnoses Diagnosis Dyspareunia in female- Primary Dysuria Cervical cancer screening Screening for malignant neoplasm of the cervix documented in this encounter Care Teams Partner Relationship Specialty Start Date End Date Marita Toledo MD [address] [place] [address] PCP - General Internal Medicine 04/12/22 documented as of this encounter Additional Source Comments The information contained in this document represents components of the legal health record. It is not the complete legal health record.[facility]
--- NOTE | ~2025-07-08 | CT_ITS ---
EXAMINATION: CT ABDOMEN AND PELVIS WITH CONTRAST CLINICAL INFORMATION: [Left lower abdominal pain. Gastric bypass. COMPARISON: March 29, 2025 TECHNIQUE: Multidetector volumetric images were obtained from the superior aspect of the liver through the pubic symphysis following administration 85 mL of Omnipaque 350 intravenous contrast. Sagittal and coronal reformatted images were obtained on the technologist's workstation. Oral contrast: No This CT examination was performed using dose optimization techniques as appropriate, variously including the following: *Automated exposure control *Adjustment of mA and/or kV according to patient size (this includes techniques or standardized protocols for targeted exams where dose is matched to indication/reason for exam; i.e. extremities or head) *Use of iterative reconstruction technique. DLP: 857 mGy centimeter. FINDINGS: LUNG BASES: No acute airspace disease or discrete pulmonary nodules. LIVER, GALLBLADDER, AND BILIARY TREE: Liver measures 15 cm. No focal mass. Portal veins, hepatic veins are patent. Status post cholecystectomy. Common bile duct measures 5 mm. PANCREAS: No focal mass. No main pancreatic ductal dilatation. No peripancreatic fluid collections. SPLEEN: 11 cm. No focal mass. ADRENAL GLANDS: No nodular lesions. KIDNEYS AND URETERS: Normal enhancement pattern of the renal parenchyma without enhancing renal mass. No hydronephrosis. No gross nephrolithiasis. There is an anterior lateral rotation of the right renal hilum with normal position on the upper retroperitoneum. Extrarenal pelvises.. BLADDER: Fluid-filled nondistended. GASTROINTESTINAL TRACT: Appendix is normal. Sutures at the gastroesophageal junction and proximal small bowel loops related to Royce-en-Y procedure. Abundant stool large intestine. No intestinal obstruction pattern. No ascites. No pneumoperitoneum. No intestinal wall thickening. Gas and fluid-filled distal ileal loops without gross intestinal wall thickening. ABDOMINAL WALL: No gross umbilical hernia nor eventration. LYMPH NODES: Prominent less than 1.5 cm mesenteric, retroperitoneum and inguinal lymph nodes. VASCULAR: No aneurysm or dissection abdominal aorta. No gross calcified plaques. PELVIC VISCERA: Not enlarged. No gross solid or cystic lesions in the adnexa. OSSEOUS STRUCTURES: No acute fracture or listhesis in the axial skeleton. Facet joint hypertrophy at L5-S1. Sclerosis and the sacroiliac joints with minimal vacuum phenomenon. No acute fracture or dislocation in either hip. No gross lytic or blastic lesions. CT/CT abdomen pelvis w IV con IMPRESSION: Status post 1 1 procedure without intestinal obstruction pattern. Nonspecific prominent lymph nodes. Lymphoproliferative disorder versus inflammatory versus autoimmune disorders cannot be entirely excluded. Anterior lateral mild rotation, right kidney. Fleischner guidelines were followed. Electronically signed by: Geovanni Rivas MD 07/08/2025 08:43 AM EDT
[2025-07-08 06:42] VITALS: BP 118/78; PULSE 90; RESP 20; TEMP 36.5; O2SAT 97; BMI 35.0
--- OUTSIDE RECORDS SUMMARY | 2025-07-08 06:57 | XMS_ITS | Encounter Summary ---
Author Organization [facility] Address [address] [place] [address] Phone Care Team Providers Care Ncqa Specialist Name Role Phone Marita Toledo MD Primary Care Provid er Encounter Details Date Type Department Care Team (Late st Contact Info) Description 11/20/2022 Procedure Pass [facility]D Procedures [address] [place] [address] Social History Tobacco Use Types Packs/Day Years Used Date Smoking Tobacco: Never Smokeless Tobacco: Never Alcohol Use Standard Drinks/Week Comments Not Currently 0 (1 standard drink = 0.6 oz pur e alcohol) Intimate Partner Violence Answer Date R ecorded Are you denied basic needs s uch as food, clothing, or medical care? No 11/21/2022 In the past 12 months have y ou been in a relationship with a person who hurts, threatens, or tries to control you? No 11/21/2022 Are you denied basic needs s [facility] as food, clothing, or medical care? No 11/21/2022 In the past 12 months have y ou been in a relationship with a person who hurts, threatens, or tries to control you? No 11/21/2022 Comments No Sex and Gender Information Value Date Recorded Sex Assigned at Female 05/20/2022 8:31 PM EDT Legal Sex Female 12:55 PM EDT Gender Identity Female 05/20/2022 8:31 PM EDT Sexual Orientation Straight 07/13/2022 10 :58 AM EDT documented as of this encounter Functional Status * Calculated C-SSRS Risk Score (Lifetime/Recent) Answer Date of Assessment Author No Risk Indicated 11/21/2022 1:52 PM Veronica Lizarraga RN * [place] Suicide Severity Rating Scale (Screener/Recent Self-Report) Question Answer Date of Assessment Author 1. Wish to be (Past 1 Month) No 023 1:52 PM Veronica Lizarraga RN 2. Non-Specific Active Suici shanon Thoughts (Past 1 Month) No 11/21/2022 1:52 PM Jing Lizarraga RN 6. Suicidal Behavior (Lifetime) No 3 1:52 PM Veronica Lizarraga RN 6. Suicidal Behavior (3 Months) No 3 1:52 PM Veronica Lizarraga RN documented as of this encounter Plan of Treatment Upcoming Encounters Date Type Department Care Team (Late st Contact Info) Description 08/16/2025 10:30 AM EST Office Visit [facility] [address] [place] [address] Unknown, Unknown, Aga Cheng, BATH SOLUTION MAKER [address] [address] [email or web address] 08/24/2025 11:40 AM EST Office Visit [facility] [address] [place] [address] Marv Davis MD [address] [place] [address], [address] [place] [address] [email or web address] 10/07/2025 12:00 PM EST Office Visit [facility] [address] [place] [address] Edwin Pierson MD [address] [place] [address], 2nd [place] [address] documented as of this encounter Visit Diagnoses Not on filedocumented in this encounter Care Teams Ncqa Specialist Relationship Specialty Start Date End Date Marita Toledo MD [address] [place] [address] PCP - General Internal Medicine 04/12/22 documented as of this encounter Additional Source Comments The information contained in this document represents components of the legal health record. It is not the complete legal health record.[facility]
--- OUTSIDE RECORDS SUMMARY | 2025-07-08 06:57 | XMS_ITS | Encounter Summary ---
Author Organization [facility] Address [address] [place] [address] Phone Care Team Providers Care Roller Skate Assembler Name Role Phone Ethel Murray MD Primary Care Provider [phone] Encounter Details Date Type Department Care Team (Late st Contact Info) Description 06/21/2014 Documentation EM Family Medicine [address] [place] [address] Family Medicine, Physician [address] [place], [place] [address] Social History Tobacco Use Types Packs/Day Years [...] on filedocumented in this encounter Care Teams Roller Skate Assembler Relationship Specialty Start Date End Date Ethel Murray MD [address] [place] [address] [place] [address] PCP - General 04/25/17 11/27/22 documented as of this encounter
--- OUTSIDE RECORDS SUMMARY | 2025-07-08 06:57 | XMS_ITS | Encounter Summary ---
Author Organization [facility] Address [address] [place] [address] Phone Care Team Providers Care Lapping Machine Set Up Operator Name Role Phone Ethel Murray MD Primary Care Provider [phone] Encounter Details Date Type Department Care Team (Late st Contact Info) Description 04/07/2014 Documentation EM Family Medicine [address] [place] [address] Family Medicine, Physician [address] [place], [place] [address] Social History Tobacco Use Types Packs/Day Years [...] on filedocumented in this encounter Care Teams Lapping Machine Set Up Operator Relationship Specialty Start Date End Date Ethel Mruray MD [address] [place] [address] [place] [address] PCP - General 04/25/17 11/27/22 documented as of this encounter
--- OUTSIDE RECORDS SUMMARY | 2025-07-08 06:57 | XMS_ITS | Encounter Summary ---
Author Organization [facility] Address [address] [place] [address] Phone Care Team Providers Care Licensing Court Magistrate Name Role Phone Ethel Murray MD Primary Care Provider [phone] Encounter Details Date Type Department Care Team (Late st Contact Info) Description 04/07/2014 Documentation EM Family Medicine [address] [place] [address] Family Medicine, Physician [address] [place], [place] [phone] Social History Tobacco Use Types Packs/Day Years [...] on filedocumented in this encounter Care Teams Licensing Court Magistrate Relationship Specialty Start Date End Date Ethel Murray MD [address] [place] [address] [place] [address] PCP - General 04/25/17 11/27/22 documented as of this encounter
--- OUTSIDE RECORDS SUMMARY | 2025-07-08 06:57 | XMS_ITS | Clinical Summary ---
Author Organization [facility] Address [address] [place] [address] Phone Care Team Providers Care Mercerizing Range Controller Name Role Phone Unavailable Primary Care Provider [...] 61 07/21/2014 12:00 AM EST Temperature 36.4 C (97.6 F) 06/29/2014 12:00 AM EDT Respiratory Rate - - Oxygen Saturation - [...] 12/03/2000, Additional history exists Influenza Vaccines (#1) 2025 06/22/20 14, 06/24/2012, 08/13/2007 COVID-19 Vaccine ( season) 2025 Hepatitis B Vaccines Completed 04/20/1996, 02/13/1996, 1995 [...] complete this topic Procedures * Due to [place] state law, this organization might not be sharing sensitive test results. Procedure Name Priority Date/Time Associated Diagnosis Comments CHLAMYDIA AND GONORRHEA, AMPLIFIED Routine 01/18/2013 3:46 PM EDT from Last 3 Months or Most Recently Relevant to Health Maintenance Results * Due to [place] state law, this organization might not be sharing sensitive test results. * Chlamydia and Gonorrhoea, Amplified (01/18/2013 3:46 PM EDT) URINE GC AMP PROBE NEGATIVE [facility] Comment: NO NEISSERIA GONORRHOEAE RNA DETECTED IN THIS PATIENT'S SAMPLE. (REFERENCE RANGE/NORMAL VALUE: NOT DETECTED) NOTE: THIS TEST USES HEALTH INFORMATION INTERNSHIP-MEDIATED AMPLIFICATION METHOD TO DETECT rRNA FROM C.TRACHOMATIS [...] INFECTION. URINE CHLAMYDIA AMP PROBE NEGATIVE [facility] Comment: NO CHLAMYDIA TRACHOMATIS RNA DETECTED IN THIS PATIENT'S SAMPLE. (REFERENCE RANGE/NORMAL VALUE: NOT DETECTED) 01/18/2013 3:46 PM EDT Narrative [facility] - 01/18/2013 3:46 PM EDT URINE CHLAMYDIA GC AMP PROBE us Aishwarya Mackey MD LAB MICROBIOLOGY - GENERAL O RDERABLES Final Result [facility] [address] [place] [address], [place] from Last 3 Months or Most Recently Relevant to Health Maintenance
--- OUTSIDE RECORDS SUMMARY | 2025-07-08 06:57 | XMS_ITS | Encounter Summary ---
Author Organization [facility] Address [address] [place] [address] Phone Care Team Providers Care Secondary History Teacher Name Role Phone Ethel Murray MD Primary Care Provider [phone] Encounter Details Date Type Department Care Team (Late st Contact Info) Description 04/07/2014 Documentation EM Family Medicine [address] [place] [address] Family Medicine, Physician [address] [place], [place] [address] Social History Tobacco Use Types Packs/Day Years [...] on filedocumented in this encounter Care Teams Secondary History Teacher Relationship Specialty Start Date End Date Ethel Murray MD [address] [place] [address] [place] [address] PCP - General 04/25/17 11/27/22 documented as of this encounter
--- OUTSIDE RECORDS SUMMARY | 2025-07-08 06:57 | XMS_ITS | Encounter Summary ---
Author Organization [facility] Address [address] [place] [address] Phone Care Team Providers Care Sheet Metal Worker Maintenance Name Role Phone Ethel Murray MD Primary Care Provider [phone] Encounter Details Date Type Department Care Team (Late st Contact Info) Description 10/21/2013 Documentation EM Family Medicine [address] [place] [address] Family Medicine, Physician [address] [place], [place] [address] Social History Tobacco Use Types Packs/Day Years [...] on filedocumented in this encounter Care Teams Sheet Metal Worker Maintenance Relationship Specialty Start Date End Date Ethel Murray MD [address] [place] [address] [place] [address] PCP - General 04/25/17 11/27/22 documented as of this encounter
--- OUTSIDE RECORDS SUMMARY | 2025-07-08 06:57 | XMS_ITS | Encounter Summary ---
Author Organization [facility] Address [address] [place] [address] Phone Care Team Providers Care Waiter/Waitress Cabin Class Name Role Phone Ethel Murray MD Primary Care Provider [phone] Encounter Details Date Type Department Care Team (Late st Contact Info) Description 05/01/2017 Conversion Encounter [facility] [place] [address] [place] [address] Social History Tobacco Use Types Packs/Day Years [...] on filedocumented in this encounter Care Teams Waiter/Waitress Cabin Class Relationship Specialty Start Date End Date Ethel Murray MD [address] [place] [address] PCP - General 04/25/17 11/27/22 documented as of this encounter
--- OUTSIDE RECORDS SUMMARY | 2025-07-08 06:57 | XMS_ITS | Encounter Summary ---
Author Organization [facility] Address [address] [place] [address] Phone Care Team Providers Care Pharmacist Technician Name Role Phone Ethel Murray MD Primary Care Provider [phone] Encounter Details Date Type Department Care Team (Late st Contact Info) Description 06/22/2014 Documentation EM Family Medicine [address] [place] [address] Family Medicine, Physician [address] [place], [place] [address] Social History Tobacco Use Types Packs/Day Years [...] on filedocumented in this encounter Care Teams Pharmacist Technician Relationship Specialty Start Date End Date Ethel Murray MD [address] [place] [address] [place] [address] PCP - General 04/25/17 11/27/22 documented as of this encounter
--- OUTSIDE RECORDS SUMMARY | 2025-07-08 06:57 | XMS_ITS | Encounter Summary ---
Author Organization [facility] Address [address] [place] [address] Phone Care Team Providers Care Chain Machine Operator Name Role Phone Ethel Murray MD Primary Care Provider [phone] Encounter Details Date Type Department Care Team (Late st Contact Info) Description 01/17/2012 Documentation EM Family Medicine [address] [place] [address] Family Medicine, Physician [address] [place], [place] [address] Social History Tobacco Use Types Packs/Day Years [...] on filedocumented in this encounter Care Teams Chain Machine Operator Relationship Specialty Start Date End Date Ethel Murray MD [address] [place] [address] [place] [address] PCP - General 04/25/17 11/27/22 documented as of this encounter
--- OUTSIDE RECORDS SUMMARY | 2025-07-08 06:57 | XMS_ITS | Encounter Summary ---
Author Organization [facility] Address [address] [place] [address] Phone Care Team Providers Care Tire Layer Name Role Phone Marita Toledo MD Primary Care Provid er Encounter Details Date Type Department Care Team (Late st Contact Info) Description 09/20/2022 Ancillary Orders [facility] [address] [place] [address] Shilpa Shepherd, [address] [address] [email or web address] Gestational diabetes mellitus (GDM) affecting second Social History Tobacco Use Types Packs/Day Years Used Date Smoking Tobacco: Never Smokeless Tobacco: Never Alcohol Use Standard Drinks/Week Comments Not Currently 0 (1 standard drink = 0.6 oz pur e alcohol) Comments Yes Sex and Gender Information Value Date Recorded Sex Assigned at Female 05/20/2022 8:31 PM EDT Legal Sex Female 12:55 PM EDT Gender Identity Female 05/20/2022 8:31 PM EDT Sexual Orientation Straight 07/13/2022 10 :58 AM EDT documented as of this encounter Plan of Treatment Upcoming Encounters Date Type Department Care Team (Late st Contact Info) Description 08/16/2025 10:30 AM EST Office Visit [facility] [address] [place] [address] Unknown, Unknown, Aga Cheng, STAIN DIPPER [address] [place] [address] [email or web address] 08/24/2025 11:40 AM EST Office Visit [facility] [address] [place] [address] Marv Davis MD [address] [facility], [address] [place] [address] [email or web address] 10/07/2025 12:00 PM EST Office Visit [facility] Neurology [address] [place] [address] Edwin Pierson MD [address] [facility], 2nd [place] [address] [email or web address] documented as of this encounter Results * US OB GREATER THAN OR EQUAL TO 14 WEEKS FOLLOW-UP ONLY (09/20/2022 5:02 PM EST) Anatomical Region Laterality Modality Abdomen, Pelvis, Uterus/Adnexa U ltrasound 09/20/2022 5:02 PM EST Impressions 09/21/2022 12:02 AM EST 1. Single live IUP in breech presentation with an estimated weight of 1207 g which is at the 38th percentile. The AC is at the 30th percentile. 2. The testing is normal. Narrative 09/21/2022 12:02 AM EST Procedure: US OB GREATER THAN OR EQUAL TO 14 WEEKS FOLLOW-UP ONLY 09/20/2022 4:27 PM US Indications: Maternal Diabetes. Comparison: No relevant recent comparisons. Maternal age: 27 years. Technique: Transabdominal scan was performed. M-mode imaging was performed to assess cardiac activity. FINDINGS: number: 1 position: Breech. Placental position: Anterior. Placental grade: 2 Heart Rate: 142.0 bpm Gestational Age by LMP: 28 weeks 2 day(s) Ultrasound EGA: 29 weeks 2 day(s) Ultrasound KYLE: [id number] Established KYLE: 28 weeks 2 day(s) BPD: 7.44 cm, consistent with 29 weeks 6 day(s) and 85% Head Circumference: 28.51 cm, consistent with 31 weeks 3 day(s) and 95% Abdominal Circumference: 23.57 cm, consistent with 28 weeks 0 day(s) and 30% Femur Length: 5.22 cm, consistent with 27 weeks 6 day(s) and 23% Estimated weight (EFW): 1207.2 grams +/- 2 lb 11 oz. 37.9% based on established KYLE Hadlock. HC/AC: 1.21 FL/BPD: 0.70 FL/AC: 0.22 Limited Assessment: The stomach, kidneys, urinary bladder and four-chamber heart were evaluated and normal. Tech Comments: Lane . BPP 04/22. EFW = 38th %. Large head measurements. Very active fetus with normal fluid. MVP 6.6 cm. Procedure Note Dakota Barksdale MD - 09/21/2022 Procedure: US OB GREATER THAN OR EQUAL TO 14 WEEKS FOLLOW-UP ONLY09/20/2022 4:27 PM US Indications: Maternal Diabetes. Comparison: No relevant recent comparisons. Maternal age: 27 years. Technique: Transabdominal scan was performed. M-mode imaging wasperformed to assess cardiac activity. FINDINGS: number: 1 position: Breech. Placental position: Anterior. Placental grade: 2 Heart Rate: 142.0 bpm Gestational Age by LMP: 28 weeks 2 day(s) Ultrasound EGA: 29 weeks 2 day(s) Ultrasound KYLE: [id number] Established KYLE: 28 weeks 2 day(s) BPD: 7.44 cm, consistent with 29 weeks 6 day(s) and 85% Head Circumference: 28.51 cm, consistent with 31 weeks 3 day(s) and 95% Abdominal Circumference: 23.57 cm, consistent with 28 weeks 0 day(s) and30% Femur Length: 5.22 cm, consistent with 27 weeks 6 day(s) and 23% Estimated weight (EFW): 1207.2 grams +/- 2 lb 11 oz. 37.9% based on established KYLE Hadlock. HC/AC: 1.21 FL/BPD: 0.70 FL/AC: 0.22 Limited Assessment: The stomach, kidneys, urinary bladder andfour- chamber heart were evaluated and normal. Tech Comments: Lane . BPP 8/8. EFW = 38th %. Large head measurements.Very active fetus with normal fluid. MVP 6.6 cm. IMPRESSION: 1. Single live IUP in breech presentation with an estimated weightof 1207 g which is at the 38th percentile. The AC is at the 30thpercentile. 2. The testing is normal. Shilpa Shepherd [facility] Final Result documented in this encounter Visit Diagnoses Diagnosis Gestational diabetes mellitus (GDM) affecting second Gestational diabetes mellitus (GDM) affecting second documented in this encounter Care Teams Tire Layer Relationship Specialty Start Date End Date Marita Toledo MD [address] [place] [address] PCP - General Internal Medicine 04/12/22 documented as of this encounter Additional Source Comments The information contained in this document represents components of the legal health record. It is not the complete legal health record.[facility]
--- OUTSIDE RECORDS SUMMARY | 2025-07-08 06:57 | XMS_ITS | Clinical Summary ---
Author Organization [facility] Address [address] [place] [address] Phone Care Team Providers Care Carbon Paper Coating Machine Setter Name Role Phone Mariat Toledo MD Primary Care Provid er Allergies [...] suspension 100 mg. 4 Active vitamin A 04212 UNIT capsule Take 1 capsule by mouth every morning. 4 Active thiamine (VITAMIN B-1) 100 MG tablet Take 1 tablet by mouth every morning. 4 Active FERROCITE 324 mg (106 mg iron) Tab Take 1 tablet by mouth every morning. 4 Active naratriptan (AMERGE) 2.5 MG tabletIndication s:Intractable migraine without aura and with status migrainosus Take 1 tablet (2.5 mg total) by mouth as needed for migraine. Take one (1) tablet at onset of headache; if returns or does not resolve, may repeat after 4 hours; do not exceed five (5) mg in 24 hours. 9 tablet 11 4 Active Additional Information Patient not taking.Reported on 07/07/2025 cyclobenzaprine (FLEXERIL) 5 MG tablet Take 5 [...] times a day. 10 capsule 4 Active Additional Information Patient not taking.Reported on 07/07/2025 amitriptyline (ELAVIL) 25 MG tabletIndication s:Intractable migraine without aura and with status migrainosus,Intr actable chronic post-traumatic headache TAKE 1 TABLET BY MOUTH NIGHTLY AT BEDTIME. 30 tablet 11 5 Active gabapentin (NEURONTIN) 300 MG capsule Take 300 mg by mouth 2 (two) times a day. Active tiZANidine (ZANAFLEX) 2 MG tablet Take 2 mg by mouth as needed. Active Hospital, Clinic, or Other Facility Administered [...] indeterminate cause, improving GI vs Musculoskeletal No SENIOR QUALITY ASSURANCE ANALYST cause seen by US Polycystic Ovaries - [...] Pierson in Neurology for 10/2022 consult in [facility]. Which reports no s/s of pseudotumor [...] after being seen in the ED at [facility] yesterday with RUQ pain. Upon discussion today, the pain starts directly on her right side at about midline and extends toward about the middle of the abdomen. Around 05/10/22, Maryann went to [facility] with the same pain. Reports they did [...] right abd pain prompted the visit to [facility] ED yesterday. LFTs and BMP were [...] 2017. Evelyne has a GI specialist at [facility]. 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 Had MRI and cat scan, reports the Dr called her and said they saw some inflammation in the right kidney. Was referred to a kidney doctor, has appt 07/19 at [facility]. Plan: - discussed the pain does not [...] F ertility and after bariatric surgery . [email or web address]&source=search_result&selectedTitle=1~150& usage _type=default&display_rank=1 Assessment & Plan [...] to uterine cramping. Around a week ago 2 began having belly tightening along with lower [...] water bottles along with a cup from [employer]. On NST, FHR is reassuring. 4 contractions [...] contaminated. Should have monthly Urine cultures per [facility] Assessment & Plan (07/03/2022 9:36 AM EDT): [...] well. + FM. GBS was done at [facility], pending. NST today reactive Assessment & Plan [...] well overall. Had level 2 ultrasound at [facility]. All normal. No concerns. Starting to feel [...] water bottles along with a cup from [employer] Assessment & Plan (07/31/2022 3:19 PM EST): CL at anatomy scan was 3.8 cm Assessment & Plan (07/11/2022 10:46 PM EDT): Declining Alessandra, Will have CL at US Assessment & Plan (07/03/2022 9:37 AM EDT): Cervial length planned at Level 2. Has decided to decline Alessadnra. Assessment & Plan (06/13/2022 5:47 PM EDT): Pt has c/s w MFM in 2 weeks Assessment & Plan (05/07/2022 12:45 PM EDT): Discussed [place] with patient and reviewed risks/benefits. We did [...] suggests that Evelyne see Dr Smith from [facility] (manages Diabetes in ) for recommendations for delivery timing. She will do a virtual visit with Evelyne for 11/20/22 at 1230 pm Assessment & Plan (12/14/2022 8:31 PM EDT): Discuss at [place], will need follow up with MALINI (cannot [...] Friday. Was scheduled for IOL at 38 1/7 due to concern by CNM that there was significant hyperglycemia although then the HgbA1C and GINNY came back normal. Krishna Leigh spoke to me before visit about these results. We discussed that because with GDM it can sometimes take longer for the lungs to mature, I would recommend that we check with [facility] about delivery timing. Message sent to [facility]. Will follow up with Evelyne once we have this information. Assessment & Plan (11/13/2022 3:48 PM EST): Client lost to follow up at [facility], last seen 08/29/23 was waiting on a [...] see [facility]. Scheduled for IOL at 38.0 weeks evening of 11/27/22 for ripening at recommendation of [facility] to deliver by 39 weeks. BIW monitoring and visits. Collaborative plan made with client, Dr. Mtz and Krishna Leigh, AUBRIE. Needs induction counseling at next visit. Assessment & Plan (09/21/2022 7:18 PM EST): Has continued to work with [facility]. On CGM, BS are in range. Per note from DATA PROCESSING SUPERVISOR, Needs to scan more frequently - Reminded Evelyne and she agrees to work on this. Per MFM needs monthly growth US scheduled - Hedis Coordinator is working on scheduling this, but [...] & Plan (07/03/2022 9:34 AM EDT): Saw [facility]. Has CGM. Has appointment with MALINI tomorrow. [...] insulin requirement in preexisting diabetes, visits with breastfeeding educator are strongly encouraged, attention to exercise [...] Most recently seen 10/27 and 10/28 at [facility] for labor evals, states cervix was 1cm [...] she describes as rough pelvic exams at [facility]. On exam, abd is soft, nontender SSE: [...] Encounters Date Type Department Care Team Description 07/07/2025 8:20 AM EDT Office Visit [facility] [address] [place] [address] [place] [address] Marv Davis MD Dyspareunia in female (Primary Dx); Dysuria; Cervical cancer screening 04/19/2025 Refill [facility] [address] [place] [address] [place] [address] Edwin Pierson MD Medication Refill 04/19/2025 Transcribe Orders [facility] [address] [place] [address], [address] [place] [address] Marita Toledo MD Crohn's disease without complication, [...] Pressure 118/74 07/07/2025 8:30 AM EDT Pulse 61 09/28/2024 2:00 PM EST Temperature 36.8 C (98.2 F) 09/28/2024 2:00 PM EST Respiratory Rate 19 09/28/2024 2:00 PM EST Oxygen Saturation 100% 09/28/2024 2:00 PM EST Inhaled Oxygen Concentration - - Weight 104.3 kg (230 lb) 07/07/2025 8:30 AM EDT Height 172.7 cm (5' 8 ) 09/28/2024 11:44 AM EST Body Mass Index 34.97 09/28/2024 11:44 AM EST Plan of Treatment Upcoming Encounters Date Type Department Care Team (Late st Contact Info) Description 08/16/2025 10:30 AM EST Office Visit [facility] [address] [place] [address] Unknown, Unknown, Aga Cheng, TELEVISION DIRECTOR [address] [address] [email or web address] 08/24/2025 11:40 AM EST Office Visit [facility] [address] [place] [address] [place] [address] Marv Davis MD [address] [place] [address], [address] [place] [address] [email or web address] 10/07/2025 12:00 PM EST Office Visit [facility] [address] [place] [address] Edwin Pierson MD [address] [facility], 2nd [place] [address] Health Maintenance Due Date Last Done Comments DEPRESSION SCREENING 2007 INFLUENZA VACCINE (#1) 2025 , 08/01/2016, 07/31/2015, Additional history exists COVID-19 VACCINE ( season) 2025 02/23/2021, 02/02/2021 Contraceptive Implant 12/13/2025 12/13/2022 Adult Td,Tdap Booster 02/13/2028 02/12/2018 , 04/13/2014, 01/06/2013, Additional history exists PAP SMEAR 07/07/2028 07/07/2025, 06/10/2022 HIB VACCINES Completed 01/31/1997, 04/17, 02/13/1996, Additional [...] STATUS SCREENING (Once After 26 Yrs) Completed 07/07/2025 MENINGOCOCCAL VACCINES (B) Aged Out N o [...] 8:46 AM EDT Dyspareunia in female Dysuria OUTSIDE IMAGING 04/15/2025 OUTSIDE IMAGING 04/15/2025 HEPATITIS C ANTIBODY, QUALITATIVE Routine 06/14/2022 2:05 PM EDT Supervision of high risk in first trimester Need for hepatitis C screening test PAP TEST Routine 06/10/2022 12:00 AM EDT from Last 3 Months or Most Recently Relevant to Health Maintenance Results * Urinalysis w/reflex Urine Culture (07/07/2025 8:46 AM EDT) COLOR Yellow Yellow [facility] CLARITY Clear [facility] GLUCOSE Negative Negative [facility] BILI Negative Negative [facility] KETONES Negative Negative [facility] SPECIFIC GRAVITY 1.025 1.005 - 1.030 [facility] BLOOD Negative Negative [facility] PH 6.0 5.0 - 8.0 [facility] Protein-UA Negative Negative [facility] NITRITE Negative Negative [facility] Leukocyte esterase, ur Negative Negative [facility] Urine (Urine) 07/07/2025 8:4 6 AM EDT 07/07/2025 3:13 PM EDT us Marv Davis MD URINE ORDERABLES Final R esult Performing Organization Address City/State/[facility] Co de Phone Number [address] [address] * (ABNORMAL) Vaginitis Panel (07/07/2025 8:46 AM EDT) Bacterial Vaginosis Negative Negative [facility] Nataly Species Detected(A) Not Detected [facility] Nataly glabrata Not Detected Not Detected [facility] Trichomonas Vaginalis Not Detected Not Detected [facility] Other (Vaginal) 07/07/2025 8 :46 AM EDT 07/07/2025 3:14 PM EDT us Marv Davis MD MICROBIOLOGY - GENERAL O RDERABLES Final Result Performing Organization Address [facility] Co de Phone Number [address] [address] * Outside Imaging Report Only (04/15/2025) us Scanning Interface Provider IMG XR CHEST Yelitza l Result * Outside Imaging Report Only (04/15/2025) us Scanning Interface Provider IMG XR CHEST Yelitza l Result * Hepatitis C antibody, qualitative (06/14/2022 2:05 PM EDT) HCV NON-REACTIV E NON-REACTI VE [facility] Blood 06/14/2022 2:05 PM EDT 06/14/2022 2:17 PM EDT us Leonie Colón CNM, MPH LAB BLOOD ORDERABLES F inal Result Performing Organization Address [facility] Co de Phone Number [address] [address] * (ABNORMAL) Pap Smear (06/10/2022 12:00 AM EDT) 06/10/2022 06/11/2022 10: 24 AM EDT Narrative SEE NARRATIVE - 06/25/2022 1:43 PM EDT [address] [address] Mandrel Puller: Evie Cedeno MD SENIOR QUALITY ASSURANCE ANALYST Cytology Report FINAL DIAGNOSIS A. PAP SMEAR (SUREPATH) CE: SPECIMEN ADEQUACY: Satisfactory for evaluation; transformation zone present. INTERPRETATION: EPITHELIAL CELL ABNORMALITY - SQUAMOUS. Atypical squamous cells of undetermined significance. Fungal organisms morphologically consistent with Nataly species. Electronically Signed Out By: MD Ramone Perez CT([facility]) By his/her signature above, the pathologist listed [...] 52, 56, 58, 59, 66, 68) by [employer] Onclarity HR-HPV analysis. Clinical correlation is advised. This HPV test was performed at [facility], [address] [place] [address]. This test has been FDA approved for SurePath cervical cytology specimens. The accuracy and precision of this test for all other specimen sources has been verified in the Cytopathology Laboratory of the [facility] and has not been cleared or approved by the U.S. Food and Drug Administration. Clinical correlation is advised. CLINICAL HISTORY Date of Last Menstrual Period: Not Provided Menstrual History: Other Clinical Conditions: Screening Pap SPECIMEN SOURCE A: PAP SMEAR (SUREPATH) CE Patient Name: EVELYNE GOVEA : 1995 (Age: 26) Sex: F Institution: [facility]: [facility] Date of Collection: 06/10/2022 Date of Reported: 06/18/2022 17:09 Results to: Leonie Colón CNM us Leonie Colón CNM, MPH CYTOLOGY ORDERABLES Ed ited Result - Final SEE NARRATIVE from Last 3 Months or Most Recently Relevant to Health Maintenance [place] [address] [address] [place] [address] [place] [address] [place] [address] [place] [address] [place] [address] [place] [address] [place] [address] [employer] [place] [place] [address] [place] [place] [address] [place] [address] [place] [address] [place] [address] [place] [address] ACO Advance Directives For more information, please contact: [phone] (9AM - 5PM [facility], Friday-Friday) * Full Code (Latest Code [...] Code Status Confirmed With: Patient Care Teams Carbon Paper Coating Machine Setter Relationship Specialty Start Date End Date Marita Toledo MD [address] [place] [address] PCP - General Internal Medicine 04/12/22 Additional Source Comments The information contained in this document represents components of the legal health record. It is not the complete legal health record.[facility]
--- OUTSIDE RECORDS SUMMARY | 2025-07-08 06:57 | XMS_ITS | Encounter Summary ---
Author Organization [facility] Address [address] [place] [address] Phone Care Team Providers Care Costumed Character Entertainer Name Role Phone Ethel Murray MD Primary Care Provider [phone] Encounter Details Date Type Department Care Team (Late st Contact Info) Description 05/26/2014 Documentation EM Family Medicine [address] [place] [address] Family Medicine, Physician [address] [place], [place] [address] Social History Tobacco Use Types Packs/Day Years [...] on filedocumented in this encounter Care Teams Costumed Character Entertainer Relationship Specialty Start Date End Date Ethel Murray MD [address] [place] [address] [place] [address] PCP - General 04/25/17 11/27/22 documented as of this encounter
--- OUTSIDE RECORDS SUMMARY | 2025-07-08 06:57 | XMS_ITS | Encounter Summary ---
Author Organization [facility] Address [address] [place] [address] Phone Care Team Providers Care Poultry Dresser Name Role Phone Ethel Murray MD Primary Care Provider [phone] Encounter Details Date Type Department Care Team (Late st Contact Info) Description 04/07/2014 Documentation EM Family Medicine [address] [place] [address] Family Medicine, Physician [address] [place], [place] [address] Social History Tobacco Use Types Packs/Day Years [...] on filedocumented in this encounter Care Teams Poultry Dresser Relationship Specialty Start Date End Date Ethel Murray MD [address] [place] [address] [place] [address] PCP - General 04/25/17 11/27/22 documented as of this encounter
--- OUTSIDE RECORDS SUMMARY | 2025-07-08 06:57 | XMS_ITS | Encounter Summary ---
Author Organization [facility] Address [address] [place] [id number] Phone Care Team Providers Care Flag Signaler Name Role Phone Ethel Murray MD Primary Care Provider [phone] Encounter Details Date Type Department Care Team (Late st Contact Info) Description 08/16/2014 Documentation [facility] Family Medicine [address] [place] [address] Family Medicine, Physician [address] [place] [address] Social History Tobacco Use Types Packs/Day Years [...] on filedocumented in this encounter Care Teams Flag Signaler Relationship Specialty Start Date End Date Ethel Murray MD [address] [place] [address] [place] [address] PCP - General 04/25/17 11/27/22 documented as of this encounter
--- OUTSIDE RECORDS SUMMARY | 2025-07-08 06:57 | XMS_ITS | Encounter Summary ---
Author Organization [facility] Address [address] [place] [id number] Phone Care Team Providers Care Veneer Taping Machine Offbearer Name Role Phone Ethel Murray MD Primary Care Provider [phone] Encounter Details Date Type Department Care Team (Late st Contact Info) Description 06/17/2014 Documentation [facility] Family Medicine [address] [place] [address] Family Medicine, Physician [address] [place], [place] [id number] Social History Tobacco Use Types Packs/Day Years [...] on filedocumented in this encounter Care Teams Veneer Taping Machine Offbearer Relationship Specialty Start Date End Date Ethel Murray MD [address] [place] [address] [place] [address] PCP - General 04/25/17 11/27/22 documented as of this encounter
[2025-07-08 07:16] LABS: MANUAL DIFF FLAG NO
--- NOTE | 2025-07-08 07:16 | ED.ABDPAIN ---
HPI - Abdominal Pain General Chief Complaint: Abdominal Pain Stated Complaint: lower abd pain Time Seen by Provider: 07/08/25 06:45 Source: patient and old records reviewed Mode of arrival: ambulatory Limitations: no limitations History of Present Illness ED Provider: JEAN HPI narrative: 29 yo female wtih PMH of depression, UTI, migraines, GERD, laparascopic gastric bypass (Dr. Crockett), cholecystectomy, Crohns but not on medications and states she was told on her last colo she does not have Crohns here today with c/o LLQ and L flank pain for about a week that has worsened. She ignored it at first but then noted it was affecting her urine and she saw some blood in the urine. She is having BMs and passing gas. She has chills and some nausea. She went to the OB this week to look for UTI but it was negative. She is taking her regular back pain meds of tylenol and tizanidine but it is not helping. She is able to eat and drink. MD elicited complaint: abdominal pain Pertinent past history: none Onset (ago): week(s) (1) Pain Consistency: constant Location: LLQ and L flank Severity: severe Quality: stabbing and aching Radiation: LLQ Migration to: no migration Exacerbating factors: other Relieving factors: nothing Associated symptoms: nausea, chills and hematuria Related Data Home Medications ?Medication ?Instructions ?Recorded ?Confirmed lancets 28 gauge (FreeStyle #100 ea 07/19/22 04/13/25 Lancets) amitriptyline 25 mg tablet 25 mg PO BEDTIME 04/14/24 04/13/25 naratriptan 2.5 mg tablet 2.5 mg PO DIRECTED 04/14/24 04/13/25 vitamin A 3,000 mcg (10,000 unit) 3,000 mcg PO DAILY 05/03/24 04/13/25 capsule tizanidine 2 mg tablet 2 mg PO TID PRN 04/13/25 04/13/25 Previous Rx's ?Medication ?Instructions ?Recorded cholecalciferol (vitamin D3) 125 125 mcg PO DAILY #90 caps 11/25/23 mcg (5,000 unit) capsule thiamine HCl (vitamin B1) 100 mg 100 mg PO DAILY #90 tabs 11/25/23 tablet nortriptyline 10 mg capsule 10 mg PO BEDTIME #30 caps 01/22/24 ubttyaxikc-gafixxgqfcdkr-lugludut 1 tab PO Q6H PRN haeadace #20 tabs 07/22/24 50 mg-325 mg-40 mg tablet Carafate 100 mg/mL oral suspension 10 ml PO QID #420 mL 08/05/24 (sucralfate) cyclobenzaprine 10 mg tablet 10 mg PO BEDTIME #30 tabs 12/31/24 naproxen 500 mg tablet 500 mg PO Q8-12H PRN pain (scale 12/31/24 score 1-3) #20 tabs tramadol 50 mg tablet 50 mg PO Q8H PRN pain #14 tabs 12/31/24 pregabalin 50 mg capsule 50 mg PO BID 30 days #60 caps 04/13/25 gabapentin 300 mg capsule 300 mg PO TID 30 days #90 caps 06/07/25 ferrous fumarate 324 mg (106 mg 324 mg PO DAILY #90 tabs 06/09/25 iron) tablet (Ferrocite) lidocaine 5 % topical patch 1 patch topical DAILY #15 ea 06/09/25 (Lidoderm) diazepam 5 mg tablet (Valium) 5 mg PO TID PRN muscle spasm #10 07/08/25 tabs Allergies Allergy/AdvReac Type Severity Reaction Status Date / Time carrot (CARROTS) Allergy Intermediate SWELLING Verified 07/08/25 06:44 cat dander (CATS) Allergy Intermediate ITCHING Verified 07/08/25 06:44 insect venom (INSECT BITES) Allergy Intermediate HIVES Verified 07/08/25 06:44 Review of Systems Review of Systems Constitutional : No Fever, pos Chills ENT/Mouth : No sore throat, No Rhinorrhea Eyes: No Swelling, No Redness Cardiovascular : No Chest Pain, No SOB Respiratory : No Cough, No Sputum, No Wheezing Gastrointestinal : Positive Nausea, no Vomiting, no Diarrhea, positive abdominal Pain, No Hematochezia, No Melena Genitourinary : No Dysuria, No Urinary Frequency, pos Hematuria, No Urgency Musculoskeletal : No joint pain, No Myalgias, No Joint Swelling Skin : No Skin Lesions, No rash All other systems reviewed and are negative. Yes all other systems are reviewed and are negative PMFSH Past Medical History Attestation statement: The following information was validated with the patient. Source: old records reviewed Medical History Malnutrition Sacroiliac joint pain Pelvic pain Muscle spasm Internal and external bleeding hemorrhoids Constipation Breakthrough bleeding on Nexplanon COVID-19 Left arm pain Encounter for removal and reinsertion of Nexplanon Chronic abdominal pain Hypovitaminosis D Iron deficiency anemia GERD (gastroesophageal reflux disease) Ovarian mass Sinusitis BCP ( control pills) initiation Yeast infection involving the vagina and surrounding area Problematic vaginal discharge Lumbar pain Hip asymmetry Intestinal malabsorption following gastrectomy Obesity (BMI 30-39.9) Sleep apnea Asthma Bile duct abnormality Cholecystectomy planned Surgical History H/O cystoscopy History of hemorrhoidectomy (~05/20/23) H/O colonoscopy History of esophagogastroduodenoscopy (EGD) Hx of cholecystectomy Gastric bypass status for obesity Family History Family History Father Diabetes mellitus Obesity Mother Arthritis of knee Obesity Paternal Grandfather Diabetes mellitus Paternal Grandmother Diabetes mellitus Maternal Grandmother Diabetes mellitus Arthritis of knee Maternal Grandfather Diabetes mellitus Maternal Aunt Intestinal cancer Social History Social History Household Members: Spouse and Children Housing: House Are you a primary director of health care marketing to a significant other at home: No Do you presently have visiting nurse or other home services: No Alcohol intake: never Comment: patient states tolerable Patient Tobacco Use Status: Never used Tobacco Smoked in Last 30 Days: No e-Cigarette/Vaping Use: Never Used Second Hand Smoke Exposure: No Use of substances other than those prescribed or required for medical reasons: No Advance Directives: No Advance Directives Information Provided: Yes service: No Current occupational status: unemployed Cognitive needs: No Hearing needs: No Vision needs: Yes (Glasses) Physical Exam ED Vital Signs: Vital Signs - 24 hr 07/08/25 06:42 07/08/25 09:36 Temperature 97.7 F 97.8 F Pulse Rate 90 81 Respiratory Rate 20 20 Blood Pressure 118/78 101/52 L Pulse Oximetry 97 99 Oxygen Delivery Method Room Air Room Air BMI result Body Mass Index 35.0 Appearance: Alert. Oriented X3. No acute distress. Eyes: Pupils equal, round and reactive to light. ENT: Pharynx normal. Neck: Normal inspection. Neck supple. CVS: Normal heart rate and rhythm. Pulses normal. Respiratory: No respiratory distress. Breath sounds normal. Abdomen: Soft no distention has pain in LLQ and L flank but no rebound Skin: Skin warm and dry. Normal skin color. Extremities: No lower extremity edema. Neuro: Oriented X 3. No motor deficit. No sensory deficit. CN2-12 intact Medical Decision Making Medical Decision Making [facility] Narrative: 29 yo female wtih PMH of depression, UTI, migraines, GERD, laparascopic gastric bypass (Dr. Crockett), cholecystectomy, Crohns but not on medications and states last colonoscopy there was no Crohns at this time she will need labs, CT scan for renal colic, constipation, obstructive process, ovarian cyst. I have ordered labs, UA, IV morphine for pain. Differential Diagnosis Differential Diagnoses: The differential diagnosis associated with the presentation includes renal colic, constipation, MSK pain Admission/Observation Consideration of admission/observation: Escalation of care including admission/observation considered no acute findings, labs at baseline stable for DC Lab Data [facility] Lab Attestation statement: I reviewed the patient's lab results. 07/08/25 07:13 07/08/25 07:13 Labs: Lab Results 07/08/25 07/08/25 Range/Units 07:13 09:33 WBC 7.6 (4.8-10.8) X10*3/uL RBC 4.72 (4.20-5.50) X10*6/uL Hgb 11.1 L (12.0-16.0) g/dl Hct 36.7 L (37.0-47.0) % MCV 77.8 L (80.0-98.0) fL MCH 23.5 L (27.0-33.0) pg MCHC 30.2 L (31.0-35.0) g/dl RDW 15.4 (11.0-16.0) % Plt Count 315 (160-400) X10*3/uL MPV 9.7 (9.4-12.3) fL Immature Gran % (Auto) 0.4 (0.0-0.4) % Neut % (Auto) 57.2 (45-73) % Lymph % (Auto) 31.5 (20-40) % [place] % (Auto) 7.4 (2-11) % Eos % (Auto) 2.6 (0-4) % Baso % (Auto) 0.9 (0-2) % Lymph # (Auto) 2.4 (1.2-4.9) X10*3/uL [place] # (Auto) 0.6 (0.1-1.2) X10*3/uL Eos # (Auto) 0.2 (0.0-0.4) X10*3/uL Baso # (Auto) 0.1 (0.0-0.2) X10*3/uL Abs Immat Gran (auto) 0.03 (0.00-0.03) X10*3/uL Absolute Neuts (auto) 4.3 (2.0-8.3) x10*3/uL Absolute Nucleated RBC 0.000 (0.0-0.012) X10*3/uL Nucleated RBC % (auto) 0.0 (0.0-0.2) /100WBC Sodium 139 (135-145) mmol/L Potassium 4.9 D (3.3-5.1) mmol/L Chloride 113 H (96-108) mmol/L Carbon Dioxide 20 L (22-29) mmol/L Anion Gap 11 L (12-20) BUN 9 (9-16) mg/dL Creatinine 0.66 (0.5-1.4) mg/dL Estim Creat Clear Calc 159.0 Estimated GFR > 60 Random Glucose 89 (60-115) mg/dL Calcium 8.3 L (8.4-10.2) mg/dL Magnesium 2.1 (1.6-2.6) mg/dL Total Bilirubin 0.3 (0.0-1.0) mg/dL Direct Bilirubin 0.1 (0.0-0.5) mg/dL AST 23 (5-31) U/L ALT 10 (0-31) U/L Alkaline Phosphatase 92 (39-117) U/L Total Protein 6.5 (6.5-8.0) g/dL Albumin 3.9 (3.5-5.0) g/dL Beta HCG, Quant < 2 mIU/mL Urine Color Yellow Urine Appearance Clear Urine pH 7.0 (5.0-9.0) Ur Specific [place] 1.015 (1.005-1.025) Urine Protein Negative (Neg-Trace) mg/dL Urine Glucose (UA) Negative (Negative) mg/dL Urine Ketones Negative (Negative) mg/dL Urine Blood Moderate (2+) H (Negative) Urine Nitrite Negative (Negative) Ur Leukocyte Esterase Trace H (Negative) Urine RBC 3-5 H (0-2) /HPF Urine WBC 0-5 (0-5) /HPF Ur Squamous Epith Cells 3-5 (0-2) /HPF Urine Bacteria None Seen (None Seen) Hyaline Casts 0-2 (0-2) /LPF Independent Interpretation I performed an independent interpretation of an: CT Scan (no acute pathology ) Radiology Impression Discussion of test interpretation with radiology: I have reviewed the radiologist's reading. External Record Review External record reviewed: Outpatient record Medications Administered Discontinued Medications Generic Name Dose Route Start Last Admin Trade Name Freq PRN Reason Stop Dose Admin Lactated Ringer's 1,000 mls @ 999 mls/hr 07/08/25 07:08 07/08/25 07:47 Lr IV 07/08/25 08:08 999 mls/hr .Q1H1M ONE Administration Iohexol 100 ml 07/08/25 08:28 07/08/25 08:28 Iohexol 350 Mg/Ml 100 Ml Infus..Btl IV 07/08/25 08:29 85 ml ONCE ONE Administration Morphine Sulfate 4 mg 07/08/25 07:08 07/08/25 07:47 Morphine Sulfate 4 Mg/Ml Cartridge IVPUSH 07/08/25 07:09 4 mg ONCE ONE Administration Protocol Ondansetron HCl 4 mg 07/08/25 07:08 07/08/25 07:47 Ondansetron Hcl 4 Mg/2 Ml Vial IVPUSH 07/08/25 07:09 4 mg ONCE ONE Administration Discharge Plan Discharge Clinical Impression: Left flank pain, Lymphadenopathy, mesenteric Constipation Qualifiers: Constipation type: unspecified constipation type Qualified Code(s): K59.00 - Constipation, unspecified Patient Disposition: Home, Self-Care Instructions: Constipation (ED), Lymphadenopathy (ED), Flank Pain (ED) Additional Instructions: your labs are reassuring you do not have a UTI your CT scan did not show an acute cause of pain but there is some mild lymph node swelling and constipation would take over the counter bowel regimen such as stool softener colace twice a day for your lymphadenopathy follow up with your doctor to monitor in next few weeks return for any worsening symptoms or concerns hold tizanidine while on valium Prescriptions: New diazepam [Valium] 5 mg tablet 5 mg PO TID PRN (Reason: muscle spasm) Qty: 10 0RF Rx Instructions: partial fill is okay No Action thiamine HCl (vitamin B1) 100 mg tablet 100 mg PO DAILY Qty: 90 3RF cholecalciferol (vitamin D3) 125 mcg (5,000 unit) capsule 125 mcg PO DAILY Qty: 90 3RF nortriptyline 10 mg capsule 10 mg PO BEDTIME Qty: 30 2RF gabapentin 300 mg capsule 300 mg PO TID 30 Days Qty: 90 0RF ferrous fumarate [Ferrocite] 324 mg (106 mg iron) tablet 324 mg PO DAILY Qty: 90 2RF lidocaine [Lidoderm] 5 % adhesive patch,medicated 1 patch topical DAILY Qty: 15 0RF Rx Instructions: leave on most painful area for up to 12 hrs sceozrxoqd-bbszxixztjtxe-yhxy 50-325-40 mg tablet 1 tab PO Q6H PRN (Reason: haeadace) Qty: 20 0RF naratriptan 2.5 mg tablet 2.5 mg PO DIRECTED amitriptyline 25 mg tablet 25 mg PO BEDTIME (DME) lancets [FreeStyle Lancets] 28 gauge misc See Rx Instructions .ROUTE QID Qty: 100 Rx Instructions: As directed vitamin A 3,000 mcg (10,000 unit) capsule 3,000 mcg PO DAILY sucralfate [Carafate] 100 mg/mL suspension 10 ml PO QID Qty: 420 3RF tizanidine 2 mg tablet 2 mg PO TID PRN pregabalin 50 mg capsule 50 mg PO BID 30 Days Qty: 60 0RF cyclobenzaprine 10 mg tablet 10 mg PO BEDTIME Qty: 30 11RF naproxen 500 mg tablet 500 mg PO Q8-12H PRN (Reason: pain (scale score 1-3)) Qty: 20 0RF tramadol 50 mg tablet 50 mg PO Q8H PRN (Reason: pain) Qty: 14 0RF Stand Alone Forms: Work/School Release Print Language: Georgian
[2025-07-08 07:21] LABS: Hematocrit 36.7 % (37.0-47.0); Hemoglobin 11.1 g/dl (12.0-16.0); Imm Gran Abs Auto 0.03 X10*3/uL (0.00-0.03); Imm Gran Pct Auto 0.4 % (0.0-0.4); Lymphocytes Absolute Auto 2.4 X10*3/uL (1.2-4.9); Mean Corpuscular HGB Conc 30.2 g/dl (31.0-35.0); Mean Corpuscular Hemoglobin 23.5 pg (27.0-33.0); Mean Corpuscular Volume 77.8 fL (80.0-98.0); NRBC Abs Auto 0.000 X10*3/uL (0.0-0.012); NRBC Pct Auto 0.0 /100WBC (0.0-0.2); Platelet Count 315 X10*3/uL (160-400); Red Blood Count 4.72 X10*6/uL (4.20-5.50); White Blood Count 7.6 X10*3/uL (4.8-10.8)
[2025-07-08 07:45] LABS: Alanine Aminotransferase 10 U/L (0-31); Albumin Level 3.9 g/dL (3.5-5.0); Alkaline Phosphatase 92 U/L (39-117); Anion Gap 11 (12-20); Aspartate Amino Transferase 23 U/L (5-31); Blood Urea Nitrogen 9 mg/dL (9-16); Calcium 8.3 mg/dL (8.4-10.2); Carbon Dioxide 20 mmol/L (22-29); Chloride 113 mmol/L (96-108); Creatinine Clr Calc Pharmacy 159.0; Estimated Glomerular Filt Rate > 60; Magnesium 2.1 mg/dL (1.6-2.6); Potassium 4.9 mmol/L (3.3-5.1); Sodium 139 mmol/L (135-145); Total Protein 6.5 g/dL (6.5-8.0)
[2025-07-08] MEDS: Lactated Ringers 1,000 ML 999 ML IV (07:47)
[2025-07-08] MEDS: iohexoL 350 MG/ML 100 ML INFUS..BTL IV (08:28)
--- NOTE | 2025-07-08 08:36 | PC.NURSE ---
pt is alert and oriented, skin appropriate for ethnicity, respirations even and unlabored, pt reports that since Friday having lower abd pain with nausea and frequent urination but only small amounts at that the time, bowel sounds in all 4 quadrants, abd soft but tender all over, pt states being seen by her OBGY was told no uti no improvement after the pain medication, states that the pain is worse 10/10 now it feels like her abd is burning and feels very full and nausea also got worse
[2025-07-08 09:36] VITALS: BP 101/52; PULSE 81; RESP 20; TEMP 36.6; O2SAT 99
[2025-07-08 09:40] LABS: Appearance Urine Clear; Glucose Urine UA Negative (Negative); PH 7.0 (5.0-9.0); Specific Gravity - Urine 1.015 (1.005-1.025); UMIC TRIGGER UACC YES
[2025-07-08] MEDS: diazePAM 10 MG/2 ML CARTRIDGE 5 MG IVPUSH (10:46)
[2025-07-08 10:47] VITALS: BP 126/77; PULSE 86; RESP 18; TEMP 36.6; O2SAT 97
[2025-07-08 11:35] VITALS: BP 126/77; PULSE 86; RESP 18; TEMP 36.8; O2SAT 97
== END 2025-07-08 11:36 | disposition home or self-care (01) ==
PROVIDERS: Emergency Provider Emergency Medicine; PCP Internal Medicine
DX: R10.A2 Flank pain, left side (principal); R59.1 Generalized enlarged lymph nodes; K65.8 Other peritonitis; K21.9 Gastro-esophageal reflux disease without esophagitis; J45.909 Unspecified asthma, uncomplicated; Z98.84 Bariatric surgery status
CPT/HCPCS: 36415; 74177; 80048; 80076; 81001; 83735; 84702; 85025; 96361; 96374; 96375; 99284; 99285; J2270; J2405; J3360; J7120; Q9967

== ENCOUNTER → 2025-07-08 07:08 | Outpatient (BNV) | payer OTHER, SELFPAY | PROVIDERS: Emergency Provider Emergency Medicine; PCP Internal Medicine; Visit Provider Radiology Diagnostic Radiology | DX: R10.32 Left lower quadrant pain (principal); Z98.84 Bariatric surgery status | CPT/HCPCS: 74177 ==

== ENCOUNTER 2025-07-12 15:05 | Outpatient (AMB) | payer OTHER, SELFPAY ==
--- OUTSIDE RECORDS SUMMARY | 2025-07-07 08:20 | XMS_ITS | Encounter Summary ---
Author Organization [facility] Address [address] [place] [address] [place] [address] Phone Care Team Providers Care Shaker Screen Operator Name Role Phone Marita Toledo MD Primary Care Provid er Reason for Visit * Reason Comments Pelvic Pain Encounter Details Date Type Department Care Team (Late st Contact Info) Description 07/07/2025 8:20 AM EDT Office Visit [facility] [address] [place] [address] Marv Davis MD 22 [facility], [address] [place] [address] [email or web address] Dyspareunia in female (Primary Dx); Dysuria; Cervical cancer screening Social History Tobacco Use Types Packs/Day Years Used Date Smoking Tobacco: Never Smokeless Tobacco: Never Alcohol Use Standard Drinks/Week Comments Not Currently [...] Orientation Straight 07/13/2022 10 :58 AM EDT documented as of this encounter Last Filed Vital Signs Vital Sign Reading Time Taken Comments Blood Pressure 118/74 07/07/2025 8:30 AM EDT Pulse - - Temperature - - Respiratory Rate - - Oxygen Saturation - - Inhaled Oxygen Concentration - - Weight 104.3 kg (230 lb) 07/07/2025 8:30 AM EDT Height - - Body Mass Index 34.97 09/28/2024 11:44 AM EST documented in this encounter Progress Notes * Marv Davis MD - 07/07/2025 8:20 AM EDT This is a 29 y.o., who presents with concerns of recurrent UTIs - Self diagnosing at home. Using azo. Comes and goes, months but more frequent this past month. Suprapubic pain that radiates to side. No fevers No vaginal discharge, not itching. Reports hesitancy. Reports dyspareunia, started of as positional then now all positions Was dx with crohns a year ago - does not feel like a flare No changes with bm Has nexplanon Patient also due for pap smear Last 05/2022 - ascus, HPV NR ROS: As in HPI. Prior to Admission medications Medication Sig Start Date End Date Taking? Authorizing Provider acetaminophen (TYLENOL) 325 mg tablet Take 2 tablets (650 mg total) by mouth every 6 (six) hours asneeded. 11/22/22 aZida Gutierrez CNM amitriptyline (ELAVIL) 25 MG tablet TAKE 1 TABLET BY MOUTH NIGHTLY AT BEDTIME. 04/21/25 Edwin Pierson MD APRISO 0.375 gram 24 hr capsule 375 mg. 04/08/24 Sara Montemayor MD budesonide (ENTOCORT EC) 3 mg 24 hr capsule 9 mg. 12/01/23 Sara Montemayor MD CARAFATE 100 mg/mL suspension 100 mg. 12/03/23 Sara Montemayor MD cyclobenzaprine (FLEXERIL) 5 MG tablet Take 5 mg by mouth every 8 (eight) hours as needed. 04/14/24 Sara Montemayor MD FERROCITE 324 mg (106 mg iron) Tab Take 1 tablet by mouth every morning. 02/17/24 Sara Montemayor MD lidocaine (LIDODERM) 5 % 1 patch. 04/23/24 Sara Montemayor MD naproxen (NAPROSYN) 500 MG tablet 500 mg. 04/12/24 Sara Montemayor MD naratriptan (AMERGE) 2.5 MG tablet Take 1 tablet (2.5 mg total) by mouth as needed for migraine. Take one (1) tablet at onset of headache; if returns or does not resolve, may repeat after 4 hours; donot exceed five (5) mg in 24 hours. 03/29/24 Edwin Pierson MD nitrofurantoin (MACROBID) 100 MG capsule Take 1 capsule (100 mg total) by mouth 2 (two) times a day. 05/18/24 Bre Leigh MD thiamine (VITAMIN B-1) 100 MG tablet Take 1 tablet by mouth every morning. 02/22/24 Sara Monetmayor MD vitamin A 07795 UNIT capsule Take 1 capsule by mouth every morning. 02/20/24 Sara Montemayor MD Allergies Allergen Reactions Carrot Cat Hair Std Allergenic Ext House Dust Past Medical History: Diagnosis Date Asthma History of delivery 05/07/2022 in 2018 Past Surgical History: Procedure Laterality Date BILE DUCT STENT PLACEMENT bile duct repair GASTRIC BYPASS Family History Problem Relation Age of Onset Diabetes Paternal Grandfather Alzheimer's disease Paternal Grandfather Diabetes Paternal Grandmother Diabetes Maternal Grandmother Alzheimer's disease Maternal Grandmother Diabetes Maternal Grandfather Seizures Maternal Grandfather Alzheimer's disease Maternal Grandfather Diabetes Father Asthma Mother Fibromyalgia Mother Social History Socioeconomic History Marital status: Single Spouse name: Not on file Number of children: Not on file Years of education: Not on file Highest education level: Not on file Occupational History Not on file Tobacco Use Smoking status: Never Smokeless tobacco: Never Substance and Sexual Activity Alcohol use: Not Currently Drug use: Not Currently Sexual activity: Yes Partners: Male control/protection: Implant Other Topics Concern Not on file Social History Narrative Not on file OB History Para Term AB Living 2 2 1 1 0 2 SAB IAB Ectopic Multiple Live Births 0 0 0 0 2 # Outcome Date GA Lbr Luis Manuel/2nd Weight Sex Type Anes PTL Lv 2 Term 11/20/22 37w0d / 00:02 2.88 kg (6 lb 5.6 oz) M Vag-Spont None N OBINNA 1 03/23/18 35w5d M Vag-Spont OBINNA Menstrual History Patient's last menstrual period was 06/10/2025. DIRECTOR INBOUND SALES History: Denies STIs/fibroids/abnormal paps/cysts Physical Exam Vitals: 07/07/25 0830 BP: 118/74 Weight: 104.3 kg (230 lb) General: alert and oriented x 3, no apparent distress Abdomen: no organomegaly, no lymphadenopathy, nontender Pelvic: External Genitalia: Normal architecture, without lesions. No inguinal lymphadenopathy. Vagina: Mucosa is pink with normal rugae. No abnormal discharge or lesions. Cervix: Normal appearance, without discharge or lesions. No cervical motion tenderness. Pap smear was obtained. Uterus: Normal size and shape. Anteverted position. Non-tender. Mobile Adnexa: No adnexal masses or tenderness bilaterally. Assessment: 29 y.o. hesitancy, dyspareunia, benign pelvic exam, unlikely PID Plan: Vaginitis panel Gc/ch Ua with reflex Pap sent Problem List Items Addressed This Visit None Visit Diagnoses Dyspareunia in female - Primary Relevant Orders Urinalysis w/reflex Urine Culture Chlamydia trachomatis and Neisseria gonorrhoeae Nucleic Acid Amplification Vaginitis Panel Dysuria Relevant Orders Urinalysis w/reflex Urine Culture Chlamydia trachomatis and Neisseria gonorrhoeae Nucleic Acid Amplification Vaginitis Panel Cervical cancer screening Relevant Orders Pap Test (Completed) Marv Davis MD documented in this encounter Plan of Treatment Upcoming Encounters Date Type Department Care Team (Late st Contact Info) Description 08/16/2025 10:30 AM EST Office Visit [facility] [address] [place] [address] Unknown, Unknown, Aga Cheng, EQUIPMENT OPERATOR/LABORER/SUPERVISOR [address] [address] [email or web address] 08/24/2025 11:40 AM EST Office Visit [facility] [address] [place] [address] Marv Davis MD [address] [place] [address], [address] [place] [address] [email or web address] 10/07/2025 12:00 PM EST Office Visit [facility] [address] [place] [address] Edwin Pierson MD [address] [place] [address], [address] [place] [address] Pending Results Name Type Priority Associated Diagnoses Date /Time Pap Test Pathology and Cytology Routine 12:00 AM EDT documented as of this encounter Procedures Procedure Name Priority Date/Time Associated Diagnosis Comments URINALYSIS W/REFLEX URINE CULTURE Routine 07/07/2025 8:46 AM EDT Dyspareunia in female Dysuria HC NFCT DS BCT VAGINOSIS&VAGINITIS MULT AMP PROBE Routine 07/07/2025 8:46 AM EDT Dyspareunia in female Dysuria CHLAMYDIA TRACHOMATIS AND NEISSERIA GONORRHOEAE NUCLEIC ACID DETECTION Routine 07/07/2025 8:46 AM EDT Dyspareunia in female Dysuria documented in this encounter Results * (ABNORMAL) Vaginitis Panel (07/07/2025 8:46 AM EDT) Bacterial Vaginosis Negative Negative [facility] Nataly Species Detected(A) Not Detected [facility] Nataly glabrata Not Detected Not Detected [facility] Trichomonas Vaginalis Not Detected Not Detected [facility] Other (Vaginal) 07/07/2025 8 :46 AM EDT 07/07/2025 3:14 PM EDT Marv Davis MD MICROBIOLOGY - GENERAL O RDERABLES Final Result Performing Organization Address [place] Co de Phone Number [address] [address] * Chlamydia trachomatis and Neisseria gonorrhoeae Nucleic Acid Amplification (07/07/2025 8:46 AM EDT) CHLAMYDIA TRACHOMATIS Not Detected Not Detected [facility] NEISERIA GONORRHOEAE Not Detected Not Detected [facility] SPECIMEN TYPE VAGINAL [facility] Other (Vaginal) 07/07/2025 8 :46 AM EDT 07/07/2025 3:14 PM EDT Marv Davis MD NON CULTURE MICROBIOLOGY Final Result Performing Organization Address [place]/[facility] de Phone Number [address] [address] * Urinalysis w/reflex Urine Culture (07/07/2025 8:46 AM EDT) COLOR Yellow Yellow [facility] CLARITY Clear [facility] GLUCOSE Negative Negative [facility] BILI Negative Negative [facility] KETONES Negative Negative [facility] SPECIFIC GRAVITY 1.025 1.005 - 1.030 [facility] BLOOD Negative Negative [facility] PH 6.0 5.0 - 8.0 [facility] Protein-UA Negative Negative [facility] NITRITE Negative Negative [facility] Leukocyte esterase, ur Negative Negative [facility] Urine (Urine) 07/07/2025 8:4 6 AM EDT 07/07/2025 3:13 PM EDT us Marv Davis MD URINE ORDERABLES Final R esult [facility] [address] [place] [address] documented in this encounter Visit Diagnoses Diagnosis Dyspareunia in female- Primary Dysuria Cervical cancer screening Screening for malignant neoplasm of the cervix documented in this encounter Care Teams Shaker Screen Operator Relationship Specialty Start Date End Date Marita Toledo MD [address] [place] [address] PCP - General Internal Medicine 04/12/22 documented as of this encounter Additional Source Comments The information contained in this document represents components of the legal health record. It is not the complete legal health record.[facility]
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
[2025-07-12 15:22] VITALS: BP 130/62; PULSE 96; TEMP 36.3; O2SAT 99; BMI 34.6
--- OUTSIDE RECORDS SUMMARY | 2025-07-12 19:33 | XMS_ITS | Encounter Summary ---
Author Organization [facility] Address [address] [place] [address] Phone Care Team Providers Care Batter Out Name Role Phone Ethel Murray MD Primary Care Provider [phone] Encounter Details Date Type Department Care Team (Late st Contact Info) Description 06/17/2014 Documentation [facility] [address] [place] [address] Family Medicine, Physician [address] [place], [place] [address] Social History Tobacco Use Types Packs/Day Years [...] on filedocumented in this encounter Care Teams Batter Out Relationship Specialty Start Date End Date Ethel Murray MD [address] [place] [address] [place] [address] PCP - General 04/25/17 11/27/22 documented as of this encounter
--- OUTSIDE RECORDS SUMMARY | 2025-07-12 19:33 | XMS_ITS | Encounter Summary ---
Author Organization [facility] Address [address] [place] [address] Phone Care Team Providers Care Video Library Assistant Name Role Phone Ethel Murray MD Primary Care Provider [phone] Encounter Details Date Type Department Care Team (Late st Contact Info) Description 10/21/2013 Documentation [facility] [address] [place] [address] Family Medicine, Physician [address] [place], [place] [address] Social History Tobacco Use Types Packs/Day Years [...] on filedocumented in this encounter Care Teams Video Library Assistant Relationship Specialty Start Date End Date Ethel Murray MD [address] [place] [address] [place] [address] PCP - General 04/25/17 11/27/22 documented as of this encounter
--- OUTSIDE RECORDS SUMMARY | 2025-07-12 19:33 | XMS_ITS | Encounter Summary ---
Author Organization [facility] Address [address] [place] [address] Phone Care Team Providers Care Real Estate Assessor Name Role Phone Ethel Murray MD Primary Care Provider [phone] Encounter Details Date Type Department Care Team (Late st Contact Info) Description 08/16/2014 Documentation [facility] Family Medicine [address] [place] [address] Family Medicine, Physician [address] [place] [address] Social History Tobacco Use Types Packs/Day Years [...] on filedocumented in this encounter Care Teams Real Estate Assessor Relationship Specialty Start Date End Date Ethel Murray MD [address] [place] [address] [place] [address] PCP - General 04/25/17 11/27/22 documented as of this encounter
--- OUTSIDE RECORDS SUMMARY | 2025-07-12 19:33 | XMS_ITS | Encounter Summary ---
Author Organization [facility] Address [address] [place] [address] Phone Care Team Providers Care Mule Rider Name Role Phone Marita Toledo MD Primary Care Provid er Encounter Details Date Type Department Care Team (Late st Contact Info) Description 09/20/2022 Ancillary Orders [facility] [address] [place] [address] Shilpa Shepherd, [address] [address] [email or web address] Gestational diabetes mellitus (GDM) affecting second Social [...] Description 08/16/2025 10:30 AM EST Office Visit [facility] [address] [place] [address] Unknown, Unknown, Aga Cheng, SCHOOL NURSE [address] [place] [address] [email or web address] 08/24/2025 11:40 AM EST Office Visit [facility] [address] [place] [address] Marv Davis MD [address] [facility] [place] [address] [email or web address] 10/07/2025 12:00 PM EST Office Visit [facility] [address] [place] [address] Edwin Pierson MD [address] [facility] [place] [address] [email or web address] documented as of this encounter Results * [...] 2. The testing is normal. Shilpa Shepherd [facility] OBST[facility]RIC Final Result documented in this encounter Visit Diagnoses Diagnosis Gestational diabetes mellitus (GDM) affecting second Gestational diabetes mellitus (GDM) affecting second documented in this encounter Care Teams Mule Rider Relationship Specialty Start Date End Date Marita Toledo MD [address] [place] [address] PCP - General Internal Medicine 04/12/22 documented as of this encounter Additional Source Comments The information contained in this document represents components of the legal health record. It is not the complete legal health record.[facility]
--- OUTSIDE RECORDS SUMMARY | 2025-07-12 19:33 | XMS_ITS | Clinical Summary ---
Author Organization [facility] Address [address] [place] [address] Phone Care Team Providers Care Perfect Binder Feeder Offbearer Name Role Phone Unavailable Primary Care Provider [...] complete this topic Procedures * Due to [place] state law, this organization might not be sharing sensitive test results. Procedure Name Priority Date/Time Associated Diagnosis Comments CHLAMYDIA AND GONORRHEA, AMPLIFIED Routine 01/18/2013 3:46 PM EDT from Last 3 Months or Most Recently Relevant to Health Maintenance Results * Due to [place] state law, this organization might not be sharing sensitive test results. * Chlamydia and Gonorrhoea, Amplified (01/18/2013 3:46 PM EDT) URINE GC AMP PROBE NEGATIVE [facility] Comment: NO NEISSERIA GONORRHOEAE RNA DETECTED IN THIS PATIENT'S SAMPLE. (REFERENCE RANGE/NORMAL VALUE: NOT DETECTED) NOTE: THIS TEST USES [employer]-MEDIATED AMPLIFICATION METHOD TO DETECT rRNA FROM C.TRACHOMATIS [...] OF INFECTION. URINE CHLAMYDIA AMP PROBE NEGATIVE [facility] Comment: NO CHLAMYDIA TRACHOMATIS RNA DETECTED IN THIS PATIENT'S SAMPLE. (REFERENCE RANGE/NORMAL VALUE: NOT DETECTED) 01/18/2013 3:46 PM EDT Narrative [facility] - 01/18/2013 3:46 PM EDT URINE CHLAMYDIA GC AMP PROBE us Aishwarya Mackey MD LAB MICROBIOLOGY - GENERAL O RDERABLES Final Result [facility] [address] [place] [address], [place] from Last 3 Months or Most Recently Relevant to Health Maintenance
--- OUTSIDE RECORDS SUMMARY | 2025-07-12 19:33 | XMS_ITS | Encounter Summary ---
Author Organization [facility] Address [address] [place] [address] Phone Care Team Providers Care Risk Specialist Name Role Phone Ethel Murray MD Primary Care Provider [phone] Encounter Details Date Type Department Care Team (Late st Contact Info) Description 01/17/2012 Documentation [facility] Family [facility] [address] [place] [address] Family Medicine, Physician [address] [place], [place] [phone] Social History Tobacco Use Types Packs/Day Years [...] on filedocumented in this encounter Care Teams Risk Specialist Relationship Specialty Start Date End Date Ethel Murray MD [address] [place] [address] [place] [address] PCP - General 04/25/17 11/27/22 documented as of this encounter
--- OUTSIDE RECORDS SUMMARY | 2025-07-12 19:33 | XMS_ITS | Encounter Summary ---
Author Organization [facility] Address [address] [place] [address] Phone Care Team Providers Care Car Retarder Operator Name Role Phone Marita Toledo MD Primary Care Provid er Encounter Details Date Type Department Care Team (Late st Contact Info) Description 11/20/2022 Procedure Pass [facility] [address] [place] [address] Social History Tobacco Use Types Packs/Day Years [...] 11/21/2022 Are you denied basic needs [facility] as food, clothing, or medical care? [...] 11/21/2022 1:52 PM Veronica Lizarraga RN * [place] Suicide Severity Rating Scale (Screener/Recent Self-Report) Question [...] Description 08/16/2025 10:30 AM EST Office Visit [facility] [address] [place] [address] Unknown, Unknown, Aga Cheng, COIL SHAPER [address] [address] [email or web address] 08/24/2025 11:40 AM EST Office Visit [facility] [address] [place] [address] Marv Davis MD [address] [place] [address], [address] [place] [address] [email or web address] 10/07/2025 12:00 PM EST Office Visit [facility] Neurology [address] [place] [address] Edwin Pierson MD [address] [place] [address], [address] [place] [address] documented as of this encounter Visit Diagnoses Not on filedocumented in this encounter Care Teams Car Retarder Operator Relationship Specialty Start Date End Date Marita Toledo MD [address] [place] [address] PCP - General Internal Medicine 04/12/22 documented as of this encounter Additional Source Comments The information contained in this document represents components of the legal health record. It is not the complete legal health record.[facility]
--- OUTSIDE RECORDS SUMMARY | 2025-07-12 19:33 | XMS_ITS | Encounter Summary ---
Author Organization [facility] Address [address] [place] [address] Phone Care Team Providers Care Office Equipment Technician Name Role Phone Ethel Murray MD Primary Care Provider [phone] Encounter Details Date Type Department Care Team (Late st Contact Info) Description 06/21/2014 Documentation [facility] [address] [place] [address] Family Medicine, Physician [address] [place], [place] [address] Social History Tobacco Use Types Packs/Day Years [...] on filedocumented in this encounter Care Teams Office Equipment Technician Relationship Specialty Start Date End Date Ethel Murray MD [address] [place] [address] [place] [address] PCP - General 04/25/17 11/27/22 documented as of this encounter
--- OUTSIDE RECORDS SUMMARY | 2025-07-12 19:33 | XMS_ITS | Encounter Summary ---
Author Organization [facility] Address [address] [place] [address] Phone Care Team Providers Care Charger Operator Helper Name Role Phone Ethel Murray MD Primary Care Provider [phone] Encounter Details Date Type Department Care Team (Late st Contact Info) Description 05/01/2017 Conversion Encounter [facility] [address] [place] [address] Social History Tobacco Use Types Packs/Day Years [...] on filedocumented in this encounter Care Teams Charger Operator Helper Relationship Specialty Start Date End Date Ethel Murray MD [address] [place] [address] PCP - General 04/25/17 11/27/22 documented as of this encounter
--- OUTSIDE RECORDS SUMMARY | 2025-07-12 19:33 | XMS_ITS | Clinical Summary ---
Author Organization [facility] Address [address] [place] [address] Phone Care Team Providers Care Award Machine Operator Name Role Phone Marita Toledo MD [...] suspension 100 mg. 4 Active vitamin A 42099 UNIT capsule Take 1 capsule by mouth [...] taking.Reported on 07/07/2025 amitriptyline (ELAVIL) 25 MG tabletIndicatio ns:Intractable migraine without aura and with status migrainosus,Int ractable chronic post-traumatic headache TAKE 1 TABLET BY MOUTH NIGHTLY AT BEDTIME. 30 tablet 11 5 Active gabapentin (NEURONTIN) 300 MG capsule Take 300 mg by mouth 2 (two) times a day. Active tiZANidine (ZANAFLEX) 2 MG tablet Take 2 mg by mouth as needed. Active fluconazole (DIFLUCAN) 150 MG tablet Take 1 tablet (150 mg total) by mouth daily for 3 days. 3 tablet 5 07/11/20 25 Hospital, Clinic, or Other Facility Administered Medication [...] indeterminate cause, improving GI vs Musculoskeletal No INSIDE SALES REPRESENTATIVE cause seen by US Polycystic Ovaries - [...] Pierson in Neurology for 10/2022 consult in [facility]. Which reports no s/s of pseudotumor cerebri [...] after being seen in the ED at [facility] yesterday with RUQ pain. Upon discussion today, the pain starts directly on her right side at about midline and extends toward about the middle of the abdomen. Around 05/10/22, Maryann went to [facility] with the same pain. Reports they did [...] right abd pain prompted the visit to [facility] ED yesterday. LFTs and BMP were [...] 2017. Evelyne has a GI specialist at [facility]. 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 Had MRI and cat scan, reports the Dr called her and said they saw some inflammation in the right kidney. Was referred to a kidney doctor, has appt 07/19 at [facility]. Plan: - discussed the pain does not [...] F ertility and after bariatric surgery . https://[email or web address]/contents/mylhuzvir-dxf-aiqhkgyyw-[email or web address]-ipbwwdxpf-vejtlg y?sea rch=gastric%20bypass%20and%20pregnancy&source=search_result&selectedTitle=1~150& usage _type=default&display_rank=1 Assessment & Plan [...] water bottles along with a cup from [employer]. On NST, FHR is reassuring. 4 contractions [...] contaminated. Should have monthly Urine cultures per [facility] Assessment & Plan (07/03/2022 9:36 AM [...] well overall. Had level 2 ultrasound at [facility]. All normal. No concerns. Starting to feel [...] well at History of PTL/PPROM 17 Hydroxyprogesterone (Chicora injection) 16-36 wks Declines Cervical length at [...] water bottles along with a cup from [employer]. Assessment & Plan (07/31/2022 3:19 PM EST): CL at anatomy scan was 3.8 cm Assessment & Plan (07/11/2022 10:46 PM EDT): Declining Chicora, Will have CL at US Assessment & Plan (07/03/2022 9:37 AM EDT): Cervial length planned at Level 2. Has decided to decline Chicora. Assessment & Plan (06/13/2022 5:47 PM EDT): Pt has c/s w MFM in 2 weeks Assessment & Plan (05/07/2022 12:45 PM EDT): Discussed Chicora with patient and reviewed risks/benefits. We did [...] suggests that Evelyne see Dr Smith from [facility] (manages Diabetes in ) for recommendations for delivery timing. She will do a virtual visit with Evelyne for 11/20/22 at 1230 pm Assessment & Plan (12/14/2022 8:31 PM EDT): Discuss at [facility], will need follow up with [facility] (cannot [...] Friday. Was scheduled for IOL at 38 09/21 due to concern by CNM that there was significant hyperglycemia although then the HgbA1C and GINNY came back normal. Krishna Leigh spoke to me before visit about these results. We discussed that because with GDM it can sometimes take longer for the lungs to mature, I would recommend that we check with MFM about delivery timing. Message sent to [facility]. Will follow up with Evelyne once we have this information. Assessment & Plan (11/13/2022 3:48 PM EST): Client lost to follow up at [facility], last seen 08/29/23 was waiting on a [...] see if possible to be seen by [facility] in interim. Scheduled for IOL at 38.0 weeks evening of 11/27/22 for ripening at recommendation of [facility] to deliver by 39 weeks. BIW monitoring and visits. Collaborative plan made with client, Dr. Mtz and Krishna Leigh, [facility]. Needs induction counseling at next visit. Assessment & Plan (09/21/2022 7:18 PM EST): Has continued to work with [facility]. On CGM, BS are in range. Per note from [facility], Needs to scan more frequently - Reminded Evelyne and she agrees to work on this. Per MFM needs monthly growth US scheduled - Chief Radiology is working on scheduling this, but only [...] PM EDT): It is difficult to evaluate Jamillete's overall glycemic control is relatively uncertain. Her [...] insulin requirement in preexisting diabetes, visits with trimmer helper are strongly encouraged, attention to exercise and [...] Most recently seen 10/27 and 10/28 at [facility] for labor evals, states cervix was 1cm [...] she describes as rough pelvic exams at [facility]. On exam, abd is soft, nontender SSE: [...] other labs neg -VE on 10/21/22 was 0.5/20-30/mid/-2 Encounters Date Type Department Care Team Description 07/08/2025 Orders Only [facility] Gynecology Virtual Department [address] [place] [address] Marv Davis MD 07/07/2025 8:20 AM EDT Office Visit [facility] [address] [place] [address] [place] [address] Marv Davis MD Dyspareunia in female (Primary Dx); Dysuria; Cervical cancer screening 04/19/2025 Refill [facility] [address] [place] [address] Edwin Pierson MD Medication Refill 04/19/2025 Transcribe Orders [facility] [address] [place] [address], [address] [place] [address] Marita Toledo MD Crohn's disease without complication, [...] Description 08/16/2025 10:30 AM EST Office Visit [facility] [address] [place] [address] Unknown, Unknown, Aga Cheng, ENTRY DRIVER OPERATOR [address] [place] [address] [email or web address] 08/24/2025 11:40 AM EST Office Visit [facility] [address] [place] [address] [place] [address] Marv Davis MD [address] [place] [address], [address] [place] [address] [email or web address] 10/07/2025 12:00 PM EST Office Visit [facility] Neurology [address] [place] [address] Edwin Pierson MD [address] [place] [address], [address] [place] [address] [email or web address] Health Maintenance Due Date Last Done Comments DEPRESSION SCREENING 2007 INFLUENZA VACCINE (#1) 2025 , 08/01/2016, 07/31/2015, Additional history exists COVID-19 VACCINE (2024- season) 2025 02/23/2021, 02/02/2021 Contraceptive Implant 12/13/2025 [...] (07/07/2025 8:46 AM EDT) COLOR Yellow Yellow [facility] CLARITY Clear [facility] GLUCOSE Negative Negative [facility] BILI Negative Negative [facility] KETONES Negative Negative [facility] SPECIFIC GRAVITY 1.025 1.005 - 1.030 [facility] BLOOD Negative Negative [facility] PH 6.0 5.0 - 8.0 [facility] Protein-UA Negative Negative [facility] NITRITE Negative Negative [facility] Leukocyte esterase, ur Negative Negative [facility] Urine (Urine) 07/07/2025 8:4 6 AM EDT 07/07/2025 3:13 PM EDT us Marv Davis MD URINE ORDERABLES Final R esult [facility] [address] [place] [address] * (ABNORMAL) Vaginitis Panel (07/07/2025 8:46 AM EDT) Bacterial Vaginosis Negative Negative [facility] Nataly Species Detected(A) Not Detected [facility] Nataly glabrata Not Detected Not Detected [facility] Trichomonas Vaginalis Not Detected Not Detected [facility] Other (Vaginal) 07/07/2025 8 :46 AM EDT 07/07/2025 3:14 PM EDT Marv Davis MD MICROBIOLOGY - GENERAL O RDERABLES Final Result Performing Organization Address [facility]/ZIP Co de Phone Number [address] [address] * Chlamydia trachomatis and Neisseria gonorrhoeae Nucleic Acid Amplification (07/07/2025 8:46 AM EDT) CHLAMYDIA TRACHOMATIS Not Detected Not Detected [facility] NEISERIA GONORRHOEAE Not Detected Not Detected [facility] SPECIMEN TYPE VAGINAL [facility] Other (Vaginal) 07/07/2025 8 :46 AM EDT 07/07/2025 3:14 PM EDT Marv Davis MD NON CULTURE MICROBIOLOGY Final Result Performing Organization Address [facility] Co de Phone Number [address] [address] * Outside Imaging Report Only (04/15/2025) us Scanning Interface Provider IMG XR CHEST Yelitza l Result * Outside Imaging Report Only (04/15/2025) us Scanning Interface Provider IMG XR CHEST Yelitza l Result * Hepatitis C antibody, qualitative (06/14/2022 2:05 PM EDT) HCV NON-REACTIV E NON-REACTI VE [facility] Blood 06/14/2022 2:05 PM EDT 06/14/2022 2:17 PM EDT us Leonie Colón CNM, MPH LAB BLOOD ORDERABLES F inal Result [address] [address] * (ABNORMAL) Pap Smear (06/10/2022 12:00 AM EDT) 06/10/2022 06/11/2022 10: 24 AM EDT Narrative SEE NARRATIVE - 06/25/2022 1:43 PM EDT [address] [address] Cardiac Rn: Evie Cedeno MD INSIDE SALES REPRESENTATIVE Cytology Report FINAL DIAGNOSIS A. PAP SMEAR [...] 52, 56, 58, 59, 66, 68) by nubelo Onclarity HR-HPV analysis. Clinical correlation is advised. This HPV test was performed at [facility], [address] [place] [address]. This test has been FDA approved for SurePath cervical cytology specimens. The accuracy and precision of this test for all other specimen sources has been verified in the Cytopathology Laboratory of the [facility] and has not been cleared or approved by the U.S. Food and Drug Administration. Clinical correlation is advised. CLINICAL HISTORY Date of Last Menstrual Period: Not Provided Menstrual History: Other Clinical Conditions: Screening Pap SPECIMEN SOURCE A: PAP SMEAR (SUREPATH) CE Patient Name: EVELYNE GOVEA : 1995 (Age: 26) Sex: F Institution: [facility] Location: [facility] Date of Collection: 06/10/2022 Date of Reported: 06/18/2022 17:09 Results to: Leonie Colón CNM Leonie Colón CNM, MPH CYTOLOGY ORDERABLES Ed ited Result - Final SEE NARRATIVE from Last 3 Months or Most Recently Relevant to Health Maintenance Insurance [facility] Member Subscriber Plan / Payer (Ef fective 2023-Present) Name:Evelyne Govea Relation to Subscriber:Self Name:Evelyne Govea Payer ID:[id number] Group ID:[id number] Type:Medicaid Address: [address] [place] [address] [place] [address] [place] [address] [facility] [facility] [employer] Member Subscriber Plan / Payer (Ef fective 2023-Present) Name:Evelyne Govea Relation to Subscriber:Self Name:Evelyne Govea Payer ID:[id number] Group ID:[id number] Type:Medicaid Address: [address] [place] [id number] [facility] Member Subscriber Plan / Payer (Ef fective 2023-Present) Name:Evelyne Govea Relation to Subscriber:Self Name:Evelyne Govea Payer ID:[id number] Group ID:[id number] Type:Medicaid Address: [address] [place] [id number] [facility] Member Subscriber Plan / Payer (Ef fective 2023-Present) Name:Evelyne Govea Relation to Subscriber:Self Name:GoveaRenesweetie Payer ID:[id number] Group ID:[id number] Type:Medicaid Address: [address] [place] [address] [facility] Advance Directives For more information, please contact: [phone] (9AM - 5PM [place], Friday-Friday) * Full Code (Latest Code Status [...] Code Status Confirmed With: Patient Care Teams Award Machine Operator Relationship Specialty Start Date End Date Marita Toledo MD [address] [place] [address] PCP - General Internal Medicine 04/12/22 Additional Source Comments The information contained in this document represents components of the legal health record. It is not the complete legal health record.[facility]
--- OUTSIDE RECORDS SUMMARY | 2025-07-12 19:33 | XMS_ITS | Encounter Summary ---
Author Organization [facility] Address [address] [place] [address] Phone Care Team Providers Care Quarry Manager Name Role Phone Ethel Murray MD Primary Care Provider [phone] Encounter Details Date Type Department Care Team (Late st Contact Info) Description 06/22/2014 Documentation EM Family Medicine [address] [place] [address] Family Medicine, Physician [address] [place], [place] 4[address] Social History Tobacco Use Types Packs/Day Years [...] on filedocumented in this encounter Care Teams Quarry Manager Relationship Specialty Start Date End Date Ethel Murray MD [address] [place] [address] [place] [address] PCP - General 04/25/17 11/27/22 documented as of this encounter
--- OUTSIDE RECORDS SUMMARY | 2025-07-12 19:33 | XMS_ITS | Encounter Summary ---
Author Organization [facility] Address [address] [place] [address] Phone Care Team Providers Care Agitator Operator Name Role Phone Ethel Murray MD Primary Care Provider [phone] Encounter Details Date Type Department Care Team (Late st Contact Info) Description 05/26/2014 Documentation EM Family Medicine [address] [place] [address] Family Medicine, Physician [address] [place], [place] [address] Social History Tobacco Use Types Packs/Day Years [...] on filedocumented in this encounter Care Teams Agitator Operator Relationship Specialty Start Date End Date Ethel Murray MD [address] [place] [address] [place] [id number] PCP - General 04/25/17 11/27/22 documented as of this encounter
--- OUTSIDE RECORDS SUMMARY | 2025-07-12 19:33 | XMS_ITS | Encounter Summary ---
Author Organization [facility] Address [address] [place] [address] [place] [address] Phone Care Team Providers Care Drug Worker Name Role Phone Marita Toledo MD Primary Care Provid er Encounter Details Date Type Department Care Team (Late st Contact Info) Description 07/08/2025 Orders Only [facility] Gynecology Virtual Department [address] [place] [address] Marv Davis MD [address] [facility], [address] [place] [address] [email or web address] Social History Tobacco Use Types Packs/Day Years [...] Description 08/16/2025 10:30 AM EST Office Visit [facility] [address] [place] [address] Unknown, Unknown, Aga Cheng, HYDRAULIC AUTO JACK MECHANIC [address] [address] [email or web address] 08/24/2025 11:40 AM EST Office Visit [facility] [address] [place] [address] [place] [address] Marv Davis MD [address] [place] [address], [address] [place] [address] [email or web address] 10/07/2025 12:00 PM EST Office Visit [facility] Neurology [address] [place] [address] Edwin Pierson MD [address] [place] [address], [address] [place] [address] documented as of this encounter Visit Diagnoses Not on filedocumented in this encounter Care Teams Drug Worker Relationship Specialty Start Date End Date Marita Toledo MD [address] [place] [address] PCP - General Internal Medicine 04/12/22 documented as of this encounter Additional Source Comments The information contained in this document represents components of the legal health record. It is not the complete legal health record.[facility]
--- OUTSIDE RECORDS SUMMARY | 2025-07-12 19:34 | XMS_ITS | Encounter Summary ---
Author Organization [facility] Address [address] [place] [address] Phone Care Team Providers Care Deputy Building Guard Name Role Phone Ethel Murray MD Primary Care Provider [phone] Encounter Details Date Type Department Care Team (Late st Contact Info) Description 04/07/2014 Documentation EM Family Medicine [address] [place] [address] Family Medicine, Physician [address] [place], [place] [address] Social History Tobacco Use Types Packs/Day Years [...] on filedocumented in this encounter Care Teams Deputy Building Guard Relationship Specialty Start Date End Date Ethel Murray MD [address] [place] [address] [place] [address] PCP - General 04/25/17 11/27/22 documented as of this encounter
--- OUTSIDE RECORDS SUMMARY | 2025-07-12 19:34 | XMS_ITS | Encounter Summary ---
Author Organization [facility] Address [address] [place] [address] Phone Care Team Providers Care Intellectual Property Counsel Name Role Phone Ethel Murray MD Primary Care Provider [phone] Encounter Details Date Type Department Care Team (Late st Contact Info) Description 04/07/2014 Documentation EM Family Medicine [address] [place] [address] Family Medicine, Physician [address] [place], [place] 140461 Social History Tobacco Use Types Packs/Day Years [...] on filedocumented in this encounter Care Teams Intellectual Property Counsel Relationship Specialty Start Date End Date Ethel Murray MD [address] [place] [address] [place] [address] PCP - General 04/25/17 11/27/22 documented as of this encounter
--- OUTSIDE RECORDS SUMMARY | 2025-07-12 19:34 | XMS_ITS | Encounter Summary ---
Author Organization [facility] Address [address] [place] [address] Phone Care Team Providers Care Aerophysicist Name Role Phone Ethel Murray MD Primary Care Provider [phone] Encounter Details Date Type Department Care Team (Late st Contact Info) Description 04/07/2014 Documentation EM Family Medicine [address] [place] [address] Family Medicine, Physician [address] [place], [place] [address] Social History Tobacco Use Types Packs/Day Years [...] on filedocumented in this encounter Care Teams Aerophysicist Relationship Specialty Start Date End Date Ethel Murray MD [address] [place] [address] [place] [address] PCP - General 04/25/17 11/27/22 documented as of this encounter
--- OUTSIDE RECORDS SUMMARY | 2025-07-12 19:34 | XMS_ITS | Encounter Summary ---
Author Organization [facility] Address [address] [place] [address] Phone Care Team Providers Care Payroll Administrator Name Role Phone Ethel Murray MD Primary Care Provider [phone] Encounter Details Date Type Department Care Team (Late st Contact Info) Description 04/07/2014 Documentation EM Family Medicine [address] [place] [address] Family Medicine, Physician [address] [place], [place] [address] Social History Tobacco Use Types Packs/Day Years [...] on filedocumented in this encounter Care Teams Payroll Administrator Relationship Specialty Start Date End Date Ethel Murray MD [address] [place] [address] [place] [address] PCP - General 04/25/17 11/27/22 documented as of this encounter
== END 2025-07-12 16:19 | disposition home or self-care (01) ==
LOC: HO.HMCH 15:07
PROVIDERS: PCP Internal Medicine; Visit Provider Internal Medicine
DX: M54.50 Low back pain, unspecified (principal); G89.29 Other chronic pain; R10.9 Unspecified abdominal pain

== ENCOUNTER → 2025-07-12 15:05 | Outpatient (BNVA) | payer OTHER, SELFPAY | PROVIDERS: PCP Internal Medicine; Visit Provider Internal Medicine | DX: M54.50 Low back pain, unspecified (principal); R10.9 Unspecified abdominal pain; G89.29 Other chronic pain; Z98.84 Bariatric surgery status | CPT/HCPCS: 99212 ==